=== PATIENT | female | born 1985 | race Caucasian/White ===

== ENCOUNTER 2018-11-29 16:00 | Emergency (ER) | payer OTHER, MEDICAID, SELFPAY ==
[2018-11-29 16:03] VITALS: BP 111/78; PULSE 79; RESP 15; TEMP 36.7; O2SAT 99; BMI 25.7
[2018-11-29] MEDS: ONDANSETRON 4 MG/2 ML INJ IV (16:19)
[2018-11-29] MEDS: SODIUM CHLORIDE 0.9% 1,000 ML 1000 ML IV (16:20)
[2018-11-29 16:29] LABS: Add Manual Diff / Slide Review NO; Basophils Absolute Auto 0 /uL (0-100); Basophils Percent Auto 0.5 % (0-2); Eosinophils Absolute Auto 100 /uL (0-450); Eosinophils Percent Auto 1.3 % (2-4); Hematocrit 39.4 % (36-46); Hemoglobin 13.6 g/dL (12.0-16.0); Lymphocytes Absolute Auto 1500 /uL (1100-4500); Lymphocytes Percent Auto 19.1 % (25-40); Mean Corpuscular HGB Conc 34.6 % (30-36); Mean Corpuscular Hemoglobin 31.6 PG (26-34); Mean Corpuscular Volume 91.4 fL (80-100); Monocytes Absolute Auto 500 /uL (0-900); Neutrophils Absolute Auto 5600 /uL (1500-7000); Neutrophils Percent Auto 72.1 % (50-75); Platelet Count 287 X10^3/uL (150-400); Red Cell Distribution Width 12.6 % (11.6-14.8); White Blood Cell Count 7.7 X10^3/uL (4.5-11.0)
[2018-11-29 16:30] LABS: RBC Urine None Seen (0-5/HPF)
[2018-11-29 16:37] LABS: Alanine Aminotransferase 32 IU/L (9-52); Albumin 4.4 g/dL (3.5-5.0); Albumin Globulin Ratio 1.3 (1.0-2.8); Alkaline Phosphatase 80 U/L (38-126); Aspartate Aminotransferase 17 IU/L (14-36); Bilirubin Total 0.7 mg/dL (0.2-1.3); Blood Urea Nitrogen 12 mg/dL (7-17); Calcium 9.7 mg/dL (8.4-10.2); Carbon Dioxide 21 mmol/L (22-32); Chloride 105 mmol/L (98-107); Estimated Glomerular Filt Rate > 60.0 mL/min (>60); Globulin 3.3 g/dL (1.7-4.1); Glucose 79 mg/dL (70-100); HEMOLYSIS < 15 (0-50); Potassium 3.7 mmol/L (3.4-5.1); Sodium 140 mmol/L (137-145); Total Protein 7.7 g/dL (6.3-8.2)
[2018-11-29 16:38] LABS: Bacteria Urine Moderate (10-30); Culture Indicated Urine Cult Not Indicated; Squamous Epithelial Cell Urine 5-10 /HPF (0-5/HPF); WBC Urine 5-10/HPF (0-5/HPF)
--- NOTE | 2018-11-29 21:23 | ED_ITS ---
HPI - Nausea/Vomiting/Diarrhea <SANCHO Bledsoe - Last Filed: 11/29/18 21:43> General Chief complaint: Nausea/Vomiting/Diarrhea Stated complaint: SENT BY DR GIMENEZ Time Seen by Provider: 11/29/18 17:03 Source: patient Mode of arrival: ambulatory Limitations: no limitations History of Present Illness HPI Narrative: This is a 33 year old female, formal smoker, who presents to ED with nausea and vomiting. She is 7 week EGA with with AB1. Patient reports she had hyper emesis gravidarum with all her . She was referred here to ED by Dr. Gimenez. Patient reports has no vaginal bleeding, abdominal cramping, urinary frequency, fever. Patient was evaluated by Dr. Gimenez with pelvic ultrasound prior coming into ED, however, she had not had formal ultrasound test yet. She also states has been having constipation. Related Data Home Medications Medication Instructions Recorded Confirmed MULTIVITAMIN 1 tab PO QDAY #0 07/13/16 11/29/18 Previous Rx's Medication Instructions Recorded ondansetron 4 mg disintegrating 4 mg PO Q6H #30 tab 11/29/18 tablet Allergies Allergy/AdvReac Type Severity Reaction Status Date / Time No Known Drug Allergies Allergy Unknown Verified 11/29/18 16:03 [NO KNOWN DRUG ALLERGIES] EGGPLANT Allergy Mild HIVES, Uncoded 07/12/17 12:37 EGGPLANT Review of Systems <SANCHO Bledsoe - Last Filed: 11/29/18 21:43> Review of Systems ROS Unobtainable: All systems reviewed & are unremarkable except as noted in HPI and below PFSH <SANCHO Bledsoe - Last Filed: 11/29/18 21:43> Medical History Hyperemesis gravidarum (Acute) Social History Smoking Status: Former smoker Social History Smoking Status: Former smoker Exam <SANCHO Bledsoe - Last Filed: 11/29/18 21:43> Narrative Exam Narrative: General appearance: well developed, well nourished, in no acute distress. Head: normocephalic, atraumatic, no scalp lesions, non-tender. Eye: pupil equal, round. EOMI. Nose: nares patent. Oral: mucosa moist. Neck/Thyroid: neck supple, full range of motion, no visible masses. Skin: no suspicious rashes, lesions over visible areas. Warm and dry. Heart: no clubbing, no cyanosis, no edema. Lungs: Breathing even and unlabored. No stridor. No accessory muscles used. Chest: normal shape and expansion. Abdomen: non-obese, non-distended. Neurologic: alert and oriented. Cognitive exam, [place] TURNER and PNS grossly intact on informal exam. Psych: good eye contact, normal affect. Initial Vital Signs Initial Vital Signs: Vital Signs Temperature 98.0 F 11/29/18 16:03 Pulse Rate 79 11/29/18 16:03 Respiratory Rate 15 11/29/18 16:03 Blood Pressure 111/78 11/29/18 16:03 Pulse Oximetry 99 11/29/18 16:03 <Charisma Sanabria DO - Last Filed: 11/30/18 00:47> Initial Vital Signs Initial Vital Signs: Vital Signs Temperature 98.0 F 11/29/18 16:03 Pulse Rate 79 11/29/18 16:03 Respiratory Rate 15 11/29/18 16:03 Blood Pressure 111/78 11/29/18 16:03 Pulse Oximetry 99 11/29/18 16:03 Course <SANCHO Bledsoe - Last Filed: 11/29/18 21:43> Orders Ordered: ED Orders 11/29/18 16:15 Complete Blood Count AUTO DIFF Stat Comprehensive Metabolic Panel Stat Urine Microscopic Stat Discontinued Medications Sodium Chloride (Normal Saline 0.9%) 1,000 mls @ 1,000 mls/hr IV BOLUS ONE Stop: 11/29/18 17:11 Last Infusion: 11/29/18 17:13 Dose: 0 mls/hr Documented by: Admin: 11/29/18 16:20 Dose: 1,000 mls/hr Documented by: MAGDIEL Ondansetron HCl (Zofran) 4 mg IV NOW ONE Stop: 11/29/18 16:13 Last Admin: 11/29/18 16:19 Dose: 4 mg Documented by: MAGDIEL Vital Signs Vital signs: Vital Signs - 8 hr 11/29/18 16:03 Temperature 98.0 F Pulse Rate 79 Respiratory Rate 15 Blood Pressure 111/78 Pulse Oximetry 99 <Charisma Sanabria DO - Last Filed: 11/30/18 00:47> Orders Ordered: ED Orders 11/29/18 16:15 Complete Blood Count AUTO DIFF Stat Comprehensive Metabolic Panel Stat Urine Microscopic Stat Discontinued Medications Sodium Chloride (Normal Saline 0.9%) 1,000 mls @ 1,000 mls/hr IV BOLUS ONE Stop: 11/29/18 17:11 Last Infusion: 11/29/18 17:13 Dose: 0 mls/hr Documented by: Admin: 11/29/18 16:20 Dose: 1,000 mls/hr Documented by: MAGDIEL Ondansetron HCl (Zofran) 4 mg IV NOW ONE Stop: 11/29/18 16:13 Last Admin: 11/29/18 16:19 Dose: 4 mg Documented by: MAGDIEL Vital Signs Vital signs: Vital Signs - 8 hr 11/29/18 16:03 Temperature 98.0 F Pulse Rate 79 Respiratory Rate 15 Blood Pressure 111/78 Pulse Oximetry 99 MDM - Nausea/Vomiting/Diarrhea <SANCHO Bledsoe - Last Filed: 11/29/18 21:43> Differential Diagnosis Differential diagnosis: Likely gastroenteritis, dehydration and other (Hyperemesis gravidarum) Medical Records Attestation: I reviewed the patient's medical records. Lab Data Attestation: I reviewed the patient's lab results. Result diagrams: 11/29/18 16:15 11/29/18 16:15 Labs: Lab Results 11/29/18 11/29/18 11/29/18 Range/Units 16:15 16:15 16:15 WBC 7.7 (4.5-11.0) X10^3/uL RBC 4.30 (4.0-5.2) X10^6/uL Hgb 13.6 (12.0-16.0) g/dL Hct 39.4 (36-46) % MCV 91.4 (80-100) fL MCH 31.6 (26-34) PG MCHC 34.6 (30-36) % RDW 12.6 (11.6-14.8) % Plt Count 287 (150-400) X10^3/uL Neut % (Auto) 72.1 (50-75) % Lymph % (Auto) 19.1 L (25-40) % [place] % (Auto) 7.0 (3-14) % Eos % (Auto) 1.3 L (2-4) % Baso % (Auto) 0.5 (0-2) % Neut # (Auto) 5600 (8216-1056) /uL Lymph # (Auto) 1500 (9944-9087) /uL [place] # (Auto) 500 (0-900) /uL Eos # (Auto) 100 (0-450) /uL Baso # (Auto) 0 (0-100) /uL Sodium 140 (137-145) mmol/L Potassium 3.7 (3.4-5.1) mmol/L Chloride 105 (98-107) mmol/L Carbon Dioxide 21 L (22-32) mmol/L BUN 12 (7-17) mg/dL Creatinine 0.50 L (0.52-1.04) mg/dL Estimated GFR > 60.0 (>60) mL/min BUN/Creatinine Ratio 24.0 H (6-22) Glucose 79 (70-100) mg/dL Calcium 9.7 (8.4-10.2) mg/dL Total Bilirubin 0.7 (0.2-1.3) mg/dL AST 17 (14-36) IU/L ALT 32 (9-52) IU/L Alkaline Phosphatase 80 (38-126) U/L Total Protein 7.7 (6.3-8.2) g/dL Albumin 4.4 (3.5-5.0) g/dL Globulin 3.3 (1.7-4.1) g/dL Albumin/Globulin Ratio 1.3 (1.0-2.8) Urine RBC None seen (0-5/HPF) Urine WBC 5-10/hpf H (0-5/HPF) Ur Squamous Epith Cells 5-10 /hpf H (0-5/HPF) Urine Bacteria Moderate (10-30) H (None) Ur Culture Indicated? Cult not indicated Urine Dip Bedside Urine Glucose Negative Bedside Urine Bilirubin + 1 Bedside Urine Ketone +++ 80 Urine Specific Roca 1.025 Bedside Urine Occult Blood - Negative Bedside Urine pH 6.0 Bedside Urine Protein +/- 15 Bedside Urine Urobilinogen 1+ 2mg Bedside Urine Nitrite - Negative Bedside Urine Leukocytes ++ 125 Esterase MDM Narrative Medical decision making narrative: This is a 33-year-old female with with 1AB and currently 7 wk EGA and a patient of Dr. Gimenez. She was referred to ED for nausea and vomiting. Patient has a long history of hyper emesis is with H . She denies any vaginal bleeding, abdominal pain at this time. Once patient arrived to ED, patient was treated with IV fluid, Zofran before my evaluation. By then, patient are to felt better and her nausea was controlled. She states felt hungry and is ready to eat now. She was able to tolerate ice chips before discharge to home. The blood tests were unremarkable. Moderate bacteria with squamous epithelia cells due to possible contaminated sample. However, lab was contacted to request culture her urine and is pending at this time. Patient reports she has Zofran prescribed by Dr. Gimenez for home use. Return precautions were discussed with patient and patient advised to follow with Dr. Gimenez as scheduled. Patient agrees with the treatment plan and no further questions were expressed at this time. <Charisma Sanabria, DO - Last Filed: 11/30/18 00:47> Lab Data Labs: Lab Results 11/29/18 11/29/18 11/29/18 Range/Units 16:15 16:15 16:15 WBC 7.7 (4.5-11.0) X10^3/uL RBC 4.30 (4.0-5.2) X10^6/uL Hgb 13.6 (12.0-16.0) g/dL Hct 39.4 (36-46) % MCV 91.4 (80-100) fL MCH 31.6 (26-34) PG MCHC 34.6 (30-36) % RDW 12.6 (11.6-14.8) % Plt Count 287 (150-400) X10^3/uL Neut % (Auto) 72.1 (50-75) % Lymph % (Auto) 19.1 L (25-40) % [place] % (Auto) 7.0 (3-14) % Eos % (Auto) 1.3 L (2-4) % Baso % (Auto) 0.5 (0-2) % Neut # (Auto) 5600 (3165-3877) /uL Lymph # (Auto) 1500 (1259-7018) /uL [place] # (Auto) 500 (0-900) /uL Eos # (Auto) 100 (0-450) /uL Baso # (Auto) 0 (0-100) /uL Sodium 140 (137-145) mmol/L Potassium 3.7 (3.4-5.1) mmol/L Chloride 105 (98-107) mmol/L Carbon Dioxide 21 L (22-32) mmol/L BUN 12 (7-17) mg/dL Creatinine 0.50 L (0.52-1.04) mg/dL Estimated GFR > 60.0 (>60) mL/min BUN/Creatinine Ratio 24.0 H (6-22) Glucose 79 (70-100) mg/dL Calcium 9.7 (8.4-10.2) mg/dL Total Bilirubin 0.7 (0.2-1.3) mg/dL AST 17 (14-36) IU/L ALT 32 (9-52) IU/L Alkaline Phosphatase 80 (38-126) U/L Total Protein 7.7 (6.3-8.2) g/dL Albumin 4.4 (3.5-5.0) g/dL Globulin 3.3 (1.7-4.1) g/dL Albumin/Globulin Ratio 1.3 (1.0-2.8) Urine RBC None seen (0-5/HPF) Urine WBC 5-10/hpf H (0-5/HPF) Ur Squamous Epith Cells 5-10 /hpf H (0-5/HPF) Urine Bacteria Moderate (10-30) H (None) Ur Culture Indicated? Cult not indicated Urine Dip Bedside Urine Glucose Negative Bedside Urine Bilirubin + 1 Bedside Urine Ketone +++ 80 Urine Specific Roca 1.025 Bedside Urine Occult Blood - Negative Bedside Urine pH 6.0 Bedside Urine Protein +/- 15 Bedside Urine Urobilinogen 1+ 2mg Bedside Urine Nitrite - Negative Bedside Urine Leukocytes ++ 125 Esterase Discharge Plan Departure Patient Disposition: Home Clinical Impression: Hyperemesis gravidarum Discharge Date/Time: 11/29/18 19:23 Instructions: DI for Dehydration -- Adult, DI for Hyperemesis Gravidarum Activity Restrictions/Additional Instructions: You have been diagnosed with [hyper emesis gravidarum]. What to do: *Take your medications as directed. Take Zofran under the tongue as needed for nausea or vomiting. Please hydrate yourself adequately with small sips of liquids frequently afterwards. Then, advance the diet as bland as you can tolerate. You're urine sample is being cultured and you will get a phone call if you need antibiotic medication treatment. *Follow up with your primary care provider/OB doctor in 2-3 days, call for an appointment. Let them know you were seen in the ED and that we asked you to be seen in follow up. *Return to ED if you have any new, worsening, or concerning symptoms, such as [abdominal pain, heavy vaginal bleeding, fever, unable to tolerate liquids after the Zofran, chest pain, breathing trouble, any acute concerns]. Prescriptions: No Action MULTIVITAMIN 1 tab PO QDAY Qty: 0 RF: 0 ondansetron 4 mg tablet,disintegrating 4 mg PO Q6H Qty: 30 RF: 6 Referrals: Dolly Gimenez MD [Family Provider] - Wilfredo Ramirez MD [Primary Care Provider] -
== END 2018-11-29 19:23 | disposition home or self-care (01) ==
PROVIDERS: Emergency Medicine; Internal Medicine; Emergency Provider Nurse Practitioner Family; Family Provider Specialist; PCP Family Medicine
DX: O21.0 Mild hyperemesis gravidarum (principal); Z3A.01 Less than 8 weeks gestation of pregnancy
CPT/HCPCS: 36591; 80053; 81003; 81015; 85025; 96361; 96374; 99283; 99284; J2405

== ENCOUNTER 2018-12-09 15:01 | Emergency (ER) | payer OTHER, MEDICAID, SELFPAY ==
[2018-12-09 15:36] VITALS: BP 104/73; PULSE 67; RESP 16; TEMP 36.2; O2SAT 98; BMI 25.7
--- NOTE | 2018-12-09 16:58 | ED_ITS ---
HPI - Abdominal Pain <SANCHO Woody - Last Filed: 12/09/18 21:32> General Chief Complaint: Abdominal Pain Stated Complaint: 9wks , states blood in stool, but not sure Time Seen by Provider: 12/09/18 16:31 Source: patient Mode of arrival: ambulatory Limitations: no limitations History of Present Illness HPI narrative: 33- year old female , who is 9 weeks , presents emergency department complaining of constipation for the last week. She states that she has hyperemesis but was given ondansetron to take about a week ago. She feels that this medication has helped greatly but that it has made her constipated. She reports her last big bowel movement was 1 week ago, but today she had a very small bowel movement. She also states that she had a very small amount of bright red blood on the toilet paper today. She feels that it may be caused by hemorrhoid as she now has pain around her anus. She states she feels very constipated. Denies nausea, abdominal pain, vaginal bleeding, vaginal cramping, vomiting, fevers, chills, headaches, shortness of breath, confusion, or lower leg swelling. Related Data Home Medications Medication Instructions Recorded Confirmed MULTIVITAMIN 1 tab PO QDAY #0 07/13/16 11/29/18 Previous Rx's Medication Instructions Recorded ondansetron 4 mg disintegrating 4 mg PO Q6H #30 tab 11/29/18 tablet Allergies Allergy/AdvReac Type Severity Reaction Status Date / Time No Known Drug Allergies Allergy Unknown Verified 11/29/18 16:03 [NO KNOWN DRUG ALLERGIES] EGGPLANT Allergy Mild HIVES, Uncoded 07/12/17 12:37 EGGPLANT Review of Systems <SANCHO Woody - Last Filed: 12/09/18 21:32> Review of Systems Narrative: REVIEW OF SYSTEMS: GENERAL: Denies fever, chills, malaise, or wt. loss. HENT: No head trauma, sore throat, or dysphagia. EYES: No loss of vision, double vision, eye pain, or irritation. CARDIOVASCULAR: No chest pain, palpitations, or orthopnea. RESPIRATORY: No shortness of breath or cough. GASTROINTESTINAL: Complains of constipation and hemorrhoids, see HPI GENITOURINARY: No flank pain, urinary incontinence, hesitancy, frequency, or dysuria. No vaginal discharge, vaginal bleeding, or abdominal cramping. MUSCULOSKELETAL: No pain, weakness, or trauma. INTEGUMENTARY: No rash, lesions, or pruritus. NEURO: No numbness, tingling, memory loss, confusion, or headaches. PSYCH: No behavior or mood changes. PFSH <SANCHO Woody - Last Filed: 12/09/18 21:32> Medical History Hyperemesis gravidarum (Acute) Social History Smoking Status: Former smoker Social History Smoking Status: Former smoker Exam <SANCHO Woody - Last Filed: 12/09/18 21:32> Initial Vital Signs Initial Vital Signs: Vital Signs Temperature 97.2 F L 12/09/18 15:36 Pulse Rate 67 12/09/18 15:36 Respiratory Rate 16 12/09/18 15:36 Blood Pressure 104/73 12/09/18 15:36 Pulse Oximetry 98 12/09/18 15:36 PHYSICAL EXAMINATION: GENERAL: Well groomed, alert, and cooperative. Answers questions promptly and appropriately. Vital signs noted. HENT: Normocephalic, atraumatic. Hearing intact. Oral mucosa is pink and moist. EYES: Conjunctiva pink, sclera white, no periorbital swelling. CARDIOVASCULAR: S1 and S2 sounds normal. Regular rate and rhythm, no murmurs, clicks, or bruits. No pedal edema. RESPIRATORY: Normal respiratory rate, trachea midline, airway patent. No stridor, nasal flaring or accessory muscle use. Lungs are clear in all evans without wheeze, rhonchi, or crackles. GASTROINTESTINAL: Bowel sounds normoactive. Abdomen is soft, slightly distended, and non-tender. No organomegaly, no palpable masses. RECTAL: External non-thrombosed hemorrhoid noted on exam, no blood present on examination, small amount of hard stool palpated. GENITALURINARY: No flank tenderness. MUSCULOSKELETAL: Normal gait and coordination. Equal tone and mass bilaterally. EXTREMITIES: CMS intact, no pedal edema. SKIN: Warm, dry, soft, appropriate color for ethnicity. No lesions, rashes, or wounds. NEURO: Alert and Oriented X 3. Good coordination. No ataxia, or sensory deficits, or cognitive issues. PSYCH: Appropriate affect and mood. <Charisma Sanabria DO - Last Filed: 12/10/18 07:54> Initial Vital Signs Initial Vital Signs: Vital Signs Temperature 97.2 F L 12/09/18 15:36 Pulse Rate 67 12/09/18 15:36 Respiratory Rate 16 12/09/18 15:36 Blood Pressure 104/73 12/09/18 15:36 Pulse Oximetry 98 12/09/18 15:36 Course <SANCHO Woody - Last Filed: 12/09/18 21:32> Course Course Narrative: Patient was given a mineral oil enema without any relief of constipation. Patient stated she was nervous about having back to [place] after an enema. After much discussion, she was given a detail bowel regimen to try at home. Large amounts of water was encouraged. Patient states she has an appointment tomorrow with her OB, she was encouraged to keep that appointment for further evaluation. X-rays were not done as patient is currently . Consultations Consultation #1: Patient staffed with Dr. Sanabria. Vital Signs Vital signs: Vital Signs - 8 hr 12/09/18 15:36 12/09/18 18:59 Temperature 97.2 F L Pulse Rate 67 62 Respiratory Rate 16 15 Blood Pressure 104/73 Blood Pressure [Left Arm] 96/60 Pulse Oximetry 98 100 <Charisma Sanabria DO - Last Filed: 12/10/18 07:54> Vital Signs Vital signs: Vital Signs - 8 hr 12/09/18 15:36 12/09/18 18:59 Temperature 97.2 F L Pulse Rate 67 62 Respiratory Rate 16 15 Blood Pressure 104/73 Blood Pressure [Left Arm] 96/60 Pulse Oximetry 98 100 MDM - Abdominal Pain <SANCHO Woody - Last Filed: 12/09/18 21:32> Medical Records Attestation: I reviewed the patient's medical records. Lab Data Attestation: I reviewed the patient's lab results. MDM Narrative Medical decision making narrative: I suspect patient's symptoms are most likely caused by constipation as this is a side effect of Zofran, she reports only a small bowel movement today, she reports bloating and fullness without cramping, and she is currently . I also believed a small amount of blood on the toilet paper to be from her hemorrhoid that was visualized on exam. Only 1 enema was administered in the emergency department today as patient had a long drive home, both stool softeners and laxative that was approved for or recommended to the patient as well as hemorrhoid cream. I do not suspect an GI bleed in this patient as she only saw small amount of blood on the toilet paper today, she is hemodynamically stable, she denies any belly pain or vomitus. There is no reason to believe any complication with the is the time she denies any other symptoms including vaginal discharge, vaginal bleeding, abdominal cramping, headaches, or chest pain. Strict return precautions given and follow-up instructions discussed. Discharge Plan Departure Patient Disposition: Home Clinical Impression: Acute hemorrhoid Constipation Qualifiers: Constipation type: other constipation type Qualified Code(s): K59.09 - Other constipation Discharge Date/Time: 12/09/18 19:10 Instructions: DI for Constipation Activity Restrictions/Additional Instructions: Thank you for entrusting me with your care today. As discussed, the enema we gave you today should help relieve some of your constipation. Please take OTC senna 8.6mg/docusate sodium 100mg 1-2 times a day for the next week. These medications will help with constipation as well. You can use [id number] preparation H cream on his as needed for hemorrhoid pain. Please follow up with your provider as scheduled for tomorrow. Please remember to drink a lot of water. Return to the emergency department if you develop high fevers, chest pain, shortness of breath, dizziness, large amounts of blood in your stool. Prescriptions: No Action MULTIVITAMIN 1 tab PO QDAY Qty: 0 RF: 0 ondansetron 4 mg tablet,disintegrating 4 mg PO Q6H Qty: 30 RF: 6 Referrals: Dolly Gimenez MD [Primary Care Provider] -
[2018-12-09 18:59] VITALS: BP 96/60; PULSE 62; RESP 15; O2SAT 100
== END 2018-12-09 19:10 | disposition home or self-care (01) ==
PROVIDERS: Emergency Provider Nurse Practitioner; Family Provider Specialist; PCP Specialist
DX: O26.891 Other specified pregnancy related conditions, first trimester (principal); K64.9 Unspecified hemorrhoids; K59.09 Other constipation; Z3A.09 9 weeks gestation of pregnancy
CPT/HCPCS: 99282

== ENCOUNTER 2019-02-25 23:35 | Emergency (ER) | payer OTHER, MEDICAID, SELFPAY ==
[2019-02-25 23:35] VITALS: BP 107/75; PULSE 81; RESP 18; TEMP 36.5; O2SAT 100; BMI 26.1
[2019-02-26] MEDS: SODIUM CHLORIDE 0.9% 1,000 ML 1000 ML IV ×2 (00:09→01:22)
[2019-02-26] MEDS: ONDANSETRON 4 MG/2 ML INJ IV ×2 (00:09→02:12)
--- NOTE | 2019-02-26 00:09 | ED.NAVMDI ---
HPI - Nausea/Vomiting/Diarrhea General Chief complaint: Nausea/Vomiting/Diarrhea Stated complaint: fever last night vomiting all day 20 weeks preg Time Seen by Provider: 02/26/19 00:08 Source: patient Mode of arrival: Ambulatory Limitations: no limitations History of Present Illness HPI Narrative: 33-year-old female comes emergency department with complaint of fever yesterday, vomiting for the last several days. Patient states she has had vomiting at about 11 times. She has not been able to keep any fluids down. She states she has not had diarrhea. She has had normal bowel movements. She states she occasionally has a little cramping in her belly but relates that to vomiting. She is 20 weeks . Denies any headache that is new she has had migraines intermittently through her . She denies any chest pain or shortness of breath. No nasal congestion. No sore throat. She denies any dysuria but states her urine smells bad. She denies any new vaginal discharge or vaginal bleeding. She is 20 weeks today 02/26/2019, Dr. Gimenez is her OBGYN. She is G6,P4, A1. Patient had hyperemesis gravidarum with prior pregnancies but not with this one. She states her 2 children at home have been sick the last several days, one was vomiting the other nauseated. Related Data Home Medications Medication Instructions Recorded Confirmed MULTIVITAMIN 1 tab PO QDAY #0 07/13/16 11/29/18 Previous Rx's Medication Instructions Recorded ondansetron 4 mg disintegrating 4 mg PO Q6H #30 tab 11/29/18 tablet [id number]-kybcdvriwqagq-ucnqdxpd 1 cap PO Q4-6H PRN #20 cap 02/07/19 50 mg-325 mg-40 mg capsule hydrocodone 5 mg-acetaminophen 325 2 tab PO Q4-6H PRN #20 tab 02/15/19 mg tablet cephalexin [Keflex] 500 mg PO BID #14 cap 02/26/19 ondansetron HCl [Zofran] 4 mg PO Q6H PRN #10 tab 02/26/19 Allergies Allergy/AdvReac Type Severity Reaction Status Date / Time No Known Drug Allergies Allergy Unknown Verified 11/29/18 16:03 [NO KNOWN DRUG ALLERGIES] EGGPLANT Allergy Mild HIVES, Uncoded 07/12/17 12:37 EGGPLANT Review of Systems Review of Systems ROS Unobtainable: All systems reviewed & are unremarkable except as noted in HPI and below Patient History Medical History Hyperemesis gravidarum (Acute) Social History Smoking Status: Former smoker alcohol intake frequency: holidays/special occasions only Substance Use Type: does not use Exam Narrative Exam Narrative: GENERAL: Alert and oriented x three, well-nourished female in mild distress. Patient does appear pale and does appear that she does not feel well HEENT: Head normocephalic, atraumatic, EOMI, pupils reactive, face symmetric, moist mucous membranes NECK: Supple, full range of motion CARDIOVASCULAR: Regular rate and rhythm without murmurs, rubs or gallops. RESPIRATORY: Breath sounds equal bilaterally, no wheezes rales or rhonchi. ABDOMEN: Soft, nontender palpation. Gravid. Normoactive bowel sounds all 4 quadrants. No guarding or rebound, rigidity, no mass : No CVA tenderness EXTREMITIES: Normal range of motion, no clubbing or edema. Neurovascularly intact NEUROLOGICAL: Cranial nerves II through XII grossly intact. Moving all extremities SKIN: Warm, dry, no petechiae, no rashes or lesions. Initial Vital Signs Initial Vital Signs: Vital Signs Temperature 97.7 F 02/25/19 23:35 Pulse Rate 81 02/25/19 23:35 Respiratory Rate 18 02/25/19 23:35 Blood Pressure 107/75 02/25/19 23:35 Pulse Oximetry 100 02/25/19 23:35 Course Orders Ordered: ED Orders 02/25/19 23:58 Complete Blood Count AUTO DIFF Stat Comprehensive Metabolic Panel Stat Lipase Stat 02/26/19 00:12 Influenza A and B by PCR Rapid Stat 02/26/19 01:20 Urinalysis and Microscopic Stat Urine Culture Stat Discontinued Medications Cephalexin HCl (Keflex) 500 mg PO NOW ONE Stop: 02/26/19 01:58 Last Admin: 02/26/19 02:12 Dose: 500 mg Documented by: SOHEILA Sodium Chloride (Normal Saline 0.9%) 1,000 mls @ 1,000 mls/hr IV BOLUS ONE Stop: 02/26/19 00:57 Last Infusion: 02/26/19 01:11 Dose: 0 mls/hr Documented by: Admin: 02/26/19 00:09 Dose: 1,000 mls/hr Documented by: SOHEILA Sodium Chloride (Normal Saline 0.9%) 1,000 mls @ 1,000 mls/hr IV BOLUS ONE Stop: 02/26/19 02:12 Last Infusion: 02/26/19 02:28 Dose: 0 mls/hr Documented by: Admin: 02/26/19 01:22 Dose: 1,000 mls/hr Documented by: SOHEILA Ondansetron HCl (Zofran) 4 mg IV NOW ONE Stop: 02/25/19 23:58 Last Admin: 02/26/19 00:09 Dose: 4 mg Documented by: SOHEILA Ondansetron HCl (Zofran) 4 mg IV NOW ONE Stop: 02/26/19 02:08 Last Admin: 02/26/19 02:12 Dose: 4 mg Documented by: SOHEILA Vital Signs Vital signs: Vital Signs - 8 hr 02/25/19 23:35 02/26/19 01:30 02/26/19 02:56 Temperature 97.7 F 97.9 F Pulse Rate 81 84 80 Respiratory Rate 18 17 18 Blood Pressure 107/75 99/66 Blood Pressure [Left Arm] 92/46 L Pulse Oximetry 100 98 98 MDM - Nausea/Vomiting/Diarrhea Lab Data Attestation: I reviewed the patient's lab results. Result diagrams: 02/26/19 00:12 02/26/19 00:12 Labs: Lab Results 02/26/19 02/26/19 02/26/19 Range/Units 00:12 00:12 00:12 WBC 10.8 (4.5-11.0) X10^3/uL RBC 4.39 (4.0-5.2) X10^6/uL Hgb 13.8 (12.0-16.0) g/dL Hct 39.3 (36-46) % MCV 89.3 (80-100) fL MCH 31.5 (26-34) PG MCHC 35.2 (30-36) % RDW 12.6 (11.6-14.8) % Plt Count 325 (150-400) X10^3/uL Neut % (Auto) 88.0 H (50-75) % Lymph % (Auto) 8.4 L (25-40) % [place] % (Auto) 3.1 (3-14) % Eos % (Auto) 0.2 L (2-4) % Baso % (Auto) 0.3 (0-2) % Neut # (Auto) 9500 H (4112-7752) /uL Lymph # (Auto) 900 L (8850-0355) /uL Bollinger # (Auto) 300 (0-900) /uL Eos # (Auto) 0 (0-450) /uL Baso # (Auto) 0 (0-100) /uL Sodium 136 L (137-145) mmol/L Potassium 3.8 (3.4-5.1) mmol/L Chloride 105 (98-107) mmol/L Carbon Dioxide 21 L (22-32) mmol/L BUN 10 (7-17) mg/dL Creatinine 0.50 L (0.52-1.04) mg/dL Estimated GFR > 60.0 (>60) mL/min BUN/Creatinine Ratio 20.0 (6-22) Glucose 96 (70-100) mg/dL Calcium 9.7 (8.4-10.2) mg/dL Total Bilirubin 0.8 (0.2-1.3) mg/dL AST 17 (14-36) IU/L ALT 14 (<35) IU/L Alkaline Phosphatase 101 (38-126) U/L Total Protein 7.7 (6.3-8.2) g/dL Albumin 4.3 (3.5-5.0) g/dL Globulin 3.4 (1.7-4.1) g/dL Albumin/Globulin Ratio 1.3 (1.0-2.8) Lipase 54 (23-300) U/L Urine Color Urine Appearance Urine pH (4.5-8.0) Ur Specific [place] (1.000-1.035) Urine Protein (Negative) Urine Glucose (UA) (Negative) g/dL Urine Ketones (NEGATIVE) Urine Occult Blood (Negative) Urine Nitrate (Negative) Urine Bilirubin (NEGATIVE) Urine Urobilinogen (0.2) E.U./dL Ur Leukocyte Esterase (NEGATIVE) Urine RBC (0-5/HPF) Urine WBC (0-5/HPF) Ur Squamous Epith Cells (0-5/HPF) Urine Bacteria (None) Ur Culture Indicated? Influenza A & B (PCR) Negative (Negative) 02/26/19 Range/Units 01:20 WBC (4.5-11.0) X10^3/uL RBC (4.0-5.2) X10^6/uL Hgb (12.0-16.0) g/dL Hct (36-46) % MCV (80-100) fL MCH (26-34) PG MCHC (30-36) % RDW (11.6-14.8) % Plt Count (150-400) X10^3/uL Neut % (Auto) (50-75) % Lymph % (Auto) (25-40) % Bollinger % (Auto) (3-14) % Eos % (Auto) (2-4) % Baso % (Auto) (0-2) % Neut # (Auto) (3632-6611) /uL Lymph # (Auto) (0636-9658) /uL Bollinger # (Auto) (0-900) /uL Eos # (Auto) (0-450) /uL Baso # (Auto) (0-100) /uL Sodium (137-145) mmol/L Potassium (3.4-5.1) mmol/L Chloride (98-107) mmol/L Carbon Dioxide (22-32) mmol/L BUN (7-17) mg/dL Creatinine (0.52-1.04) mg/dL Estimated GFR (>60) mL/min BUN/Creatinine Ratio (6-22) Glucose (70-100) mg/dL Calcium (8.4-10.2) mg/dL Total Bilirubin (0.2-1.3) mg/dL AST (14-36) IU/L ALT (<35) IU/L Alkaline Phosphatase (38-126) U/L Total Protein (6.3-8.2) g/dL Albumin (3.5-5.0) g/dL Globulin (1.7-4.1) g/dL Albumin/Globulin Ratio (1.0-2.8) Lipase (23-300) U/L Urine Color Yellow Urine Appearance Slightly cloudy Urine pH 6.5 (4.5-8.0) Ur Specific [place] 1.015 (1.000-1.035) Urine Protein 1+ H (Negative) Urine Glucose (UA) Negative (Negative) g/dL Urine Ketones 3+ H (NEGATIVE) Urine Occult Blood Negative (Negative) Urine Nitrate Positive (Negative) Urine Bilirubin Negative (NEGATIVE) Urine Urobilinogen 0.2 (0.2) E.U./dL Ur Leukocyte Esterase Negative (NEGATIVE) Urine RBC None seen (0-5/HPF) Urine WBC 1-5/hpf (0-5/HPF) Ur Squamous Epith Cells 0-1 /hpf (0-5/HPF) Urine Bacteria Many (>30) H (None) Ur Culture Indicated? Specimen cultured Influenza A & B (PCR) (Negative) MDM Narrative Medical decision making narrative: Patient comes in with about 12 in 24 hours of vomiting. Urine does show ketones. She does have leukocyte esterase in with 20 weeks she also has nitrates was started on oral antibiotics. She have an elevated white count, she is not anemic, neutrophils are 88%. Electrolytes show sodium 136 with a CO2 of 21, potassium chloride and BUN are normal range with a normal creatinine. LFTs and lipase are normal as well. Influenza swab was negative. heart tones are in the 150s. Patient is feeling much better after 2 L of fluids, she did not urinate until the 2nd L it did have ketones. She has not had any more emesis but was given 1 additional dose of Zofran as she was still slightly nauseated. She has a couple tablets of Zofran at home from her prior pregnancies when she had hyperemesis but was given a prescription for several more. Plan to have her follow up with Dr. Gimenez in the short term and urine was sent for culture. Patient states that she did have MRSA in the past in her urine although I do not have any prior cultures for comparison so will wait for urine culture before changing antibiotics. Patient able to tolerate orals with no issue in the department. Discharge Plan Departure Patient Disposition: Home Clinical Impression: Vomiting, , Bacteriuria during Discharge Date/Time: 02/26/19 02:56 Instructions: Support (Alternative Therapy) Activity Restrictions/Additional Instructions: Follow up with Dr. Gimenez for recheck. Your urine was sent for culture this takes 48-72 hours to return. Take antibiotics until gone. Your prescription was sent to [facility] in [place]. Take zofran 4mg every 6 hours as needed for nausea. Return to the emergency department for fevers greater than 100.4 F, persistent vomiting, signs of dehydration, new abdominal pain, pelvic pain or flank pain black or bloody stools, vaginal bleeding, persistent contractions or other new or concerning symptoms Prescriptions: New cephalexin [Keflex] 500 mg capsule 500 mg PO BID Qty: 14 RF: 0 ondansetron HCl [Zofran] 4 mg tablet 4 mg PO Q6H PRN (Reason: nausea and vomiting) Qty: 10 RF: 0 No Action MULTIVITAMIN 1 tab PO QDAY Qty: 0 RF: 0 hydrocodone-acetaminophen 5-325 mg tablet 2 tab PO Q4-6H PRN (Reason: pain) Qty: 20 RF: 0 ondansetron 4 mg tablet,disintegrating 4 mg PO Q6H Qty: 30 RF: 6 lurzsehebs-ttsszsbpkgehp-opmm 50-325-40 mg capsule 1 cap PO Q4-6H PRN (Reason: headache) Qty: 20 RF: 0 Referrals: Dolly Gimenez MD [Primary Care Provider] - Stand Alone Forms: Work Release Note
[2019-02-26 00:25] LABS: Add Manual Diff / Slide Review NO; Basophils Absolute Auto 0 /uL (0-100); Basophils Percent Auto 0.3 % (0-2); Eosinophils Absolute Auto 0 /uL (0-450); Eosinophils Percent Auto 0.2 % (2-4); Hematocrit 39.3 % (36-46); Hemoglobin 13.8 g/dL (12.0-16.0); Lymphocytes Absolute Auto 900 /uL (1100-4500); Lymphocytes Percent Auto 8.4 % (25-40); Mean Corpuscular HGB Conc 35.2 % (30-36); Mean Corpuscular Hemoglobin 31.5 PG (26-34); Mean Corpuscular Volume 89.3 fL (80-100); Monocytes Absolute Auto 300 /uL (0-900); Monocytes Percent Auto 3.1 % (3-14); Neutrophils Absolute Auto 9500 /uL (1500-7000); Platelet Count 325 X10^3/uL (150-400); Red Blood Cell Count 4.39 X10^6/uL (4.0-5.2); Red Cell Distribution Width 12.6 % (11.6-14.8); White Blood Cell Count 10.8 X10^3/uL (4.5-11.0)
[2019-02-26 00:31] LABS: Alanine Aminotransferase 14 IU/L (<35); Albumin 4.3 g/dL (3.5-5.0); Albumin Globulin Ratio 1.3 (1.0-2.8); Alkaline Phosphatase 101 U/L (38-126); Aspartate Aminotransferase 17 IU/L (14-36); Bilirubin Total 0.8 mg/dL (0.2-1.3); Blood Urea Nitrogen 10 mg/dL (7-17); Calcium 9.7 mg/dL (8.4-10.2); Carbon Dioxide 21 mmol/L (22-32); Chloride 105 mmol/L (98-107); Estimated Glomerular Filt Rate > 60.0 mL/min (>60); Globulin 3.4 g/dL (1.7-4.1); Glucose 96 mg/dL (70-100); HEMOLYSIS < 15 (0-50); Lipase 54 U/L (23-300); Potassium 3.8 mmol/L (3.4-5.1); Sodium 136 mmol/L (137-145); Total Protein 7.7 g/dL (6.3-8.2)
[2019-02-26 00:36] LABS: Influenza A and B by PCR Rapid Negative (Negative)
[2019-02-26 01:30] VITALS: BP 92/46; PULSE 84; RESP 17; O2SAT 98
[2019-02-26 01:33] LABS: RBC Urine None Seen (0-5/HPF)
[2019-02-26 01:37] LABS: Bilirubin Urine UA NEGATIVE (NEGATIVE); Color Urine UA YELLOW; Glucose Urine UA NEGATIVE (Negative); Ketones Urine UA 3+ (NEGATIVE); Leukocyte Esterase Urine UA NEGATIVE (NEGATIVE); Nitrite Urine UA POSITIVE (Negative); Occult Blood Urine UA NEGATIVE (Negative); Protein Urine UA 1+ (Negative); Specific Gravity Urine UA 1.015 (1.000-1.035); Urobilinogen Urine UA 0.2 E.U./dL (0.2)
[2019-02-26 01:40] LABS: Appearance Urine UA Slightly Cloudy; pH Urine UA 6.5 (4.5-8.0)
[2019-02-26 01:53] LABS: Bacteria Urine Many (>30); Culture Indicated Urine Specimen Cultured; Squamous Epithelial Cell Urine 0-1 /HPF (0-5/HPF); WBC Urine 1-5/HPF (0-5/HPF)
[2019-02-26] MEDS: cephALEXin 250 MG CAPSULE 500 MG PO (02:12)
[2019-02-26 02:56] VITALS: BP 99/66; PULSE 80; RESP 18; TEMP 36.6; O2SAT 98
== END 2019-02-26 02:56 | disposition home or self-care (01) ==
PROVIDERS: Emergency Provider Emergency Medicine; Family Provider Specialist; PCP Specialist
DX: O26.892 Other specified pregnancy related conditions, second trimester (principal); O28.8 Other abnormal findings on antenatal screening of mother; Z3A.20 20 weeks gestation of pregnancy; R11.10 Vomiting, unspecified
CPT/HCPCS: 36415; 80053; 81001; 83690; 85025; 87077; 87086; 87186; 87502; 96361; 96374; 96376; 99283; 99284; J2405

== ENCOUNTER → 2019-03-07 15:35 | Outpatient (CLI) | payer OTHER, MEDICAID, SELFPAY ==
--- NOTE | 2019-03-07 15:42 | DI.US.S_ITS ---
PROCEDURE: US OB >= 14 WEEKS FETUS INDICATIONS: ANATOMY OUTSIDE/PRIOR DATING DATA: Last menstrual period (LMP): 10/09/2018. LMP-based estimated date of delivery (ZAHIDA): 07/16/2019. First dating scan (date and location): 11/29/2018. Estimated date of delivery (ZAHIDA) from first dating scan: 07/16/2019. TECHNIQUE: Real-time scanning was performed of the fetus, with image documentation and biometric measurements. COMPARISON: [facility], , OB >= 14 WEEKS FETUS, 02/07/2019, 11:22. FINDINGS: General: A single living intrauterine gestation is present. Presentation: Breech. Placenta: Placental position is anterior, without previa. Amniotic fluid index: 13.7 cm, normal range is 5-24 cm. heart rate: 144 beats per minute. Maternal cervical canal: 3.5 cm long. Normal lower limit is 2.5 cm. biometrics: Biparietal diameter: 4.8 cm. 20 weeks 3 days. Head circumference: 18.5 cm. 20 weeks 6 days. Abdominal circumference: 15.8 cm. 20 weeks 6 days. Femur length: 3.5 cm. 21 weeks 0 days. Estimated gestational age from initial scan: 21 weeks 2 days. Composite gestational age from present scan: 20 weeks 6 days. Estimated weight and percentile: 385 g. 25th percentile. Measurement variability for biometric dating: +/- 7 days from 14 weeks to 15 weeks 6 days gestation, +/- 10 days from 16 weeks to 21 weeks 6 days gestation, +/- 2 weeks from 22 weeks to 27 weeks 6 days gestation, +/- 3 weeks for 28 weeks gestation or later. weight reference: 4500 g or EFW >90/95% is considered macrosomia or large for gestational age. EFW <10% is small for gestational age. EFW 5% or less is considered intra-uterine growth restriction. Anatomic survey: Neuro: Ventricles are non-dilated at less than 10 mm. Cisterna magna is normal at 3-11 mm. Cerebellum is normal in size and morphology. Nuchal skin fold: Normal at less than 6 mm between 14-21 weeks gestational age. Face: Nose and lips, facial profile are normal. Spine: No evidence for spina bifida. Heart: 4-chambered heart is present, with normal ventricular outflow tracts. Diaphragm: Diaphragm is intact. Stomach: Left-sided stomach is present. Kidneys: No hydronephrosis. Normal is less than 5 mm in 2nd trimester, less than 7 mm in 3rd trimester. Cord: 3-vessel cord has orthotopic insertion. Bladder: Normal in size. Extremities: All 4 extremities identified. Other: Maternal ovaries are unremarkable. No maternal hydronephrosis. IMPRESSION: 1. [place] living intrauterine at 20 weeks 6/7 days based on today's ultrasound. This is concordant with the external assessment. 2. Normal placenta and amniotic fluid. 3. spine is not well seen secondary to lie. Otherwise normal anatomic survey. Followup ultrasound is recommended. Dictated by: Sandip Berman M.D. on 03/07/2019 at 17:41 Approved by: Sandip Berman M.D. on 03/07/2019 at 17:47
== END ==
PROVIDERS: Family Provider Specialist; PCP Specialist; Visit Provider Specialist
DX: Z36.89 Encounter for other specified antenatal screening (principal); Z3A.20 20 weeks gestation of pregnancy
CPT/HCPCS: 76811

== ENCOUNTER → 2019-04-11 13:46 | Outpatient (CLI) | payer OTHER, MEDICAID, SELFPAY ==
[2019-04-11 16:07] LABS: Hematocrit 36.5 % (36-46); Hemoglobin 12.8 g/dL (12.0-16.0)
[2019-04-11 16:42] LABS: GTT (PREG) 1 Hour PP 50gm Dose 122 mg/dL (76-139)
== END ==
PROVIDERS: Family Provider Specialist; PCP Specialist; Visit Provider Specialist
DX: Z34.82 Encounter for supervision of other normal pregnancy, second trimester (principal)
CPT/HCPCS: 36415; 82950; 85014; 85018; 86850

== ENCOUNTER → 2019-06-26 12:20 | Outpatient (CLI) | payer OTHER, MEDICAID, SELFPAY ==
[2019-06-27 13:33] LABS: Strep Grp B PCR NEG for Grp B Strep
== END ==
PROVIDERS: Family Provider Specialist; PCP Specialist; Visit Provider Specialist
DX: Z34.83 Encounter for supervision of other normal pregnancy, third trimester (principal); Z3A.36 36 weeks gestation of pregnancy
CPT/HCPCS: 87653

== ENCOUNTER 2019-07-10 22:21 | Inpatient (IN) | payer OTHER, MEDICAID, SELFPAY ==
--- NOTE | 2019-07-10 22:56 | PM.OBHP.1 ---
OB HPI Date/Time Date of admission: 07/10/19 Date Patient Seen: 07/10/19 Time Patient Seen: 22:56 History of Present Condition Chief complaint: observation of labor : 6 Para: 4 Estimated Date of Delivery: 07/17/19 Estimated Gestational Age (weeks): 39 Narrative: Alicia Tobin is a 33 year old female admitted with spontaneous vaginal delivery shortly after admission History of Present care: good care, initiated at week # (8), number of visits (13) and pounds weight gain (10) Dating criteria: LMP confirmed by 1st trimester US Ultrasounds: normal mid trimester US Obstetrical complications: none Medical complications: none Preadmission Labs Blood type: O (+) positive -: Antibody screen: negative, GBS status: negative, HBsAG: negative, HIV: negative and RPR/VDLR: negative -: Chlamydia screen: not detected and Gonorrhea screen: not detected -: Rubella: not immune and Varicella: immune HCAB: negative PAP: Normal 1 hr GTT: 122 Prior (ies) History: See ACOG form four vaginal deliveries Evaluation Evaluation Baseline heart rate: 120 (Less than 5 minutes of monitoring with deceleration) Uterine Contraction Intensity: Strong/Firm Cervical dilation (cm): 7 Cervical effacement (%): 100 station: -1 [facility] Social History Smoking Status: Former smoker Meds Home Medications and Allergies Home Medications Medication Instructions Recorded Confirmed Type omeprazole 40 mg capsule,delayed 40 mg PO DAILY #30 cap 06/12/19 06/12/19 Rx release ondansetron 4 mg disintegrating See Rx Instructions .ROUTE 06/24/19 Rx tablet .COMPLEX #20 each Double Electric breast Pump and #1 each 06/27/19 Rx Supplies Allergies Allergy/AdvReac Type Severity Reaction Status Date / Time acetaminophen [From Vicodin] AdvReac Unknown Hives Verified 06/12/19 14:31 hydrocodone [From Vicodin] AdvReac Unknown Hives Verified 06/12/19 14:31 EGGPLANT Allergy Mild HIVES, Uncoded 06/12/19 14:31 EGGPLANT Review of Systems Review of Systems Narrative: Patient denies leakage of fluid onset of contractions this evening ROS: Yes All systems reviewed with the patient and are negative except as otherwise documented Exam Narrative Exam Narrative: Patient did not have vital signs taken prior to delivery, blood pressure post delivery 119/81, pulse of 88 HEENT exam within normal limits. Lungs are clear to auscultation percussion. Heart is regular rate and rhythm no S3-S4 or murmurs. Abdomen is soft, nontender. Extremities without edema And nontender Assessment and Plan Assessment and Plan Assessment and Plan narrative: Ghulam multip 39 week gestation arrived and had precipitous delivery in the bed by the nurse.
--- NOTE | 2019-07-10 23:06 | P.PCNOB_ITS ---
Labor & Delivery Delivery date: 07/10/19 Intrapartal events: Precipitous Labor < 3 hours Delivery monitor: external FHT and external uterine Route of delivery: L&D Laceration Description: None Estimated blood loss (mL): 100 Anesthesia type: None Narrative: Patient arrived on Labor and delivery and had a precipitous delivery in the bed by the nurse. There was less than 5 minutes of monitoring of the heart rate. Per the nurse the head delivered and then the bag of water ruptured with meconium-stained fluid. Nuchal cord and body cord. Infant placed on maternal abdomen and cord clamped. The physician then arrived and cord bloods were obtained. The placenta delivered spontaneously, intact, with 3 vessels. There were no cervical, vaginal, or perineal tears. Baby 1: Presentation: vertex Placenta delivery description: Spontaneous cord vessel description: 3 Vessels score (1 min): 8 score (5 min): 9 Plan for aftercare: Routine care. Patient had requested tubal ligation but due to restrictions on elective procedures with the coronavirus we will have to postpone the procedure.
[2019-07-10 23:41] VITALS: BP 118/78
[2019-07-10] MEDS: IBUPROFEN 600 MG TABLET PO (23:41)
[2019-07-10] MEDS: DERMOPLAST SPRAY 20% 60 ML 1 SPRAY TOP (23:42)
[2019-07-11] MEDS: IBUPROFEN 600 MG TABLET PO (05:26)
[2019-07-11 06:53] LABS: Hematocrit 35.7 % (36-46); Hemoglobin 12.3 g/dL (12.0-16.0)
--- NOTE | 2019-07-11 11:24 | PM.OBPN.1 ---
Subjective - OB Subjective Patient comments: no complaints Kingsley baby status: doing well feeding status: exclusively breast feeding Date Patient Seen: 07/11/19 Time Patient Seen: 11:25 Interval history: Patient is doing well post vaginal delivery. She has a mild headache likely due to her lack of sleep. Minimal bleeding. She is urinating and ambulating well. Exam Vital Signs (past 8 hours): Blood pressure 120/78, pulse 78, temperature 98.8? Narrative Exam Narrative: Abdomen is soft, nontender. Uterus is firm, at U -2, nontender. Mild lochia. Extremities without edema and nontender. Objective Labs Result Diagrams: 07/11/19 06:16 Labs: Laboratory Results - last 24 hr 07/11/19 06:16 Hgb 12.3 Hct 35.7 L Assessment & Plan Assessment and Plan (1) Vaginal delivery: Status: Acute Current Visit: Yes Plan day: 1 plan OB: routine care Time Spent With Patient Time: Total time spent is greater than 50% in coordination of care (as documented) at patient's floor/unit and/or counseling patient: Time with patient: less than 15 minutes
--- NOTE | 2019-07-12 09:32 | P.DS_ITS ---
Discharge Providers Provider Date of admission: 07/10/19 22:21 Discharge Date: 07/12/19 Primary care physician: Dolly Gimenez MD Consults: 07/11/19 22:51 Consult to Electrical And [employer]ic Routine Comment: Discharge provider: Dolly Gimenez MD Summary Hospital Course Date Patient Seen: 07/12/19 Time Patient Seen: 09:33 Procedures: Spontaneous vaginal delivery Hospital Course: Patient arrived on Labor and delivery and had a precipitous delivery in bed by the nurse. Both she and the baby are doing well although the baby is SGA. She denies any headaches, scotomata, epigastric pain. She is urinating and ambulating well. She is breast-feeding without difficulty. Peripartum Data Infant Delivery Method: Natural Vaginal Laceration description: None Procedures: Spontaneous vaginal delivery complications: none 1: Gender: Male Disposition of : home Discharge Diagnosis (1) Vaginal delivery: Status: Acute Status at Discharge Cognitive/behavioral status at discharge: oriented Functional status at discharge: independent ambulation Overall status at discharge: patient is progressing back to baseline Time Spent with Patient Time attestation: Total time spent providing and/or coordinating discharge services: Time spent: Less than 30 minutes Objective Labs Result Diagrams: 07/11/19 06:16 Exam Vital Signs (past 8 hours): Blood pressure 105/72, pulse 61, temperature 98.0? Narrative Exam Narrative: Abdomen is soft, nontender. Uterus is firm, U -2, nontender. Extremities without edema and nontender. Patient's blood type is O-positive. She is rubella nonimmune so will receive the rubella vaccine prior to discharge. Patient declined the Tdap Discharge Plan Discharge Plan Patient Disposition: Home Discharge orders & Medications Prescriptions: New ibuprofen 600 mg Tablet 600 mg PO Q6HR PRN (Reason: Pain, Mild (1-3)) Qty: 20 RF: 0 Continued ondansetron 4 mg tablet,disintegrating See Rx Instructions .ROUTE .COMPLEX Qty: 20 RF: 0 No Action (DME) Double Electric breast Pump and Supplies See Rx Instructions .ROUTE .MEDSUPPLY Qty: 1 RF: 0 Follow up/Referrals: Dolly Gimenez MD [Primary Care Provider] - 6 Weeks Diet/Activity/Treatments Diet: Regular Activity: Nothing in vagina for 6 weeks Skin/Wound/Dressing Care Report to your healthcare provider any signs of infection, such as:: chills, fever Discharge Data Primary Care Provider: Dolly Gimenez
[2019-07-12 10:01] VITALS: BP 105/72; PULSE 61; RESP 17; TEMP 36.6
[2019-07-12] MEDS: MEASLES,MUMPS,RUBELLA VACC/PF 0.5 ML VIAL SUBCUT (11:59)
== END 2019-07-12 13:05 | disposition home or self-care (01) | DRG 560 ==
PROVIDERS: Admitting Provider Specialist; Family Provider Specialist; PCP Specialist; Referring Provider Specialist; Visit Provider Specialist
DX: O62.3 Precipitate labor (principal); Z3A.39 39 weeks gestation of pregnancy; Z37.0 Single live birth; O77.0 Labor and delivery complicated by meconium in amniotic fluid; O69.81X0 Labor and delivery complicated by cord around neck, without compression, not applicable or unspecified
CPT/HCPCS: 36415; 59409; 85014; 85018; G0379

== ENCOUNTER 2020-01-05 13:06 | Inpatient (IN) | payer OTHER, MEDICAID, SELFPAY ==
[2020-01-05] VITALS (21 sets, daily range): BP systolic 94–120; BP diastolic 57–85; PULSE 101–127; RESP 16–24; TEMP 37.4–38.8; O2SAT 95–100; BMI 29.2
--- NOTE | 2020-01-05 13:12 | DI.CT.S_ITS ---
PROCEDURE: CT ABDOMEN PELVIS W CON INDICATIONS: right sided pain TECHNIQUE: After the administration of intravenous contrast, 5 mm thick sections acquired from the diaphragm to the symphysis. 5 mm coronal and sagittal reformats were acquired. For radiation dose reduction, the following was used: automated exposure control, adjustment of mA and/or kV according to patient size. COMPARISON: None. FINDINGS: Image quality: Excellent. ABDOMEN: Lung bases: Lung bases are clear. Heart size is normal. Solid organs: Liver is normal in size and enhancement. Gallbladder unremarkable. Biliary system is non dilated. Pancreas enhances normally. Spleen is normal in size and enhancement. No adrenal nodules. Kidneys demonstrate normal size and enhancement, without hydronephrosis. Peritoneum and bowel: Bowel loops demonstrate normal wall thickness and caliber. Normal appendix. No free fluid or air. Nodes and vessels: No retroperitoneal or mesenteric adenopathy by size criteria. Aorta and inferior vena cava are normal in size. Miscellaneous: No ventral hernias. PELVIS: Genitourinary: Bladder wall thickness is normal. Anteverted uterus. Corpus luteum follicle of the left ovary. Miscellaneous: No inguinal hernias or adenopathy. Bones: No suspicious bony lesions. No vertebral body compression fractures. IMPRESSION: No acute intra-abdominal abnormality. Dictated by: Vidal Mccall M.D. on 01/05/2020 at 13:25 Approved by: Vidal Mccall M.D. on 01/05/2020 at 13:30
--- NOTE | 2020-01-05 13:17 | ED.FEVER ---
HPI - Fever General Chief Complaint: Fever Stated Complaint: Flank pain/ fever Time Seen by Provider: 01/05/20 13:12 Source: patient and EMS Mode of arrival: EMS Limitations: no limitations History of Present Illness HPI Narrative: Patient is a 34-year-old with history of UTI, who presents with right-sided flank pain abdominal pain groin pain and fever of 100.4. She says it started last evening she actually is having left-sided flank pain as well. She was driving here P[place] when the pain got to be so intense that they had to meat puller and call EMS. sHe is also complaining of a headache which started today as well she states that she has had some low back pain ongoing for the last 2 days. She has a history of pyelonephritis. MD complaint: fever Related Data Home Medications Medication Instructions Recorded Confirmed Adult Probiotic PO DAILY 01/05/20 Previous Rx's Medication Instructions Recorded Double Electric breast Pump and #1 each 06/27/19 Supplies Allergies Allergy/AdvReac Type Severity Reaction Status Date / Time tetanus and diphtheria Allergy Intermediate Difficulty Verified 07/11/19 00:30 toxoids Breathing hydrocodone [From Vicodin] AdvReac Unknown Hives Verified 06/12/19 14:31 EGGPLANT Allergy Mild HIVES, Uncoded 06/12/19 14:31 EGGPLANT Review of Systems Review of Systems ROS Unobtainable: All systems reviewed & are unremarkable except as noted in HPI and below Constitutional Constitutional: Reports body ache(s), Denies chills, Reports fever(s), Reports headache(s) and Reports weakness ENT Ears, Nose, Mouth, and Throat: Reports headache(s) Cardiovascular Cardiovascular: Denies chest pain, Denies irregular heart rhythm, Denies lightheadedness, Denies palpitations, Denies dyspnea, Denies dyspnea on exertion and Denies orthopnea Respiratory Respiratory: Denies cough, Denies dyspnea, Denies dyspnea on exertion and Denies wheezing Genitourinary Genitourinary: Reports as per HPI Genitourinary: Reports as per HPI Musculoskeletal Musculoskeletal: Denies back pain and Denies myalgias Integumentary/Breasts Skin/Breast: Denies pruritus, Denies erythema, Denies rash and Denies wounds Neurologic Neurologic: Reports headache(s) and Reports weakness Endocrine Endocrine: Denies palpitations Allergic/Immunologic Allergic/Immunologic: Denies wheezing Patient History Medical History Hyperemesis gravidarum (Acute) Vaginal delivery (Acute) Social History household members: significant other and children Smoking Status: Never smoker Smoking Status: Never smoker alcohol intake frequency: holidays/special occasions only Substance Use Type: does not use Exam Initial Vital Signs Initial Vital Signs: Vital Signs Temperature 100.4 F H 01/05/20 13:14 Pulse Rate 110 H 01/05/20 13:14 Respiratory Rate 16 01/05/20 13:14 Blood Pressure 120/80 01/05/20 13:14 Pulse Oximetry 100 01/05/20 13:14 GENERAL: Young female appears to not feel well HEENT: Head atraumatic,EOMI, pupils reactive, face symmetric, moist mucous membranes CARDIOVASCULAR: Regular rate and rhythm without murmurs, rubs or gallops. RESPIRATORY: Breath sounds equal bilaterally, no wheezes rales or rhonchi. ABDOMEN: Soft, nontender. Normoactive bowel sounds all 4 quadrants. No guarding or rebound. : Bilateral CVA tenderness more on right than left EXTREMITIES: Normal range of motion, no clubbing or edema. Neurovascularly intact NEUROLOGICAL: Alert and oriented x4.Normal gait and speech. SKIN: Warm, dry, no laceration, no petechiae, no rashes or lesions. Course Orders Ordered: Acetaminophen (Tylenol) 650 mg PO Q6HR PRN PRN Reason: Fever/Mild Pain (1-3) Enoxaparin Sodium (Lovenox) 40 mg SUBCUT DAILY MACHO Sodium Chloride (Normal Saline 0.9%) 1,000 mls @ 175 mls/hr IV CONT MACHO Last Infusion: 01/06/20 05:25 Dose: 0 mls/hr Documented by: Admin: 01/06/20 05:25 Dose: 175 mls/hr Documented by: Infusion: 01/06/20 05:25 Dose: 175 mls/hr Documented by: Admin: 01/05/20 23:43 Dose: 175 mls/hr Documented by: ABHISHEK Ceftriaxone Sodium/Dextrose (Rocephin) 1 gm in 50 mls @ 100 mls/hr IV Q24H MACHO Ibuprofen (Advil) 600 mg PO Q6HR PRN PRN Reason: Fever/Mild Pain (1-3) Ketorolac Tromethamine (Toradol) 15 mg IV Q6H PRN PRN Reason: Pain, Moderate (4-6) Stop: 01/11/20 03:37 Last Admin: 01/06/20 03:49 Dose: 15 mg Documented by: ABHISHEK Metoclopramide HCl (Reglan) 10 mg IV Q6HR PRN PRN Reason: Nausea And Vomiting Morphine Sulfate (Morphine) 2 mg IV Q4HR PRN PRN Reason: Pain, Moderate (4-6) Last Admin: 01/06/20 07:25 Dose: 2 mg Documented by: RENEE Naloxone HCl (Narcan) 0.2 mg IV Q2MIN PRN PRN Reason: Opiate Reversal Ondansetron HCl (Zofran) 4 mg IV Q6H PRN PRN Reason: Nausea And Vomiting Discontinued Medications Acetaminophen (Tylenol) 975 mg PO NOW ONE Stop: 01/05/20 15:33 Last Admin: 01/05/20 15:37 Dose: 975 mg Documented by: SHERYL Acetaminophen (Tylenol) 650 mg OH NOW ONE Stop: 01/05/20 22:38 Last Admin: 01/05/20 22:46 Dose: 650 mg Documented by: LISA Hydromorphone HCl (Dilaudid) 0.5 mg IV NOW ONE Stop: 01/05/20 17:14 Last Admin: 01/05/20 17:17 Dose: 0.5 mg Documented by: YANELYIN Hydromorphone HCl (Dilaudid) 0.5 mg IV NOW ONE Stop: 01/05/20 18:26 Last Admin: 01/05/20 18:36 Dose: 0.5 mg Documented by: ALFREDA Sodium Chloride (Normal Saline 0.9%) 1,000 mls @ 1,000 mls/hr IV BOLUS ONE Stop: 01/05/20 14:36 Last Infusion: 01/05/20 15:17 Dose: 0 mls/hr Documented by: Admin: 01/05/20 13:42 Dose: 1,000 mls/hr Documented by: SHERYL Ceftriaxone Sodium/Dextrose (Rocephin) 1 gm in 50 mls @ 100 mls/hr IV NOW ONE Stop: 01/05/20 15:57 Last Infusion: 01/05/20 16:15 Dose: 0 mls/hr Documented by: Admin: 01/05/20 15:37 Dose: 100 mls/hr Documented by: RMARTIN Sodium Chloride (Normal Saline 0.9%) 1,000 mls @ 1,000 mls/hr IV BOLUS ONE Stop: 01/05/20 16:49 Last Infusion: 01/05/20 17:06 Dose: 0 mls/hr Documented by: Admin: 01/05/20 15:52 Dose: 1,000 mls/hr Documented by: RMARTIN Sodium Chloride (Normal Saline 0.9%) 1,000 mls @ 1,000 mls/hr IV BOLUS ONE Stop: 01/05/20 18:14 Last Infusion: 01/05/20 18:57 Dose: 0 mls/hr Documented by: Admin: 01/05/20 17:17 Dose: 1,000 mls/hr Documented by: SHERYL Ketorolac Tromethamine (Toradol) 30 mg IV NOW ONE Stop: 01/05/20 13:13 Last Admin: 01/05/20 13:20 Dose: 30 mg Documented by: CARRILLO Morphine Sulfate (Morphine) 2 mg IV NOW ONE Stop: 01/05/20 15:29 Last Admin: 01/05/20 15:50 Dose: Not Given Documented by: SHERYL Ondansetron HCl (Zofran) 4 mg IV NOW ONE Stop: 01/05/20 21:50 Last Admin: 01/05/20 21:54 Dose: 4 mg Documented by: LISA Ondansetron HCl (Zofran) 4 mg IV NOW ONE Stop: 01/05/20 22:57 Last Admin: 01/05/20 23:07 Dose: Not Given Documented by: LISA Vital Signs Vital signs: Vital Signs - 8 hr 01/05/20 13:14 01/05/20 13:15 01/05/20 13:18 Temperature 100.4 F H Pulse Rate 110 H 110 H 103 H Respiratory Rate 16 17 16 Blood Pressure 120/80 120/80 Pulse Oximetry 100 100 100 01/05/20 13:30 01/05/20 13:48 01/05/20 14:16 Temperature Pulse Rate 106 H 101 H 101 H Respiratory Rate 18 19 19 Blood Pressure 112/74 112/74 116/72 Pulse Oximetry 98 95 98 01/05/20 14:30 01/05/20 15:00 01/05/20 15:30 Temperature Pulse Rate 103 H 114 H 125 H Respiratory Rate 22 24 24 Blood Pressure 111/73 109/74 105/63 Pulse Oximetry 96 100 99 01/05/20 16:00 01/05/20 16:30 01/05/20 17:00 Temperature Pulse Rate 107 H 109 H 111 H Respiratory Rate 16 19 21 Blood Pressure 110/74 102/69 107/73 Pulse Oximetry 100 100 01/05/20 17:20 01/05/20 17:35 01/05/20 17:45 Temperature 99.3 F Pulse Rate 127 H 117 H Respiratory Rate 16 Blood Pressure 112/75 Pulse Oximetry 97 98 01/05/20 18:00 01/05/20 18:30 Temperature Pulse Rate 114 H 117 H Respiratory Rate 20 23 Blood Pressure 115/73 114/72 Pulse Oximetry 97 97 MDM - Fever Lab Data Attestation: I reviewed the patient's lab results. Result diagrams: 01/06/20 04:57 01/06/20 04:57 Labs: Lab Results 01/05/20 01/05/20 01/05/20 Range/Units 13:11 13:11 13:11 WBC 11.3 H (4.5-11.0) X10^3/uL RBC 4.21 (4.0-5.2) X10^6/uL Hgb 13.3 (12.0-16.0) g/dL Hct 39.1 (36-46) % MCV 92.9 (80-100) fL MCH 31.7 (26-34) PG MCHC 34.2 (30-36) % RDW 13.3 (11.6-14.8) % Plt Count 239 (150-400) X10^3/uL Neut % (Auto) 84.5 H (50-75) % Lymph % (Auto) 7.0 L (25-40) % [place] % (Auto) 8.2 (3-14) % Eos % (Auto) 0.1 L (2-4) % Baso % (Auto) 0.2 (0-2) % Neut # (Auto) 9600 H (1144-1458) /uL Lymph # (Auto) 800 L (3940-8525) /uL [place] # (Auto) 900 (0-900) /uL Eos # (Auto) 0 (0-450) /uL Baso # (Auto) 0 (0-100) /uL D-Dimer (<230) ng/mL Sodium 137 (137-145) mmol/L Potassium 3.5 (3.4-5.1) mmol/L Chloride 106 (98-107) mmol/L Carbon Dioxide 22 (22-32) mmol/L BUN 13 (7-17) mg/dL Creatinine 0.69 (0.52-1.04) mg/dL Estimated GFR > 60.0 (>60) mL/min BUN/Creatinine Ratio 18.8 (6-22) Glucose 108 H (70-100) mg/dL Lactate (0.7-2.1) mmol/L Calcium 9.1 (8.4-10.2) mg/dL Total Bilirubin 1.1 (0.2-1.3) mg/dL AST 47 H (14-36) IU/L ALT 68 H (<35) IU/L Alkaline Phosphatase 119 (38-126) U/L Total Creatine Kinase (30-135) U/L CK-MB (CK-2) CK-MB (CK-2) Rel Index Troponin I (0.01-0.034) ng/mL Total Protein 7.7 (6.3-8.2) g/dL Albumin 4.4 (3.5-5.0) g/dL Globulin 3.3 (1.7-4.1) g/dL Albumin/Globulin Ratio 1.3 (1.0-2.8) Procalcitonin 0.11 (<0.5) ng/mL Urine RBC (0-5/HPF) Urine WBC (0-5/HPF) Ur Squamous Epith Cells (0-5/HPF) Urine Bacteria (None) Ur Culture Indicated? U Opiates 300ng/mL cut (Negative) Ur Oxycodone Screen (Negative) Urine Methadone Screen (Negative) Ur Barbiturates Screen (Negative) U Tricyclic Antidepress (Negative) Ur Phencyclidine Scrn (Negative) Ur Amphetamines Screen (Negative) U Methamphetamines Scrn (Negative) Ur MDMA Scrn (Ecstasy) (Negative) U Benzodiazepines Scrn (Negative) Urine Cocaine Screen (Negative) U Marijuana (THC) Screen (Negative) COVID-19 PCR (Negative) 01/05/20 01/05/20 01/05/20 Range/Units 13:11 13:11 13:11 WBC (4.5-11.0) X10^3/uL RBC (4.0-5.2) X10^6/uL Hgb (12.0-16.0) g/dL Hct (36-46) % MCV (80-100) fL MCH (26-34) PG MCHC (30-36) % RDW (11.6-14.8) % Plt Count (150-400) X10^3/uL Neut % (Auto) (50-75) % Lymph % (Auto) (25-40) % [place] % (Auto) (3-14) % Eos % (Auto) (2-4) % Baso % (Auto) (0-2) % Neut # (Auto) (3359-5231) /uL Lymph # (Auto) (7035-2675) /uL [place] # (Auto) (0-900) /uL Eos # (Auto) (0-450) /uL Baso # (Auto) (0-100) /uL D-Dimer 352 H (<230) ng/mL Sodium (137-145) mmol/L Potassium (3.4-5.1) mmol/L Chloride (98-107) mmol/L Carbon Dioxide (22-32) mmol/L BUN (7-17) mg/dL Creatinine (0.52-1.04) mg/dL Estimated GFR (>60) mL/min BUN/Creatinine Ratio (6-22) Glucose (70-100) mg/dL Lactate 1.4 (0.7-2.1) mmol/L Calcium (8.4-10.2) mg/dL Total Bilirubin (0.2-1.3) mg/dL AST (14-36) IU/L ALT (<35) IU/L Alkaline Phosphatase (38-126) U/L Total Creatine Kinase 49 (30-135) U/L CK-MB (CK-2) TNP CK-MB (CK-2) Rel Index TNP Troponin I < 0.012 (0.01-0.034) ng/mL Total Protein (6.3-8.2) g/dL Albumin (3.5-5.0) g/dL Globulin (1.7-4.1) g/dL Albumin/Globulin Ratio (1.0-2.8) Procalcitonin (<0.5) ng/mL Urine RBC (0-5/HPF) Urine WBC (0-5/HPF) Ur Squamous Epith Cells (0-5/HPF) Urine Bacteria (None) Ur Culture Indicated? U Opiates 300ng/mL cut (Negative) Ur Oxycodone Screen (Negative) Urine Methadone Screen (Negative) Ur Barbiturates Screen (Negative) U Tricyclic Antidepress (Negative) Ur Phencyclidine Scrn (Negative) Ur Amphetamines Screen (Negative) U Methamphetamines Scrn (Negative) Ur MDMA Scrn (Ecstasy) (Negative) U Benzodiazepines Scrn (Negative) Urine Cocaine Screen (Negative) U Marijuana (THC) Screen (Negative) COVID-19 PCR (Negative) 01/05/20 01/05/20 01/05/20 Range/Units 13:31 13:38 13:38 WBC (4.5-11.0) X10^3/uL RBC (4.0-5.2) X10^6/uL Hgb (12.0-16.0) g/dL Hct (36-46) % MCV (80-100) fL MCH (26-34) PG MCHC (30-36) % RDW (11.6-14.8) % Plt Count (150-400) X10^3/uL Neut % (Auto) (50-75) % Lymph % (Auto) (25-40) % [place] % (Auto) (3-14) % Eos % (Auto) (2-4) % Baso % (Auto) (0-2) % Neut # (Auto) (5567-3517) /uL Lymph # (Auto) (6272-4643) /uL [place] # (Auto) (0-900) /uL Eos # (Auto) (0-450) /uL Baso # (Auto) (0-100) /uL D-Dimer (<230) ng/mL Sodium (137-145) mmol/L Potassium (3.4-5.1) mmol/L Chloride (98-107) mmol/L Carbon Dioxide (22-32) mmol/L BUN (7-17) mg/dL Creatinine (0.52-1.04) mg/dL Estimated GFR (>60) mL/min BUN/Creatinine Ratio (6-22) Glucose (70-100) mg/dL Lactate 1.7 (0.7-2.1) mmol/L Calcium (8.4-10.2) mg/dL Total Bilirubin (0.2-1.3) mg/dL AST (14-36) IU/L ALT (<35) IU/L Alkaline Phosphatase (38-126) U/L Total Creatine Kinase (30-135) U/L CK-MB (CK-2) CK-MB (CK-2) Rel Index Troponin I (0.01-0.034) ng/mL Total Protein (6.3-8.2) g/dL Albumin (3.5-5.0) g/dL Globulin (1.7-4.1) g/dL Albumin/Globulin Ratio (1.0-2.8) Procalcitonin (<0.5) ng/mL Urine RBC 0-1/hpf (0-5/HPF) Urine WBC 10-30/hpf H (0-5/HPF) Ur Squamous Epith Cells 0-1 /hpf (0-5/HPF) Urine Bacteria Few (2-10) H (None) Ur Culture Indicated? Specimen cultured U Opiates 300ng/mL cut Negative (Negative) Ur Oxycodone Screen Negative (Negative) Urine Methadone Screen Negative (Negative) Ur Barbiturates Screen Negative (Negative) U Tricyclic Antidepress Negative (Negative) Ur Phencyclidine Scrn Negative (Negative) Ur Amphetamines Screen Negative (Negative) U Methamphetamines Scrn Negative (Negative) Ur MDMA Scrn (Ecstasy) Negative (Negative) U Benzodiazepines Scrn Negative (Negative) Urine Cocaine Screen Negative (Negative) U Marijuana (THC) Screen Negative (Negative) COVID-19 PCR (Negative) 01/05/20 Range/Units 18:53 WBC (4.5-11.0) X10^3/uL RBC (4.0-5.2) X10^6/uL Hgb (12.0-16.0) g/dL Hct (36-46) % MCV (80-100) fL MCH (26-34) PG MCHC (30-36) % RDW (11.6-14.8) % Plt Count (150-400) X10^3/uL Neut % (Auto) (50-75) % Lymph % (Auto) (25-40) % [place] % (Auto) (3-14) % Eos % (Auto) (2-4) % Baso % (Auto) (0-2) % Neut # (Auto) (9200-2202) /uL Lymph # (Auto) (1780-9366) /uL [place] # (Auto) (0-900) /uL Eos # (Auto) (0-450) /uL Baso # (Auto) (0-100) /uL D-Dimer (<230) ng/mL Sodium (137-145) mmol/L Potassium (3.4-5.1) mmol/L Chloride (98-107) mmol/L Carbon Dioxide (22-32) mmol/L BUN (7-17) mg/dL Creatinine (0.52-1.04) mg/dL Estimated GFR (>60) mL/min BUN/Creatinine Ratio (6-22) Glucose (70-100) mg/dL Lactate (0.7-2.1) mmol/L Calcium (8.4-10.2) mg/dL Total Bilirubin (0.2-1.3) mg/dL AST (14-36) IU/L ALT (<35) IU/L Alkaline Phosphatase (38-126) U/L Total Creatine Kinase (30-135) U/L CK-MB (CK-2) CK-MB (CK-2) Rel Index Troponin I (0.01-0.034) ng/mL Total Protein (6.3-8.2) g/dL Albumin (3.5-5.0) g/dL Globulin (1.7-4.1) g/dL Albumin/Globulin Ratio (1.0-2.8) Procalcitonin (<0.5) ng/mL Urine RBC (0-5/HPF) Urine WBC (0-5/HPF) Ur Squamous Epith Cells (0-5/HPF) Urine Bacteria (None) Ur Culture Indicated? U Opiates 300ng/mL cut (Negative) Ur Oxycodone Screen (Negative) Urine Methadone Screen (Negative) Ur Barbiturates Screen (Negative) U Tricyclic Antidepress (Negative) Ur Phencyclidine Scrn (Negative) Ur Amphetamines Screen (Negative) U Methamphetamines Scrn (Negative) Ur MDMA Scrn (Ecstasy) (Negative) U Benzodiazepines Scrn (Negative) Urine Cocaine Screen (Negative) U Marijuana (THC) Screen (Negative) COVID-19 PCR Negative (Negative) Point of Care Testing Test Results Negative Urine Dip Bedside Urine Glucose Negative Bedside Urine Bilirubin - Negative Urine Specific [place] 1.015 Bedside Urine Occult Blood - Negative Bedside Urine pH 8.5 Bedside Urine Protein - Negative Bedside Urine Urobilinogen - Negative Bedside Urine Nitrite - Negative Bedside Urine Leukocytes + [address] scan - abdomen/pelvis: Radiologist's Impression: PROCEDURE: CT ABDOMEN PELVIS W CON INDICATIONS: right sided pain TECHNIQUE: After the administration of intravenous contrast, 5 mm thick sections acquired from the diaphragm to the symphysis. 5 mm coronal and sagittal reformats were acquired. For radiation dose reduction, the following was used: automated exposure control, adjustment of mA and/or kV according to patient size. COMPARISON: None. FINDINGS: Image quality: Excellent. ABDOMEN: Lung bases: Lung bases are clear. Heart size is normal. Solid organs: Liver is normal in size and enhancement. Gallbladder unremarkable. Biliary system is non dilated. Pancreas enhances normally. Spleen is normal in size and enhancement. No adrenal nodules. Kidneys demonstrate normal size and enhancement, without hydronephrosis. Peritoneum and bowel: Bowel loops demonstrate normal wall thickness and caliber. Normal appendix. No free fluid or air. Nodes and vessels: No retroperitoneal or mesenteric adenopathy by size criteria. Aorta and inferior vena cava are normal in size. Miscellaneous: No ventral hernias. PELVIS: Genitourinary: Bladder wall thickness is normal. Anteverted uterus. Corpus luteum follicle of the left ovary. Miscellaneous: No inguinal hernias or adenopathy. Bones: No suspicious bony lesions. No vertebral body compression fractures. IMPRESSION: No acute intra-abdominal abnormality. Dictated by: Vidal Mccall M.D. on 01/05/2020 at 13:25 CT scan - head: Radiologist's Impression: PROCEDURE: CT HEAD/BRAIN WO CON INDICATIONS: worsening headache TECHNIQUE: Noncontrast 4.5 mm thick angled axial sections acquired from the foramen magnum to the vertex, with coronal and sagittal reformats. For radiation dose reduction, the following was used: automated exposure control, adjustment of mA and/or kV according to patient size. COMPARISON: None. FINDINGS: Image quality: Excellent. CSF spaces: Basal cisterns are patent. No extra-axial fluid collections. Ventricles are normal in size and shape. Brain: No midline shift. No intracranial masses or hemorrhage. Rosario-white matter interface is normal. Skull and face: Calvarium and visualized facial bones are intact, without suspicious lesions. Sinuses: Visualized sinuses and mastoids are clear. IMPRESSION: No acute intracranial abnormality. Dictated by: Vidal Mccall M.D. on 01/05/2020 at 16:59 ECG Data Attestation: I personally reviewed and interpreted this ECG as follows: Prior ECG tracings: available for review Interpretation: Sinus tachycardia rate 125 p.r. interval 140 QRS [address] changes MDM Narrative Medical decision making narrative: Patient is having worsening headache despite Toradol and Tylenol. She has no meningeal signs able to curl up in a ball without any difficulty. She has some reaction to hydrocodone but is willing to try Dilaudid. Will scan her head no focal deficits. She has had 2 L of IV fluid she remains tachycardic. The blood pressure remains stable. Urine drug screen is negative, repeat lactate remains relatively unchanged. However patient is continuously tachycardic without a cause. Presumed to be sepsis. Recommend observation until blood cultures return she has mildly elevated procalcitonin. History of pyelonephritis she does have bacteriuria in her urine I suspect this same now. Andrew KINGSLEY accepts Discharge Plan Departure Patient Disposition: Admitted as Observation Clinical Impression: UTI (urinary tract infection) Qualifiers: Urinary tract infection type: acute pyelonephritis Qualified Code(s): N10 - Acute pyelonephritis Sepsis Qualifiers: Sepsis type: sepsis due to unspecified organism Sepsis acute organ dysfunction status: with acute organ dysfunction Severe sepsis shock status: without septic shock Discharge Date/Time: 01/05/20 20:08 Admit Date/Time: 01/05/20 20:03 Admit Provider: Alyce Morales
[2020-01-05] MEDS: KETOROLAC 60 MG/2 ML VIAL 30 MG IV (13:20)
[2020-01-05 13:32] LABS: Add Manual Diff / Slide Review NO; Basophils Absolute Auto 0 /uL (0-100); Basophils Percent Auto 0.2 % (0-2); Eosinophils Absolute Auto 0 /uL (0-450); Eosinophils Percent Auto 0.1 % (2-4); Hematocrit 39.1 % (36-46); Hemoglobin 13.3 g/dL (12.0-16.0); Lymphocytes Absolute Auto 800 /uL (1100-4500); Mean Corpuscular HGB Conc 34.2 % (30-36); Mean Corpuscular Hemoglobin 31.7 PG (26-34); Mean Corpuscular Volume 92.9 fL (80-100); Monocytes Absolute Auto 900 /uL (0-900); Monocytes Percent Auto 8.2 % (3-14); Neutrophils Absolute Auto 9600 /uL (1500-7000); Neutrophils Percent Auto 84.5 % (50-75); Platelet Count 239 X10^3/uL (150-400); Red Blood Cell Count 4.21 X10^6/uL (4.0-5.2); Red Cell Distribution Width 13.3 % (11.6-14.8); White Blood Cell Count 11.3 X10^3/uL (4.5-11.0)
[2020-01-05 13:37] LABS: Alanine Aminotransferase 68 IU/L (<35); Albumin 4.4 g/dL (3.5-5.0); Albumin Globulin Ratio 1.3 (1.0-2.8); Alkaline Phosphatase 119 U/L (38-126); Aspartate Aminotransferase 47 IU/L (14-36); BUN Creatinine Ratio 18.8 (6-22); Bilirubin Total 1.1 mg/dL (0.2-1.3); Blood Urea Nitrogen 13 mg/dL (7-17); Calcium 9.1 mg/dL (8.4-10.2); Carbon Dioxide 22 mmol/L (22-32); Chloride 106 mmol/L (98-107); Estimated Glomerular Filt Rate > 60.0 mL/min (>60); Globulin 3.3 g/dL (1.7-4.1); Glucose 108 mg/dL (70-100); HEMOLYSIS 16 (0-50); Lactate (Lactic Acid) 1.4 mmol/L (0.7-2.1); Potassium 3.5 mmol/L (3.4-5.1); Sodium 137 mmol/L (137-145); Total Protein 7.7 g/dL (6.3-8.2)
[2020-01-05] MEDS: SODIUM CHLORIDE 0.9% 1,000 ML 1000 ML IV ×3 (13:42→17:17)
[2020-01-05 13:54] LABS: Procalcitonin 0.11 ng/mL (<0.5)
[2020-01-05 14:07] LABS: Bacteria Urine Few (2-10); Culture Indicated Urine Specimen Cultured; RBC Urine 0-1/HPF (0-5/HPF); Squamous Epithelial Cell Urine 0-1 /HPF (0-5/HPF); WBC Urine 10-30/HPF (0-5/HPF)
[2020-01-05] MEDS: ACETAMINOPHEN 325 MG TABLET 975 MG PO (15:37)
[2020-01-05] MEDS: CEFTRIAXONE 1 GM/50 ML FROZ.PIGGY IV (15:37)
--- NOTE | 2020-01-05 17:13 | DI.CT.S_ITS ---
PROCEDURE: CT HEAD/BRAIN WO CON INDICATIONS: worsening headache TECHNIQUE: Noncontrast 4.5 mm thick angled axial sections acquired from the foramen magnum to the vertex, with coronal and sagittal reformats. For radiation dose reduction, the following was used: automated exposure control, adjustment of mA and/or kV according to patient size. COMPARISON: None. FINDINGS: Image quality: Excellent. CSF spaces: Basal cisterns are patent. No extra-axial fluid collections. Ventricles are normal in size and shape. Brain: No midline shift. No intracranial masses or hemorrhage. [place]-white matter interface is normal. Skull and face: Calvarium and visualized facial bones are intact, without suspicious lesions. Sinuses: Visualized sinuses and mastoids are clear. IMPRESSION: No acute intracranial abnormality. Dictated by: Vidal Mccall M.D. on 01/05/2020 at 16:59 Approved by: Vidal Mccall M.D. on 01/05/2020 at 17:01
[2020-01-05] MEDS: HYDROMORPHONE 0.5 MG INJ IV ×2 (17:17→18:36)
[2020-01-05 18:12] LABS: UR Morphine/Opiate cutoff 300 Negative (Negative); Ur Creatinine Normal (Normal); Ur Specific Gravity Normal (Normal); Urine Amphetamines Negative (Negative); Urine Barbiturates Negative (Negative); Urine Benzodiazepines Negative (Negative); Urine Cocaine Negative (Negative); Urine MDMA Negative (Negative); Urine Methadone Negative (Negative); Urine Methamphetamines Negative (Negative); Urine Oxycodone Negative (Negative); Urine Phencyclidine Negative (Negative); Urine Tetrahydrocannabinol Negative (Negative); Urine Tricyclic Antidepressant Negative (Negative); Urine pH Normal (Normal)
[2020-01-05 18:45] LABS: Creatine Kinase 49 U/L (30-135); D Dimer 352 ng/mL (<230)
[2020-01-05 18:58] LABS: Troponin I < 0.012 ng/mL (0.01-0.034)
[2020-01-05 19:11] LABS: Lactate (Lactic Acid) 1.7 mmol/L (0.7-2.1)
[2020-01-05 19:16] LABS: COVID19 -Nasal RAPID Negative (Negative)
[2020-01-05] MEDS: ONDANSETRON 4 MG/2 ML INJ IV (21:54)
--- NOTE | 2020-01-05 22:20 | PC.NURSE ---
Addendum entered by Diamond Dias R.N. 01/05/20 22:55: Alyce Morales by to see patient [id number]. Addendum entered by Diamond Dias R.N. 01/05/20 22:39: Alyce Morales notified of temperature. Order received for 1x dose of 650 mg Tylenol [place]. Addendum entered by Diamond Dias R.N. 01/05/20 22:35: Patient remains with rigors. Oral temp currently 101.8 Original Note: Admission note: Patient arrived to unit at 2006 from ED. Patient AOx3. Patient hypotensive on admission with BP 94/57, heart rate 118 bpm - sinus tachycardia. Temp 99.4. Patient with rigors associated with temperature. Patient on RA. Lungs clear. Patient nauseous and weak, but able to transfer over to bed with SBA only. Patient states she is . This RN [facility] to patient not bringing her supplies with her. Patient states she is too weak to pump at this time. Informed patient that we were waiting on CREDIT ADMINISTRATION SPECIALISTJami Morales to see patient for admission orders and plan of care. 2134 Patient dry heaving/vomiting. Patient with bout of stress incontinence. Alyce KINGSLEY notified of patient's vomiting and no orders for patient. Zofran 4mg IV x1 ordered for patient. 2149 Patient no longer vomiting but states that the medication did not take her nausea away. 2224 Awaiting attending to see patient. Cold rag and dim lights implemented to help patient rest.
[2020-01-05] MEDS: ACETAMINOPHEN 650 MG SUPP PR (22:46)
--- NOTE | 2020-01-05 23:00 | DI.US.S_ITS ---
PROCEDURE: US RENAL COMPLETE INDICATIONS: PYELONEPHRITIS, FEVER, HISTORY OF CALCULI TECHNIQUE: Real-time scanning was performed of the kidneys and bladder, with image documentation. COMPARISON: [facility], CT, CT ABDOMEN PELVIS W CON, 01/05/2020, 13:54. FINDINGS: Kidneys: Kidneys are normal in size. Right kidney measures 11.4 cm long; left kidney measures 11.4 cm long. Right renal cortical thickness is 1.6 cm; left renal cortical thickness is 1.4 cm. Renal cortical echotexture is normal. No hydronephrosis or nephrolithiasis. No suspicious solid mass lesions. Bladder: Pre-void bladder volume is 247 mL. Post-void residual is 1 mL right ureteral jet is seen. Left ureteral jet is not seen. Miscellaneous: No free pelvic fluid. IMPRESSION: 1. Normal sonographic appearance of the kidneys. No hydronephrosis. 2. No postvoid residual. 3. No kidney stone seen. Dictated by: Sandip Berman M.D. on 01/06/2020 at 9:15 Approved by: Sandip Berman M.D. on 01/06/2020 at 9:18
[2020-01-05] MEDS: ONDANSETRON 4 MG/2 ML INJ (23:02)
[2020-01-05] MEDS: SODIUM CHLORIDE 0.9% 1,000 ML 175 ML IV (23:43)
[2020-01-06] VITALS (12 sets, daily range): BP systolic 93–137; BP diastolic 58–84; PULSE 68–109; RESP 12–21; TEMP 36.6–38.6; O2SAT 95–100
--- NOTE | 2020-01-06 01:55 | P.HP_ITS ---
History of Present Illness History of Present Illness Date Patient Seen: 01/05/20 Time Patient Seen: 23:00 Chief complaint: Flank pain/ fever Narrative: Alicia Tobin is a 34 y.o. TAB1 and post partem July of this year who developed nausea overnight and pain in her suprapubic area. She is very miserable and unable to provide a narrative history, only that she . She was requested for admission due to the inability to get her heart rate down. She arrived febrile at 101.8 and was extremely nauseous. CT of the abdomen pelvis did not indicate any of abnormalities of the kidneys or hydronephrosis. T-max was 101.8?, currently her temp is 99.9?, blood pressure 98/58, heart rate 109, respiratory rate 12, oxygen saturation 97% on room air, she weighs 75 kg with a BMI of 29.2. WBC is 11.3, RBC 4.21, hemoglobin 13.3, hematocrit 39.1, platelet count 239, sodium 137, potassium 3.5, chloride 106, bicarb 22, BUN 13, creatinine 0.69, GFR is greater than 60, glucose 108, lactate 1.7, calcium 9.1, total bili 1.1, AST 47, ALT 68, cardiac enzymes are within normal limits, procalcitonin is 0.11, UA is positive for bacteria and COVID-19 PCR is negative. Patient History Medical History Hyperemesis gravidarum (Acute) Vaginal delivery (Acute) Family & Social History Social History: household members significant other,children Prior Living Arrangements Mobile home Safety & Behavioral: Feels Safe in Current Yes Environment Been Physically Hurt or No Threatened By a Person Suicidal Ideation Description None Suicide Plan Description No Plan Tobacco & Substance use: Smoking Status Never smoker alcohol intake frequency holiday/special occasion Substance Use Type does not use Meds Home Medications and Allergies Home Medications Medication Instructions Recorded Confirmed Type Double Electric breast Pump and #1 each 06/27/19 01/05/20 Rx Supplies Adult Probiotic PO DAILY 01/05/20 History Allergies Allergy/AdvReac Type Severity Reaction Status Date / Time tetanus and diphtheria Allergy Intermediate Difficulty Verified 07/11/19 00:30 toxoids Breathing hydrocodone [From Vicodin] AdvReac Unknown Hives Verified 06/12/19 14:31 EGGPLANT Allergy Mild HIVES, Uncoded 06/12/19 14:31 EGGPLANT Review of Systems Review of Systems ROS: Yes unobtainable due to mental condition Exam Vital Signs (past 8 hours): - 01/05/20 18:00 01/05/20 18:30 01/05/20 20:05 Temperature 99.4 F Pulse Rate 114 H 117 H 118 H Respiratory Rate 20 23 16 Blood Pressure 115/73 114/72 94/57 L Pulse Oximetry 97 97 98 01/05/20 22:36 01/05/20 22:46 01/05/20 22:53 Temperature 101.8 F H 101.8 F H Pulse Rate 124 H Respiratory Rate 20 Blood Pressure 110/85 Pulse Oximetry 100 01/06/20 00:45 Temperature 99.9 F H Pulse Rate 109 H Respiratory Rate 12 Blood Pressure 95/58 L Pulse Oximetry 97 Oxygen Delivery Method Room Air Oxygen Flow Rate 0 Narrative Exam Narrative: Gen: Alert, oriented, well-developed 34 y.o. female, very tearful HEENT: normocephalic, atraumatic, conjunctiva clear, sclera non-icteric, oral mucosa pink and moist Neck: supple, full ROM, no JVD, trachea is midline Resp: Lungs CTA, non-labored breathing CV: RRR, no murmur or rubs Abd: soft, non-tender, normoactive BTs Skin: no lesions or rashes, dry and intact Neuro: Alert and oriented X 4 w/no focal deficits. Speech clear and coherent. Extremities: moves all 4 extremities, is ambulatory, negative Darren?s sign Psyche: anxious. Objective Labs Result Diagrams: 01/05/20 13:11 01/05/20 13:11 Labs: Laboratory Results - last 24 hr 01/05/20 01/05/20 01/05/20 13:11 13:11 13:11 WBC 11.3 H RBC 4.21 Hgb 13.3 Hct 39.1 MCV 92.9 MCH 31.7 MCHC 34.2 RDW 13.3 Plt Count 239 Neut % (Auto) 84.5 H Lymph % (Auto) 7.0 L [place] % (Auto) 8.2 Eos % (Auto) 0.1 L Baso % (Auto) 0.2 Neut # (Auto) 9600 H Lymph # (Auto) 800 L [place] # (Auto) 900 Eos # (Auto) 0 Baso # (Auto) 0 D-Dimer Sodium 137 Potassium 3.5 Chloride 106 Carbon Dioxide 22 BUN 13 Creatinine 0.69 Estimated GFR > 60.0 BUN/Creatinine Ratio 18.8 Glucose 108 H Lactate Calcium 9.1 Total Bilirubin 1.1 AST 47 H ALT 68 H Alkaline Phosphatase 119 Total Creatine Kinase CK-MB (CK-2) CK-MB (CK-2) Rel Index Troponin I Total Protein 7.7 Albumin 4.4 Globulin 3.3 Albumin/Globulin Ratio 1.3 Procalcitonin 0.11 Urine RBC Urine WBC Ur Squamous Epith Cells Urine Bacteria Ur Culture Indicated? U Opiates 300ng/mL cut Ur Oxycodone Screen Urine Methadone Screen Ur Barbiturates Screen U Tricyclic Antidepress Ur Phencyclidine Scrn Ur Amphetamines Screen U Methamphetamines Scrn Ur MDMA Scrn (Ecstasy) U Benzodiazepines Scrn Urine Cocaine Screen U Marijuana (THC) Screen COVID-19 PCR 01/05/20 01/05/20 01/05/20 13:11 13:11 13:11 WBC RBC Hgb Hct MCV MCH MCHC RDW Plt Count Neut % (Auto) Lymph % (Auto) [place] % (Auto) Eos % (Auto) Baso % (Auto) Neut # (Auto) Lymph # (Auto) [place] # (Auto) Eos # (Auto) Baso # (Auto) D-Dimer 352 H Sodium Potassium Chloride Carbon Dioxide BUN Creatinine Estimated GFR BUN/Creatinine Ratio Glucose Lactate 1.4 Calcium Total Bilirubin AST ALT Alkaline Phosphatase Total Creatine Kinase 49 CK-MB (CK-2) TNP CK-MB (CK-2) Rel Index TNP Troponin I < 0.012 Total Protein Albumin Globulin Albumin/Globulin Ratio Procalcitonin Urine RBC Urine WBC Ur Squamous Epith Cells Urine Bacteria Ur Culture Indicated? U Opiates 300ng/mL cut Ur Oxycodone Screen Urine Methadone Screen Ur Barbiturates Screen U Tricyclic Antidepress Ur Phencyclidine Scrn Ur Amphetamines Screen U Methamphetamines Scrn Ur MDMA Scrn (Ecstasy) U Benzodiazepines Scrn Urine Cocaine Screen U Marijuana (THC) Screen COVID-19 PCR 01/05/20 01/05/20 01/05/20 13:31 13:38 13:38 WBC RBC Hgb Hct MCV MCH MCHC RDW Plt Count Neut % (Auto) Lymph % (Auto) [place] % (Auto) Eos % (Auto) Baso % (Auto) Neut # (Auto) Lymph # (Auto) [place] # (Auto) Eos # (Auto) Baso # (Auto) D-Dimer Sodium Potassium Chloride Carbon Dioxide BUN Creatinine Estimated GFR BUN/Creatinine Ratio Glucose Lactate 1.7 Calcium Total Bilirubin AST ALT Alkaline Phosphatase Total Creatine Kinase CK-MB (CK-2) CK-MB (CK-2) Rel Index Troponin I Total Protein Albumin Globulin Albumin/Globulin Ratio Procalcitonin Urine RBC 0-1/hpf Urine WBC 10-30/hpf H Ur Squamous Epith Cells 0-1 /hpf Urine Bacteria Few (2-10) H Ur Culture Indicated? Specimen cultured U Opiates 300ng/mL cut Negative Ur Oxycodone Screen Negative Urine Methadone Screen Negative Ur Barbiturates Screen Negative U Tricyclic Antidepress Negative Ur Phencyclidine Scrn Negative Ur Amphetamines Screen Negative U Methamphetamines Scrn Negative Ur MDMA Scrn (Ecstasy) Negative U Benzodiazepines Scrn Negative Urine Cocaine Screen Negative U Marijuana (THC) Screen Negative COVID-19 PCR 01/05/20 18:53 WBC RBC Hgb Hct MCV MCH MCHC RDW Plt Count Neut % (Auto) Lymph % (Auto) [place] % (Auto) Eos % (Auto) Baso % (Auto) Neut # (Auto) Lymph # (Auto) [place] # (Auto) Eos # (Auto) Baso # (Auto) D-Dimer Sodium Potassium Chloride Carbon Dioxide BUN Creatinine Estimated GFR BUN/Creatinine Ratio Glucose Lactate Calcium Total Bilirubin AST ALT Alkaline Phosphatase Total Creatine Kinase CK-MB (CK-2) CK-MB (CK-2) Rel Index Troponin I Total Protein Albumin Globulin Albumin/Globulin Ratio Procalcitonin Urine RBC Urine WBC Ur Squamous Epith Cells Urine Bacteria Ur Culture Indicated? U Opiates 300ng/mL cut Ur Oxycodone Screen Urine Methadone Screen Ur Barbiturates Screen U Tricyclic Antidepress Ur Phencyclidine Scrn Ur Amphetamines Screen U Methamphetamines Scrn Ur MDMA Scrn (Ecstasy) U Benzodiazepines Scrn Urine Cocaine Screen U Marijuana (THC) Screen COVID-19 PCR Negative Assessment & Plan Assessment & Plan narrative: Alicia Tobin will be admitted for further management and treatment of an acute cystitis. Acute cystitis, present on admission -She was initiated on IV Ceftriaxone 1 gram, this is compatible with a lactating female Nausea and vomiting -IV Zofran and Reglan q 6 hours each VTE prophylaxis: Wells risk score: 1.5 Enoxaparin 40 mg subQ daily Consults: none Patient is admitted under inpatient status with expected length of stay greater than 2 midnights due to severity of presenting symptoms, risk of adverse event, and complexity of treatment plan. FEN: IV NS at 175 ml/hour, clears advance to regular,BMP and magnesium in the am. Dispo: probable discharge to home Code Status: Full as discussed with patient COVID-19 COVID-19 status: Negative Result date/Date tested (Pos, Neg/Pending): 01/05/20 Scores Wells' Criteria for PE Clinical signs and symptoms of DVT: No PE is #1 Dx or equally likely: No Heart rate > 100: Yes Immobilization at least 3 days or surg in previous 4 weeks: No History of PE or DVT: No Hemoptysis: No Malignancy w/Treatment within 6 months or palliative: No Wells' PE Score total: 1.5 Quality VTE Deep Vein Thrombosis/Pulmonary Embolism Present on Admission: No
[2020-01-06] MEDS: KETOROLAC 30 MG/ML VIAL 15 MG IV (03:49)
--- NOTE | 2020-01-06 03:59 | PC.NURSE ---
C/O BARRY pain rated pain level 6/10. Declined Ibuprofen & Morphine, SANCHO Morales B/P 94/63, HR 102. Notified SANCHO. Andrew order received to medicate with 15 mg. of Toradol IVP & order implemented. Will cont. POC & monitor.
[2020-01-06 05:12] LABS: Add Manual Diff / Slide Review NO; Basophils Absolute Auto 0 /uL (0-100); Basophils Percent Auto 0.1 % (0-2); Eosinophils Absolute Auto 0 /uL (0-450); Hematocrit 31.9 % (36-46); Hemoglobin 10.8 g/dL (12.0-16.0); Lymphocytes Absolute Auto 1000 /uL (1100-4500); Lymphocytes Percent Auto 7.7 % (25-40); Mean Corpuscular HGB Conc 33.8 % (30-36); Mean Corpuscular Hemoglobin 31.5 PG (26-34); Mean Corpuscular Volume 92.9 fL (80-100); Monocytes Absolute Auto 1200 /uL (0-900); Monocytes Percent Auto 9.9 % (3-14); Neutrophils Absolute Auto 10300 /uL (1500-7000); Neutrophils Percent Auto 82.3 % (50-75); Platelet Count 153 X10^3/uL (150-400); Red Blood Cell Count 3.44 X10^6/uL (4.0-5.2); White Blood Cell Count 12.5 X10^3/uL (4.5-11.0)
[2020-01-06 05:17] LABS: BUN Creatinine Ratio 17.2 (6-22); Blood Urea Nitrogen 10 mg/dL (7-17); Carbon Dioxide 21 mmol/L (22-32); Chloride 112 mmol/L (98-107); Estimated Glomerular Filt Rate > 60.0 mL/min (>60); Glucose 119 mg/dL (70-100); HEMOLYSIS < 15 (0-50); Potassium 3.5 mmol/L (3.4-5.1); Sodium 137 mmol/L (137-145)
[2020-01-06] MEDS: SODIUM CHLORIDE 0.9% 1,000 ML 175 ML IV ×4 (05:25→17:27)
[2020-01-06 05:37] LABS: Calcium 7.2 mg/dL (8.4-10.2)
[2020-01-06] MEDS: MORPHINE 2 MG/ML INJ IV ×2 (07:25→09:33)
[2020-01-06] MEDS: ONDANSETRON 4 MG/2 ML INJ IV ×3 (08:35→21:14)
--- NOTE | 2020-01-06 08:41 | PC.NURSE ---
Addendum entered by Kylah Phelan R.N. 01/06/20 15:12: medicated again with iv dilaudid and zzofran for pain and nausea Addendum entered by Kylah Phelan R.N. 01/06/20 09:15: pt declined any po rx - does c/o head pain as well as flank pain- pt continues to cry in room- but declines help at this time- this rn offered support/assist all declined at this time Original Note: upon initial assessment pt was found to be tearful and rating pain 8/10 mostly to right flank- ivf continues at 175cc/h medicated right away with 2mg iv morphine which was effective for her pain and allowed her to rest- renal ultrasound at present
--- NOTE | 2020-01-06 08:43 | CM.DANOTE ---
DCP: Case received, EMR reviewed. Patient currently getting kidney ultrasound, and has been irritable due to pain. Was able to complete DCP assessment based on history/information in chart. Patient is a 34 year old female who admitted yesterday evening to the care of the hospitalist team. PCP:Unknown at this time. Payer: confirmed: [facility]. Patient came to the hospital via EMS. According to notes, she had attempted to drive herself here to the hospital, but had increased flank pain. She then pulled over and was brought over by ambulance. Patient having severe back pain, as well as fever. She has had history of Pylenophritis, and holds current diagnosis of acute cystitis. Patient resides in [place], and works for [employer]. She has noted some anxiety, and pain. Have not yet conversed with patient, but received some information from nurse, Kylah, and EMR. She is currently getting a kidney ultrasound. She has children at home, and resides with Kraig (friend/significant other). She is independent at baseline. P: DCP to continue to follow and be available for any resources needed. Will also discuss at team rounds. Lolis Pugh RN/Certified Nurses' Aide
[2020-01-06] MEDS: ENOXAPARIN 40 MG/0.4 ML SYRINGE SUBCUT (09:33)
[2020-01-06] MEDS: KETOROLAC 30 MG/ML VIAL IV ×2 (09:34→16:07)
[2020-01-06] MEDS: HYDROMORPHONE 1 MG INJ IV ×4 (09:52→21:14)
[2020-01-06 11:57] LABS: Acinetobacter baumannii Not Detected (Not Detect); Candida albicans Not Detected (Not Detect); Candida glabrata Not Detected (Not Detect); Candida krusei Not Detected (Not Detect); Candida parapsilosis Not Detected (Not Detect); Candida tropicalis Not Detected (Not Detect); E. coli Not Detected (Not Detect); Enterobacter cloacae complex Not Detected (Not Detect); Enterobacteriaceae species Not Detected (Not Detect); Enterococcus species Not Detected (Not Detect); Haemophilus influenzae Not Detected (Not Detect); Listeria monocytogenes Not Detected (Not Detect); Methicillin-resistant gene Not Detected (Not Detect); Neisseria meningitidis Not Detected (Not Detect); Proteus species Not Detected (Not Detect); Pseudomonas aeruginosa Not Detected (Not Detect); Serratia marcescens Not Detected (Not Detect); Staphylococcus species Detected (Not Detect); Streptococcus agalactiae (Gr B Not Detected (Not Detect); Streptococcus pneumonia Not Detected (Not Detect); Streptococcus pyogenes (Gr A) Not Detected (Not Detect); Streptococcus species Not Detected (Not Detect)
[2020-01-06] MEDS: CEFTRIAXONE 1 GM/50 ML FROZ.PIGGY IV (14:55)
--- NOTE | 2020-01-06 15:57 | P.PN_ITS ---
Subjective Subjective Date Patient Seen: 01/06/20 Time Patient Seen: 09:30 Interval history: Alicia Tobin is a 34 year old female admitted with high fevers, presumably secondary to pyelonephritis although imaging has been unremarkable up to this point. Her UA was positive and urine cultures are pending. Blood cultures with staph but only in 1 bottle, asked for further workup in micro today given presentation but is still likely contaminant as urine cultures have gram negative organisms. She has no further abdominal pain but does complain a of a mild frontal headache. Will check a CXR today and continue ceftriaxone. No vanco added given blood culture PCR without staph aureus. Exam Vital Signs (past 8 hours): - 01/06/20 08:00 01/06/20 12:00 01/06/20 13:20 Temperature 101.5 F H 98.3 F Pulse Rate 109 H 91 H Respiratory Rate 16 16 Blood Pressure 106/70 100/60 Pulse Oximetry 98 95 97 01/06/20 15:54 Temperature 101 F H Pulse Rate 96 H Respiratory Rate 21 Blood Pressure 137/84 Pulse Oximetry 100 Oxygen Delivery Method Room Air Oxygen Flow Rate 0 Narrative Exam Narrative: Gen: Alert, oriented, well-developed 34 y.o. female appears acutely ill and pale. Anxious appearing. HEENT: normocephalic, atraumatic, conjunctiva clear, sclera non-icteric, oral mucosa pink and moist Neck: supple, full ROM, no JVD, trachea is midline Resp: Lungs CTA, non-labored breathing CV: RRR, no murmur or rubs Abd: soft, non-tender, normoactive BTs Skin: no lesions or rashes, dry and intact Neuro: Alert and oriented X 4 w/no focal deficits. Speech clear and coherent. Extremities: moves all 4 extremities, is ambulatory, negative Darren?s sign Psyche: anxious. Objective Labs Result Diagrams: 01/06/20 04:57 01/06/20 04:57 Labs: Laboratory Results - last 24 hr 01/05/20 01/05/20 01/05/20 13:11 13:11 13:31 WBC RBC Hgb Hct MCV MCH MCHC RDW Plt Count Neut % (Auto) Lymph % (Auto) [place] % (Auto) Eos % (Auto) Baso % (Auto) Neut # (Auto) Lymph # (Auto) [place] # (Auto) Eos # (Auto) Baso # (Auto) D-Dimer 352 H Sodium Potassium Chloride Carbon Dioxide BUN Creatinine Estimated GFR BUN/Creatinine Ratio Glucose Lactate 1.7 Calcium Total Creatine Kinase 49 CK-MB (CK-2) TNP CK-MB (CK-2) Rel Index TNP Troponin I < 0.012 U Opiates 300ng/mL cut Ur Oxycodone Screen Urine Methadone Screen Ur Barbiturates Screen U Tricyclic Antidepress Ur Phencyclidine Scrn Ur Amphetamines Screen U Methamphetamines Scrn Ur MDMA Scrn (Ecstasy) U Benzodiazepines Scrn Urine Cocaine Screen U Marijuana (THC) Screen A. baumannii (PCR) Deb albicans (PCR) C. glabrata (PCR) C. krusei (PCR) C. parapsilosis (PCR) C. tropicalis (PCR) COVID-19 PCR Enterobacteriac sp PCR E. cloacae complex PCR Enterococcus sp PCR E. coli (PCR) H. influenzae (PCR) Klebsiella oxytoca PCR Klebsiella pneumoniae List. monocytogenes PCR N. meningitidis (PCR) Proteus species (PCR) Serratia marcescens PCR Staphylococcus sp PCR Staph aureus (PCR) mecA-Methicil Res Gene Streptococcus sp PCR Group A Strep (PCR) Strep agalactiae (PCR) Strep pneumoniae (PCR) P. aeruginosa (PCR) Nikki/B-Vanco Res Genes KPC-Carbap Res Gene PCR 01/05/20 01/05/20 01/06/20 13:38 18:53 04:57 WBC 12.5 H RBC 3.44 L Hgb 10.8 L Hct 31.9 L MCV 92.9 MCH 31.5 MCHC 33.8 RDW 13.0 Plt Count 153 Neut % (Auto) 82.3 H Lymph % (Auto) 7.7 L [place] % (Auto) 9.9 Eos % (Auto) 0.0 L Baso % (Auto) 0.1 Neut # (Auto) 90647 H Lymph # (Auto) 1000 L [place] # (Auto) 1200 H Eos # (Auto) 0 Baso # (Auto) 0 D-Dimer Sodium Potassium Chloride Carbon Dioxide BUN Creatinine Estimated GFR BUN/Creatinine Ratio Glucose Lactate Calcium Total Creatine Kinase CK-MB (CK-2) CK-MB (CK-2) Rel Index Troponin I U Opiates 300ng/mL cut Negative Ur Oxycodone Screen Negative Urine Methadone Screen Negative Ur Barbiturates Screen Negative U Tricyclic Antidepress Negative Ur Phencyclidine Scrn Negative Ur Amphetamines Screen Negative U Methamphetamines Scrn Negative Ur MDMA Scrn (Ecstasy) Negative U Benzodiazepines Scrn Negative Urine Cocaine Screen Negative U Marijuana (THC) Screen Negative A. baumannii (PCR) Deb albicans (PCR) C. glabrata (PCR) C. krusei (PCR) C. parapsilosis (PCR) C. tropicalis (PCR) COVID-19 PCR Negative Enterobacteriac sp PCR E. cloacae complex PCR Enterococcus sp PCR E. coli (PCR) H. influenzae (PCR) Klebsiella oxytoca PCR Klebsiella pneumoniae List. monocytogenes PCR N. meningitidis (PCR) Proteus species (PCR) Serratia marcescens PCR Staphylococcus sp PCR Staph aureus (PCR) mecA-Methicil Res Gene Streptococcus sp PCR Group A Strep (PCR) Strep agalactiae (PCR) Strep pneumoniae (PCR) P. aeruginosa (PCR) Nikki/B-Vanco Res Genes KPC-Carbap Res Gene PCR 01/06/20 01/06/20 04:57 13:11 WBC RBC Hgb Hct MCV MCH MCHC RDW Plt Count Neut % (Auto) Lymph % (Auto) [place] % (Auto) Eos % (Auto) Baso % (Auto) Neut # (Auto) Lymph # (Auto) [place] # (Auto) Eos # (Auto) Baso # (Auto) D-Dimer Sodium 137 Potassium 3.5 Chloride 112 H Carbon Dioxide 21 L BUN 10 Creatinine 0.58 Estimated GFR > 60.0 BUN/Creatinine Ratio 17.2 Glucose 119 H Lactate Calcium 7.2 L Total Creatine Kinase CK-MB (CK-2) CK-MB (CK-2) Rel Index Troponin I U Opiates 300ng/mL cut Ur Oxycodone Screen Urine Methadone Screen Ur Barbiturates Screen U Tricyclic Antidepress Ur Phencyclidine Scrn Ur Amphetamines Screen U Methamphetamines Scrn Ur MDMA Scrn (Ecstasy) U Benzodiazepines Scrn Urine Cocaine Screen U Marijuana (THC) Screen A. baumannii (PCR) Not detected Deb albicans (PCR) Not detected C. glabrata (PCR) Not detected C. krusei (PCR) Not detected C. parapsilosis (PCR) Not detected C. tropicalis (PCR) Not detected COVID-19 PCR Enterobacteriac sp PCR Not detected E. cloacae complex PCR Not detected Enterococcus sp PCR Not detected E. coli (PCR) Not detected H. influenzae (PCR) Not detected Klebsiella oxytoca PCR Not detected Klebsiella pneumoniae Not detected List. monocytogenes PCR Not detected N. meningitidis (PCR) Not detected Proteus species (PCR) Not detected Serratia marcescens PCR Not detected Staphylococcus sp PCR Detected H Staph aureus (PCR) Not detected mecA-Methicil Res Gene Not detected Streptococcus sp PCR Not detected Group A Strep (PCR) Not detected Strep agalactiae (PCR) Not detected Strep pneumoniae (PCR) Not detected P. aeruginosa (PCR) Not detected Nikki/B-Vanco Res Genes Not Reportable KPC-Carbap Res Gene PCR Not Reportable Assessment & Plan Assessment & Plan narrative: Alicia Tobin Is a 34-year-old female who was admitted with high fevers, nausea, and vomiting presume secondary to pyelonephritis. 1. Pyelonephritis, acute, present on admission - patient complained initially of right flank pain radiating into the groin as well as dysuria which started yesterday evening. - Renal ultrasound and abdominal CT did not show evidence of pyelonephritis, however this may have resolved prior to imaging being taken given her presentation is consistent with pyelonephritis. - Will continue ceftriaxone IV. - follow up urine and blood cultures. Urine with GNR pending further workup and blood cultures discussed below. 2. Possible staph bacteremia - patient with 1 of 4 bottles now growing staph Bacteria. This is not a staph aureus infection. Will continue ceftriaxone. Have asked for further workup given her presentation although the most likely etiology is of contamination at this time. VTE prophylaxis: Wells risk score: 1.5 Enoxaparin 40 mg subQ daily Consults: none Patient is admitted under inpatient status with expected length of stay greater than 2 midnights due to severity of presenting symptoms, risk of adverse event, and complexity of treatment plan. Dispo: discharge to home once medically stable, possibly in 1-2 days once afebrile for at least 24 hours. Code Status: Full as discussed with patient COVID-19 COVID-19 status: Negative Quality VTE Deep Vein Thrombosis/Pulmonary Embolism Present on Admission: No
--- NOTE | 2020-01-06 16:02 | DI.RAD.S_ITS ---
PROCEDURE: XR CHEST 1V INDICATIONS: fever TECHNIQUE: One view of the chest was acquired. COMPARISON: [facility], , CHEST 1 VIEW, 12/16/2016, 18:21. FINDINGS: Surgical changes and devices: None. Lungs and pleura: Lungs are clear. No pleural effusions or pneumothorax. Mediastinum: Mediastinal contours appear normal. Heart size is normal. Bones and chest wall: No suspicious bony lesions. Overlying soft tissues appear unremarkable. IMPRESSION: No acute cardiopulmonary pathology. Dictated by: Rickey Villavicencio M.D. on 01/06/2020 at 16:26 Approved by: Rickey Villavicencio M.D. on 01/06/2020 at 16:26
[2020-01-06] MEDS: METOCLOPRAMIDE 10 MG/2 ML INJ IV (16:07)
--- NOTE | 2020-01-06 19:16 | PC.NURSE ---
Evening note: Alicia resting on her right side, sleeping now after medicated with Dilaudid for severe headache pain 8 out of 10. Denies abdomen pain, does report some low back pain. Has intermittent dry heaves and has thrown up 100 ml emesis after attempting to eat jello, also reports nausea/emesis occur after ambulating to BR and back to bed. She is not tolerating anything other than ice chips/water at this time. Medicated with Metoclopromide as was too early to give zofran. VS are stable. I encouraged her to pump breast milk, she declined saying I am just too worn out to do it. Ambulating to BR to void. Staff will give her rest period at this time. NS infusing at 175 ml/hour. Lungs are clear, encouraged deep breathing exercises. RA oxygen 96% other VS stable. Instructed to call staff for any needs/concerns, call button at her side.
--- NOTE | 2020-01-06 21:52 | PC.NURSE ---
Evening note: Alicia reporting increased headache pain and nausea, holding emesis bag with 50 ml clear phlegm/vomit, occasionally dry heaving. Sitting up at side of bed, rocking self back & forth. Earlier had temp of 101.0, now afebrile. Other VS stable. Dilaudid and Zofran given. Patient assisted up to BSC, having a few more dry heaves & another 50 ml clear phlegm. Voiding with no reported difficulty, small amt menstrual blood on linen & pad. Fresh pad given, linen changed. Swish/spit with mouthwash, washed face. Patient back to bed, no further dry heaving. Pt instructed to call for any needs/concerns.
[2020-01-07] VITALS (11 sets, daily range): BP systolic 97–133; BP diastolic 62–79; PULSE 53–88; RESP 14–22; TEMP 36.2–37.4; O2SAT 95–100
[2020-01-07] MEDS: HYDROMORPHONE 1 MG INJ IV ×2 (00:03→04:58)
[2020-01-07] MEDS: SODIUM CHLORIDE 0.9% 1,000 ML 175 ML IV ×4 (00:19→19:40)
[2020-01-07] MEDS: ONDANSETRON 4 MG/2 ML INJ IV ×2 (04:56→11:01)
[2020-01-07] MEDS: METOCLOPRAMIDE 10 MG/2 ML INJ IV ×3 (07:58→14:26)
[2020-01-07] MEDS: KETOROLAC 30 MG/ML VIAL IV ×3 (07:59→19:54)
--- NOTE | 2020-01-07 08:36 | PC.NURSE ---
Addendum entered by Nilay Bach R.N. 01/07/20 11:08: reports headache back but just faintly there. reports return of nausea. given iv zofran, ivf resumed. Addendum entered by Nilay Bach R.N. 01/07/20 10:30: Patient reports headache is 0/10, nausea resolved. Set up assist, taking shower. Addendum entered by Nilay Bach R.N. 01/07/20 09:56: Patient is sleeping at this time. Allowed to rest. Original Note: Patient reports feeling weak. 1p assist up to bsc. Increased nausea and worsened headache w/ activity. BARRY 5/10 at rest at base of skull, sometimes radiating to behind eyes. Increased to 8/10 w/ activity. Endorses photophobia. States flank pain improved to 2/10. Denies hx of migraine. Md notified of the above. He is encouraged by her improved fever trends. Would like to try Fiorocet. Okay for general diet. Patient prefers dry toast. Kitchen notified of same.
[2020-01-07] MEDS: BUTALB/APAP/CAFFEINE 50/325/40 TABLET 1 EACH PO (08:48)
[2020-01-07 09:09] LABS: Add Manual Diff / Slide Review NO; Basophils Absolute Auto 0 /uL (0-100); Basophils Percent Auto 0.2 % (0-2); Eosinophils Absolute Auto 0 /uL (0-450); Eosinophils Percent Auto 0.3 % (2-4); Hematocrit 31.7 % (36-46); Hemoglobin 10.7 g/dL (12.0-16.0); Lymphocytes Absolute Auto 1200 /uL (1100-4500); Lymphocytes Percent Auto 11.3 % (25-40); Mean Corpuscular HGB Conc 33.8 % (30-36); Mean Corpuscular Hemoglobin 31.9 PG (26-34); Mean Corpuscular Volume 94.6 fL (80-100); Monocytes Absolute Auto 1200 /uL (0-900); Monocytes Percent Auto 10.8 % (3-14); Neutrophils Absolute Auto 8300 /uL (1500-7000); Neutrophils Percent Auto 77.4 % (50-75); Platelet Count 165 X10^3/uL (150-400); Red Blood Cell Count 3.36 X10^6/uL (4.0-5.2); Red Cell Distribution Width 12.9 % (11.6-14.8); White Blood Cell Count 10.7 X10^3/uL (4.5-11.0)
[2020-01-07 09:24] LABS: Alanine Aminotransferase 38 IU/L (<35); Albumin 2.9 g/dL (3.5-5.0); Albumin Globulin Ratio 1.1 (1.0-2.8); Alkaline Phosphatase 86 U/L (38-126); Aspartate Aminotransferase 22 IU/L (14-36); Bilirubin Total 0.7 mg/dL (0.2-1.3); Bilirubin Unconjugated 0.4 mg/dL (0.0-1.1); Blood Urea Nitrogen 13 mg/dL (7-17); Calcium 7.6 mg/dL (8.4-10.2); Carbon Dioxide 19 mmol/L (22-32); Chloride 113 mmol/L (98-107); Estimated Glomerular Filt Rate > 60.0 mL/min (>60); Globulin 2.6 g/dL (1.7-4.1); Glucose 96 mg/dL (70-100); HEMOLYSIS < 15 (0-50); Magnesium 1.9 mg/dL (1.6-2.3); Potassium 3.7 mmol/L (3.4-5.1); Sodium 139 mmol/L (137-145); Total Protein 5.5 g/dL (6.3-8.2)
--- NOTE | 2020-01-07 10:15 | CM.DPC ---
DCP Cont: Discussed patient at team rounds. She is currently sleeping, was up during the night, having some nausea and back discomfort. She is 6 months post . Patient will be staying another day or two secondary to pyelonephritis, and continuing on IV antibiotics. P: DCP to continue to follow and will be available for any resources needed at discharge. Lolis Pugh RN/Marketing Admin
[2020-01-07] MEDS: ENOXAPARIN 40 MG/0.4 ML SYRINGE SUBCUT (11:01)
[2020-01-07] MEDS: CEFTRIAXONE 1 GM/50 ML FROZ.PIGGY IV (14:28)
--- NOTE | 2020-01-07 15:16 | P.PN_ITS ---
Subjective Subjective Date Patient Seen: 01/07/20 Time Patient Seen: 15:16 Interval history: Alicia Tobin is a 34 year old female admitted with high fevers, presumably secondary to pyelonephritis although imaging has been unremarkable. Her UA was positive and urine cultures are growing Sensitive E. coli. She continues to have nausea and has not tolerated much PO intake yet. She remains on IVF. Her WBC improved today and her abdominal pain has improved. She complained of headache which was relieved with fiorocet today and some rest. Exam Vital Signs (past 8 hours): - 01/07/20 08:00 01/07/20 12:00 01/07/20 13:00 Temperature 98.5 F 97.5 F L Pulse Rate 73 53 L Respiratory Rate 14 14 Blood Pressure 97/62 111/67 Pulse Oximetry 95 99 99 Oxygen Delivery Method Room Air Oxygen Flow Rate 0 Narrative Exam Narrative: Gen: Alert, oriented, well-developed 34 y.o. female appears acutely ill and pale. Anxious appearing. HEENT: normocephalic, atraumatic, conjunctiva clear, sclera non-icteric, oral mucosa pink and moist Neck: supple, full ROM, no JVD, trachea is midline Resp: Lungs CTA, non-labored breathing CV: RRR, no murmur or rubs Abd: soft, non-tender, normoactive BTs Skin: no lesions or rashes, dry and intact Neuro: Alert and oriented X 4 w/no focal deficits. Speech clear and coherent. Extremities: moves all 4 extremities, is ambulatory, negative Darren?s sign Psyche: anxious. Objective Labs Result Diagrams: 01/07/20 08:36 01/07/20 08:36 Labs: Laboratory Results - last 24 hr 01/05/20 01/07/20 01/07/20 13:11 08:36 08:36 WBC 10.7 RBC 3.36 L Hgb 10.7 L Hct 31.7 L MCV 94.6 MCH 31.9 MCHC 33.8 RDW 12.9 Plt Count 165 Neut % (Auto) 77.4 H Lymph % (Auto) 11.3 L [place] % (Auto) 10.8 Eos % (Auto) 0.3 L Baso % (Auto) 0.2 Neut # (Auto) 8300 H Lymph # (Auto) 1200 [place] # (Auto) 1200 H Eos # (Auto) 0 Baso # (Auto) 0 Sodium 139 Potassium 3.7 Chloride 113 H Carbon Dioxide 19 L BUN 13 Creatinine 0.59 Estimated GFR > 60.0 BUN/Creatinine Ratio 22.0 Glucose 96 Lactate 1.4 Calcium 7.6 L Magnesium 1.9 Total Bilirubin 0.7 Conjugated Bilirubin 0.0 Unconjugated Bilirubin 0.4 AST 22 ALT 38 H Alkaline Phosphatase 86 Total Protein 5.5 L Albumin 2.9 L Globulin 2.6 Albumin/Globulin Ratio 1.1 Assessment & Plan Assessment & Plan narrative: Alicia Tobin Is a 34-year-old female who was a dmitted with high fevers, nausea, and vomiting presume secondary to pyelonephritis. 1. Pyelonephritis, acute, present on admission - patient complained initially of right flank pain radiating into the groin as well as dysuria which started day prior to admission. Slowly improving on IV antibiotics but still not tolerating adequate PO intake. - Renal ultrasound and abdominal CT did not show evidence of pyelonephritis, however this may have resolved prior to imaging being taken given her presen tation is consistent with pyelonephritis. - Will continue ceftriaxone IV. - Urine with sensitive E. coli and blood cultures discussed below. 2. Possible staph bacteremia - patient with 1 of 4 bottles now growing staph Bacteria. This is not a staph aureus infection. Will continue ceftriaxone. Have asked for further workup given her presentation although the most likely etiology is of cont amination at this time. Pending speciation currently. VTE prophylaxis: Wells risk score: 1.5 Enoxaparin 40 mg subQ daily Consults: none Patient is admitted under inpatient status with expected length of stay greater than 2 midnights due to severity of presenting symptoms, risk of adverse event, and complexity of treatment plan. Dispo: discharge to home once medically stable, possibly in 1-2 days once tolerating adequate PO intake. Code Status: Full as discussed with patient Quality VTE Deep Vein Thrombosis/Pulmonary Embolism Present on Admission: No
--- NOTE | 2020-01-07 21:13 | PC.NURSE ---
Evening note: Alicia had a much better night, reports little to no headache. Ox3 & situation. Low grade temp 99.4, other VS stable. Denies nausea, poor appetite, ate few bites of mashed potatoes and toast, refused remainder of meal. Snacks offered, tea given per her request. She denies any flank or back pain, reports most of her pain is in my chest at epigastric/rib cage area, reports feels really tight, reports pain relief after applying warm blankets to upper body & medicated with Toradol. Pumped her breasts with 60 ml output which was poured down drain. Denies needing help with ADL's, ambulating to BR with SBA, gait steady, pad with small amt of blood as patient is currently having menses. Fresh pads, mesh underwear & michael-wipes supplied. Denies other needs tonight, fall precautions in place & pt encouraged to call for any needs/concerns.
[2020-01-08] VITALS (21 sets, daily range): BP systolic 107–138; BP diastolic 64–86; PULSE 47–80; RESP 12–20; TEMP 36.3–37.6; O2SAT 91–100
--- NOTE | 2020-01-08 | PATH_ITS ---
[facility] Accession Number: [id number] . 01 Material submitted: . gallbladder - GALLBLADDER AND CONTENTS . 01 Clinical history: . FLANK PAIN/FEVER . 02 Diagnosis: Gallbladder and Contents, Cholecystectomy: Early active cholecystitis. Negative for dysplasia and malignancy. MRV 01/13/2020 1305 Local . 02 Electronically signed: . Promise Borrero MD, Pathologist NPI- [id number] . 01 Gross description: . Received in formalin, labeled gallbladder, and consists of a 10.0 x 3.0 x 3.0 cm intact gallbladder with a 0.2 cm in diameter cystic duct. The serosa is montoya-green and smooth. Opening reveals green viscous bile with no choleliths identified. The mucosa is green and velvety, and the wall thickness measures 0.1 cm. [employer] sections are submitted, to include the en face cystic duct margin (blue), body and fundus in cassette A1. ([id number]) /MRV 01/10/2020 1256 Local . 02 Microscopic: . [employer] sections of gallbladder mucosa show normal gallbladder architecture with submucosal vessels containing numerous neutrophils with margination and emigration into the submucosa. These findings are consistent with early acute inflammation. . 02 Pathologist provided ICD-10: K81.0 . 02 CPT . 357678 Performed at: 01 [facility] [address] [facility], [place], [place] [id number] MD Jayro Naranjo MD Phone: [phone] Performed at: 02 [facility] [address] [place], [place] [id number] MD Promise Borrero MD Phone: [phone]
[2020-01-08] MEDS: ACETAMINOPHEN 325 MG TABLET 650 MG PO (00:44)
[2020-01-08] MEDS: ONDANSETRON 4 MG/2 ML INJ IV ×4 (00:51→19:35)
[2020-01-08] MEDS: SODIUM CHLORIDE 0.9% 1,000 ML 175 ML IV (01:03)
[2020-01-08 01:41] LABS: D Dimer 1735 ng/mL (<230)
--- NOTE | 2020-01-08 01:46 | DI.CT.S_ITS ---
PROCEDURE: CT ANGIO CHEST PE PROTOCOL INDICATIONS: right sided chest pain radiating to back, elevation in D-dimer TECHNIQUE: After the administration of intravenous contrast, 2 mm thick sections acquired from the pulmonary apices to the posterior costophrenic angles. 3-dimensional maximum intensity projection (MIP) coronal and sagittal reformats were then acquired through the thorax. For radiation dose reduction, the following was used: automated exposure control, adjustment of mA and/or kV according to patient size. COMPARISON: None. FINDINGS: Image quality: Excellent. Pulmonary arteries: Pulmonary arteries are normal in size, and demonstrate no intraluminal filling defects to suggest central pulmonary embolism. Lungs and pleura: Moderate-sized right and small left pleural effusions. Patchy consolidation of the lung bases bilaterally which could represent atelectasis, aspiration or pneumonia. No pneumothorax. Central and peripheral airways are patent. Mediastinum: Heart size is normal, without pericardial effusion. No mediastinal or hilar adenopathy. Thoracic aorta is normal in caliber and enhancement. Esophagus is normal in caliber, without hiatal hernia. Bones and chest wall: No suspicious bony lesions. Ribs and thoracic spine appear intact throughout. Thyroid gland is within normal limits. No axillary or supraclavicular adenopathy. Abdomen: Visualized upper abdominal solid organs appear normal in the early arterial phase of enhancement. IMPRESSION: 1. No pulmonary embolus. 2. Bilateral pleural effusions. 3. Bibasilar consolidation which could represent atelectasis, aspiration or pneumonia. Dictated by: Kathy Estevez MD, PhD on 01/08/2020 at 7:05 Approved by: Kathy Estevez MD, PhD on 01/08/2020 at 7:08
--- NOTE | 2020-01-08 01:47 | PM.EVENT ---
Event Note Date Patient Seen: 01/08/20 Time Patient Seen: 01:00 Event Note: Patient reported crushing like chest pain on the right side, radiating to her back. She also states she feels like her belly is numb except where she receives the lovenox injections. She appears and is more conversant than when I admitted her 2 days ago. D-dimer on admission was 352 and tonight it is 1735. Will order CT angio of the chest. She has been receiving enoxaparin and getting out of bed to use the bathroom. CTA was negative for a PE, but indicated moderate right pleural effusion and a small to moderate left plural effusion with bilateral opacities concerning for atelectasis or pneumonia. Currently is receiving ceftriaxone, so will likely need to be discharge on a remaining course of oral antibiotics. I have cut her fluids back to 125 ml/hour to flush out her kidneys after receiving contrast for the CTA.
[2020-01-08] MEDS: KETOROLAC 30 MG/ML VIAL IV ×2 (01:48→13:13)
--- NOTE | 2020-01-08 02:29 | PC.NURSE ---
Addendum entered by Yamilet Toledo R.N. 01/08/20 06:07: States pain is still 6/10 and feels like pressure in chest radiating around to mid spine. Discussed pain medication with Andrew KINGSLEY, since too early to repeat Toradol and Tylenol is not working. Order received for Oxycodone and patient medicated Original Note: Patient seen at 0058. Complaining of crushing pressure like chest pain radiating to left scapula and states she feels a little SOB. RA sat 100% and breath sounds CTA. Also complains of abdominal numbness. Notified Andrew KINGSLEY, who ordered a stat d-dimer which was elevated. Patient down for urgent CT to r/o PE and just now returned to room. Is alert and oriented. HRR. Did complain of feeling a little nauseated and was medicated with Zofran. Was medicated first with Tylenol for pain as was too early to give Toradol and then Toradol give shortly before going for CT. Patient states pain has not improved but feels best when sitting upright. BT present and abdomen is soft; reports passing flatus but has not had a BM recorded since 01/03. Is voiding without dysuria, frequency or urgency. Does have menses. Is able to move self in bed. Up to bathroom with SBA. Noted to have puffy hands/feet. Fall risk score is moderate; patient calling appropriately when needing to get up.
[2020-01-08 05:57] LABS: Add Manual Diff / Slide Review NO; Basophils Absolute Auto 0 /uL (0-100); Basophils Percent Auto 0.2 % (0-2); Eosinophils Absolute Auto 100 /uL (0-450); Eosinophils Percent Auto 0.8 % (2-4); Hematocrit 29.8 % (36-46); Hemoglobin 10.1 g/dL (12.0-16.0); Lymphocytes Absolute Auto 1500 /uL (1100-4500); Lymphocytes Percent Auto 19.3 % (25-40); Mean Corpuscular Hemoglobin 31.8 PG (26-34); Mean Corpuscular Volume 93.4 fL (80-100); Monocytes Absolute Auto 800 /uL (0-900); Neutrophils Absolute Auto 5400 /uL (1500-7000); Neutrophils Percent Auto 69.7 % (50-75); Platelet Count 164 X10^3/uL (150-400); Red Blood Cell Count 3.19 X10^6/uL (4.0-5.2); Red Cell Distribution Width 13.1 % (11.6-14.8); White Blood Cell Count 7.7 X10^3/uL (4.5-11.0)
[2020-01-08] MEDS: OXYCODONE IR 5 MG TABLET PO (06:03)
[2020-01-08 06:09] LABS: Alanine Aminotransferase 122 IU/L (<35); Albumin 2.6 g/dL (3.5-5.0); Alkaline Phosphatase 107 U/L (38-126); Aspartate Aminotransferase 127 IU/L (14-36); BUN Creatinine Ratio 21.1 (6-22); Bilirubin Total 0.9 mg/dL (0.2-1.3); Bilirubin Unconjugated 0.6 mg/dL (0.0-1.1); Blood Urea Nitrogen 12 mg/dL (7-17); Calcium 7.4 mg/dL (8.4-10.2); Carbon Dioxide 20 mmol/L (22-32); Chloride 114 mmol/L (98-107); Estimated Glomerular Filt Rate > 60.0 mL/min (>60); Globulin 2.5 g/dL (1.7-4.1); Glucose 86 mg/dL (70-100); HEMOLYSIS < 15 (0-50); Potassium 3.3 mmol/L (3.4-5.1); Sodium 138 mmol/L (137-145); Total Protein 5.1 g/dL (6.3-8.2)
[2020-01-08 06:22] LABS: Procalcitonin 0.13 ng/mL (<0.5)
[2020-01-08 07:33] LABS: Lipase 20 U/L (23-300)
[2020-01-08 08:37] LABS: INR 1.2 (0.9-1.3); Prothrombin Time 14.2 SECONDS (10.1-12.7)
[2020-01-08 08:39] LABS: PTT Partial Thromboplastin Tim 28 SECONDS (26.4-36.2)
--- NOTE | 2020-01-08 08:46 | DI.US.S_ITS ---
PROCEDURE: US ABDOMEN LIMITED COMPARISON: None. INDICATIONS: RUQ PAIN FINDINGS: The liver measures 18 cm in length and has a normal echotexture. Note is made of minimal pleural effusions bilaterally during liver scanning. These would not be safe for ultrasound access for thoracentesis. At the gallbladder fossa the gallbladder appears markedly abnormal with 17.3 cm combined gallbladder wall thickening, no stones, elevated free fluid adjacent to the gallbladder mild in quantity, and tenderness during sonographic palpation. The common duct is normal in caliber at 4.2 mm and the pancreatic duct is normal also. IMPRESSION: By sonographic appearance the markedly abnormal gallbladder wall thickening with focal tenderness and immediate adjacent free fluid indicates likelihood of acute cholecystitis. A definite calculus is not seen but significant portions of the gallbladder fossa could not be accurately evaluated due to patient tenderness. Surgical consultation is recommended. Small bilateral pleural effusions incidentally noted during liver scanning, thoracentesis could not be safely performed given the small size. Dictated by: David Rossi M.D. on 01/08/2020 at 10:59 Approved by: David Rossi M.D. on 01/08/2020 at 11:02
[2020-01-08] MEDS: SODIUM CHLORIDE 0.9% 1,000 ML 125 ML IV (10:59)
[2020-01-08] MEDS: POTASSIUM CHLORIDE 40 MEQ in SODIUM CHLORIDE 0.9% 500 ML 130 ML IV (11:00)
--- NOTE | 2020-01-08 11:22 | CM.DPC ---
DCP Cont: Per MD, pt initially thought to have pyelonephritis at admission but pt now with ongoing pain management issues and imaging was negative for pyelonephritis. SW met bedside with pt and MD during MDR and MD updated pt that she now shows pleural effusion and to have an ultrasound today and possible thoracentesis. Pt confirms that she is still feeling quite ill and no appetite yet. Pt being changed to NPO and IV potassium as likely will have procedure today for thoracentesis pending ultrasound results. Pt hopeful to be feeling better soon and able to d/c home with sig other and children but does not feel stable for d/c yet. Plan: SW to follow closely after ultrasound and possible procedure towards determining any d/c needs. RG Garcia
--- NOTE | 2020-01-08 12:10 | P.CONS_ITS ---
History of Present Illness Consult details Date Patient Seen: 01/08/20 Time Patient Seen: 12:10 Chief complaint: Flank pain/ fever Reason for consult: RUQ pain, transaminitis, pericholecystic fluid Narrative: This is a 34-year-old woman who was admitted to the hospital 2 days ago for pyelonephritis. She has been having right-sided abdominal pain since Monday, which began with right flank pain radiating down to the groin. She has had fevers, nausea and vomiting. Denies any jaundice. She denies any postprandial pain. On her initial evaluation and admission she was not found to have any abnormalities in the biliary system on her imaging, and normal LFTs on her labs. Last night she developed crushing right chest pain, and was sent for a CTA to rule out PE. The CT was negative, but she was planned to have right pleural effusion. She has right upper quadrant pain this morning on doctor Juliocesar's exam, and right upper quadrant ultrasound was ordered. She has pericholecystic fluid on the right upper quadrant ultrasound, but no gallstones were seen. She sitting upright because it causes her significant pain to lay flat. She has been on ceftriaxone for the last 3 days and her white count has normalized. She denies any history of similar symptoms in the past prior to this hospital admission. She is 6 months , and is nursing. She says she has pain in the right upper quadrant right flank, and feels numb in the lower part of her abdomen. She has never had any abdominal surgery, but she had a colonoscopy due to constipation. She says nothing abnormal was found on the study. ROS: History of constipation. Suprapubic pain, dysuria, nausea, poor appetite, Thirteen system review is otherwise negative other than as mentioned below and in HPI. PE: GENERAL: Alert, mild distress. Appears stated age. Answers questions promptly and appropriately. Vital signs noted. HENT: Normocephalic, atraumatic. Hearing intact. EYES: Conjunctiva pink, sclera white, no periorbital swelling. CARDIOVASCULAR: Regular rate. No pedal edema. RESPIRATORY: Non-tachypneic, breathing comfortably on room air. GASTROINTESTINAL: Abdomen soft, mildly distended, focally tender in the right upper quadrant right flank GENITALURINARY: Suprapubic tenderness MUSCULOSKELETAL: Equal tone and mass bilaterally. SKIN: Warm, dry, soft, appropriate color for ethnicity. No other lesions, rashes, or wounds. NEURO: Alert and Oriented X 3. No gross sensory deficits, or cognitive issues. Speaks very slowly. PSYCH: Appropriate affect and mood. Meds Home Medications and Allergies Home Medications Medication Instructions Recorded Confirmed Type Double Electric breast Pump and #1 each 06/27/19 01/05/20 Rx Supplies Adult Probiotic 1 cap PO DAILY 01/05/20 01/08/20 History Allergies Allergy/AdvReac Type Severity Reaction Status Date / Time tetanus and diphtheria Allergy Intermediate Difficulty Verified 07/11/19 00:30 toxoids Breathing hydrocodone [From Vicodin] AdvReac Unknown Hives Verified 06/12/19 14:31 EGGPLANT Allergy Mild HIVES, Uncoded 06/12/19 14:31 EGGPLANT Exam Vital Signs (past 8 hours): - 01/08/20 05:15 01/08/20 07:45 01/08/20 08:40 Temperature 97.9 F 97.5 F L Pulse Rate 59 L 48 L Respiratory Rate 18 14 Blood Pressure 115/64 107/70 Pulse Oximetry 94 92 92 Oxygen Delivery Method Room Air Oxygen Flow Rate [address] scan - abdomen: Radiologist's impression: [place] [address] Ultrasound Report Signed Patient: Alicia Tobin FMR#: [id number] : 1985Acct:[id number] Age/Sex: 34 / FDate of Service: 01/08/20 Loc: XN520-8 Accession Number: [id number] Procedure: US abdomen limited Ordering Provider: Javon Gandara D.O. PROCEDURE: US ABDOMEN LIMITED COMPARISON: None. INDICATIONS: RUQ PAIN FINDINGS: The liver measures 18 cm in length and has a normal echotexture. Note is made of minimal pleural effusions bilaterally during liver scanning. These would not be safe for ultrasound access for thoracentesis. At the gallbladder fossa the gallbladder appears markedly abnormal with 17.3 cm combined gallbladder wall thickening, no stones, elevated free fluid adjacent to the gallbladder mild in quantity, and tenderness during sonographic palpation. The common duct is normal in caliber at 4.2 mm and the pancreatic duct is normal also. IMPRESSION: By sonographic appearance the markedly abnormal gallbladder wall thickening with focal tenderness and immediate adjacent free fluid indicates likelihood of acute cholecystitis. A definite calculus is not seen but significant portions of the gallbladder fossa could not be accurately evaluated due to patient tenderness. Surgical consultation is recommended. Small bilateral pleural effusions incidentally noted during liver scanning, thoracentesis could not be safely performed given the small size. Dictated by: David Rossi M.D. on 01/08/2020 at 10:59 Approved by: David Rossi M.D. on 01/08/2020 at 11:[address] [address] [address] Scan Report Signed Patient: Alicia Tobin FMR#: [id number] : 1985Acct:[id number] Age/Sex: 34 / FDate of Service: 01/05/20 Loc: ED Accession Number: [id number] Procedure: CT abdomen pelvis w con Ordering Provider: Charisma Sanabria D.O. PROCEDURE: CT ABDOMEN PELVIS W CON INDICATIONS: right sided pain TECHNIQUE: After the administration of intravenous contrast, 5 mm thick sections acquired from the diaphragm to the symphysis. 5 mm coronal and sagittal reformats were acquired. For radiation dose reduction, the following was used: automated exposure control, adjustment of mA and/or kV according to patient size. COMPARISON: None. FINDINGS: Image quality: Excellent. ABDOMEN: Lung bases: Lung bases are clear. Heart size is normal. Solid organs: Liver is normal in size and enhancement. Gallbladder unremarkable. Biliary system is non dilated. Pancreas enhances normally. Spleen is normal in size and enhancement. No adrenal nodules. Kidneys demonstrate normal size and enhancement, without hydronephrosis. Peritoneum and bowel: Bowel loops demonstrate normal wall thickness and caliber. Normal appendix. No free fluid or air. Nodes and vessels: No retroperitoneal or mesenteric adenopathy by size criteria . Aorta and inferior vena cava are normal in size. Miscellaneous: No ventral hernias. PELVIS: Genitourinary: Bladder wall thickness is normal. Anteverted uterus. Corpus luteum follicle of the left ovary. Miscellaneous: No inguinal hernias or adenopathy. Bones: No suspicious bony lesions. No vertebral body compression fractures. IMPRESSION: No acute intra-abdominal abnormality. Dictated by: Vidal Mccall M.D. on 01/05/2020 at 13:25 Approved by: Vidal Mccall M.D. on 01/05/2020 at 13:30 Labs Result Diagrams: 01/08/20 04:58 01/08/20 04:58 Labs: Laboratory Results - last 24 hr 01/08/20 01/08/20 01/08/20 01:09 04:58 04:58 WBC 7.7 RBC 3.19 L Hgb 10.1 L Hct 29.8 L MCV 93.4 MCH 31.8 MCHC 34.0 RDW 13.1 Plt Count 164 Neut % (Auto) 69.7 Lymph % (Auto) 19.3 L [place] % (Auto) 10.0 Eos % (Auto) 0.8 L Baso % (Auto) 0.2 Neut # (Auto) 5400 Lymph # (Auto) 1500 [place] # (Auto) 800 Eos # (Auto) 100 Baso # (Auto) 0 PT INR APTT D-Dimer 1735 H Sodium 138 Potassium 3.3 L Chloride 114 H Carbon Dioxide 20 L BUN 12 Creatinine 0.57 Estimated GFR > 60.0 BUN/Creatinine Ratio 21.1 Glucose 86 Calcium 7.4 L Magnesium 2.0 Total Bilirubin 0.9 Conjugated Bilirubin 0.0 Unconjugated Bilirubin 0.6 AST 127 H ALT 122 H Alkaline Phosphatase 107 Total Protein 5.1 L Albumin 2.6 L Globulin 2.5 Albumin/Globulin Ratio 1.0 Lipase Procalcitonin 01/08/20 01/08/20 01/08/20 04:58 04:58 08:11 WBC RBC Hgb Hct MCV MCH MCHC RDW Plt Count Neut % (Auto) Lymph % (Auto) [place] % (Auto) Eos % (Auto) Baso % (Auto) Neut # (Auto) Lymph # (Auto) [place] # (Auto) Eos # (Auto) Baso # (Auto) PT 14.2 H INR 1.2 APTT 28 D-Dimer Sodium Potassium Chloride Carbon Dioxide BUN Creatinine Estimated GFR BUN/Creatinine Ratio Glucose Calcium Magnesium Total Bilirubin Conjugated Bilirubin Unconjugated Bilirubin AST ALT Alkaline Phosphatase Total Protein Albumin Globulin Albumin/Globulin Ratio Lipase 20 L Procalcitonin 0.13 Assessment & Plan Assessment and plan (1) UTI (urinary tract infection): Qualifiers: Urinary tract infection type: acute pyelonephritis Qualified Code(s): N10 - Acute pyelonephritis Status: Acute (2) Sepsis: Qualifiers: Sepsis acute organ dysfunction status: with acute organ dysfunction Sepsis type: sepsis due to unspecified organism Severe sepsis shock status: without septic shock Status: Acute (3) Right flank pain: Status: Acute (4) Right upper quadrant pain: Status: Acute (5) Abnormal ultrasound of abdomen: Status: Acute (6) Transaminitis: Status: Acute Assessment & Plan narrative: This is a 34-year-old woman admitted for pyelonephritis, who had sudden onset of right upper quadrant and right chest pain yesterday. Labs and imaging point towards her gallbladder, but she has somewhat of an equivocal picture given her multiple symptoms correlating with UTI and constipation. Recommend that she get a HIDA scan this afternoon. Keep her NPO, hold Lovenox. Continue IV antibiotics. Continue pain control as n eeded. I will put her on the OR schedule for this afternoon, in case a HIDA scan is positive. Discussed with with the patient and with her mother. Risks and benefits of laparoscopic possible open cholecystectomy were discussed with the patient her mother including risk of bleeding, infection, damage to nearby structures, bile leak, bile duct injury, need for additional procedures, need for transfer to tertiary center, risk of anesthesia. The patient desires to proceed with surgery. Plan: HIDA scan Laparoscopic possible open cholecystectomy this afternoon pending HIDA scan results COVID-19 Result date/Date tested (Pos, Neg/Pending): 01/05/20 Time Spent With Patient Time with patient: 25 - 35 minutes
[2020-01-08] MEDS: diazePAM 10 MG/2 ML SYRINGE 5 MG IV ×2 (13:14→20:53)
[2020-01-08] MEDS: LACTATED RINGERS 1,000 ML 42 ML IV ×2 (15:39→18:47)
[2020-01-08] MEDS: CEFTRIAXONE 1 GM/50 ML FROZ.PIGGY IV (15:39)
[2020-01-08] MEDS: Non-Formulary Medication (Indocyanine Green 25 MG) 25 EACH IV (15:58)
[2020-01-08] MEDS: BUPIVACAINE 0.25% W/ EPI 30 ML VIAL INJ (17:00)
--- NOTE | 2020-01-08 17:24 | SUR.OPER ---
Supine on padded OR bed, head on pillow, arms secured on padded arm boards at <90 degrees abduction, legs uncrossed, safety belt at thigh, tape over blanket over lower legs.
[2020-01-08 18:08] LABS: Hematocrit 30.8 % (36-46); Hemoglobin 10.4 g/dL (12.0-16.0); Mean Corpuscular HGB Conc 33.7 % (30-36); Mean Corpuscular Hemoglobin 31.7 PG (26-34); Mean Corpuscular Volume 93.8 fL (80-100); Platelet Count 166 X10^3/uL (150-400); Red Blood Cell Count 3.29 X10^6/uL (4.0-5.2); Red Cell Distribution Width 12.9 % (11.6-14.8); White Blood Cell Count 7.3 X10^3/uL (4.5-11.0)
[2020-01-08 18:18] LABS: INR 1.3 (0.9-1.3); Prothrombin Time 14.5 SECONDS (10.1-12.7)
[2020-01-08 18:21] LABS: PTT Partial Thromboplastin Tim 25 SECONDS (26.4-36.2)
--- NOTE | 2020-01-08 19:18 | P.OP_ITS ---
Operative Date/Time/Diagnoses Date of procedure: 01/08/20 Time of procedure: 19:18 Pre-op diagnosis: acute acalculous cholecystitis Post-op diagnosis: other (acute acalculous cholecystitis with bile peritonitis) Procedure & Clinicians Procedure: laparoscopic cholecystectomy Same procedure as scheduled: Yes Indications: Abdominal pain, transaminitis, thickened gall bladder Surgeon: Marta Ortega Continuous Improvement Engineer: Dax Vu Anesthesia Type: General Operative Notes Findings: Thickened edematous gall bladder, 500mL of bile peritonitis, large superficial venous branch in the gall bladder fossa Specimen(s): other (gall bladder) Estimated Blood Loss (mL): 300 Blood products transfused: none Procedure in detail: The patient was brought into the operating room and placed supine on the OR table. Sequential compression devices were placed on both legs and turned on. Appropriate perioperative antibiotics were given prior to the start of surgery. General anesthesia was induced the patient was intubated. The abdomen was prepped and draped in sterile fashion. Surgical time-out was conducted. Local anesthetic was injected under the skin just superior to the umbilicus and a 5 mm vertical incision was made at this site. The umbilical stalk was grasped with a Kristian and elevated. A Veress needle was passed through the fascia into proper position. The position was tested with a saline drop test which was appropriate for intra-abdominal Veress needle placement. The abdomen was then insufflated in the usual fashion. Once insufflated to 15 mm Hg the Veress needle was removed and a 5 mm optical trocar was placed under direct vision using a 5 mm 30 degree scope. Once the camera was inside the abdomen I took a look around. There was no injury from port placement. There was a large pool of bile in the pelvis and right lower quadrant and in the left upper quadrant lateral to the liver. The gall bladder was green tense, and edematous with bilious edema in the surrounding omentum and mesenteric fat. Two additional ports were placed in a similar fashion in the right upper quadrant and a 10 mm port was placed in the epigastrium. The bile was suctioned out using a laparoscopic suction program medical director. I then grasped the gall bladder infundibulum and elevated the gall bladder cranially and laterally to the patient's right. A laparoscopic needle was brought into the field, and drainage of the gall bladder was attempted. After advancing the needle into the mid gall bladder and drawing back, no bile was extracted. The gall bladder hilum was very edematous and there were densely fibrous adhesions throughout. Careful dissection was undertaken, but clear i dentification of the structures was made difficulty by the dense scar tissue and edema. I used indocyanine cholangiography with no avail, as there was no filling of the cystic duct or the gall bladder itself, consistent with obstruction of the cystic duct, possibly due to the profound edema. I dissected along the peritoneum covering the gall bladder wall to attempt to free it from the liver for better retraction. The gall bladder wall was markedly edematous and hypervascular. We continually ran into significant bleeding from the gall bladder wall and liver. At this point, the decision was made to attempt dissection from the fundus down. I was able to begin dissection from the fundus down, with gentle retraction on the liver using a blunt forcep and raytec gauze to protect the liver. We were able to get into an avascular plane along the gall bladder fossa. After a few cm of dissection along the gall bladder fossa, a sudden gush of dark blood came from the liver. It was apparent that a large venous branch was running superficially along the gall bladder fossa and was entered during dissection. I was able to compress the area with the gall bladder to compress and prevent bleeding. After a few minutes of holding pressure I took a second look, and again saw significant dark blood pouring from a venous structure. Two 10mm clips were placed to bring together the surrounding edematous scar tissue to compress the bleeding vessel. Pressure was again held for 15 minutes while the OR staff were getting blood set up for possible transfusion, setting up for open surgery, and calling Dr. Vu for assistance. I continued to hold pressure during this time. After 15 minutes, I again examined the area of bleeding, and a large clot was seen in the previously open vessel, and no further bleeding was seen. Dr. Vu came in to assist, and we decided to continue laparoscopically. With Dr. Vu's assistance retracting the fundus and infundibulum, we again attempted dissection of the hilum rather than continuing dissection in the area of the bleed. We were able to free the cystic duct and artery from the dense and edematous scar tissue, and to achieve the critical view of safety. Once the cystic duct and artery were completely dissected out, I was able to see liver behind and between both structures without any other structures in the way, giving us the critical view. At this point I doubly clipped both structures on the patient's side and put a single clip on the gallbladder side of both the cystic duct and artery. Both structures were then divided with laparoscopic [place]. Following this the gallbladder was gradually dissected free from the liver. The gall bladder wall was remarkably thick and edematous with many large vessels throughout which had to be controlled with cautery. When we reached the area of prior bleed, we dissected carefully around it and we were able to free the gall bladder off of the liver surface. Once the gallbladder was entirely freed, it was placed inside an Endo-Catch bag and removed through the epigastric port site. I had to enlarge the epigastric site in order to get the gallbladder out. Once it was out and passed off to the back table I then took another look inside the abdomen. I suctioned clean any remaining blood or fluid on the lateral side of the liver and in the subhepatic space. A 19 round tee drain was introduced into the abdomen through the lateral port site. The drain was positioned beneath the liver edge along the gall bladder fossa and secured to the abdominal wall with nylon suture. There was no active bleeding or leaking of bile from the clotted vessel in the gallbladder fossa, or from the clipped stumps of the cystic duct and artery. At this point the epigastric port site was closed with 0 Vicryl suture in the fascia, 3 O Vicryl in the subcutaneous layers, and 4 Monocryl in the skin. The insufflation was removed from the abdomen. The remaining port sites were closed with 4 Monocryl in the skin. Each port site was sealed with Dermabond. Local anesthetic was given at each of the port sites and in the fascia. This concluded the procedure. At this point the needle sponge and instrument counts were correct. The gallbladder was passed off the table for pathology. Patient was awakened from anesthesia and extubated. She was transferred to the postanesthesia care unit in stable condition. Modifier 22 will be added to the coding for this case due to prolonged OR time over twice the normal time due to severe patient disease and vascular anomaly requiring a second surgeon to come in and assist, and requiring increased skill and level of risk and complexity to complete the operation safely. Complications: none Post-operative Condition: stable Disposition: PACU
[2020-01-08] MEDS: METOCLOPRAMIDE 10 MG/2 ML INJ IV (19:23)
--- NOTE | 2020-01-08 19:36 | SUR.PHASEI ---
pt cleaned for large incontinence of urine. medicating for c/o nausea, lab with pt drawing ordered labs
--- NOTE | 2020-01-08 19:39 | P.PN_ITS ---
Subjective Subjective Date Patient Seen: 01/08/20 Time Patient Seen: 19:39 Interval history: Alicia Tobin is a 34 year old female admitted with high fevers, presumably secondary to pyelonephritis although imaging has been unremarkable. Her UA was positive and urine cultures are growing Sensitive E. coli. She continued to slowly improve but never tolerated much PO intake. Overnight she complained of R pleuritic chest pain. CTA chest revealed bilateral pleural effusions which were not present on prior radiographs. Patient pain migrated somewhat and was now more RUQ. Patient had a positive tran sign on exam this AM. US chest did not show drainable fluid collection however RUQ ultrasound showed a severely inflamed gallbladder wall consistent with cholecyst itis. Patient underwent cholecystectomy today with Dr. Ortega. Exam Vital Signs (past 8 hours): - 01/08/20 12:36 01/08/20 15:10 01/08/20 15:36 Temperature 98.2 F 98.3 F 98.2 F Pulse Rate 51 L 49 L 54 L Respiratory Rate 15 16 17 Blood Pressure 126/80 119/78 122/77 Pulse Oximetry 95 98 01/08/20 19:03 01/08/20 19:08 01/08/20 19:13 Temperature 97.9 F Pulse Rate 80 59 L 57 L Respiratory Rate 20 19 14 Blood Pressure 120/77 129/80 132/83 Pulse Oximetry 92 95 95 01/08/20 19:18 01/08/20 19:27 Temperature Pulse Rate 56 L 69 Respiratory Rate 16 17 Blood Pressure 128/77 126/74 Pulse Oximetry 95 94 Oxygen Delivery Method Nasal Cannula Oxygen Flow Rate 4 Narrative Exam Narrative: Gen: Alert, oriented, well-developed 34 y.o. female appears acutely ill and pale. improved anxiety but more discomfort this AM. HEENT: normocephalic, atraumatic, conjunctiva clear, sclera non-icteric, oral mucosa pink and moist Neck: supple, full ROM, no JVD, trachea is midline Resp: Lungs with diminshed breath sounds in lung bases, inspiration limited by pain. non-labored breathing CV: RRR, no murmur or rubs Abd: mildly distended, severe RUQ tenderness,+tran sign. Skin: no lesions or rashes, dry and intact Neuro: Alert and oriented X 4 w/no focal deficits. Speech clear and coherent. Extremities: moves all 4 extremities, is ambulatory, negative Darren?s sign Objective Labs Result Diagrams: 01/08/20 17:55 01/08/20 17:55 Labs: Laboratory Results - last 24 hr 01/08/20 01/08/20 01/08/20 01:09 04:58 04:58 WBC 7.7 RBC 3.19 L Hgb 10.1 L Hct 29.8 L MCV 93.4 MCH 31.8 MCHC 34.0 RDW 13.1 Plt Count 164 Neut % (Auto) 69.7 Lymph % (Auto) 19.3 L Mccormick % (Auto) 10.0 Eos % (Auto) 0.8 L Baso % (Auto) 0.2 Neut # (Auto) 5400 Lymph # (Auto) 1500 Mccormick # (Auto) 800 Eos # (Auto) 100 Baso # (Auto) 0 PT INR APTT D-Dimer 1735 H Sodium 138 Potassium 3.3 L Chloride 114 H Carbon Dioxide 20 L BUN 12 Creatinine 0.57 Estimated GFR > 60.0 BUN/Creatinine Ratio 21.1 Glucose 86 Calcium 7.4 L Magnesium 2.0 Total Bilirubin 0.9 Conjugated Bilirubin 0.0 Unconjugated Bilirubin 0.6 AST 127 H ALT 122 H Alkaline Phosphatase 107 Total Protein 5.1 L Albumin 2.6 L Globulin 2.5 Albumin/Globulin Ratio 1.0 Lipase Procalcitonin 01/08/20 01/08/20 01/08/20 04:58 04:58 08:11 WBC RBC Hgb Hct MCV MCH MCHC RDW Plt Count Neut % (Auto) Lymph % (Auto) Mccormick % (Auto) Eos % (Auto) Baso % (Auto) Neut # (Auto) Lymph # (Auto) Mccormick # (Auto) Eos # (Auto) Baso # (Auto) PT 14.2 H INR 1.2 APTT 28 D-Dimer Sodium Potassium Chloride Carbon Dioxide BUN Creatinine Estimated GFR BUN/Creatinine Ratio Glucose Calcium Magnesium Total Bilirubin Conjugated Bilirubin Unconjugated Bilirubin AST ALT Alkaline Phosphatase Total Protein Albumin Globulin Albumin/Globulin Ratio Lipase 20 L Procalcitonin 0.13 01/08/20 01/08/20 17:55 17:55 WBC 7.3 RBC 3.29 L Hgb 10.4 L Hct 30.8 L MCV 93.8 MCH 31.7 MCHC 33.7 RDW 12.9 Plt Count 166 Neut % (Auto) Lymph % (Auto) Mccormick % (Auto) Eos % (Auto) Baso % (Auto) Neut # (Auto) Lymph # (Auto) Mccormick # (Auto) Eos # (Auto) Baso # (Auto) PT 14.5 H INR 1.3 APTT 25 L D D-Dimer Sodium Potassium Chloride Carbon Dioxide BUN Creatinine Estimated GFR BUN/Creatinine Ratio Glucose Calcium Magnesium Total Bilirubin Conjugated Bilirubin Unconjugated Bilirubin AST ALT Alkaline Phosphatase Total Protein Albumin Globulin Albumin/Globulin Ratio Lipase Procalcitonin Assessment & Plan Assessment & Plan narrative: Alicia Tobin Is a 34-year-old female who was admitted with high fevers, nausea, and vomiting presume secondary to pyel onephritis. Somewhat remarkably she developed acute cholecystitis over the prior two days and underwent acute cholecystectomy today with surgery. 1. Pyelonephritis, acute, present on admission - patient complained initially of right flank pain radiating into the groin as well as dysuria which started day prior to admission. Slowly improving on IV antibiotics but still not tolerating adequate PO intake. - Renal ultrasound and abdominal CT did not show evidence of pyelonephritis, however this may have resolved prior to imaging being taken given her presentation is consistent with pyelonephritis. It further did not show evidence of biliary pathologies. - Patient has been on ceftriaxone IV since admiission, will put a stop date at 7 days. - Urine with sensitive E. coli and blood cultures discussed below. 2. Ruled out staph bacteremia - patient with 1 of 4 bottles now growing staph hominis thought to be a contaminant. 3. acute cholecystitis. 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 US with severe wall thickening. Patient taken to OR today with surgery, Dr. Ortega. Patient had 500 cc of bile upon entering and also had a lot of bleeding. KATELYNN drain was placed. - avoid lovenox or toradol for the next fewdays. If drain fills with blood may have to return to the OR overnight. 4. Bilateral pleural effusions, acute, not present on admission - suspect secondary to inflammatory response from her cholecystitis. No drainable collection noted on ultrasound for thoracentesis. VTE prophylaxis: will hold per surgery recommendations. Consults: none Patient is admitted under inpatient status with expected length of stay greater than 2 midnights due to severity of presenting symptoms, risk of adverse event, and complexity of treatment plan. Dispo: discharge to home once medically stable Code Status: Full as discussed with patient Quality VTE Deep Vein Thrombosis/Pulmonary Embolism Present on Admission: No
[2020-01-08 19:50] LABS: BUN Creatinine Ratio 19.1 (6-22); Blood Urea Nitrogen 9 mg/dL (7-17); Calcium 7.7 mg/dL (8.4-10.2); Carbon Dioxide 22 mmol/L (22-32); Chloride 113 mmol/L (98-107); Estimated Glomerular Filt Rate > 60.0 mL/min (>60); Glucose 95 mg/dL (70-100); HEMOLYSIS 16 (0-50); Magnesium 1.8 mg/dL (1.6-2.3); Potassium 3.9 mmol/L (3.4-5.1); Sodium 139 mmol/L (137-145)
[2020-01-08] MEDS: SODIUM CHLORIDE 0.45% 1,000 ML 125 ML IV (20:34)
[2020-01-08] MEDS: HYDROMORPHONE 0.5 MG INJ IV (23:12)
[2020-01-09] VITALS (9 sets, daily range): BP systolic 112–124; BP diastolic 65–77; PULSE 45–74; RESP 16–22; TEMP 36.1–37.1; O2SAT 94–98
--- NOTE | 2020-01-09 02:07 | PC.NURSE ---
Addendum entered by Yamilet Toledo R.N. 01/09/20 05:38: 0430 Patient complaining of 7/10 incisional pain so was medicated with Oxycodone and states pain improving at 5/10 when checked on at 0516. At that time patient's dressing around Dong drain was noted to be saturated with serosanguinous drainage (mostly serous) so was reinforced with ABD pad. Still with minimal drainage in drain. Original Note: 0104 Patient is alert and oriented; soft spoken. Breath sounds CTA but taking shallow respirations. On oxygen at 2L/min per NC with sat of 96% so now tried on RA but when asleep drops down to 89% so placed back on oxygen at 1L/min. HRR but bradycardic with rate in 40's. BT present in RUQ and hypoactive in LUQ; states she has passed a small amount flatus since return from surgery. Abdomen is distended and tender. Bandaid dressing to left upper abdomen is CDI; lap sites dermabonded and without redness/drainage. Dong drain intact and compressed with no drainage noted in drain at this time; dressing surrounding drain is CDI. Is able to move self in bed but very slow. Assisted to bathroom with 1 assist; seems generally weak. Was able to urinate 900cc clear, fernanda urine; denied dysuria, frequency or urgency. Was in a great deal of pain at shift change and was crying and medicated with Dilaudid and now patient states pain is only 1/10. Fall risk score is moderate but patient is calling appropriately for assistance so alarm is not in use. Mom rooming in.
[2020-01-09] MEDS: OXYCODONE IR 5 MG TABLET PO ×6 (04:13→23:55)
[2020-01-09] MEDS: SODIUM CHLORIDE 0.9% 1,000 ML 125 ML IV (04:26)
[2020-01-09] MEDS: SODIUM CHLORIDE 0.45% 1,000 ML 125 ML IV (04:28)
[2020-01-09 06:21] LABS: Alanine Aminotransferase 132 IU/L (<35); Albumin 2.8 g/dL (3.5-5.0); Albumin Globulin Ratio 1.1 (1.0-2.8); Alkaline Phosphatase 119 U/L (38-126); Aspartate Aminotransferase 62 IU/L (14-36); BUN Creatinine Ratio 16.7 (6-22); Bilirubin Total 0.5 mg/dL (0.2-1.3); Bilirubin Unconjugated 0.4 mg/dL (0.0-1.1); Blood Urea Nitrogen 8 mg/dL (7-17); Calcium 7.6 mg/dL (8.4-10.2); Carbon Dioxide 17 mmol/L (22-32); Chloride 109 mmol/L (98-107); Estimated Glomerular Filt Rate > 60.0 mL/min (>60); Globulin 2.6 g/dL (1.7-4.1); Glucose 89 mg/dL (70-100); HEMOLYSIS < 15 (0-50); Magnesium 1.8 mg/dL (1.6-2.3); Sodium 136 mmol/L (137-145); Total Protein 5.4 g/dL (6.3-8.2)
[2020-01-09 06:35] LABS: Add Manual Diff / Slide Review NO; Basophils Absolute Auto 0 /uL (0-100); Basophils Percent Auto 0.1 % (0-2); Eosinophils Absolute Auto 0 /uL (0-450); Hematocrit 32.4 % (36-46); Lymphocytes Absolute Auto 700 /uL (1100-4500); Lymphocytes Percent Auto 8.8 % (25-40); Mean Corpuscular HGB Conc 33.9 % (30-36); Mean Corpuscular Hemoglobin 31.7 PG (26-34); Mean Corpuscular Volume 93.4 fL (80-100); Monocytes Absolute Auto 500 /uL (0-900); Neutrophils Absolute Auto 6700 /uL (1500-7000); Neutrophils Percent Auto 85.1 % (50-75); Platelet Count 194 X10^3/uL (150-400); Red Blood Cell Count 3.47 X10^6/uL (4.0-5.2); Red Cell Distribution Width 13.1 % (11.6-14.8); White Blood Cell Count 7.9 X10^3/uL (4.5-11.0)
[2020-01-09] MEDS: SODIUM CHLORIDE 0.9% 1,000 ML 100 ML IV (06:47)
--- NOTE | 2020-01-09 11:03 | PM.PN.1 ---
Subjective Subjective Date Patient Seen: 01/09/20 Time Patient Seen: 11:03 Interval history: Patient did well overnight after her cholecystectomy. No signs of ongoing bleeding, tolerating clear liquid diet, passing gas, patient says she feels much better. Exam Vital Signs (past 8 hours): - 01/09/20 04:08 01/09/20 06:08 01/09/20 07:30 Temperature 97.0 F L Pulse Rate 49 L Respiratory Rate 20 Blood Pressure 124/65 Pulse Oximetry 98 94 94 Oxygen Delivery Method Room Air Oxygen Flow Rate 0 Narrative Exam Narrative: GENERAL: Alert, oriented, appears comfortable. Nontoxic appearing. Much improved from yesterday. CARDIOVASCULAR: Regular rate. No pedal edema. RESPIRATORY: Non-tachypneic, breathing comfortably on room air. GASTROINTESTINAL: Abdomen soft and non-distended; dressings clean and intact, drain with scant serous output GENITALURINARY: No flank tenderness. MUSCULOSKELETAL: Equal tone and mass bilaterally. SKIN: Warm, dry, soft, appropriate color for ethnicity. No other lesions, rashes, or wounds. NEURO: Alert and Oriented X 3. No gross sensory deficits, or cognitive issues. PSYCH: Appropriate affect and mood. Objective Labs Result Diagrams: 01/09/20 05:12 01/09/20 05:12 Labs: Laboratory Results - last 24 hr 01/08/20 01/08/20 01/08/20 17:55 17:55 17:55 WBC 7.3 RBC 3.29 L Hgb 10.4 L Hct 30.8 L MCV 93.8 MCH 31.7 MCHC 33.7 RDW 12.9 Plt Count 166 Neut % (Auto) Lymph % (Auto) Williams % (Auto) Eos % (Auto) Baso % (Auto) Neut # (Auto) Lymph # (Auto) Williams # (Auto) Eos # (Auto) Baso # (Auto) PT 14.5 H INR 1.3 APTT 25 L D Sodium 139 Potassium 3.9 Chloride 113 H Carbon Dioxide 22 BUN 9 Creatinine 0.47 L Estimated GFR > 60.0 BUN/Creatinine Ratio 19.1 Glucose 95 Calcium 7.7 L Magnesium 1.8 Total Bilirubin Conjugated Bilirubin Unconjugated Bilirubin AST ALT Alkaline Phosphatase Total Protein Albumin Globulin Albumin/Globulin Ratio 01/09/20 01/09/20 05:12 05:12 WBC 7.9 RBC 3.47 L Hgb 11.0 L Hct 32.4 L MCV 93.4 MCH 31.7 MCHC 33.9 RDW 13.1 Plt Count 194 Neut % (Auto) 85.1 H Lymph % (Auto) 8.8 L Williams % (Auto) 6.0 Eos % (Auto) 0.0 L Baso % (Auto) 0.1 Neut # (Auto) 6700 Lymph # (Auto) 700 L Williams # (Auto) 500 Eos # (Auto) 0 Baso # (Auto) 0 PT INR APTT Sodium 136 L Potassium 4.0 Chloride 109 H Carbon Dioxide 17 L BUN 8 Creatinine 0.48 L Estimated GFR > 60.0 BUN/Creatinine Ratio 16.7 Glucose 89 Calcium 7.6 L Magnesium 1.8 Total Bilirubin 0.5 Conjugated Bilirubin 0.0 Unconjugated Bilirubin 0.4 AST 62 H ALT 132 H Alkaline Phosphatase 119 Total Protein 5.4 L Albumin 2.8 L Globulin 2.6 Albumin/Globulin Ratio 1.1 Assessment & Plan Assessment and plan (1) Acute cholecystitis without calculus: Status: Acute Assessment & Plan narrative: This is a 34-year-old woman who came in initially for pyelonephritis, and had sudden onset of severe right chest and right upper quadrant pain night before last. She was found to have a suddenly very thickened gallbladder with free fluid in the abdomen, and a transaminitis. Yesterday she was taken emergently to the operating room for diagnostic laparoscopy and cholecystectomy. Her operation was very difficult, with significant bleeding from the liver, which was controlled in the operating room. A drain was left to ensure no recurrent bleeding. There has been no blood in the drain since last night. Her hemoglobin has actually increased on today's labs. Overall she looks much better. Her LFTs are improving. Her bilirubin has not gone up, and has remained normal. She feels much better today. I discussed with the patient, her mother, and the hospitalist that she has not fit a normal picture from the beginning of her admission, and given the difficulty and complexity of her operation yesterday am a little concerned to just let her go home today. I would like her to ambulate, and to see if any further drainage or blood comes out of the drain when she does that. I would like to advance her diet and see if anything further comes out of the drain upon doing that. If all else looks well, we may remove the drain and let her go home tomorrow. Plan: Hold Lovenox and Toradol, and any other blood thinners Have patient ambulate 20 minutes 3 times a day Closely follow drain output Advanced diet as tolerated Continue antibiotics until left shift resolves Repeat labs tomorrow Page MD urgently if the drain fills with blood Quality VTE Deep Vein Thrombosis/Pulmonary Embolism Present on Admission: No
--- NOTE | 2020-01-09 11:55 | CM.DPC ---
DCP: continued: case received, EMR reviewed. Discussed in Team Rounds with Dr. Gandara. Pt was taken emergently 01/[address] Ortega for diagnostic laparoscopy and cholecystectomy. Complication: severe bleeding from liver. Dr. Ortega has outlined POC for today: pt will ambulate frequently, diet will be advanced. IV antibiotics will continue. Drain will be watched closely for any signs of blood. If all progresses as expected pt will d/c home tomorrow with family care.
--- NOTE | 2020-01-09 12:11 | PC.NURSE ---
Pt up and walked in the benitez with sba. Pt states her pain is 7/10 with walking and would like a pain med when she returns to her room (given). Pt's gown is saturated with serous fluid and therefore dressing was removed and new dsg and gown placed. 25ml of serous fluid removed from drain bulb. Pt is now back to bed and eating her lunch.
[2020-01-09] MEDS: CEFTRIAXONE 1 GM/50 ML FROZ.PIGGY IV (14:39)
--- NOTE | 2020-01-09 15:41 | PM.PN.1 ---
Subjective Subjective Date Patient Seen: 01/09/20 Time Patient Seen: 09:00 Interval history: Alicia Tobin is a 34 year old female admitted with high fevers, presumably secondary to pyelonephritis although imaging has been unremarkable. Her UA was positive and urine cultures are growing Sensitive E. coli. She continued to slowly improve but never tolerated much PO intake. Overnight she complained of R pleuritic chest pain. CTA chest revealed bilateral pleural effusions which were not present on prior radiographs. Patient pain migrated somewhat and was now more RUQ. Patient had a positive tran sign on exam this AM. US chest did not show drainable fluid collection however RUQ ultrasound showed a severely inflamed gallbladder wall consistent with cholecystitis. Patient underwent cholecystectomy today with Dr. Ortega. Exam Vital Signs (past 8 hours): - 01/09/20 11:00 01/09/20 12:15 Temperature 98.8 F 98.5 F Pulse Rate 50 L 45 L Respiratory Rate 16 22 Blood Pressure 119/68 112/77 Pulse Oximetry 98 98 Oxygen Delivery Method Room Air Oxygen Flow Rate 0 Narrative Exam Narrative: Gen: Alert, oriented, well-developed 34 y.o. female appears ill but much improved. Improved pallor. HEENT: normocephalic, atraumatic, conjunctiva clear, sclera non-icteric, oral mucosa pink and moist Neck: supple, full ROM, no JVD, trachea is midline Resp: Lungs with diminshed breath sounds in lung bases, otherwise CTA b/l. CV: RRR, no murmur or rubs Abd: mildly distended, KATELYNN drain and surgical dressing in place RUQ, appropriately tender. KATELYNN with minimal serous drainage. Skin: no lesions or rashes, dry and intact Neuro: Alert and oriented X 4 w/no focal deficits. Speech clear and coherent. Extremities: moves all 4 extremities, is ambulatory with assistance. Objective Labs Result Diagrams: 01/09/20 05:12 01/09/20 05:12 Labs: Laboratory Results - last 24 hr 01/08/20 01/08/20 01/08/20 17:55 17:55 17:55 WBC 7.3 RBC 3.29 L Hgb 10.4 L Hct 30.8 L MCV 93.8 MCH 31.7 MCHC 33.7 RDW 12.9 Plt Count 166 Neut % (Auto) Lymph % (Auto) [place] % (Auto) Eos % (Auto) Baso % (Auto) Neut # (Auto) Lymph # (Auto) [place] # (Auto) Eos # (Auto) Baso # (Auto) PT 14.5 H INR 1.3 APTT 25 L D Sodium 139 Potassium 3.9 Chloride 113 H Carbon Dioxide 22 BUN 9 Creatinine 0.47 L Estimated GFR > 60.0 BUN/Creatinine Ratio 19.1 Glucose 95 Calcium 7.7 L Magnesium 1.8 Total Bilirubin Conjugated Bilirubin Unconjugated Bilirubin AST ALT Alkaline Phosphatase Total Protein Albumin Globulin Albumin/Globulin Ratio 01/09/20 01/09/20 05:12 05:12 WBC 7.9 RBC 3.47 L Hgb 11.0 L Hct 32.4 L MCV 93.4 MCH 31.7 MCHC 33.9 RDW 13.1 Plt Count 194 Neut % (Auto) 85.1 H Lymph % (Auto) 8.8 L [place] % (Auto) 6.0 Eos % (Auto) 0.0 L Baso % (Auto) 0.1 Neut # (Auto) 6700 Lymph # (Auto) 700 L [place] # (Auto) 500 Eos # (Auto) 0 Baso # (Auto) 0 PT INR APTT Sodium 136 L Potassium 4.0 Chloride 109 H Carbon Dioxide 17 L BUN 8 Creatinine 0.48 L Estimated GFR > 60.0 BUN/Creatinine Ratio 16.7 Glucose 89 Calcium 7.6 L Magnesium 1.8 Total Bilirubin 0.5 Conjugated Bilirubin 0.0 Unconjugated Bilirubin 0.4 AST 62 H ALT 132 H Alkaline Phosphatase 119 Total Protein 5.4 L Albumin 2.8 L Globulin 2.6 Albumin/Globulin Ratio 1.1 Assessment & Plan Assessment & Plan narrative: Alicia Tobin Is a 34-year-old female who was admitted with high fevers, nausea, and vomiting presume secondary to pyelonephritis. Somewhat remarkably she developed acute cholecystitis over the prior two days and underwent acute cholecystectomy today with surgery. 1. Pyelonephritis, acute, present on admission - patient complained initially of right flank pain radiating into the groin as well as dysuria which started day prior to admission. Slowly improving on IV antibiotics but still not tolerating adequate PO intake. - Renal ultrasound and abdominal CT did not show evidence of pyelonephritis, however this may have resolved prior to imaging being taken given her presentation is consistent with pyelonephritis. It further did not show evidence of biliary pathologies. - Patient has been on ceftriaxone IV since admission, will put a stop date at 7 days. Once ready for discharge from cholecystitis will switch to oral cephalosporin. - Urine with sensitive E. coli and blood cultures discussed below. 2. Ruled out staph bacteremia - patient with 1 of 4 bottles now growing staph hominis thought to be a contaminant. 3. acute cholecystitis, not seemingly present on admission but clinically unable to be determined. -patient developed severe R pleuritic chest pain and RUQ abdominal pain on rn rehabilitation of 01/07. US with severe wall thickening, although initial CT imaging on admission was negative for biliary pathology. Patient taken to OR that day with surgery, Dr. Ortega. Patient had 500 cc of bile upon entering and also had a lot of bleeding. KATELYNN drain was placed. But now appears to be improving. - avoid lovenox or toradol for the next fewdays. If drain fills with blood may have to return to the OR. Patient with increased serous drainage after ambulating today. 4. Bilateral pleural effusions, acute, not present on admission - suspect secondary to inflammatory response from her cholecystitis. No drainable collection noted on ultrasound for thoracentesis. VTE prophylaxis: will hold per surgery recommendations. Consults: none Patient is admitted under inpatient status with expected length of stay greater than 2 midnights due to severity of presenting symptoms, risk of adverse event, and complexity of treatment plan. Dispo: discharge to home once medically stable, possibly as soon as tomorrow. Code Status: Full as discussed with patient COVID-19 COVID-19 status: Negative Quality VTE Deep Vein Thrombosis/Pulmonary Embolism Present on Admission: No
[2020-01-09] MEDS: ACETAMINOPHEN 325 MG TABLET 650 MG PO ×2 (16:21→22:29)
[2020-01-09] MEDS: SODIUM CHLORIDE 0.9% FLUSH 10 ML IV (19:37)
[2020-01-10] VITALS (8 sets, daily range): BP systolic 103–131; BP diastolic 62–96; PULSE 57–75; RESP 16–19; TEMP 36.2–36.8; O2SAT 93–99
[2020-01-10] MEDS: ONDANSETRON 4 MG/2 ML INJ IV (00:37)
[2020-01-10] MEDS: SODIUM CHLORIDE 0.9% FLUSH 10 ML IV ×3 (00:37→20:43)
--- NOTE | 2020-01-10 02:11 | PC.NURSE ---
Addendum entered by Yamilet Toledo R.N. 01/10/20 04:50: States pain is 6/10 with coughing/movement; medicated with Oxycodone. Dressing around drain site is CDI Original Note: 0040 Patient is alert and oriented. Breath sounds CTA with RA sat of 93%. HRR. Initially denied nausea but after getting up to bathroom stated she felt nauseated and requested/medicated with Zofran. BT hypoactive and denies flatus at this time. Has been voiding without dysuria, frequency or urgency. Abdomen is soft but tender and mildly distended. Skin around umbilical lap site is pink. Dressing around Dong drain saturated with serous drainage so changed. Drain is compressed without drainage noted in bulb. Is able to turn herself in bed and gets up to bathroom with SBA. Did complain of 7/10 pain with movement so was medicated with Oxycodone and is currently asleep. Fall risk score is moderate but patient is steady on feet and calls appropriately for assistance.
[2020-01-10] MEDS: OXYCODONE IR 5 MG TABLET PO ×4 (04:45→20:52)
[2020-01-10 04:58] LABS: Add Manual Diff / Slide Review NO; Basophils Absolute Auto 0 /uL (0-100); Basophils Percent Auto 0.3 % (0-2); Eosinophils Absolute Auto 100 /uL (0-450); Hematocrit 35.3 % (36-46); Hemoglobin 11.6 g/dL (12.0-16.0); Lymphocytes Absolute Auto 2200 /uL (1100-4500); Lymphocytes Percent Auto 30.5 % (25-40); Mean Corpuscular Hemoglobin 30.7 PG (26-34); Mean Corpuscular Volume 93.1 fL (80-100); Monocytes Absolute Auto 700 /uL (0-900); Monocytes Percent Auto 9.6 % (3-14); Neutrophils Absolute Auto 4200 /uL (1500-7000); Neutrophils Percent Auto 58.6 % (50-75); Platelet Count 302 X10^3/uL (150-400); Red Blood Cell Count 3.79 X10^6/uL (4.0-5.2); Red Cell Distribution Width 12.9 % (11.6-14.8); White Blood Cell Count 7.2 X10^3/uL (4.5-11.0)
[2020-01-10 05:04] LABS: Alanine Aminotransferase 87 IU/L (<35); Albumin 2.5 g/dL (3.5-5.0); Alkaline Phosphatase 98 U/L (38-126); Aspartate Aminotransferase 29 IU/L (14-36); BUN Creatinine Ratio 24.1 (6-22); Bilirubin Total 0.3 mg/dL (0.2-1.3); Bilirubin Unconjugated 0.2 mg/dL (0.0-1.1); Blood Urea Nitrogen 14 mg/dL (7-17); Calcium 7.5 mg/dL (8.4-10.2); Carbon Dioxide 22 mmol/L (22-32); Chloride 109 mmol/L (98-107); Estimated Glomerular Filt Rate > 60.0 mL/min (>60); Globulin 2.5 g/dL (1.7-4.1); Glucose 94 mg/dL (70-100); HEMOLYSIS < 15 (0-50); Magnesium 1.8 mg/dL (1.6-2.3); Potassium 3.6 mmol/L (3.4-5.1); Sodium 137 mmol/L (137-145)
[2020-01-10] MEDS: polyethylene glycoL 3350 17 GM POWD.PACK PO ×2 (08:50→20:43)
[2020-01-10] MEDS: DOCUSATE 100 MG CAPSULE PO ×2 (08:52→20:43)
[2020-01-10] MEDS: guaiFENesin ER 600 MG TAB PO ×2 (08:53→20:43)
[2020-01-10] MEDS: PANTOPRAZOLE 20 MG TABLET PO (08:53)
--- NOTE | 2020-01-10 13:41 | P.PN_ITS ---
Subjective Subjective Date Patient Seen: 01/10/20 Time Patient Seen: 13:41 Interval history: No acute events overnight. The patient's drain site continue to leak, and so the drain was removed by the nurse this morning. She is tolerating some p.o., ambulating, and passing gas but no stool. Exam Vital Signs (past 8 hours): - 01/10/20 08:21 01/10/20 09:38 Temperature 97.2 F L Pulse Rate 69 Respiratory Rate 16 Blood Pressure 129/96 H Pulse Oximetry 99 94 Oxygen Delivery Method Room Air Oxygen Flow Rate 0 Narrative Exam Narrative: GENERAL: Alert, oriented, appears comfortable. Nontoxic appearing. Much improved from yesterday. CARDIOVASCULAR: Regular rate. No pedal edema. RESPIRATORY: Non-tachypneic, breathing comfortably on room air. GASTROINTESTINAL: Abdomen soft and non-distended; dressings clean and intact; drain site open; steri strips applied GENITALURINARY: No flank tenderness. MUSCULOSKELETAL: Equal tone and mass bilaterally. SKIN: Warm, dry, soft, appropriate color for ethnicity. No other lesions, rashes, or wounds. NEURO: Alert and Oriented X 3. No gross sensory deficits, or cognitive issues. PSYCH: Appropriate affect and mood. Objective Labs Result Diagrams: 01/10/20 04:35 01/10/20 04:35 Labs: Laboratory Results - last 24 hr 01/10/20 01/10/20 04:35 04:35 WBC 7.2 RBC 3.79 L Hgb 11.6 L Hct 35.3 L MCV 93.1 MCH 30.7 MCHC 33.0 RDW 12.9 Plt Count 302 Neut % (Auto) 58.6 D Lymph % (Auto) 30.5 D [place] % (Auto) 9.6 Eos % (Auto) 1.0 L Baso % (Auto) 0.3 Neut # (Auto) 4200 Lymph # (Auto) 2200 [place] # (Auto) 700 Eos # (Auto) 100 Baso # (Auto) 0 Sodium 137 Potassium 3.6 Chloride 109 H Carbon Dioxide 22 BUN 14 Creatinine 0.58 Estimated GFR > 60.0 BUN/Creatinine Ratio 24.1 H Glucose 94 Calcium 7.5 L Magnesium 1.8 Total Bilirubin 0.3 Conjugated Bilirubin 0.0 Unconjugated Bilirubin 0.2 AST 29 ALT 87 H Alkaline Phosphatase 98 Total Protein 5.0 L Albumin 2.5 L Globulin 2.5 Albumin/Globulin Ratio 1.0 Assessment & Plan Assessment and plan (1) Acute cholecystitis without calculus: Status: Acute Assessment & Plan narrative: Postop day 2 status post emergent cholecystectomy for severe acalculous cholecystitis with bile peritonitis and significant hemorrhage in the operating room. She is doing much better now, and lab abnormalities have almost completely resolved, and drain was removed today. She has not passed any stool, and is tolerating minimal p.o.. I would like her to ambulate frequently, and take a bowel regimen to help move her bowels. Plan: Added bowel regimen, as patient has not passed stool since admission Okay to restart chemical DVT prophylaxis, and to give NSAIDs Have patient ambulate 20 minutes 3 times a day PO diet as tolerated DC antibiotics Repeat labs tomorrow Dispo planning, likely home tomorrow COVID-19 COVID-19 status: Negative Quality VTE Deep Vein Thrombosis/Pulmonary Embolism Present on Admission: No
[2020-01-10] MEDS: CEFTRIAXONE 1 GM/50 ML FROZ.PIGGY IV (14:58)
--- NOTE | 2020-01-10 14:59 | PM.PN.1 ---
Subjective Subjective Date Patient Seen: 01/10/20 Time Patient Seen: 15:01 Interval history: Alicia Tobin is a 34 year old female admitted with high fevers, presumably secondary to pyelonephritis although imaging has been unremarkable. Her UA was positive and urine cultures are growing Sensitive E. coli. She continued to slowly improve but never tolerated much PO intake. Overnight on 01/06 she complained of R pleuritic chest pain. CTA chest revealed bilateral pleural effusions which were not present on prior radiographs. US chest did not show drainable fluid collection however RUQ ultrasound showed a severely inflamed gallbladder wall consistent with cholecystitis. Patient underwent cholecystectomy 01/[address] Ortega that had 500 cc of bile drained upon entering the abdomen with bleeding during the case as well. Patient had a KATELYNN drain which continued to drain serous fluid and was pulled today. She is slowly recovering. She has appropriate abdominal tenderness today after surgery. She complains of an inability to feel the need to urinate but is not leaking and is able to void. Patient is ambulatory around the hospital with some assistance. No bowel movements since surgery. Okay to resume DVT ppx and NSAIDs per surgery today. Surgery states she may be able to discharge tomorrow. Exam Vital Signs (past 8 hours): - 01/10/20 08:21 01/10/20 09:38 01/10/20 13:00 Temperature 97.2 F L Pulse Rate 69 Respiratory Rate 16 Blood Pressure 129/96 H Pulse Oximetry 99 94 95 Oxygen Delivery Method Room Air Oxygen Flow Rate 0 Narrative Exam Narrative: Gen: Alert, oriented, well-developed 34 y.o. female appears ill but much improved. Improved pallor. HEENT: normocephalic, atraumatic, conjunctiva clear, sclera non-icteric, oral mucosa pink and moist Neck: supple, full ROM, no JVD, trachea is midline Resp: Lungs with diminshed breath sounds in lung bases, otherwise CTA b/l. CV: RRR, no murmur or rubs Abd: mildly distended, KATELYNN drain and surgical dressing in place RUQ this AM (removed early afternoon) with lots of serous fluid soaking pad, appropriately tender. KATELYNN was with minimal serous drainage. Skin: no lesions or rashes, no erythema. Neuro: Alert and oriented X 4 w/no focal deficits. Speech clear and coherent. Extremities: moves all 4 extremities, is ambulatory with assistance. Objective Labs Result Diagrams: 01/10/20 04:35 01/10/20 04:35 Labs: Laboratory Results - last 24 hr 01/10/20 01/10/20 04:35 04:35 WBC 7.2 RBC 3.79 L Hgb 11.6 L Hct 35.3 L MCV 93.1 MCH 30.7 MCHC 33.0 RDW 12.9 Plt Count 302 Neut % (Auto) 58.6 D Lymph % (Auto) 30.[address] % (Auto) 9.6 Eos % (Auto) 1.0 L Baso % (Auto) 0.3 Neut # (Auto) 4200 Lymph # (Auto) 2200 Lane # (Auto) 700 Eos # (Auto) 100 Baso # (Auto) 0 Sodium 137 Potassium 3.6 Chloride 109 H Carbon Dioxide 22 BUN 14 Creatinine 0.58 Estimated GFR > 60.0 BUN/Creatinine Ratio 24.1 H Glucose 94 Calcium 7.5 L Magnesium 1.8 Total Bilirubin 0.3 Conjugated Bilirubin 0.0 Unconjugated Bilirubin 0.2 AST 29 ALT 87 H Alkaline Phosphatase 98 Total Protein 5.0 L Albumin 2.5 L Globulin 2.5 Albumin/Globulin Ratio 1.0 Assessment & Plan Assessment & Plan narrative: Alicia Tobin Is a 34-year-old female who was admitted with high fevers, nausea, and vomiting presume secondary to pyelonephritis. Somewhat remarkably she developed acute cholecystitis between admission and HD#2 and underwent acute cholecystectomy with surgery. 1. Pyelonephritis, acute, present on admission - patient complained initially of right flank pain radiating into the groin as well as dysuria which started day prior to admission. Slowly improving on IV antibiotics but was not tolerating adequate PO intake. - Renal ultrasound and abdominal CT did not show evidence of pyelonephritis, however this may have resolved prior to imaging being taken given her presentation is consistent with pyelonephritis. It further did not show evidence of biliary pathologies. - Patient has been on ceftriaxone IV since admission, will put a stop date at 7 days. Once ready for discharge from cholecystitis will switch to oral cephalosporin. - Urine with sensitive E. coli and blood cultures discussed below. 2. Ruled out staph bacteremia - patient with 1 of 4 bottles now growing staph hominis thought to be a contaminant. 3. acute cholecystitis, not seemingly present on admission but clinically unable to be determined. -patient developed severe R pleuritic chest pain and RUQ abdominal pain on dietary service aide of 01/07. US with severe wall thickening, although initial CT imaging on admission was negative for biliary pathology. Patient taken to OR that day with surgery, Dr. Ortega. Patient had 500 cc of bile upon entering and also had a lot of bleeding. KATLEYNN drain was placed and removed on 01/09. Now appears to be improving. - avoid lovenox or toradol for the next fewdays. If drain fills with blood may have to return to the OR. Patient with increased serous drainage after ambulating today. 4. Bilateral pleural effusions, acute, not present on admission - suspect secondary to inflammatory response from her cholecystitis. No drainable collection noted on ultrasound for thoracentesis. VTE prophylaxis: will resume Lovenox daily. Consults: Dr. Ortega, surgery. Patient was admitted under inpatient status with expected length of stay greater than 2 midnights due to severity of presenting symptoms, risk of adverse event, and complexity of treatment plan. Dispo: discharge to home once medically stable, possibly as soon as tomorrow. Code Status: Full as discussed with patient COVID-19 COVID-19 status: Negative Quality VTE Deep Vein Thrombosis/Pulmonary Embolism Present on Admission: No
[2020-01-10 17:41] LABS: Bacteria Urine None Seen; WBC Urine None Seen (0-5/HPF)
[2020-01-10 17:44] LABS: Appearance Urine UA CLEAR; Bilirubin Urine UA NEGATIVE (NEGATIVE); Color Urine UA YELLOW; Glucose Urine UA NEGATIVE (Negative); Ketones Urine UA NEGATIVE (NEGATIVE); Leukocyte Esterase Urine UA NEGATIVE (NEGATIVE); Nitrite Urine UA NEGATIVE (Negative); Occult Blood Urine UA 3+ (Negative); Protein Urine UA NEGATIVE (Negative); Specific Gravity Urine UA 1.015 (1.000-1.035); Urobilinogen Urine UA 0.2 E.U./dL (0.2)
[2020-01-10 17:52] LABS: Culture Indicated Urine Cult Not Indicated; RBC Urine 1-5/HPF (0-5/HPF); Squamous Epithelial Cell Urine 1-5 /HPF (0-5/HPF)
[2020-01-10] MEDS: ACETAMINOPHEN 325 MG TABLET 650 MG PO (20:54)
[2020-01-11 00:35] LABS: Adenovirus Not Detected (Not Detect); Bordetella pertussis Not Detected (Not Detect); Chlamydophila pneumoniae Not Detected (Not Detect); Coronavirus 229E Not Detected (Not Detect); Coronavirus HKU1 Not Detected (Not Detect); Coronavirus NL 63 Not Detected (Not Detect); Coronavirus OC43 Not Detected (Not Detect); Human Metapneumovirus Not Detected (Not Detect); Human Rhinovirus/Enterovirus Not Detected (Not Detect); Influenza A Not Detected (Not Detect); Influenza B Not Detected (Not Detect); Mycoplasma pneumoniae Not Detected (Not Detect); Parainfluenza Virus 1 Not Detected (Not Detect); Parainfluenza Virus 2 Not Detected (Not Detect); Parainfluenza Virus 3 Not Detected (Not Detect); Parainfluenza Virus 4 Not Detected (Not Detect); Respiratory Syncytial Virus Not Detected (Not Detect)
[2020-01-11] MEDS: HYDROMORPHONE 0.5 MG INJ IV (00:47)
[2020-01-11 00:56] VITALS: BP 107/65; PULSE 83; RESP 16; TEMP 36.1; O2SAT 92
[2020-01-11 01:00] VITALS: O2SAT 92
[2020-01-11 05:00] VITALS: O2SAT 92
[2020-01-11] MEDS: OXYCODONE IR 5 MG TABLET PO ×2 (05:19→09:15)
[2020-01-11 05:25] VITALS: BP 110/70; PULSE 74; RESP 16; TEMP 36.2; O2SAT 92
[2020-01-11] MEDS: PANTOPRAZOLE 20 MG TABLET PO (05:59)
--- NOTE | 2020-01-11 06:07 | PC.NURSE ---
night shift note: Patient slept well throughout the night. Patient up to the restroom x2 throughout the night, SBA only. Patient requiring pain medication throughout the night, pain rating 6-8/10. VSS, on RA. Abdominal incision remains clean/intact. Small amount of serous drainage on ABD pad where tee drain was previously located. Patient anticipating discharge home today.
--- NOTE | 2020-01-11 07:04 | P.PN_ITS ---
Subjective Subjective Date Patient Seen: 01/11/20 Time Patient Seen: 07:04 Interval history: No acute events overnight. Patient continues to improve. Tolerating p.o.. Pain is controlled with p.o. pain meds. Exam Vital Signs (past 8 hours): - 01/11/20 00:56 01/11/20 01:00 01/11/20 05:00 Temperature 96.9 F L Pulse Rate 83 Respiratory Rate 16 Blood Pressure 107/65 Pulse Oximetry 92 92 92 01/11/20 05:25 Temperature 97.1 F L Pulse Rate 74 Respiratory Rate 16 Blood Pressure 110/70 Pulse Oximetry 92 Oxygen Delivery Method Room Air Oxygen Flow Rate 0 Narrative Exam Narrative: GENERAL: Alert, oriented, appears comfortable. Nontoxic asif earing. CARDIOVASCULAR: Regular rate. No pedal edema. RESPIRATORY: Non-tachypneic, breathing comfortably on room air. GASTROINTESTINAL: Abdomen soft and non-distended; dressings clean and intact NEURO: Alert and Oriented X 3. No gross sensory deficits, or cognitive issues. PSYCH: Appropriate affect and mood. Objective Labs Result Diagrams: 01/10/20 04:35 01/10/20 04:35 Labs: Laboratory Results - last 24 hr 01/10/20 01/10/20 17:15 21:20 Urine Color Yellow Urine Appearance Clear Urine pH 7.0 Ur Specific [place] 1.015 Urine Protein Negative Urine Glucose (UA) Negative Urine Ketones Negative Urine Occult Blood 3+ H Urine Nitrate Negative Urine Bilirubin Negative Urine Urobilinogen 0.2 Ur Leukocyte Esterase Negative Urine RBC 1-5/hpf Urine WBC None seen Ur Squamous Epith Cells 1-5 /hpf Urine Bacteria None seen Ur Culture Indicated? Cult not indicated Chlamy pneumoniae PCR Not detected Adenovirus (PCR) Not detected B.parapertussis DNA PCR Not detected Coronavirus OC43 (PCR) Not detected Coronavirus HKU1 (PCR) Not detected Coronavirus 229E (PCR) Not detected Coronavirus NL63 (PCR) Not detected Human Metapneumovir PCR Not detected Influenza Type A (PCR) Not detected Influenza Type B (PCR) Not detected M. pneumoniae (PCR) Not detected Parainfluenza 1 (PCR) Not detected Parainfluenza 2 (PCR) Not detected Parainfluenza 3 (PCR) Not detected Parainfluenza 4 (PCR) Not detected RSV (PCR) Not detected Entero/Rhino (PCR) Not detected Assessment & Plan Assessment and plan (1) Acute cholecystitis without calculus: Status: Acute Assessment & Plan narrative: 34-year-old woman who was admitted for pyelonephritis, and developed acalculous cholecystitis during her admission. She is now 3 days out from laparoscopic cholecystectomy. She is doing well. She is constipated at baseline, and has not had a bowel movement but is passing gas. She has been getting docusate and MiraLax. She should continue this at home. As long as she is acceptable from a hospitalist standpoint for discharge, I think it is reasonable to let her go home today. She needs to see me back in the next 1-2 weeks. She needs to continue a good bowel regimen for home. She will need some narcotic pain medication at home, but should be weaning off over the next few days. In a case like this usually about 20 tabs of 5 mg oxycodone is appropriate for discharge. I have put my discharge comments in her discharge plan in [facility]. Time Spent With Patient Time with patient: 15-24 minutes Quality VTE Deep Vein Thrombosis/Pulmonary Embolism Present on Admission: No
--- NOTE | 2020-01-11 08:47 | DI.US.S_ITS ---
PROCEDURE: US PERIPH VENOUS LOW EXTREM BI INDICATIONS: POST-OP; SOB TECHNIQUE: Real-time imaging, as well as color and pulse Doppler interrogation, were performed of the deep veins of both legs from the inguinal ligament to the popliteal fossa. COMPARISON: None. FINDINGS: Right: The common femoral, femoral and popliteal veins are normally compressible, and free of intraluminal thrombus. Color and pulse Doppler demonstrate normal phasic intravascular flow. There is normal augmentation response to distal compression maneuver. Left: The common femoral, femoral and popliteal veins are normally compressible, and free of intraluminal thrombus. Color and pulse Doppler demonstrate normal phasic intravascular flow. There is normal augmentation response to distal compression maneuver. IMPRESSION: 1. No evidence of deep venous thrombosis in the right or left lower extremity. Dictated by: Jayro Powell M.D. on 01/11/2020 at 12:33 Approved by: Jayro Powell M.D. on 01/11/2020 at 12:34
[2020-01-11 08:53] VITALS: BP 125/73; PULSE 68; RESP 15; TEMP 36.2; O2SAT 96
[2020-01-11] MEDS: ENOXAPARIN 40 MG/0.4 ML SYRINGE SUBCUT (09:15)
[2020-01-11] MEDS: guaiFENesin ER 600 MG TAB PO (09:15)
[2020-01-11] MEDS: DOCUSATE 100 MG CAPSULE PO (09:15)
[2020-01-11] MEDS: SODIUM CHLORIDE 0.9% FLUSH 10 ML IV (09:16)
[2020-01-11] MEDS: polyethylene glycoL 3350 17 GM POWD.PACK PO (09:16)
[2020-01-11] MEDS: ONDANSETRON 4 MG/2 ML INJ IV (09:19)
[2020-01-11 10:00] VITALS: O2SAT 96
--- NOTE | 2020-01-11 11:49 | CM.DPC ---
DCP Cont: Met with patient in her room during team rounds. Mother was at bedside. Patient pleasant and conversive, she was sitting up in her chair. She has been ambulatory. Discussed discharging patient home today. She will be having doppler today to rule out any clots. P: Patient should be going home today after test results are in. Lolis Pugh RN/[employer] [employer] Charge Hand
--- NOTE | 2020-01-11 15:00 | PC.NURSE ---
pt discharged to home following clearance per us that she has no evidence of dvts- oxycodone given prior to dc - instructed both her and her mother re: wound care/bowel care and post op plan- answered all questions to their satisfaction dc to home at this time
--- NOTE | 2020-01-12 16:25 | P.DS_ITS ---
History of Present Illness History of Present Illness Date Patient Seen: 01/11/20 Chief complaint: Flank pain/ fever Narrative: anne Tobin is a 34 y.o. TAB1 and post partem July of this year who developed nausea overnight and pain in her suprapubic area. She is very miserable and unable to provide a narrative history, only that she . She was requested for admission due to the inability to get her heart rate down. She arrived febrile at 101.8 and was extremely nauseous. CT of the abdomen pelvis did not indicate any of abnormalities of the kidneys or hydronephrosis. T-max was 101.8?, currently her temp is 99.9?, blood pressure 98/58, heart rate 109, respiratory rate 12, oxygen saturation 97% on room air, she weighs 75 kg with a BMI of 29.2. WBC is 11.3, RBC 4.21, hemoglobin 13.3, hematocrit 39.1, platelet count 239, sodium 137, potassium 3.5, chloride 106, bicarb 22, BUN 13, creatinine 0.69, GFR is greater than 60, glucose 108, lactate 1.7, calcium 9.1, total bili 1.1, AST 47, ALT 68, cardiac enzymes are within normal limits, procalcitonin is 0.11, UA is positive for bacteria and COVID-19 PCR is negative. Discharge Providers Provider Date of admission: 01/05/20 20:03 Discharge Date: 01/11/20 Discharge provider: Ana Corrales MD Summary Hospital Course Discharge Diagnosis: 1. Acute cholecystitis status post cholecystectomy 2. Urinary tract infection 3. Constipation Hospital Course: Patient was admitted to the hospital for evaluation of fever and suprapubic pain. Initially there was concern that the patient had pyelonephritis per CT the abdomen and pelvis was negative for pyelonephritis. Patient underwent further workup and was discovered to have acute cholecystitis. She was seen and evaluated by General surgery, Dr. Chairez and taken to the operating room for cholecystectomy. Patient was found to have a large edematous gallbladder, 500 cc of bile was removed, the patient tolerated procedure without difficulty. She was slow to advance her diet. She did develop some constipation. After several days of antibiotics, fluid her diet was able to be advanced. Her pain was well controlled. She was deemed appropriate for discharge and arrangements were made for her to discharge home. Status at Discharge Cognitive/behavioral status at discharge: oriented Functional status at discharge: independent ambulation Overall status at discharge: patient is not back to baseline Time Spent with Patient Time spent: Less than 30 minutes Exam Vital Signs (past 8 hours): Oxygen Delivery Method Room Air Oxygen Flow Rate 0 Narrative Exam Narrative: Pleasant female in no acute distress Lungs: Clear to auscultation Cardiac exam: Regular rate and rhythm normal S1-S2 Abdomen: Soft, mildly tender over the right upper quadrant dressing in Extremities: 1+ pitting edema bilaterally Objective Labs Result Diagrams: 01/10/20 04:35 01/10/20 04:35 Discharge Assessment & Plan Assessment and Plan Assessment: 1. Acute cholecystitis, status post laparoscopic cholecystectomy 2. Urinary tract infection Discharge Plan Discharge Plan Patient Disposition: Home Discharge comment: Post cholecystectomy instructions: You will be prescribed a narcotic pain medication. You may also use ibuprofen or Aleve as well as Tylenol/ Acetaminophen for pain after surgery. Make sure you do not take more than 3000 mg of Acetaminophen per day for many source. There may be Acetaminophen in cold medications or headache remedies. Using an NSAID such as ibuprofen or Aleve will help with inflammation. Do not take more than recommended. You may take it along with or instead of your prescribed pain medication. Make sure to take stool softeners such as Docusate 100mg twice daily, to prevent constipation from the narcotic pain medication. If you are not able have a bowel for 24 hours, or you feel constipated please take an additional laxative such as MiraLax or Senna. Avoid any straining on the toilet. Avoid heavy lifting, pulling, or pushing more than 10 lbs or doing other activities that strain the abdomen or increase the abdominal pressure such as sit-ups, core work outs, and attempt to prevent frequent coughing. If you have fevers, jaundice, intractable nausea/vomiting, or intractable pain please call the doctor's office or if symptoms are severe come into the ER. If you call after hours please choose the option to contact the surgeon staff combat information center officer rather than leaving a message. Discharge orders & Medications Prescriptions: New polyethylene glycol 3350 17 gram Powder In Packet 17 gm PO BID 7 Days RF: 0 docusate sodium [DOK] 100 mg Capsule 100 mg PO BID Qty: 10 RF: 0 oxycodone 5 mg Tablet 5 mg PO Q4HR PRN (Reason: Pain, Moderate (4-6)) Qty: 20 RF: 0 Continued Adult Probiotic tablet 1 cap PO DAILY RF: 0 No Action (DME) Double Electric breast Pump and Supplies See Rx Instructions .ROUTE .MEDSUPPLY Qty: 1 RF: 0 ondansetron 4 mg tablet,disintegrating 4 mg PO Q8H PRN (Reason: nausea and vomiting) Qty: 20 RF: 0 Follow up/Referrals: Marta Ortega MD [Physician] - (Please call [facility] office on Monday to schedule a follow up to be seen in our office by Dr. Ortega in 1-2 weeks from the date of surgery.) Diet/Activity/Treatments Diet: Diet as Tolerated Skin/Wound/Dressing Care Report to your healthcare provider any signs of infection, such as:: chills, fever, night sweats, increased pain, unusual drainage and unusual redness Visit Report/Discharge Packet Instructions: DI for Laparoscopic Cholecystectomy, [facility]: Wound Care Stand Alone Forms: Surgery Discharge Visit Report Forms: Patient Portal/API, Stroke Signs & Symptoms Discharges patient from system. Discharge Date/Time: 01/11/20 14:45 Quality VTE Deep Vein Thrombosis/Pulmonary Embolism Present on Admission: No
== END 2020-01-11 14:45 | disposition home or self-care (01) | DRG 951 ==
LOC: ED 19:18 → AC 01-06 07:55
PROVIDERS: Anesthesiology; Internal Medicine; Nurse Practitioner Adult Health; Surgery; Admitting Provider Nurse Practitioner Family; Emergency Provider Emergency Medicine; Family Provider Specialist; Referring Provider Emergency Medicine; Visit Provider Nurse Practitioner Family
PROC: 0FT44ZZ Resection of Gallbladder, Percutaneous Endoscopic Approach (ICD-10-PCS; CPT 47562; principal; 2020-01-08 16:45)
DX: N10 Acute pyelonephritis (principal); K81.0 Acute cholecystitis; K65.3 Choleperitonitis; J90 Pleural effusion, not elsewhere classified; K82.A2 Perforation of gallbladder in cholecystitis; K59.00 Constipation, unspecified; B96.20 Unspecified Escherichia coli [E. coli] as the cause of diseases classified elsewhere; Z11.59 Encounter for screening for other viral diseases
CPT/HCPCS: 36415; 36592; 70450; 71045; 71275; 74177; 76705; 76770; 80048; 80053; 80076; 80305; 81001; 81003; 81015; 81025; 82550; 83605; 83690; 83735; 84145; 84484; 85025; 85027; 85379; 85610; 85730; 87040; 87077; 87086; 87150; 87186; 87205; 87633; 87635; 93005; 93970; 96361; 96365; 96375; 96376; 99285; J0330; J1100; J1170; J1650; J1885; J2250; J2270; J2405; J2704; J2765; J3010; J3360; J3480; J7050; Q9967

== ENCOUNTER 2020-04-15 18:18 | Emergency (ER) | payer OTHER, MEDICAID, SELFPAY ==
[2020-01-05 20:36] VITALS: BMI 29.2
[2020-04-15 18:34] VITALS: BP 129/92; PULSE 94; RESP 16; TEMP 37; O2SAT 100; BMI 27.4
--- NOTE | 2020-04-15 18:35 | DI.US.S_ITS ---
PROCEDURE: US PELVIC COMPLETE INDICATIONS: POSITIVE HOME ; BLEEDING TECHNIQUE: Real-time scanning was performed of the pelvic organs, with image documentation. Additional endovaginal scanning was necessary due to incomplete visualization of the adnexal and endometrial structures by transabdominal scanning. COMPARISON: [facility], US, PELVIC COMPLETE, 07/13/2016, 20:37. FINDINGS: Transabdominal scanning: Limited scanning through the kidneys shows no hydronephrosis. No pathologic free abdominal or pelvic fluid. Endovaginal scanning: Uterus: The anteverted uterus measures 10.3 x 5.7 x 7.8 cm in size. The thickened endometrium measures 3.2 cm in combined thickness. There is no focal endometrial mass or hypervascularity. No intrauterine gestation identified. Ovaries: Right ovary measures 2.3 x 2.9 x 1.7 cm. Left ovary measures 2.4 x 2.3 x 1.3 cm. Within the right ovary, there is a 1.5 x 1.8 x 1.6 cm heterogeneous isoechoic/hypoechoic lesion with peripheral vascularity. IMPRESSION: 1. Thickened endometrium without visualization of an intrauterine gestation. This may represent decidual reaction associated with early normal in the setting of a positive test. 2. There is a 1.8 cm heterogeneous fully isoechoic/hypoechoic lesion with peripheral vascularity in the right ovary which may represent a corpus luteal cyst associated with in early . However, in the presence of a positive test, an ectopic cannot be completely excluded. No pelvic free fluid identified at this time. Recommend continued close clinical surveillance and serial quantitative HCG measurements. Short interval follow-up imaging as needed. Dictated by: Shawn Moss M.D. on 04/15/2020 at 19:04 Approved by: Shawn Moss M.D. on 04/15/2020 at 19:11
--- NOTE | 2020-04-15 18:37 | PC.NURSE ---
Dr Neff did not want urine sent for micro
[2020-04-15 20:17] LABS: Add Manual Diff / Slide Review NO; Basophils Absolute Auto 0 /uL (0-100); Basophils Percent Auto 0.4 % (0-2); Eosinophils Absolute Auto 100 /uL (0-450); Eosinophils Percent Auto 1.4 % (2-4); Hematocrit 39.7 % (36-46); Hemoglobin 13.2 g/dL (12.0-16.0); Lymphocytes Absolute Auto 1600 /uL (1100-4500); Lymphocytes Percent Auto 16.2 % (25-40); Mean Corpuscular HGB Conc 33.2 % (30-36); Mean Corpuscular Hemoglobin 31.1 PG (26-34); Mean Corpuscular Volume 93.6 fL (80-100); Monocytes Absolute Auto 700 /uL (0-900); Monocytes Percent Auto 6.8 % (3-14); Neutrophils Absolute Auto 7300 /uL (1500-7000); Neutrophils Percent Auto 75.2 % (50-75); Platelet Count 263 X10^3/uL (150-400); Red Blood Cell Count 4.24 X10^6/uL (4.0-5.2); Red Cell Distribution Width 13.3 % (11.6-14.8); White Blood Cell Count 9.7 X10^3/uL (4.5-11.0)
[2020-04-15 20:24] LABS: Blood Urea Nitrogen 12 mg/dL (7-17); Calcium 8.9 mg/dL (8.4-10.2); Carbon Dioxide 27 mmol/L (22-32); Chloride 105 mmol/L (98-107); Estimated Glomerular Filt Rate > 60.0 mL/min (>60); Glucose 96 mg/dL (70-100); HEMOLYSIS < 15 (0-50); Potassium 3.6 mmol/L (3.4-5.1); Sodium 135 mmol/L (137-145)
[2020-04-15 20:43] LABS: HCG Quantitative /Beta subunit 8859 mIU/mL
--- NOTE | 2020-04-15 21:14 | ED_ITS ---
HPI - General Adult General Chief complaint: Vaginal Bleeding Stated complaint: 11 wks , thinks having miscarriage Time Seen by Provider: 04/15/20 18:34 Source: patient Mode of arrival: Ambulatory Limitations: no limitations History of Present Illness HPI narrative: 34-year-old female. who I just a few days ago had a positive home test. She states that her last menstrual cycle was approximately eleven weeks ago. Here for evaluation of vaginal bleeding. She states that she thinks she is having a miscarriage. Has not seen flower picker up to this point in her . Patient is Rh positive. Related Data Home Medications Medication Instructions Recorded Confirmed Adult Probiotic 1 cap PO DAILY 01/05/20 01/23/20 Previous Rx's Medication Instructions Recorded Double Electric breast Pump and #1 each 06/27/19 Supplies docusate sodium [DOK] 100 mg PO BID #10 cap 01/11/20 oxycodone 5 mg PO Q4HR PRN #20 tab 01/11/20 ondansetron 4 mg disintegrating 4 mg PO Q8H PRN #20 tab 01/12/20 tablet Allergies Allergy/AdvReac Type Severity Reaction Status Date / Time tetanus and diphtheria Allergy Intermediate Difficulty Verified 04/15/20 18:34 toxoids Breathing hydrocodone [From Vicodin] AdvReac Unknown Hives Verified 04/15/20 18:34 EGGPLANT Allergy Mild HIVES, Uncoded 01/23/20 15:25 EGGPLANT Review of Systems Constitutional Constitutional: Denies fever(s) Cardiovascular Cardiovascular: Denies chest pain and Denies dyspnea Respiratory Respiratory: Denies dyspnea Gastrointestinal Gastrointestinal: Reports abdominal pain, Denies nausea and Denies vomiting Genitourinary Genitourinary: Denies dysuria Genitourinary: Denies dysuria and Reports vaginal discharge Musculoskeletal Musculoskeletal: Denies myalgias Integumentary/Breasts Skin/Breast: Denies rash Neurologic Neurologic: Denies behavioral changes Psychiatric Psychiatric: Denies behavioral changes Hematologic/Lymphatic On Anticoagulants: No Allergic/Immunologic Allergic/Immunologic: Denies urticaria Patient History Medical History Acute cholecystitis without calculus Hyperemesis gravidarum Vaginal delivery Social History household members: significant other and children Smoking Status: Never smoker Smoking Status: Never smoker alcohol intake frequency: holidays/special occasions only Substance Use Type: does not use Exam Initial Vital Signs Initial Vital Signs: Vital Signs Temperature 98.6 F 04/15/20 18:34 Pulse Rate 94 H 04/15/20 18:34 Respiratory Rate 16 04/15/20 18:34 Blood Pressure 129/92 H 04/15/20 18:34 Pulse Oximetry 100 04/15/20 18:34 Const General: cooperative and comfortable Limitations: mental status not altered [facility] Head: normal to inspection and normocephalic Resp Effort & Inspection: normal respiratory effort Cardio Rate: regular rate GI Inspection: non-distended Skin Lesions: no lesions Rashes: no rashes Neuro General: patient alert, patient awake and patient oriented x3 Extrem General: capillary refill normal Psych Appearance: grossly normal and well kempt Course Orders Ordered: ED Orders 04/15/20 18:35 US pelvic complete Stat 04/15/20 19:53 ABO RH Type Stat Basic Metabolic Panel Stat Complete Blood Count AUTO DIFF Stat HCG Quantitative /Beta subunit Stat 04/15/20 21:14 Consult to Obstetrics Stat 04/15/20 21:45 COVID19 Stat Vital Signs Vital signs: Vital Signs - 8 hr 04/15/20 18:34 04/15/20 21:56 Temperature 98.6 F Pulse Rate 94 H 88 Respiratory Rate 16 22 Blood Pressure 129/92 H 136/85 Pulse Oximetry 100 100 Medical Decision Making Lab Data Lab results reviewed: Yes I reviewed the patient's lab results. Result diagrams: 04/15/20 19:53 04/15/20 19:53 Labs: Lab Results 04/15/20 04/15/20 04/15/20 Range/Units 19:53 19:53 19:53 WBC 9.7 (4.5-11.0) X10^3/uL RBC 4.24 (4.0-5.2) X10^6/uL Hgb 13.2 (12.0-16.0) g/dL Hct 39.7 (36-46) % MCV 93.6 (80-100) fL MCH 31.1 (26-34) PG MCHC 33.2 (30-36) % RDW 13.3 (11.6-14.8) % Plt Count 263 (150-400) X10^3/uL Neut % (Auto) 75.2 H (50-75) % Lymph % (Auto) 16.2 L (25-40) % [place] % (Auto) 6.8 (3-14) % Eos % (Auto) 1.4 L (2-4) % Baso % (Auto) 0.4 (0-2) % Neut # (Auto) 7300 H (3506-6809) /uL Lymph # (Auto) 1600 (4903-8760) /uL [place] # (Auto) 700 (0-900) /uL Eos # (Auto) 100 (0-450) /uL Baso # (Auto) 0 (0-100) /uL Sodium 135 L (137-145) mmol/L Potassium 3.6 (3.4-5.1) mmol/L Chloride 105 (98-107) mmol/L Carbon Dioxide 27 (22-32) mmol/L BUN 12 (7-17) mg/dL Creatinine 0.60 (0.52-1.04) mg/dL Estimated GFR > 60.0 (>60) mL/min BUN/Creatinine Ratio 20.0 (6-22) Glucose 96 (70-100) mg/dL Calcium 8.9 (8.4-10.2) mg/dL HCG, Quant 8859 mIU/mL SARS-CoV-2 (PCR) (Negative) Blood Type 04/15/20 04/15/20 Range/Units 19:53 21:45 WBC (4.5-11.0) X10^3/uL RBC (4.0-5.2) X10^6/uL Hgb (12.0-16.0) g/dL Hct (36-46) % MCV (80-100) fL MCH (26-34) PG MCHC (30-36) % RDW (11.6-14.8) % Plt Count (150-400) X10^3/uL Neut % (Auto) (50-75) % Lymph % (Auto) (25-40) % [place] % (Auto) (3-14) % Eos % (Auto) (2-4) % Baso % (Auto) (0-2) % Neut # (Auto) (0100-4487) /uL Lymph # (Auto) (7414-2801) /uL [place] # (Auto) (0-900) /uL Eos # (Auto) (0-450) /uL Baso # (Auto) (0-100) /uL Sodium (137-145) mmol/L Potassium (3.4-5.1) mmol/L Chloride (98-107) mmol/L Carbon Dioxide (22-32) mmol/L BUN (7-17) mg/dL Creatinine (0.52-1.04) mg/dL Estimated GFR (>60) mL/min BUN/Creatinine Ratio (6-22) Glucose (70-100) mg/dL Calcium (8.4-10.2) mg/dL HCG, Quant mIU/mL SARS-CoV-2 (PCR) Negative (Negative) Blood Type O Positive Point of Care Testing Test Results Positive Urine Dip Bedside Urine Glucose Negative Bedside Urine Bilirubin - Negative Bedside Urine Ketone - Negative Urine Specific [place] 1.010 Bedside Urine Occult Blood +++ Bedside Urine pH 7.0 Bedside Urine Protein - Negative Bedside Urine Urobilinogen - Negative Bedside Urine Nitrite - Negative Bedside Urine Leukocytes - Negative Esterase Point of care testing: Point of Care Testing Test Results Positive Urine Dip Bedside Urine Glucose Negative Bedside Urine Bilirubin - Negative Bedside Urine Ketone - Negative Urine Specific [place] 1.010 Bedside Urine Occult Blood +++ Bedside Urine pH 7.0 Bedside Urine Protein - Negative Bedside Urine Urobilinogen - Negative Bedside Urine Nitrite - Negative Bedside Urine Leukocytes - Negative Esterase Imaging Data US - OB: Radiologist's Impression: [address] [id number] ReportSigned Patient: Alicia Tobin FMR#: [id number]: [id number]:[id number]/Sex: 34 / FDate of Service: 04/15/20Loc: EDAccession Number: [id number] Procedure: US pelvic complete Ordering Provider: Froilan Neff D.O. PROCEDURE: US PELVIC COMPLETE INDICATIONS: POSITIVE HOME ; BLEEDING TECHNIQUE: Real-time scanning was performed of the pelvic organs, with image documentation. Additional endovaginal scanning was necessary due to incomplete visualization of the adnexal and endometrial structures by transabdominal scanning. COMPARISON: [facility], , PELVIC COMPLETE, 07/13/2016, 20:37. FINDINGS: Transabdominal scanning: Limited scanning through the kidneys shows no hydronephrosis. No pathologic free abdominal or pelvic fluid. Endovaginal scanning: Uterus: The anteverted uterus measures 10.3 x 5.7 x 7.8 cm in size. The thickened endometrium measures 3.2 cm in combined thickness. There is no focal endometrial mass or hypervascularity. No intrauterine gestation identified. Ovaries: Right ovary measures 2.3 x 2.9 x 1.7 cm. Left ovary measures 2.4 x 2.3 x 1.3 cm. Within the right ovary, there is a 1.5 x 1.8 x 1.6 cm heterogeneous isoechoic/hypoechoic lesion with peripheral vascularity. IMPRESSION: 1. Thickened endometrium without visualization of an intrauterine gestation. This may represent decidual reaction associated with early normal in the setting of a positive test. 2. There is a 1.8 cm heterogeneous fully isoechoic/hypoechoic lesion with peripheral vascularity in the right ovary which may represent a corpus luteal cyst associated with in early . However, in the presence of a positive test, an ectopic cannot be completely excluded. No pelvic free fluid identified at this time. Recommend continued close clinical surveillance and serial quantitative HCG measurements. Short interval follow-up imaging as needed. Dictated by: Shawn Moss M.D. on 04/15/2020 at 19:04 Approved by: Shawn Moss M.D. on 04/15/2020 at 19:11 [facility] Narrative Medical decision making narrative: Rh positive, stable appearing. Ultrasound concerning for ectopic given the findings and also her quantitative hCG level. Discussed the case with Dr. Gimenez our on-call for Ob who came to evaluate the patient here in the emergency department. Given the fact that she is stable patient and after the discussion between patient and Dr. Gimenez patient will be discharged home and scheduled for surgery tomorrow morning. COVID ordered per request of Dr. Gimenez in preparation for this. She was given strict return precautions and follow-up instructions. She expressed understanding and agreement. Discharge Plan Departure Patient Disposition: Home Clinical Impression: Ectopic Instructions: DI for Ectopic Activity Restrictions/Additional Instructions: Per your discussion with Dr. Gimenez you are to report to central admitting at 0845 tomorrow morning with the anticipation surgical intervention of your ectopic . Nothing to eat or drink after midnight this evening. If prior to that your symptoms worsen or you develop fevers please return to the emergency department immediately for further evaluation. Prescriptions: No Action (DME) Double Electric breast Pump and Supplies See Rx Instructions .ROUTE .MEDSUPPLY Qty: 1 RF: 0 ondansetron 4 mg tablet,disintegrating 4 mg PO Q8H PRN (Reason: nausea and vomiting) Qty: 20 RF: 0 Adult Probiotic tablet 1 cap PO DAILY RF: 0 docusate sodium [DOK] 100 mg Capsule 100 mg PO BID Qty: 10 RF: 0 oxycodone 5 mg Tablet 5 mg PO Q4HR PRN (Reason: Pain, Moderate (4-6)) Qty: 20 RF: 0
--- NOTE | 2020-04-15 21:49 | P.HPOB_ITS ---
History of Present Illness History of Present Illness Reason for admission: vaginal bleeding and ectopic Narrative: Alicia Tobin is a 34 year old 7 para 5 female who last menstrual period was approximately 11 weeks ago who began having back pain with cramping and vaginal bleeding. She presented to the emergency room for evaluation. [facility] Medical History (Updated 04/15/20 @ 21:53 by Dolly Gimenez MD) Acute cholecystitis without calculus Hyperemesis gravidarum Vaginal delivery Social History household members: significant other and children Smoking Status: Never smoker Meds Home Medications and Allergies Home Medications Medication Instructions Recorded Confirmed Type Double Electric breast Pump and #1 each 06/27/19 01/23/20 Rx Supplies Adult Probiotic 1 cap PO DAILY 01/05/20 01/23/20 History docusate sodium [DOK] 100 mg PO BID #10 cap 01/11/20 01/23/20 Rx oxycodone 5 mg PO Q4HR PRN #20 tab 01/11/20 01/23/20 Rx ondansetron 4 mg disintegrating 4 mg PO Q8H PRN #20 tab 01/12/20 01/23/20 Rx tablet Allergies Allergy/AdvReac Type Severity Reaction Status Date / Time tetanus and diphtheria Allergy Intermediate Difficulty Verified 04/15/20 18:34 toxoids Breathing hydrocodone [From Vicodin] AdvReac Unknown Hives Verified 04/15/20 18:34 EGGPLANT Allergy Mild HIVES, Uncoded 01/23/20 15:25 EGGPLANT Review of Systems Review of Systems Narrative: Patient denies any headaches, chest pains or shortness of breath. She has some mild abdominal tenderness. She has low back pain and cramping. She has moderate vaginal bleeding. ROS: Yes All systems reviewed with the patient and are negative except as otherwise documented Exam Vital Signs (past 8 hours): - 04/15/20 18:34 Temperature 98.6 F Pulse Rate 94 H Respiratory Rate 16 Blood Pressure 129/92 H Pulse Oximetry 100 Oxygen Delivery Method Room Air Narrative Exam Narrative: HEENT exam within normal limits. Lungs are clear to auscultation percussion. Heart is regular rate and rhythm. Abdomen is soft with mild lower abdominal tenderness but no rebound. Pelvic exam was not performed. Extremities without edema and nontender. Objective Imaging US - abdomen: Radiologist's impression: Mildly thickened endometrium without intrauterine gestation, 1 cm ovarian mass likely corpus luteum cyst but cannot rule out ectopic . No free fluid in the abdomen. Labs Result Diagrams: 04/15/20 19:53 04/15/20 19:53 Labs: Laboratory Results - last 24 hr 04/15/20 04/15/20 04/15/20 19:53 19:53 19:53 WBC 9.7 RBC 4.24 Hgb 13.2 Hct 39.7 MCV 93.6 MCH 31.1 MCHC 33.2 RDW 13.3 Plt Count 263 Neut % (Auto) 75.2 H Lymph % (Auto) 16.2 L [place] % (Auto) 6.8 Eos % (Auto) 1.4 L Baso % (Auto) 0.4 Neut # (Auto) 7300 H Lymph # (Auto) 1600 [place] # (Auto) 700 Eos # (Auto) 100 Baso # (Auto) 0 Sodium 135 L Potassium 3.6 Chloride 105 Carbon Dioxide 27 BUN 12 Creatinine 0.60 Estimated GFR > 60.0 BUN/Creatinine Ratio 20.0 Glucose 96 Calcium 8.9 HCG, Quant 8859 Blood Type 04/15/20 19:53 WBC RBC Hgb Hct MCV MCH MCHC RDW Plt Count Neut % (Auto) Lymph % (Auto) [place] % (Auto) Eos % (Auto) Baso % (Auto) Neut # (Auto) Lymph # (Auto) [place] # (Auto) Eos # (Auto) Baso # (Auto) Sodium Potassium Chloride Carbon Dioxide BUN Creatinine Estimated GFR BUN/Creatinine Ratio Glucose Calcium HCG, Quant Blood Type O Positive Assessment & Plan Assessment and plan (1) Ectopic : Status: Acute Assessment & Plan narrative: Patient with vaginal bleeding and no intrauterine gestation on ultrasound but quantitative HCG of 8800 suggestive of ectopic pre gnancy. Patient is stable at this point. Since she had a meal less than 5 hours ago and has the family's only car she will be discharged home and will be added to the surgery schedule in a.m.. Patient is to remain NPO after midnight. She is to return approximately 845 tomorrow morning unless she has increasing pain, lightheaded then she should present earlier. Consent form for laparoscopic removal of probable ectopic a was reviewed with the patient. Risk of damage to internal structures such as bowel, bladder, ureters that could require opening the abdomen to repair or additional surgery. Low risk of infection. Low risk of bleeding enough to require blood transfusion but she is agreeable to blood transfusion if necessary to save her life. Reaction to anesthesia medication that could lead to or permanent or partial disability. Patient was planning to be sterilized so she is not concerned about removal of her tube or ovary if necessary. Patient is aware that she might need additional medications or additional surgery if the entire is not removed. Consent form was signed and questions answered. COVID-19 COVID-19 status: Result pending Time Spent With Patient Time with patient: less than 15 minutes
[2020-04-15 21:56] VITALS: BP 136/85; PULSE 88; RESP 22; O2SAT 100
[2020-04-15 22:15] LABS: COVID19 -Nasal RAPID Negative (Negative)
== END 2020-04-15 20:04 | disposition home or self-care (01) ==
PROVIDERS: Emergency Provider Emergency Medicine; Family Provider Specialist
DX: O00.90 Unspecified ectopic pregnancy without intrauterine pregnancy (principal); Z20.822 Contact with and (suspected) exposure to COVID-19
CPT/HCPCS: 36415; 76830; 76856; 80048; 81003; 81025; 84702; 85025; 86900; 86901; 87635; 99283; 99284; C9803

== ENCOUNTER 2020-04-16 10:17 | Day surgery (SDC) | payer OTHER, MEDICAID, SELFPAY ==
[2020-01-05 20:36] VITALS: BMI 29.2
[2020-04-16] VITALS (9 sets, daily range): BP systolic 107–123; BP diastolic 68–81; PULSE 68–124; RESP 12–21; TEMP 36.1–36.8; O2SAT 98–100; BMI 27.4
--- NOTE | 2020-04-16 | PATH_ITS ---
[facility] Accession Number: [id number] . 01 Material submitted: . uterus - UTERINE CURETTINGS . 01 Clinical history: . LAP SALPINGECTOMY . 02 Diagnosis: Uterine Curettings: Products of conception identified. [facility] 04/20/2020 1222 Local . 02 Electronically signed: . Tana Kunz MD, Pathologist NPI- [id number] . 01 Gross description: . The specimen is received in formalin, labeled uterine curettings, and consists of multiple montoya-pink fragments of soft tissue and clotted blood measuring 7.0 x 6.0 x 4.0 cm in aggregate. The specimen is entirely submitted in cassettes A1-A14. ([id number]) /[facility] 04/18/2020 1517 Local . 02 Pathologist provided ICD-10: O00.90 . 02 CPT . 562743 Performed at: 01 [facility] [address] [id number] MD Jayro Naranjo MD Phone: [phone] Performed at: 02 [facility] [address] [place], [place] [id number] MD Promise Borrero MD Phone: [phone]
--- NOTE | 2020-04-16 11:43 | PM.PREOP ---
Pre-operative Note COVID-19 COVID-19 status: Negative Result date/Date tested (Pos, Neg/Pending): 04/15/20 Interval Note History & Physical reviewed/Exam performed by Physician: Yes Changes to H&P: No
--- NOTE | 2020-04-16 12:31 | SUR.OPER ---
Lithotomy on padded OR bed, head on pillow, arms secured on padded arm boards at <90 degrees abduction. Legs secured in padded yellow fins stirrups.
--- NOTE | 2020-04-16 12:37 | P.OP_ITS ---
Operative Date/Time/Diagnoses Date of procedure: 04/16/20 Time of procedure: 12:37 Pre-op diagnosis: Ectopic Post-op diagnosis: other ( incomplete miscarriage) Procedure & Clinicians Procedure: D&C Same procedure as scheduled: No ( obvious incomplete AB at start of procedure so laparoscopy not performed) Indications: 11 week gestation by dates with bleeding, ultrasound with right ovarian hyperechoic mass and thickened endometrium with no gestation and HCG level of 8800. the possibility of ectopic suggested. Surgeon: Dolly Gimenez Click Yes if Unassisted: Yes Anesthesia Type: General Operative Notes Findings: Enlarged uterus with significant obvious retained products of conception on D&C so decision was made not to proceed with laparoscopy Closure Type: not applicable Specimen(s): other ( uterine contents) Estimated Blood Loss (mL): 25 Blood products transfused: none Procedure in detail: Patient was brought to the operating room where she underwent general anesthesia. She was placed in low Yellofin stirrups and p repped and draped in the usual sterile fashion. A check system was reviewed with the staff in the room prior to beginning the case. No antibiotics were indicated. Pulsatile stockings were in place and functional. Warming was with blankets. A speculum was placed in the vagina and a single-tooth tenaculum was placed on the anterior lip of the cervix. The cervix was found to be already dilated to at least and # 10 Hegar dilator. A uterine curettage was performed. At that point it was obvious that this was a incomplete miscarriage rather than an ectopic . The tissue was sent to pathology. Counts of instruments and sponges were correct. Patient went to recovery room in stable condition. Complications: none Post-operative Condition: stable Disposition: same day surgery Plan for aftercare: home when awake and stable with follow-up HCG levels
[2020-04-16] MEDS: BENZOCAINE/MENTHOL 1 LOZ PKT 1 EACH PO (13:09)
== END 2020-04-16 14:35 | disposition home or self-care (01) ==
PROVIDERS: Family Provider Specialist; Referring Provider Specialist; Visit Provider Specialist
PROC: (CPT 58120; principal; 2020-04-16 11:45)
DX: O02.1 Missed abortion (principal); Z3A.11 11 weeks gestation of pregnancy
CPT/HCPCS: 59820; J0330; J1100; J1885; J2405; J2704; J3010

== ENCOUNTER → 2020-07-09 16:41 | Outpatient (CLI) | payer OTHER, MEDICAID, SELFPAY ==
[2020-01-05 20:36] VITALS: BMI 29.2
[2020-07-09 17:20] LABS: Appearance Urine UA CLEAR; Bilirubin Urine UA NEGATIVE (NEGATIVE); Color Urine UA YELLOW; Glucose Urine UA NEGATIVE (Negative); Ketones Urine UA NEGATIVE (NEGATIVE); Leukocyte Esterase Urine UA 1+ (NEGATIVE); Nitrite Urine UA NEGATIVE (Negative); Occult Blood Urine UA 1+ (Negative); Protein Urine UA NEGATIVE (Negative); Urobilinogen Urine UA 0.2 E.U./dL (0.2)
[2020-07-09 17:31] LABS: pH Urine UA 6.5 (4.5-8.0)
[2020-07-09 18:03] LABS: Bacteria Urine Few (2-10); Culture Indicated Urine Specimen Cultured; RBC Urine 0-1/HPF (0-5/HPF); Squamous Epithelial Cell Urine 1-5 /HPF (0-5/HPF); Transitional Epi Cells Urine 5-10/HPF (0-5/HPF); WBC Urine 10-30/HPF (0-5/HPF)
== END ==
PROVIDERS: Family Provider Specialist; PCP Specialist; Referring Provider Specialist; Visit Provider Specialist
DX: R39.9 Unspecified symptoms and signs involving the genitourinary system (principal)
CPT/HCPCS: 81001; 87077; 87086

== ENCOUNTER 2020-12-10 14:47 | Emergency (ER) | payer OTHER, MEDICAID, SELFPAY ==
[2020-01-05 20:36] VITALS: BMI 29.2
[2020-12-10 14:50] VITALS: BP 143/91; PULSE 87; RESP 16; TEMP 37.1; O2SAT 100; BMI 28.3
[2020-12-10] MEDS: FLUORESCEIN 1 MG STRIP EYE-LEFT (18:39)
[2020-12-10] MEDS: PROPARACAINE 0.5% OPHTH SOL 1 DROPS EYE-LEFT (18:40)
--- NOTE | 2020-12-10 18:45 | ED.EYEPROB ---
HPI - Eye Problem General Chief complaint: Eye Problems Stated complaint: Burning/pain in left eye. Blurry vision Time Seen by Provider: 12/10/20 18:04 Source: patient Mode of arrival: Ambulatory History of Present Illness HPI Narrative: Patient had sudden onset left lateral eye discomfort at 1:00 p.m. today. She works on the farm. Uncertain if something got into her eye. It itched and burned and had some lateral conjunctival swelling. She did provide a picture on her smart phone. It has significantly improved. No loss of vision. Just blurry vision. Does not wear contact lenses. Does not wear corrective lenses. Left eye on exam is 2024. Both eyes are 2019. Patient found out she was yesterday. Related Data Previous Rx's Medication Instructions Recorded Double Electric breast Pump and #1 each 06/27/19 Supplies norethindrone 1.5 mg-ethinyl 1 tab PO DAILY #84 tab 04/28/20 estradiol 30 mcg(21)/iron 75 mg(7) tablet nitrofurantoin 100 mg PO BID #10 cap 07/10/20 monohydrate/macrocrystals 100 mg capsule fluconazole 150 mg tablet 150 mg PO ONCE #1 tab 07/13/20 erythromycin 5 mg/gram (0.5 %) eye 0.5 inch EYE-LEFT Q6H 5 Days #3.5 g 12/10/20 ointment Allergies Allergy/AdvReac Type Severity Reaction Status Date / Time tetanus and diphtheria Allergy Intermediate Difficulty Verified 12/10/20 14:54 toxoids Breathing hydrocodone [From Vicodin] AdvReac Unknown Hives Verified 12/10/20 14:54 EGGPLANT Allergy Mild HIVES, Uncoded 12/10/20 14:54 EGGPLANT Review of Systems Review of Systems Narrative: GENERAL: Denies chills, fatigue, malaise, fever, sweats. HEENT: Denies sinus pain, ear pain, sore throat, complains of left eye redness and pain SKIN: Denies rash, skin lesions NEUROLOGIC: Denies weakness, numbness ROS Unobtainable: All systems reviewed & are unremarkable except as noted in HPI and below Patient History Medical History Acute cholecystitis without calculus Hyperemesis gravidarum Vaginal delivery Social History household members: significant other and children Smoking Status: Never smoker Smoking Status: Never smoker alcohol intake frequency: holidays/special occasions only Substance Use Type: does not use Exam Narrative Exam Narrative: GENERAL: in no distress, not toxic not dyspneic HEAD: Normocephalic. EYES: PERRLA, there is mild erythema and edema of the lateral conjunctival, just lateral to the cornea of the left eye. It has significant improved compared to photo provided by patient. Eyelids everted. No foreign body. No Sammy sign. No ice rink sign. Provided swan lamp as well as slit-lamp exam. No fluorescein uptake. No foreign body. No corneal abrasion. No dendritic lesions. NEURO: AOx4. SKIN: Warm and dry PSYCH: Not anxious, is cooperative Initial Vital Signs Initial Vital Signs: Vital Signs Temperature 98.8 F 12/10/20 14:50 Pulse Rate 87 12/10/20 14:50 Respiratory Rate 16 12/10/20 14:50 Blood Pressure 143/91 H 12/10/20 14:50 Pulse Oximetry 100 12/10/20 14:50 Course Course Course Narrative: No new issues during course of stay Orders Ordered: Discontinued Medications Erythromycin (Erythromycin Ophth 1 Gm Oint) 1 applic EYE-LEFT NOW ONE Stop: 12/10/20 18:49 Last Admin: 12/10/20 18:52 Dose: 1 applic Documented by: Fluorescein Sodium (Fluorescein 1 Mg Strip) 1 mg EYE-LEFT NOW ONE Stop: 12/10/20 18:33 Last Admin: 12/10/20 18:39 Dose: 1 mg Documented by: KIRSTEN Proparacaine HCl (Proparacaine 0.5% Ophth Ana) 1 drops EYE-LEFT PRN PRN PRN Reason: eye pain Stop: 12/11/20 00:00 Last Admin: 12/10/20 18:40 Dose: 1 drop Documented by: KIRSTEN Reevaluation(s) Reevaluation #1: Reviewed patient likely something irritated her eye but not infectious. No foreign body seen. Provide ophthalmology follow-up. Time: 18:53 Vital Signs Vital signs: Vital Signs - 8 hr 12/10/20 14:50 Temperature 98.8 F Pulse Rate 87 Respiratory Rate 16 Blood Pressure 143/91 H Pulse Oximetry 100 MDM - Eye Problem Differential Diagnosis Differential diagnosis: Likely corneal abrasion, conjunctivitis and other (Foreign body/pterygium/pinguecula/non infectious conjunctivitis) MDM Narrative Medical decision making narrative: Appropriate for discharge home. Likely irritation of the eye from something floating to her eye. Not insect bite. She does work on a farm. There is a lot of debris in the air. Return precautions reviewed with her. Exam otherwise reassuring. Patient states she will call her new medical insurance to be connected to a OBGYN provider Discharge Plan Departure Patient Disposition: Home Clinical Impression: Conjunctivitis Qualifiers: Conjunctivitis type: acute Acute conjunctivitis type: unspecified Laterality: left Qualified Code(s): H10.32 - Unspecified acute conjunctivitis, left eye Instructions: DI for Conjunctivitis Activity Restrictions/Additional Instructions: Apply half-inch layer of erythromycin ointment given to you every 6 hours while awake for the next 3 days. Call provided ophthalmology office in the morning for office recheck next week. Return if worsening questions or concerns. May use cool packs to the eye for relief as well. Use cool pack 20 minutes at a time. Be sure to call your insurance company to be connected to OBGYN provider. Be sure to start [id number] vitamins. Prescriptions: New erythromycin 5 mg/gram (0.5 %) ointment 0.5 inch EYE-LEFT Q6H 5 Days Qty: 3.5 RF: 0 No Action (DME) Double Electric breast Pump and Supplies See Rx Instructions .ROUTE .MEDSUPPLY Qty: 1 RF: 0 nitrofurantoin monohyd/m-cryst 100 mg capsule 100 mg PO BID Qty: 10 RF: 0 fluconazole 150 mg tablet 150 mg PO ONCE Qty: 1 RF: 0 norethindrone-e.estradiol-iron 1.5 mg-30 mcg (21)/75 mg (7) tablet 1 tab PO DAILY Qty: 84 RF: 3 Referrals: Celi Klein MD [Physician] -
[2020-12-10] MEDS: ERYTHROMYCIN OPHTH 1 GM OINT 1 APPLIC EYE-LEFT (18:52)
== END 2020-12-10 19:04 | disposition home or self-care (01) ==
PROVIDERS: Emergency Provider Emergency Medicine; Family Provider Specialist
DX: H10.32 Unspecified acute conjunctivitis, left eye (principal)
CPT/HCPCS: 99282

== ENCOUNTER → 2021-01-08 11:09 | Outpatient (CLI) | payer OTHER, MEDICAID, SELFPAY ==
[2021-01-07 17:16] VITALS: BMI 29.2
--- NOTE | 2021-01-08 11:11 | DI.US.S_ITS ---
PROCEDURE: US OB <= 14 WEEKS FETUS INDICATIONS: INITIAL VIABILITY DATING OUTSIDE/PRIOR DATING DATA: Last menstrual period (LMP): Unknown. LMP-based estimated date of delivery (ZAHIDA): Unknown. First dating scan (date and location): 01/08/2021, [facility]. Estimated date of delivery (ZAHIDA) from first dating scan: 08/20/2021. TECHNIQUE: Real-time scanning was performed of the fetus and maternal pelvic organs, with image documentation. Endovaginal scanning was also performed to better visualize the fetus and maternal ovaries. COMPARISON: [facility], , US OB <= 14 WEEKS FETUS, 12/10/2018, 14:16. FINDINGS: Embryo: 1.6 cm, 8 weeks 0 days Heart rate: 157 beats per minute Measurement variability in dating: +/- 4 weeks by LMP, +/- 7 days by mean sac diameter (use before 6 weeks gestation if crown-rump length not able to be measured), +/- 5 days by crown-rump length (up to 8 weeks 6 days gestation), +/- 7 days by crown-rump length (up to 13 weeks 6 days gestation). Maternal organs: Probable left corpus luteal cyst. IMPRESSION: Living early 1st trimester intrauterine with crown-rump length and heartbeat measuring 8 weeks 0 days. Dictated by: Tyrone Verduzco M.D. on 01/08/2021 at 12:51 Approved by: Tyrone Verduzco M.D. on 01/08/2021 at 12:52
[2021-01-08 15:13] LABS: Appearance Urine UA CLEAR; Bilirubin Urine UA NEGATIVE (NEGATIVE); Color Urine UA YELLOW; Glucose Urine UA NEGATIVE (Negative); Ketones Urine UA NEGATIVE (NEGATIVE); Leukocyte Esterase Urine UA 1+ (NEGATIVE); Nitrite Urine UA NEGATIVE (Negative); Occult Blood Urine UA NEGATIVE (Negative); Protein Urine UA NEGATIVE (Negative); Urobilinogen Urine UA 0.2 E.U./dL (0.2)
[2021-01-08 15:15] LABS: pH Urine UA 6.5 (4.5-8.0)
[2021-01-08 15:20] LABS: Amorphous Sediment Urine 1+; Bacteria Urine Moderate (10-30); RBC Urine None Seen (0-5/HPF); Squamous Epithelial Cell Urine 10-30 /HPF (0-5/HPF); WBC Urine 1-5/HPF (0-5/HPF)
[2021-01-08 15:20] LABS: Add Manual Diff / Slide Review NO; Basophils Absolute Auto 0 /uL (0-100); Basophils Percent Auto 0.6 % (0-2); Eosinophils Absolute Auto 200 /uL (0-450); Eosinophils Percent Auto 2.4 % (2-4); Hematocrit 37.5 % (36-46); Hemoglobin 12.7 g/dL (12.0-16.0); Lymphocytes Absolute Auto 1200 /uL (1100-4500); Lymphocytes Percent Auto 16.7 % (25-40); Mean Corpuscular HGB Conc 33.9 % (30-36); Mean Corpuscular Hemoglobin 32.3 PG (26-34); Mean Corpuscular Volume 95.5 fL (80-100); Monocytes Absolute Auto 500 /uL (0-900); Monocytes Percent Auto 6.7 % (3-14); Neutrophils Absolute Auto 5300 /uL (1500-7000); Neutrophils Percent Auto 73.6 % (50-75); Platelet Count 280 X10^3/uL (150-400); Red Blood Cell Count 3.92 X10^6/uL (4.0-5.2); White Blood Cell Count 7.1 X10^3/uL (4.5-11.0)
[2021-01-09 09:49] LABS: RPR Screen Non Reactive (Non Reactive)
[2021-01-09 12:36] LABS: Varicella IgG Antibody 321 index (Immune >165)
[2021-01-09 14:56] LABS: Hepatitis B Surface Antigen NEGATIVE s/c (NEGATIVE); Rubella Antibody IgG 7.8 IU/mL (>15)
[2021-01-09 15:10] LABS: HIV 1 & 2 Ab/Ag 4th Gen Combo NEGATIVE (NEGATIVE); Hep C Virus Ab w/Reflex Quant NEGATIVE s/c (NEGATIVE)
== END ==
PROVIDERS: Family Provider Specialist; Referring Provider Obstetrics & Gynecology; Visit Provider Obstetrics & Gynecology
DX: Z34.81 Encounter for supervision of other normal pregnancy, first trimester (principal); Z3A.08 8 weeks gestation of pregnancy
CPT/HCPCS: 36415; 76801; 76817; 80055; 81003; 81015; 86787; 86803; 86850; 86900; 86901; 87086; 87389

== ENCOUNTER 2021-01-17 14:32 | Emergency (ER) | payer OTHER, MEDICAID, SELFPAY ==
[2021-01-07 17:16] VITALS: BMI 29.2
[2021-01-17] VITALS (11 sets, daily range): BP systolic 104–139; BP diastolic 57–79; PULSE 70–89; RESP 16–18; TEMP 37.2; O2SAT 95–100; BMI 27.6
[2021-01-17] MEDS: SODIUM CHLORIDE 0.9% 1,000 ML 1000 ML IV (15:03)
[2021-01-17 15:10] LABS: Add Manual Diff / Slide Review NO; Basophils Absolute Auto 0 /uL (0-100); Basophils Percent Auto 0.3 % (0-2); Eosinophils Absolute Auto 100 /uL (0-450); Eosinophils Percent Auto 1.2 % (2-4); Hematocrit 40.6 % (36-46); Hemoglobin 13.8 g/dL (12.0-16.0); Lymphocytes Absolute Auto 1100 /uL (1100-4500); Lymphocytes Percent Auto 14.7 % (25-40); Mean Corpuscular HGB Conc 33.9 % (30-36); Mean Corpuscular Volume 94.4 fL (80-100); Monocytes Absolute Auto 500 /uL (0-900); Monocytes Percent Auto 6.4 % (3-14); Neutrophils Absolute Auto 6000 /uL (1500-7000); Neutrophils Percent Auto 77.4 % (50-75); Platelet Count 323 X10^3/uL (150-400); White Blood Cell Count 7.7 X10^3/uL (4.5-11.0)
[2021-01-17 15:13] LABS: Alanine Aminotransferase 40 IU/L (<35); Albumin 4.6 g/dL (3.5-5.0); Albumin Globulin Ratio 1.5 (1.0-2.8); Alkaline Phosphatase 103 U/L (38-126); Aspartate Aminotransferase 31 IU/L (14-36); Bilirubin Total 0.4 mg/dL (0.2-1.3); Blood Urea Nitrogen 8 mg/dL (7-17); Calcium 9.8 mg/dL (8.4-10.2); Carbon Dioxide 19 mmol/L (22-32); Chloride 104 mmol/L (98-107); Estimated Glomerular Filt Rate > 60.0 mL/min (>60); Globulin 3.1 g/dL (1.7-4.1); Glucose 85 mg/dL (70-100); HEMOLYSIS < 15 (0-50); Potassium 3.7 mmol/L (3.4-5.1); Sodium 135 mmol/L (137-145); Total Protein 7.7 g/dL (6.3-8.2)
--- NOTE | 2021-01-17 15:48 | PC.NURSE ---
Patient c/o hyper-emesis associated with . Patient states she is 9+ wks experiencing nausea, vomiting, dizziness, weakness and lack of appetite. States she is working with her OB to improve hyper-emesis symptoms. Patient c/o constipation x 10 days, bright red blood on toilet tissue when wiping her bottom and feeling like stool is stuck near the anus. .
--- NOTE | 2021-01-17 16:56 | DI.US.S_ITS ---
PROCEDURE: US OB <= 14 WEEKS FETUS INDICATIONS: pain OUTSIDE/PRIOR DATING DATA: Last menstrual period (LMP): Unknown LMP-based estimated date of delivery (ZAHIDA): Unknown First dating scan (date and location): 01/08/2021, [facility] Estimated date of delivery (ZAHIDA) from first dating scan: 08/20/2021 TECHNIQUE: Real-time scanning was performed of the fetus and maternal pelvic organs, with image documentation. Endovaginal scanning was also performed to better visualize the fetus and maternal ovaries. COMPARISON: [facility], , OB <= 14 WEEKS FETUS, 01/08/2021, 11:37. FINDINGS: Embryo: Single living intrauterine with pole and yolk sac. [place]-rump length measures 2.4 centimeters corresponding to 9 weeks 2 days. There is a small amount of echogenic fluid noted adjacent to the gestational sac along the left side measuring 2.9 x 0.8 by 1.5 centimeters likely representing a small perigestational hemorrhage encompassing less than 25 percent of the gestational sac. Heart rate: 157 Measurement variability in dating: +/- 4 weeks by LMP, +/- 7 days by mean sac diameter (use before 6 weeks gestation if crown-rump length not able to be measured), +/- 5 days by crown-rump length (up to 8 weeks 6 days gestation), +/- 7 days by crown-rump length (up to 13 weeks 6 days gestation). Maternal organs: Stable appearance of the likely corpus luteal cyst within the left ovary. Unchanged appearance of the anechoic cystic lesion along the left ovary which may represent an exophytic cyst versus paraovarian cyst. IMPRESSION: Intrauterine corresponding to 9 weeks 2 days by crown-rump length with heart rate of 163 beats per minute. Small perigestational hemorrhage encompassing less than 25 percent of the gestational sac a common finding in the 1st trimester. Unchanged appearance of left ovary with corpus luteal cyst and likely exophytic simple cyst versus paraovarian cyst. Dictated by: Thom Spencer D.O. on 01/17/2021 at 16:54 Approved by: Thom Spencer D.O. on 01/17/2021 at 17:00
--- NOTE | 2021-01-17 17:02 | ED.ABDPAIN ---
HPI - Abdominal Pain General Chief Complaint: Dizziness Stated Complaint: bleeding and dehydrated/cold sweats weak Time Seen by Provider: 01/17/21 15:54 Source: patient Mode of arrival: Ambulatory Limitations: no limitations History of Present Illness HPI narrative: Patient is a 35-year-old female currently about 9 weeks presenting today with abdominal pain constipation and rectal bleeding. She says she has not had a bowel movement in the last week at half. She is constantly nauseous but that remains unchanged. She has been trying to stay hydrated but unable to do so. She has not had any fever or chills. She was feeling some abdominal cramping yesterday but not today. She tried to have a bowel movement today and found blood on the toilet paper. She is actually quite painful as well. No fever or chills. She has been seen by Ob Dr. Valderrama for this . Related Data Home Medications Medication Instructions Recorded Confirmed prenat.vits,yesy,msp-eedy-oyvdz 1 tab PO DAILY 01/08/21 01/08/21 Previous Rx's Medication Instructions Recorded ondansetron 4 mg disintegrating 4 mg PO Q6-8H PRN #20 tab 01/07/21 tablet Allergies Allergy/AdvReac Type Severity Reaction Status Date / Time eggplant Allergy Severe THROAT Verified 01/17/21 15:08 SWELLING, HIVES hydrocodone [From Vicodin] Allergy Intermediate Hives Verified 01/17/21 15:08 tetanus and diphtheria Allergy Intermediate Difficulty Verified 12/10/20 14:54 toxoids Breathing Review of Systems Review of Systems Narrative: GENERAL: Denies chills, fatigue, malaise, fever, sweats, travel HEENT: Denies sinus pain, ear pain, sore throat, difficulty swallowing, neck pain RESPIRATORY: Denies dyspnea, cough, wheezing, hemoptysis, sputum. CARDIOVASCULAR: Denies chest pain, palpitations, orthopnea, edema GASTROINTESTINAL: See HPI : Denies dysuria, frequency, incontinence, hematuria, urinary retention, flank pain. MUSCULOSKELETAL: Denies weakness, joint pain, or bony pain SKIN: No rash, no erythema, no pruritus NEUROLOGIC: Denies weakness, dizziness, headache, numbness, change in speech, confusion PSYCHIATRIC: No concerning psychosocial issues. 12 point review of systems is negative except for those stated above and HPI Patient History Medical History (Updated 01/17/21 @ 18:47 by Charisma Sanabria DO) Abnormal ultrasound of abdomen (~01/2020) Acute cholecystitis without calculus (~01/2020) Ectopic (~04/15/20) History of UTI (~2014) Hyperemesis gravidarum (~05/2010) Low back pain (~06/2019) depression associated with second Recurrent urinary tract infection (10/19/15) Rib pain on left side (~06/2019) Right flank pain (~2014) Sepsis (~01/2020) Spasm of left piriformis muscle (~06/2019) Vaginal delivery Vaginal yeast infection (~2010) Surgical History (Updated 01/08/21 @ 13:25 by Kerry Nunez RN) H/O colonoscopy (~2008) History of esophagogastroduodenoscopy (EGD) (~2008) Status post laparoscopic cholecystectomy (~01/09/20) Family History (Updated 01/08/21 @ 14:03 by Kerry Nunez RN) Mother Brain tumor (benign) Father Depression Grandmother Lung cancer metastatic to brain Myocardial infarction Hypothyroid H/O thyroidectomy Hypertension Diabetes mellitus Grandfather Alzheimer disease COPD (chronic obstructive pulmonary disease) H/O bilateral hip replacements Grandmother Diverticulitis Grandfather Myocardial infarction Smoker Social History marital status: unmarried,living together number of children: 6 household members: significant other and children (part custody of partner's daughter from previous relationship) lives independently: Yes caregiver/support person: No housing: other (Double-wide trailer.) pets and animals: Yes (1 cat, dog, bird, rabbit, snake: aware of cat precautions. 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 ) current occupational exposures/hazards: Yes (Home septic leak into well water; was given boil notice/now chlorine.) heather/pentecostalism: Non-mormonism special heather needs: No seatbelt use: always do you feel safe at home: Yes Smoking Status: Never smoker second hand exposure: No alcohol intake: former (Pre-: occasional rare beer/wine) substance use type: does not use during the past year weight has: remained stable well-balanced diet: rarely or never (Hyperemesis, also diet restrictions due to gallbladder removal. Would like referral to nutionist.) daily servings fruits/ve-1 caffeine: No Type(s) of exercise: walking and normal ROM and activity (7-26812 steps/day normally.) frequency: does not exercise (x2 weeks, on the couch, feeling poorly. ) Smoking Status: Never smoker alcohol intake frequency: holidays/special occasions only Substance Use Type: does not use Exam Initial Vital Signs Initial Vital Signs: Vital Signs Temperature 98.9 F 01/17/21 14:35 Pulse Rate 83 01/17/21 14:35 Respiratory Rate 16 01/17/21 14:35 Blood Pressure 139/79 01/17/21 14:35 Pulse Oximetry 99 01/17/21 14:35 GENERAL: Well-appearing, well-nourished and in no acute distress. HEENT: Head atraumatic,EOMI, pupils reactive, face symmetric, moist mucous membranes CARDIOVASCULAR: Regular rate and rhythm without murmurs, rubs or gallops. RESPIRATORY: Breath sounds equal bilaterally, no wheezes rales or rhonchi. ABDOMEN: Soft, nontender. Normoactive bowel sounds all 4 quadrants. No guarding or rebound. RECTAL: + hemorrhoid no stool slightly pink tinged : No CVA tenderness EXTREMITIES: Normal range of motion, no clubbing or edema. Neurovascularly intact NEUROLOGICAL: Alert and oriented x4.Normal gait and speech. Cranial nerves II through XII grossly intact. SKIN: Warm, dry, no laceration, no petechiae, no rashes or lesions. Course Orders Ordered: ED Orders 01/17/21 14:45 Complete Blood Count AUTO DIFF Stat Comprehensive Metabolic Panel Stat 01/17/21 16:56 US OB <= 14 weeks fetus Stat Discontinued Medications Sodium Chloride (Normal Saline 0.9%) 1,000 mls @ 1,000 mls/hr IV BOLUS ONE Stop: 01/17/21 15:54 Last Infusion: 01/17/21 18:09 Dose: 0 mls/hr Documented by: Admin: 01/17/21 15:03 Dose: 1,000 mls/hr Documented by: KARYN Mineral Oil (Mineral Oil 1 Each Enema) 1 each HI NOW ONE Stop: 01/17/21 16:57 Last Admin: 01/17/21 17:50 Dose: 1 each Documented by: ZEENAT Vital Signs Vital signs: Vital Signs - 8 hr 01/17/21 14:35 01/17/21 14:37 01/17/21 14:38 Temperature 98.9 F Pulse Rate 83 86 Respiratory Rate 16 Blood Pressure 139/79 139/79 Pulse Oximetry 99 98 99 01/17/21 15:00 01/17/21 15:30 01/17/21 16:00 Temperature Pulse Rate 75 89 81 Respiratory Rate Blood Pressure 107/57 L Pulse Oximetry 100 100 100 01/17/21 16:30 01/17/21 17:00 01/17/21 17:30 Temperature Pulse Rate 70 70 75 Respiratory Rate 16 18 Blood Pressure 104/58 L 104/63 111/67 Pulse Oximetry 100 95 100 01/17/21 18:39 01/17/21 18:40 Temperature Pulse Rate 80 75 Respiratory Rate Blood Pressure 125/75 Pulse Oximetry 100 100 MDM - Abdominal Pain Lab Data Result diagrams: 01/17/21 14:45 01/17/21 14:45 Labs: Lab Results 01/17/21 01/17/21 Range/Units 14:45 14:45 WBC 7.7 (4.5-11.0) X10^3/uL RBC 4.30 (4.0-5.2) X10^6/uL Hgb 13.8 (12.0-16.0) g/dL Hct 40.6 (36-46) % MCV 94.4 (80-100) fL MCH 32.0 (26-34) PG MCHC 33.9 (30-36) % RDW 12.0 (11.6-14.8) % Plt Count 323 (150-400) X10^3/uL Neut % (Auto) 77.4 H (50-75) % Lymph % (Auto) 14.7 L (25-40) % [place] % (Auto) 6.4 (3-14) % Eos % (Auto) 1.2 L (2-4) % Baso % (Auto) 0.3 (0-2) % Neut # (Auto) 6000 (8420-8884) /uL Lymph # (Auto) 1100 (9465-8396) /uL [place] # (Auto) 500 (0-900) /uL Eos # (Auto) 100 (0-450) /uL Baso # (Auto) 0 (0-100) /uL Sodium 135 L (137-145) mmol/L Potassium 3.7 (3.4-5.1) mmol/L Chloride 104 (98-107) mmol/L Carbon Dioxide 19 L (22-32) mmol/L BUN 8 (7-17) mg/dL Creatinine 0.50 L (0.52-1.04) mg/dL Estimated GFR > 60.0 (>60) mL/min BUN/Creatinine Ratio 16.0 (6-22) Glucose 85 (70-100) mg/dL Calcium 9.8 (8.4-10.2) mg/dL Total Bilirubin 0.4 (0.2-1.3) mg/dL AST 31 (14-36) IU/L ALT 40 H (<35) IU/L Alkaline Phosphatase 103 (38-126) U/L Total Protein 7.7 (6.3-8.2) g/dL Albumin 4.6 (3.5-5.0) g/dL Globulin 3.1 (1.7-4.1) g/dL Albumin/Globulin Ratio 1.5 (1.0-2.8) Point of care testing: Urine Dip Bedside Urine Glucose Negative Bedside Urine Bilirubin - Negative Bedside Urine Ketone - Negative Urine Specific [place] 1.015 Bedside Urine Occult Blood - Negative Bedside Urine pH 6.0 Bedside Urine Protein - Negative Bedside Urine Urobilinogen - Negative Bedside Urine Nitrite - Negative Bedside Urine Leukocytes - Negative Esterase Imaging Data US - MANAGER TRANSMISSION: Radiologist's Impression: PROCEDURE:? US OB <= 14 WEEKS FETUS ? INDICATIONS:? pain ? OUTSIDE/PRIOR DATING DATA:? Last menstrual period (LMP):? Unknown LMP-based estimated date of delivery (ZAHIDA):? Unknown First dating scan (date and location):? 01/08/2021, [facility] Estimated date of delivery (ZAHIDA) from first dating scan:? 08/20/2021 ? TECHNIQUE:? Real-time scanning was performed of the fetus and maternal pelvic organs, with image documentation.? Endovaginal scanning was also performed to better visualize the fetus and maternal ovaries.? ? COMPARISON:? [facility], , OB <= 14 WEEKS FETUS, 01/08/2021, 11:37. ? FINDINGS:? ? Embryo:? Single living intrauterine with pole and yolk sac.? [place]-rump length measures 2.4 centimeters corresponding to 9 weeks 2 days.? There is a small amount of echogenic fluid noted adjacent to the gestational sac along the left side measuring 2.9 x 0.8 by 1.5 centimeters likely representing a small perigestational hemorrhage encompassing less than 25 percent of the gestational sac. Heart rate:? 157 ? Measurement variability in dating:? +/- 4 weeks by LMP, +/- 7 days by mean sac diameter (use before 6 weeks gestation if crown-rump length not able to be measured), +/- 5 days by crown-rump length (up to 8 weeks 6 days gestation), +/- 7 days by crown-rump length (up to 13 weeks 6 days gestation).? ? Maternal organs:? Stable appearance of the likely corpus luteal cyst within the left ovary.? Unchanged appearance of the anechoic cystic lesion along the left ovary which may represent an exophytic cyst versus paraovarian cyst. ? ? IMPRESSION:? ? Intrauterine corresponding to 9 weeks 2 days by crown-rump length with heart rate of 163 beats per minute. ? Small perigestational hemorrhage encompassing less than 25 percent of the gestational sac a common finding in the 1st trimester. ? Unchanged appearance of left ovary with corpus luteal cyst and likely exophytic simple cyst versus paraovarian cyst. ? ? ? Dictated by: Thom Spencer D.O. on 01/17/2021 at 16:54 ? ? MDM Narrative Medical decision making narrative: Patient is complaining mostly of constipation and rectal bleeding. She is found have a hemorrhoid on exam she has a scant amount of bleeding on exam rectal exam was also quite tender. No stool. His constipation is likely secondary to along with Zofran. She was unsuccessful with enema. At this time I recommend oral medications and increase fluid intake. Patient's ultrasound does show very small perigestational bleed. I have explained this to the patient and recommend that she follow up outpatient. She currently is not having any vaginal bleeding and fetus overall looks healthy. Discharge Plan Departure Patient Disposition: Home Clinical Impression: Constipation Qualifiers: Constipation type: other constipation type Qualified Code(s): K59.09 - Other constipation Hemorrhoid Qualifiers: Hemorrhoid type: unspecified Qualified Code(s): K64.9 - Unspecified hemorrhoids Instructions: DI for Hemorrhoids, DI for Constipation Activity Restrictions/Additional Instructions: *You have been diagnosed with constipation and hemorrhoids *What to do: At this time I recommend eating high-fiber diet, increasing fluid intake. You may also try having prune juice, apple juice milk of magnesia and Colace to help with bowel movements. Recommend Sitz baths for hemorrhoid *Continue to take medications as directed Avoid taking Zofran and can cause increased constipation Colace 100 mg twice a day if needed for constipation Milk of magnesia take as directed for constipation *Follow up with your primary care provider in 2-3 days *Return to ER if you should have increasing pain, bleeding or any new, worsening or concerning symptoms Prescriptions: No Action ondansetron 4 mg tablet,disintegrating 4 mg PO Q6-8H PRN (Reason: nausea and vomiting) Qty: 20 RF: 1 prenat.vits,yesy,vvp-[id number] Tablet 1 tab PO DAILY RF: 0 Referrals: Miscellaneous,Doctor, MD [Primary Care Provider] -
[2021-01-17] MEDS: MINERAL OIL 1 EACH ENEMA PR (17:50)
== END 2021-01-17 18:59 | disposition home or self-care (01) ==
PROVIDERS: Emergency Provider Emergency Medicine; Family Provider Specialist
DX: O22.41 Hemorrhoids in pregnancy, first trimester (principal); O26.891 Other specified pregnancy related conditions, first trimester; K59.00 Constipation, unspecified; Z3A.09 9 weeks gestation of pregnancy
CPT/HCPCS: 36415; 76801; 76817; 80053; 81003; 85025; 96360; 96361; 99284

== ENCOUNTER → 2021-03-10 15:50 | Outpatient (CLI) | payer OTHER, MEDICAID, SELFPAY ==
[2021-01-07 17:16] VITALS: BMI 29.2
[2021-03-13 00:04] LABS: AFP, Serum 25.8 ng/mL (.); Calc Gestational Age Ultrasound (.); Estriol, Free 0.94 ng/mL (.); Inhibin A, Dimeric 231.66 pg/mL (.); Inhibin A, MoM See interpretation. (.); Maternal Ethnicity Caucasian (.); Maternal Weight 158 lbs (.); Number of Fetuses No (.); OSBR Risk 1 IN 10000 (.); Results Report (.); Test Results See interpretation. (.); hCG, MoM See interpretation. (.); hCG, Serum 39530 mIU/mL (.)
== END ==
PROVIDERS: Family Provider Specialist; Referring Provider Obstetrics & Gynecology; Visit Provider Obstetrics & Gynecology
DX: Z34.82 Encounter for supervision of other normal pregnancy, second trimester (principal); Z3A.16 16 weeks gestation of pregnancy
CPT/HCPCS: 36415; 82105; 82677; 84702; 86336

== ENCOUNTER → 2021-04-07 15:03 | Outpatient (CLI) | payer OTHER, MEDICAID, SELFPAY ==
[2021-01-07 17:16] VITALS: BMI 29.2
[2021-04-07 15:24] LABS: Miscellaneous to LabCorp SEND OUT
[2021-04-07 17:05] LABS: COVID19 -Nasal RAPID Negative (Negative)
== END ==
PROVIDERS: Family Provider Specialist; Referring Provider Obstetrics & Gynecology; Visit Provider Obstetrics & Gynecology
DX: Z01.812 Encounter for preprocedural laboratory examination; O28.5 Abnormal chromosomal and genetic finding on antenatal screening of mother; O35.1XX0 Maternal care for (suspected) chromosomal abnormality in fetus, not applicable or unspecified; Z20.822 Contact with and (suspected) exposure to COVID-19; Z3A.20 20 weeks gestation of pregnancy
CPT/HCPCS: 87086; 87635

== ENCOUNTER → 2021-05-19 11:52 | Outpatient (CLI) | payer OTHER, MEDICAID, SELFPAY ==
[2021-01-07 17:16] VITALS: BMI 29.2
--- NOTE | 2021-05-19 11:53 | DI.US.S_ITS ---
PROCEDURE: US OB >= 14 WEEKS FETUS INDICATIONS: 20 WEEK ANATOMY SCAN OUTSIDE/PRIOR DATING DATA: Last menstrual period (LMP): Unknown LMP-based estimated date of delivery (ZAHIDA): Unknown First dating scan (date and location): 01/08/2021 Estimated date of delivery (ZAHIDA) from first dating scan: 08/20/2021 The calculations are made using the study generated ZAHIDA of 08/20/2021 TECHNIQUE: Real-time scanning was performed of the fetus, with image documentation and biometric measurements. Endovaginal scannin COMPARISON: , , US OB <= 14 WEEKS FETUS, 01/17/2021, 17:08. [facility], , US OB >= 14 WEEKS FETUS, 06/26/2019, 11:28. FINDINGS: General: A single living intrauterine gestation is present. Presentation: Breech Placenta: Placental position is posterior, without previa. Amniotic fluid index: 12.8 cm, normal range is 5-24 cm. Single deepest vertical pocket is 4.0 cm. heart rate: 122 beats per minute. Maternal cervical canal: 3.5 cm long. Normal lower limit is 2.5 cm. 2.2 x 2.3 x 2.1 cm complex hypoechoic structure is noted within placenta and show no internal vascularity. biometrics: Biparietal diameter: 6.3 cm, 25 weeks, 3 days Head circumference: 23.3 cm, 25 weeks, 2 days Abdominal circumference: 20.8 cm, 25 weeks, 3 days Femur length: 4.7 cm, 25 weeks, 4 days Clinically estimated gestational age: 26 weeks, 5 days Composite gestational age from present scan: 25 weeks, 3 days Estimated weight and percentile: 811 g, 6%. Anatomic survey: Neuro: Not well seen due to position. Nuchal skin fold: Normal at less than 6 mm between 14-21 weeks gestational age. Face: Nose and lips, facial profile are normal. Spine: Not well seen. Heart: 4-chambered heart is present, with normal ventricular outflow tracts. Diaphragm: Diaphragm is intact. Stomach: Left-sided stomach is present. Kidneys: No hydronephrosis. Normal is less than 5 mm in 2nd trimester, less than 7 mm in 3rd trimester. Cord: 3-vessel cord has orthotopic insertion. Bladder: Normal in size. Extremities: All 4 extremities identified. IMPRESSION: 1. Single live intrauterine gestation with fetus in breech presentation. heart rate is 122 beats per minute. Normal amount of amniotic fluid. Estimated weight is at 6% . 2. brain structures and spine are not well visualized due to position. Rest of the anatomic survey is normal. 3. 2.2 x 2.3 x 2.1 cm complex hypoechoic structure within placenta and show no definite internal vascularity. This is of indeterminate significance, suggest sonographic follow-up. We strive to produce accurate, complete, and clear reports of imaging services. To assist us in improving patient care, this report was composed using standard report templates and voice recognition software. Therefore, it may contain abnormal punctuation, insertions and/or omissions. Occasional wrong-word or sound-alike substitutions may occur. Though we review the report and make efforts to correct it, we do recommend that the report be read carefully in proper context to recognize any text inaccuracies. Dictated by: Rickey Villavicencio M.D. on 05/19/2021 at 14:13 Approved by: Rickey Villavicencio M.D. on 05/19/2021 at 14:21
[2021-05-19 15:44] LABS: Hematocrit 34.6 % (36-46); Hemoglobin 12.1 g/dL (12.0-16.0)
[2021-05-19 16:14] LABS: GTT (PREG) 1 Hour PP 50gm Dose 134 mg/dL (76-139)
== END ==
PROVIDERS: Family Provider Specialist; Referring Provider Obstetrics & Gynecology; Visit Provider Obstetrics & Gynecology
DX: Z34.82 Encounter for supervision of other normal pregnancy, second trimester; Z3A.25 25 weeks gestation of pregnancy
CPT/HCPCS: 76811; 82950; 85014; 85018

== ENCOUNTER 2021-06-08 18:17 | Outpatient (CLI) | payer OTHER, MEDICAID, SELFPAY ==
[2021-01-07 17:16] VITALS: BMI 29.2
--- NOTE | 2021-06-08 19:03 | P.TNLD_ITS ---
Visit Information Visit Information Date of evaluation: 06/08/21 Primary OB Provider: Dax Valderrama On-call OB Provider: Dax Valderrama Reason for Evaluation: Yes non-stress test Comments/Additional reasons for admission: Patient presents with 3-4 day history of watery vaginal discharge and feeling that her baby may have dropped. [facility] Medical History (Updated 06/08/21 @ 19:07 by Dax Valderrama MD) Abnormal ultrasound of abdomen (~01/2020) Acne (~1996) Acute cholecystitis without calculus (~01/2020) Depression (~2010) Ectopic (~04/15/20) Hearing loss (~2017) Hemorrhoid (~2014) History of UTI (~2014) Hyperemesis gravidarum (~05/2010) Low back pain (~06/2019) Migraines (~2014) MRSA (methicillin resistant Staphylococcus aureus) (~2014) Painful menstrual periods depression associated with second Recurrent urinary tract infection (10/19/15) Rib pain on left side (~06/2019) Right flank pain (~2014) Sepsis (~01/2020) Spasm of left piriformis muscle (~06/2019) Vaginal delivery Vaginal yeast infection (~2010) Surgical History (Updated 02/04/21 @ 21:23 by Alyce Paulson) Anesthesia H/O colonoscopy (~2008) History of esophagogastroduodenoscopy (EGD) (~2008) Status post laparoscopic cholecystectomy (~01/09/20) Family History (Updated 02/04/21 @ 21:31 by Alyce Paulson) Mother Brain tumor (benign) Father Depression Grandmother Lung cancer metastatic to brain Myocardial infarction Hypothyroid H/O thyroidectomy Hypertension Diabetes mellitus Cancer History of heart disease Mental health problem Grandfather Alzheimer disease COPD (chronic obstructive pulmonary disease) H/O bilateral hip replacements Mental health problem Stroke Grandmother Diverticulitis Grandfather Myocardial infarction Smoker History of heart disease Social History marital status: unmarried,living together number of children: 6 household members: significant other and children (part custody of partner's daughter from previous relationship) lives independently: Yes caregiver/support person: No housing: other (Double-wide trailer.) pets and animals: Yes (1 cat, dog, bird, rabbit, snake: aware of cat precautions. 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 ) current occupational exposures/hazards: Yes (Home septic leak into well water; was given boil notice/now chlorine.) heather/temple: Non-hoahaoism special heather needs: No seatbelt use: always do you feel safe at home: Yes Smoking Status: Never smoker second hand exposure: No alcohol intake: former (Pre-: occasional rare beer/wine) substance use type: does not use during the past year weight has: remained stable well-balanced diet: rarely or never (Hyperemesis, also diet restrictions due to gallbladder removal. Would like referral to nutionist.) daily servings fruits/ve-1 caffeine: No Type(s) of exercise: walking and normal ROM and activity (7-81213 steps/day normally.) frequency: does not exercise (x2 weeks, on the couch, feeling poorly. ) Exam Const General: cooperative, comfortable and well developed HENRI Head: normal to inspection Face and sinus: face symmetric Eyes General: appearance normal, both eyes and all related structures Resp Effort & Inspection: normal respiratory effort and able to speak in complete sentences GI Inspection: normal to inspection Uterus Location (Fundal Height): 29 Presentation: vertex Estimated Weight (lbs): 4 Other: Uterus is nontender, is vertex with the fundus deviated to the left. The vertex is floating. Evaluation Evaluation Baseline heart rate: 140 Variability: Average (6-10) monitor accelerations: Present Monitor Decelerations: Absent Non-invasive Membranes Rupture Test: negative Comments: No contractions noted, AmniSure negative Diagnosis, Plan/Disposition Final Diagnosis (1) Vaginal discharge during in third trimester: Status: Acute Problem details: AmniSure negative and no evidence of contractions, premature descent of the presenting part, or PPROM. Plan/Disposition Plan: She will move forward with the MFM referral to you do the [facility] for evaluation of the SGA infant and the placental cyst. Follow-up with us will be in 3 weeks or as needed and follow-up with MFM will be in 2 weeks. OB Disposition: home
== END 2021-06-08 18:55 | disposition home or self-care (01) ==
LOC: OB 06-09 16:39
PROVIDERS: Family Provider Specialist; PCP Obstetrics & Gynecology; Referring Provider Obstetrics & Gynecology; Visit Provider Obstetrics & Gynecology
DX: Z03.71 Encounter for suspected problem with amniotic cavity and membrane ruled out (principal); O26.893 Other specified pregnancy related conditions, third trimester; N89.8 Other specified noninflammatory disorders of vagina; Z3A.29 29 weeks gestation of pregnancy
CPT/HCPCS: 59025; 84112; G0378; G0379

== ENCOUNTER → 2021-07-02 13:54 | Outpatient (CLI) | payer OTHER, MEDICAID, SELFPAY ==
[2021-01-07 17:16] VITALS: BMI 29.2
[2021-07-02 15:27] LABS: Add Manual Diff / Slide Review NO; Basophils Absolute Auto 0 /uL (0-100); Basophils Percent Auto 0.2 % (0-2); Eosinophils Absolute Auto 0 /uL (0-450); Eosinophils Percent Auto 0.5 % (2-4); Hematocrit 37.5 % (36-46); Hemoglobin 13.1 g/dL (12.0-16.0); Lymphocytes Absolute Auto 1300 /uL (1100-4500); Lymphocytes Percent Auto 17.1 % (25-40); Mean Corpuscular HGB Conc 34.9 % (30-36); Mean Corpuscular Hemoglobin 32.3 PG (26-34); Mean Corpuscular Volume 92.7 fL (80-100); Monocytes Absolute Auto 400 /uL (0-900); Monocytes Percent Auto 5.5 % (3-14); Neutrophils Absolute Auto 6000 /uL (1500-7000); Neutrophils Percent Auto 76.7 % (50-75); Platelet Count 213 X10^3/uL (150-400); Red Blood Cell Count 4.05 X10^6/uL (4.0-5.2); Red Cell Distribution Width 13.6 % (11.6-14.8); White Blood Cell Count 7.8 X10^3/uL (4.5-11.0)
[2021-07-02 16:00] LABS: Alanine Aminotransferase 15 IU/L (<35); Albumin 3.6 g/dL (3.5-5.0); Albumin Globulin Ratio 1.2 (1.0-2.8); Alkaline Phosphatase 152 U/L (38-126); Aspartate Aminotransferase 18 IU/L (14-36); BUN Creatinine Ratio 15.5 (6-22); Bilirubin Total 0.4 mg/dL (0.2-1.3); Blood Urea Nitrogen 9 mg/dL (7-17); Calcium 8.3 mg/dL (8.4-10.2); Carbon Dioxide 19 mmol/L (22-32); Chloride 110 mmol/L (98-107); Estimated Glomerular Filt Rate > 60.0 mL/min (>60); Globulin 3.1 g/dL (1.7-4.1); Glucose 70 mg/dL (70-100); HEMOLYSIS < 15 (0-50); Potassium 3.8 mmol/L (3.4-5.1); Sodium 137 mmol/L (137-145); Total Protein 6.7 g/dL (6.3-8.2); Uric Acid 4.7 mg/dL (2.5-6.2)
== END ==
PROVIDERS: Family Provider Specialist; Referring Provider Obstetrics & Gynecology; Visit Provider Obstetrics & Gynecology
DX: R03.0 Elevated blood-pressure reading, without diagnosis of hypertension (principal); Z34.90 Encounter for supervision of normal pregnancy, unspecified, unspecified trimester
CPT/HCPCS: 36415; 80053; 84550; 85025

== ENCOUNTER 2021-07-04 12:53 | Observation (INO) | payer OTHER, MEDICAID, SELFPAY ==
[2021-01-07 17:16] VITALS: BMI 29.2
[2021-07-04 13:46] VITALS: BP 160/92
[2021-07-04 14:23] VITALS: BP 159/99; PULSE 62
[2021-07-04] MEDS: LABETALOL 20 MG/4 ML SYRINGE IV (14:23)
[2021-07-04 14:41] LABS: Add Manual Diff / Slide Review NO; Basophils Absolute Auto 0 /uL (0-100); Basophils Percent Auto 0.2 % (0-2); Eosinophils Absolute Auto 0 /uL (0-450); Eosinophils Percent Auto 0.4 % (2-4); Hematocrit 38.5 % (36-46); Lymphocytes Absolute Auto 1300 /uL (1100-4500); Lymphocytes Percent Auto 17.5 % (25-40); Mean Corpuscular HGB Conc 33.8 % (30-36); Mean Corpuscular Hemoglobin 31.7 PG (26-34); Mean Corpuscular Volume 93.6 fL (80-100); Monocytes Absolute Auto 500 /uL (0-900); Monocytes Percent Auto 6.1 % (3-14); Neutrophils Absolute Auto 5700 /uL (1500-7000); Neutrophils Percent Auto 75.8 % (50-75); Platelet Count 191 X10^3/uL (150-400); Red Blood Cell Count 4.11 X10^6/uL (4.0-5.2); Red Cell Distribution Width 13.2 % (11.6-14.8); White Blood Cell Count 7.6 X10^3/uL (4.5-11.0)
--- NOTE | 2021-07-04 14:42 | P.HPOB_ITS ---
OB HPI Date/Time Date of admission: 07/04/21 Date Patient Seen: 07/04/21 Time Patient Seen: 14:23 History of Present Condition Chief complaint: NST : 8 Para: 5 Estimated Date of Delivery: 08/20/21 Estimated Gestational Age (weeks): 33+2 Narrative: Alicia Tobin is a 35 year old A2 ZAHIDA 08/20/2021 admitted with severe range BP elevations now at 33+2 weeks EGA. Patient has no prior history of blood pressure elevation prior to the or with her previous 5 pregnancies which resulted in uneventful spontaneous vaginal deliveries at term. Patient was noted to have blood pressure elevation on her routine OB visit 07/02/2021 and PIH labs were obtained which aside from an elevated uric acid are normal. Protein:Creatinine not performed at that time as ordered but all PIH labs have been reordered now upon her presentation to the [facility]. Or following her visit on 07/02/2021, the patient was instructed to closely monitor her blood pressures at home and observe carefully for signs/symptoms of possible severe hypertension/pec. Today the patient has noted her blood pressures are substantially elevated and upon presentation to the Center today, her blood pressures were found to be in the severe range. Patient states that she has had a dull headache today at the base of her neck but denies visual changes, scotomata, blurred vision, or right upper quadrant pain. Her baby remains active and she denies any contractions, bleeding, leakage of fluid per vagina, or change in vaginal discharge. Patient also states that she has noted the development of mild edema. GBS status is unknown at the time of admission but she has been negative with previous pregnancies. course thus far has been generally unremarkable but 20 week anatomy scan performed on 05/19/2021 showed the infant to be at the 6th percentile for estimated weight and a small cyst was noted within the placenta. [facility] consultation with [facility] obtained and there ultrasound evaluation found normal anatomy with an EFW at the 16th percentile and a small, inconsequential placental cyst according to the patient but will results of the consultation are not currently on the patient's chart here. History of Present care: good care Dating criteria: LMP confirmed by 1st trimester US Ultrasounds: normal 1st trimester US and normal mid trimester US Obstetrical complications: gestational hypertension Medical complications: none Preadmission Labs Blood type: O (+) positive -: Antibody screen: negative, GBS status: unknown, HBsAG: negative, HIV: negative and RPR/VDLR: negative -: Chlamydia screen: not detected and Gonorrhea screen: not detected -: Rubella: not immune and Varicella: immune HCT: 38.5 HCAB: negative PAP: Normal Quad screen: Normal 1 hr GTT: 134 Prior (ies) History: x 5 at term Evaluation Evaluation Baseline heart rate: 130 Variability: Average (6-10) monitor accelerations: Present Monitor Decelerations: Absent Category of Tracing: Reactive Status: Category l [facility] Medical History (Updated 07/04/21 @ 18:14 by Dax Valderrama MD) Abnormal ultrasound of abdomen (~01/2020) Acne (~1996) Acute cholecystitis without calculus (~01/2020) Depression (~2010) Ectopic (~04/15/20) Hearing loss (~2017) Hemorrhoid (~2014) History of UTI (~2014) Hyperemesis gravidarum (~05/2010) Low back pain (~06/2019) Migraines (~2014) MRSA (methicillin resistant Staphylococcus aureus) (~2014) Painful menstrual periods depression associated with second Recurrent urinary tract infection (10/19/15) Rib pain on left side (~06/2019) Right flank pain (~2014) Sepsis (~01/2020) Spasm of left piriformis muscle (~06/2019) Vaginal delivery Vaginal yeast infection (~2010) Surgical History (Updated 02/04/21 @ 21:23 by Alyce Paulson) Anesthesia H/O colonoscopy (~2008) History of esophagogastroduodenoscopy (EGD) (~2008) Status post laparoscopic cholecystectomy (~01/09/20) Family History (Updated 02/04/21 @ 21:31 by Alyce Paulson) Mother Brain tumor (benign) Father Depression Grandmother Lung cancer metastatic to brain Myocardial infarction Hypothyroid H/O thyroidectomy Hypertension Diabetes mellitus Cancer History of heart disease Mental health problem Grandfather Alzheimer disease COPD (chronic obstructive pulmonary disease) H/O bilateral hip replacements Mental health problem Stroke Grandmother Diverticulitis Grandfather Myocardial infarction Smoker History of heart disease Social History marital status: unmarried,living together number of children: 6 household members: significant other and children (part custody of partner's daughter from previous relationship) lives independently: Yes caregiver/support person: No housing: other (Double-wide trailer.) pets and animals: Yes (1 cat, dog, bird, rabbit, snake: aware of cat precautions. 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 ) current occupational exposures/hazards: Yes (Home septic leak into well water; was given boil notice/now chlorine.) heather/tenriism: Non-congregational special heather needs: No seatbelt use: always do you feel safe at home: Yes Smoking Status: Never smoker second hand exposure: No alcohol intake: former (Pre-: occasional rare beer/wine) substance use type: does not use during the past year weight has: remained stable well-balanced diet: rarely or never (Hyperemesis, also diet restrictions due to gallbladder removal. Would like referral to nutionist.) daily servings fruits/ve-1 caffeine: No Type(s) of exercise: walking and normal ROM and activity ([phone] steps/day normally.) frequency: does not exercise (x2 weeks, on the couch, feeling poorly. ) Meds Home Medications and Allergies Home Medications Medication Instructions Recorded Confirmed Type prenat.vits,yesy,vdc-ekjh-jbjqt 1 tab PO DAILY 01/08/21 01/08/21 History hydrocortisone 2.5 % topical cream 1 applic MI QD-BID PRN #30 g 01/20/21 Rx with perineal applicator (Anusol-HC) [id number]-hawnazgu 2 cap PO Q4-6H PRN #60 cap 02/05/21 02/05/21 Rx 50 mg-300 mg-40 mg capsule (Fioricet) butalbital 50 mg-acetaminophen 325 1 cap PO Q4H PRN #30 cap 03/06/21 07/04/21 Rx mg-caffeine 40 mg-codeine 30 mg cap ondansetron 4 mg disintegrating See Rx Instructions .ROUTE 07/01/21 07/04/21 Rx tablet .COMPLEX #20 tab metoclopramide HCl 10 mg tablet 10 mg PO Q6H PRN #30 tab 07/02/21 07/02/21 Rx (Reglan) Allergies Allergy/AdvReac Type Severity Reaction Status Date / Time eggplant Allergy Severe THROAT Verified 01/17/21 15:08 SWELLING, HIVES hydrocodone [From Vicodin] Allergy Intermediate Hives Verified 01/17/21 15:08 tetanus and diphtheria Allergy Intermediate Difficulty Verified 12/10/20 14:54 toxoids Breathing Review of Systems Review of Systems Narrative: Problem-specific ROS positives included in HPI OB Exam HENMT Head: normal to inspection, normocephalic and atraumatic Mouth: oral mucosae normal Eyes General: appearance normal, both eyes and all related structures Resp Effort & Inspection: normal respiratory effort and able to speak in complete sentences Auscultation: clear to auscultation bilaterally Cardio Rate: regular rate Rhythm: regular rhythm Heart Sounds: S1 normal, S2 normal and no murmurs Extremities Lower extremity: Yes normal to inspection and edema (Trace) Laterality: bilateral DTR's: Rt Patellar: 2+ and Lt Patellar: 2+ External Female Exam: Yes normal external appearance Uterus Location (Fundal Height): 32 Presentation: vertex Objective Labs Result Diagrams: 07/05/21 06:30 07/05/21 06:30 Labs: Laboratory Results - last 24 hr 07/04/21 14:07 WBC 7.6 RBC 4.11 Hgb 13.0 Hct 38.5 MCV 93.6 MCH 31.7 MCHC 33.8 RDW 13.2 Plt Count 191 Neut % (Auto) 75.8 H Lymph % (Auto) 17.5 L Humphreys % (Auto) 6.1 Eos % (Auto) 0.4 L Baso % (Auto) 0.2 Neut # (Auto) 5700 Lymph # (Auto) 1300 Humphreys # (Auto) 500 Eos # (Auto) 0 Baso # (Auto) 0 Assessment and Plan Assessment and Plan Assessment and Plan narrative: ASSESSMENT 1. Intrauterine gestation, [place], 33+2 weeks EGA 2. Gestational hypertension with severe features, rule out preeclampsia 3. Placental cyst PLAN 1. Admit; see orders 2. IV Labetalol 20 mg and 200 mg PO BID 3. Case reviewed with Dr. Jessica Young [facility] MFMwho recommends IM Betamethasone and MgSO4 until BP is stabilized and PEC excluded 4. Await PEC and admission labs to exclude PEC; consider transfer to [facility] if PEC diagnosed.
[2021-07-04] MEDS: MAGNESIUM SULFATE 4 GM/100 ML PIGGYBACK IV (14:45)
[2021-07-04] MEDS: BETAMETHASONE 30 MG/5 ML MDV 12 MG IM (14:50)
[2021-07-04 14:51] LABS: INR 0.9 (0.9-1.3); Prothrombin Time 10.5 SECONDS (10.1-12.7)
[2021-07-04 14:54] LABS: PTT Partial Thromboplastin Tim 29 SECONDS (26.4-36.2)
[2021-07-04 14:56] LABS: Alanine Aminotransferase 16 IU/L (<35); Albumin 3.3 g/dL (3.5-5.0); Albumin Globulin Ratio 1.1 (1.0-2.8); Alkaline Phosphatase 149 U/L (38-126); Aspartate Aminotransferase 21 IU/L (14-36); BUN Creatinine Ratio 14.8 (6-22); Bilirubin Total 0.4 mg/dL (0.2-1.3); Bilirubin Unconjugated 0.4 mg/dL (0.0-1.1); Blood Urea Nitrogen 8 mg/dL (7-17); Carbon Dioxide 19 mmol/L (22-32); Chloride 111 mmol/L (98-107); Estimated Glomerular Filt Rate > 60.0 mL/min (>60); Globulin 2.9 g/dL (1.7-4.1); Glucose 70 mg/dL (70-100); HEMOLYSIS < 15 (0-50); Potassium 3.8 mmol/L (3.4-5.1); Sodium 136 mmol/L (137-145); Total Protein 6.2 g/dL (6.3-8.2); Uric Acid 4.8 mg/dL (2.5-6.2)
[2021-07-04 14:57] LABS: Creatinine Urine Random 83.4 mg/dL; Protein (Total) Urine Random 7 mg/dL (0-12); Protein Creatinine Ratio Urine 0.08 GRAM/24H
[2021-07-04] MEDS: MAGNESIUM SULFATE 20 GM/500 ML IV.SOLN IV (15:14)
[2021-07-04 15:20] LABS: Appearance Urine UA CLEAR; Bilirubin Urine UA NEGATIVE (NEGATIVE); Color Urine UA YELLOW; Glucose Urine UA NEGATIVE (Negative); Ketones Urine UA NEGATIVE (NEGATIVE); Leukocyte Esterase Urine UA NEGATIVE (NEGATIVE); Nitrite Urine UA NEGATIVE (Negative); Occult Blood Urine UA NEGATIVE (Negative); Protein Urine UA NEGATIVE (Negative); Urobilinogen Urine UA 0.2 E.U./dL (0.2)
[2021-07-04 16:02] LABS: Bacteria Urine Few (2-10); Culture Indicated Urine Cult Not Indicated; RBC Urine 0-1/HPF (0-5/HPF); Squamous Epithelial Cell Urine 5-10 /HPF (0-5/HPF); WBC Urine 0-1/HPF (0-5/HPF)
[2021-07-04 16:18] VITALS: BP 132/87; PULSE 67
[2021-07-04] MEDS: LABETALOL 100 MG TABLET 200 MG PO ×2 (16:18→21:04)
[2021-07-04 16:25] LABS: COVID19 -Nasal RAPID Negative (Negative)
--- NOTE | 2021-07-04 18:11 | PM.PN.1 ---
Subjective Subjective Date Patient Seen: 07/04/21 Time Patient Seen: 18:11 Interval history: Patient's gestational hypertension/pec labs have returned and are all normal. Blood pressure following a single dose of IV labetalol and initiation of 200 mg p.o. labetalol b.i.d. have returned blood pressures to normal. Patient denies headache, visual changes, or right upper quadrant pain. Exam Vital Signs (past 8 hours): - 07/04/21 14:23 07/04/21 16:18 Pulse Rate 62 67 Blood Pressure 159/99 H 132/87 Narrative Exam Narrative: Physical exam is unchanged. Objective Labs Result Diagrams: 07/05/21 06:30 07/05/21 06:30 Labs: Laboratory Results - last 24 hr 07/04/21 07/04/21 07/04/21 13:50 13:50 13:50 WBC RBC Hgb Hct MCV MCH MCHC RDW Plt Count Neut % (Auto) Lymph % (Auto) Hayes % (Auto) Eos % (Auto) Baso % (Auto) Neut # (Auto) Lymph # (Auto) Hayes # (Auto) Eos # (Auto) Baso # (Auto) PT INR APTT Sodium Potassium Chloride Carbon Dioxide BUN Creatinine Estimated GFR BUN/Creatinine Ratio Glucose Uric Acid Calcium Total Bilirubin Conjugated Bilirubin Unconjugated Bilirubin AST ALT Alkaline Phosphatase Total Protein Albumin Globulin Albumin/Globulin Ratio Urine Color Yellow Urine Appearance Clear Urine pH 7.0 Ur Specific [place] 1.010 Urine Protein Negative Urine Glucose (UA) Negative Urine Ketones Negative Urine Occult Blood Negative Urine Nitrate Negative Urine Bilirubin Negative Urine Urobilinogen 0.2 Ur Leukocyte Esterase Negative Urine RBC 0-1/hpf Urine WBC 0-1/hpf Ur Squamous Epith Cells 5-10 /hpf H Urine Bacteria Few (2-10) H Ur Culture Indicated? Cult not indicated U Random Total Protein 7 Urine Creatinine 83.4 Protein/Creatinin Ratio 0.08 SARS-CoV-2 (PCR) Negative 07/04/21 07/04/21 07/04/21 14:07 14:07 14:07 WBC 7.6 RBC 4.11 Hgb 13.0 Hct 38.5 MCV 93.6 MCH 31.7 MCHC 33.8 RDW 13.2 Plt Count 191 Neut % (Auto) 75.8 H Lymph % (Auto) 17.5 L Hayes % (Auto) 6.1 Eos % (Auto) 0.4 L Baso % (Auto) 0.2 Neut # (Auto) 5700 Lymph # (Auto) 1300 Hayes # (Auto) 500 Eos # (Auto) 0 Baso # (Auto) 0 PT 10.5 INR 0.9 APTT 29 D Sodium 136 L Potassium 3.8 Chloride 111 H Carbon Dioxide 19 L BUN 8 Creatinine 0.54 Estimated GFR > 60.0 BUN/Creatinine Ratio 14.8 Glucose 70 Uric Acid 4.8 Calcium 8.0 L Total Bilirubin 0.4 Conjugated Bilirubin 0.0 Unconjugated Bilirubin 0.4 AST 21 ALT 16 Alkaline Phosphatase 149 H Total Protein 6.2 L Albumin 3.3 L Globulin 2.9 Albumin/Globulin Ratio 1.1 Urine Color Urine Appearance Urine pH Ur Specific [place] Urine Protein Urine Glucose (UA) Urine Ketones Urine Occult Blood Urine Nitrate Urine Bilirubin Urine Urobilinogen Ur Leukocyte Esterase Urine RBC Urine WBC Ur Squamous Epith Cells Urine Bacteria Ur Culture Indicated? U Random Total Protein Urine Creatinine Protein/Creatinin Ratio SARS-CoV-2 (PCR) [facility] Medical History (Updated 07/04/21 @ 18:14 by Dax Valderrama MD) Abnormal ultrasound of abdomen (~01/2020) Acne (~1996) Acute cholecystitis without calculus (~01/2020) Depression (~2010) Ectopic (~04/15/20) Hearing loss (~2017) Hemorrhoid (~2014) History of UTI (~2014) Hyperemesis gravidarum (~05/2010) Low back pain (~06/2019) Migraines (~2014) MRSA (methicillin resistant Staphylococcus aureus) (~2014) Painful menstrual periods depression associated with second Recurrent urinary tract infection (10/19/15) Rib pain on left side (~06/2019) Right flank pain (~2014) Sepsis (~01/2020) Spasm of left piriformis muscle (~06/2019) Vaginal delivery Vaginal yeast infection (~2010) Surgical History (Updated 02/04/21 @ 21:23 by Alyce Paulson) Anesthesia H/O colonoscopy (~2008) History of esophagogastroduodenoscopy (EGD) (~2008) Status post laparoscopic cholecystectomy (~01/09/20) Family History (Updated 02/04/21 @ 21:31 by Alyce Paulson) Mother Brain tumor (benign) Father Depression Grandmother Lung cancer metastatic to brain Myocardial infarction Hypothyroid H/O thyroidectomy Hypertension Diabetes mellitus Cancer History of heart disease Mental health problem Grandfather Alzheimer disease COPD (chronic obstructive pulmonary disease) H/O bilateral hip replacements Mental health problem Stroke Grandmother Diverticulitis Grandfather Myocardial infarction Smoker History of heart disease Social History marital status: unmarried,living together number of children: 6 household members: significant other and children (part custody of partner's daughter from previous relationship) lives independently: Yes caregiver/support person: No housing: other ([employer]-wide trailer.) pets and animals: Yes (1 cat, dog, bird, rabbit, snake: aware of cat precautions. 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 ) current occupational exposures/hazards: Yes (Home septic leak into well water; was given boil notice/now chlorine.) heather/yazidism: Non-cheondoism special heather needs: No seatbelt use: always do you feel safe at home: Yes Smoking Status: Never smoker second hand exposure: No alcohol intake: former (Pre-: occasional rare beer/wine) substance use type: does not use during the past year weight has: remained stable well-balanced diet: rarely or never (Hyperemesis, also diet restrictions due to gallbladder removal. Would like referral to nutionist.) daily servings fruits/ve-1 caffeine: No Type(s) of exercise: walking and normal ROM and activity ([phone] steps/day normally.) frequency: does not exercise (x2 weeks, on the couch, feeling poorly. ) Assessment & Plan Assessment and plan (1) Gestational hypertension affecting eighth : Status: Acute (2) Placental cyst affecting in third trimester: Status: Acute (3) Size of fetus inconsistent with dates in third trimester: Status: Acute (4) History of precipitous labor and deliveries, antepartum: Status: Acute (5) Rubella non-immune status, antepartum: Status: Acute (6) : Qualifiers: Weeks of gestation: 33 weeks Qualified Code(s): Z3A.33 - 33 weeks gestation of Status: Acute Plan 1. Patient is now normotensive labs does not support diagnosis of preeclampsia therefore will discontinue use of IV magnesium sulfate. 2. Labetalol 200 mg p.o. b.i.d. 3. Discontinue continuous monitoring in favor of NSTs Q shift 3. Re-evaluate preeclampsia labs in a.m. 4. If BP's have stabilized tomorrow, consider discharge following 2nd dose of betamethasone and initiate twice weekly NSTs/BP monitoring w/ PIH/PECC labs Time Spent With Patient Critical Care time: I spent a total of [] minutes of critical care time on this patient's care today; this time is exclusive of procedural time.
[2021-07-04] MEDS: ZOLPIDEM 5 MG TABLET PO (21:28)
[2021-07-04] MEDS: ACETAMINOPHEN 325 MG TABLET 975 MG PO (22:44)
[2021-07-05 06:41] LABS: Add Manual Diff / Slide Review NO; Basophils Absolute Auto 0 /uL (0-100); Basophils Percent Auto 0.2 % (0-2); Eosinophils Absolute Auto 0 /uL (0-450); Eosinophils Percent Auto 0.1 % (2-4); Hematocrit 37.2 % (36-46); Hemoglobin 12.9 g/dL (12.0-16.0); Lymphocytes Absolute Auto 700 /uL (1100-4500); Lymphocytes Percent Auto 8.9 % (25-40); Mean Corpuscular HGB Conc 34.6 % (30-36); Mean Corpuscular Volume 92.4 fL (80-100); Monocytes Absolute Auto 200 /uL (0-900); Neutrophils Absolute Auto 6900 /uL (1500-7000); Neutrophils Percent Auto 88.8 % (50-75); Platelet Count 214 X10^3/uL (150-400); Red Blood Cell Count 4.03 X10^6/uL (4.0-5.2); Red Cell Distribution Width 13.3 % (11.6-14.8); White Blood Cell Count 7.8 X10^3/uL (4.5-11.0)
[2021-07-05 06:53] LABS: Alanine Aminotransferase 19 IU/L (<35); Albumin 3.4 g/dL (3.5-5.0); Albumin Globulin Ratio 1.1 (1.0-2.8); Alkaline Phosphatase 151 U/L (38-126); Aspartate Aminotransferase 21 IU/L (14-36); BUN Creatinine Ratio 23.7 (6-22); Bilirubin Total 0.3 mg/dL (0.2-1.3); Blood Urea Nitrogen 14 mg/dL (7-17); Calcium 8.7 mg/dL (8.4-10.2); Carbon Dioxide 18 mmol/L (22-32); Chloride 110 mmol/L (98-107); Estimated Glomerular Filt Rate > 60.0 mL/min (>60); Glucose 121 mg/dL (70-100); HEMOLYSIS < 15 (0-50); Potassium 4.3 mmol/L (3.4-5.1); Sodium 133 mmol/L (137-145); Total Protein 6.4 g/dL (6.3-8.2); Uric Acid 5.1 mg/dL (2.5-6.2)
[2021-07-05] MEDS: ACETAMINOPHEN 325 MG TABLET 975 MG PO (06:59)
[2021-07-05] MEDS: IBUPROFEN 600 MG TABLET PO (07:27)
[2021-07-05] MEDS: fentaNYL 100 MCG/2 ML INJ 50 MCG IV (07:28)
--- NOTE | 2021-07-05 07:31 | P.PN_ITS ---
Subjective Subjective Date Patient Seen: 07/05/21 Time Patient Seen: 07:31 Interval history: Patient has done well overnight from a BP perspective but is experiencing a severe bilateral retro-orbital BARRY typical for what she's been experiencing during the but more severe. Exam Const General: cooperative and in distress (Due to headache pain) Nutritional Appearance: average body habitus Orientation: alert, awake and oriented x3 HENMT Head: normal to inspection, normocephalic and atraumatic Ears: hearing grossly normal bilaterally Nose: external nose normal Face and sinus: face symmetric Eyes General: appearance normal, both eyes and all related structures Conjunctivae: conjunctivae normal Sclera: sclerae normal Pupils: PERRL EOM: EOM intact bilaterally Neck Neck: normal visual inspection Resp Effort & Inspection: normal respiratory effort and able to speak in complete sentences GI Inspection: normal to inspection Palpation: soft and no hepatosplenomegaly Uterus Location (Fundal Height): 32 Skin General: no rashes or lesions noted Neuro General: moves all extremities, no meningeal signs, no focal motor deficits, CN's II-XI intact bilaterally and deep tendon reflexes 2+ bilaterally Cognition: normal cognition Speech: speech normal Gait: other (Patient at bedrest; gait not assessed) Motor: muscle tone normal throughout Sensory Exam: no sensory deficits noted Extrem General: normal to inspection Psych Appearance: grossly normal Mental Status: mental status grossly normal Speech and Movement: speech and movement normal Mood: congruent mood Affect: normal affect Attitude: cooperative Thought Process: normal Thought Content: normal Judgment: judgment good Objective Labs Result Diagrams: 07/05/21 06:30 07/05/21 06:30 Labs: Laboratory Results - last 24 hr 07/04/21 07/04/21 07/04/21 13:50 13:50 13:50 WBC RBC Hgb Hct MCV MCH MCHC RDW Plt Count Neut % (Auto) Lymph % (Auto) [place] % (Auto) Eos % (Auto) Baso % (Auto) Neut # (Auto) Lymph # (Auto) [place] # (Auto) Eos # (Auto) Baso # (Auto) PT INR APTT Sodium Potassium Chloride Carbon Dioxide BUN Creatinine Estimated GFR BUN/Creatinine Ratio Glucose Uric Acid Calcium Total Bilirubin Conjugated Bilirubin Unconjugated Bilirubin AST ALT Alkaline Phosphatase Total Protein Albumin Globulin Albumin/Globulin Ratio Urine Color Yellow Urine Appearance Clear Urine pH 7.0 Ur Specific [place] 1.010 Urine Protein Negative Urine Glucose (UA) Negative Urine Ketones Negative Urine Occult Blood Negative Urine Nitrate Negative Urine Bilirubin Negative Urine Urobilinogen 0.2 Ur Leukocyte Esterase Negative Urine RBC 0-1/hpf Urine WBC 0-1/hpf Ur Squamous Epith Cells 5-10 /hpf H Urine Bacteria Few (2-10) H Ur Culture Indicated? Cult not indicated U Random Total Protein 7 Urine Creatinine 83.4 Protein/Creatinin Ratio 0.08 SARS-CoV-2 (PCR) Negative 07/04/21 07/04/21 07/04/21 14:07 14:07 14:07 WBC 7.6 RBC 4.11 Hgb 13.0 Hct 38.5 MCV 93.6 MCH 31.7 MCHC 33.8 RDW 13.2 Plt Count 191 Neut % (Auto) 75.8 H Lymph % (Auto) 17.5 L [place] % (Auto) 6.1 Eos % (Auto) 0.4 L Baso % (Auto) 0.2 Neut # (Auto) 5700 Lymph # (Auto) 1300 [place] # (Auto) 500 Eos # (Auto) 0 Baso # (Auto) 0 PT 10.5 INR 0.9 APTT 29 D Sodium 136 L Potassium 3.8 Chloride 111 H Carbon Dioxide 19 L BUN 8 Creatinine 0.54 Estimated GFR > 60.0 BUN/Creatinine Ratio 14.8 Glucose 70 Uric Acid 4.8 Calcium 8.0 L Total Bilirubin 0.4 Conjugated Bilirubin 0.0 Unconjugated Bilirubin 0.4 AST 21 ALT 16 Alkaline Phosphatase 149 H Total Protein 6.2 L Albumin 3.3 L Globulin 2.9 Albumin/Globulin Ratio 1.1 Urine Color Urine Appearance Urine pH Ur Specific [place] Urine Protein Urine Glucose (UA) Urine Ketones Urine Occult Blood Urine Nitrate Urine Bilirubin Urine Urobilinogen Ur Leukocyte Esterase Urine RBC Urine WBC Ur Squamous Epith Cells Urine Bacteria Ur Culture Indicated? U Random Total Protein Urine Creatinine Protein/Creatinin Ratio SARS-CoV-2 (PCR) 07/05/21 07/05/21 07/05/21 06:30 06:30 06:30 WBC 7.8 RBC 4.03 Hgb 12.9 Hct 37.2 MCV 92.4 MCH 32.0 MCHC 34.6 RDW 13.3 Plt Count 214 Neut % (Auto) 88.8 H Lymph % (Auto) 8.9 L [place] % (Auto) 2.0 L Eos % (Auto) 0.1 L Baso % (Auto) 0.2 Neut # (Auto) 6900 Lymph # (Auto) 700 L [place] # (Auto) 200 Eos # (Auto) 0 Baso # (Auto) 0 PT INR APTT Sodium 133 L Potassium 4.3 Chloride 110 H Carbon Dioxide 18 L BUN 14 Creatinine 0.59 Estimated GFR > 60.0 BUN/Creatinine Ratio 23.7 H Glucose 121 H Uric Acid 5.1 Calcium 8.7 Total Bilirubin 0.3 Conjugated Bilirubin Unconjugated Bilirubin AST 21 ALT 19 Alkaline Phosphatase 151 H Total Protein 6.4 Albumin 3.4 L Globulin 3.0 Albumin/Globulin Ratio 1.1 Urine Color Urine Appearance Urine pH Ur Specific [place] Urine Protein Urine Glucose (UA) Urine Ketones Urine Occult Blood Urine Nitrate Urine Bilirubin Urine Urobilinogen Ur Leukocyte Esterase Urine RBC Urine WBC Ur Squamous Epith Cells Urine Bacteria Ur Culture Indicated? U Random Total Protein Urine Creatinine Protein/Creatinin Ratio SARS-CoV-2 (PCR) [facility] Medical History (Updated 07/04/21 @ 18:14 by Dax Valderrama MD) Abnormal ultrasound of abdomen (~01/2020) Acne (~1996) Acute cholecystitis without calculus (~01/2020) Depression (~2010) Ectopic (~04/15/20) Hearing loss (~2017) Hemorrhoid (~2014) History of UTI (~2014) Hyperemesis gravidarum (~05/2010) Low back pain (~06/2019) Migraines (~2014) MRSA (methicillin resistant Staphylococcus aureus) (~2014) Painful menstrual periods depression associated with second Recurrent urinary tract infection (10/19/15) Rib pain on left side (~06/2019) Right flank pain (~2014) Sepsis (~01/2020) Spasm of left piriformis muscle (~06/2019) Vaginal delivery Vaginal yeast infection (~2010) Surgical History (Updated 02/04/21 @ 21:23 by Alyce Paulson) Anesthesia H/O colonoscopy (~2008) History of esophagogastroduodenoscopy (EGD) (~2008) Status post laparoscopic cholecystectomy (~01/09/20) Family History (Updated 02/04/21 @ 21:31 by Alyce Paulson) Mother Brain tumor (benign) Father Depression Grandmother Lung cancer metastatic to brain Myocardial infarction Hypothyroid H/O thyroidectomy Hypertension Diabetes mellitus Cancer History of heart disease Mental health problem Grandfather Alzheimer disease COPD (chronic obstructive pulmonary disease) H/O bilateral hip replacements Mental health problem Stroke Grandmother Diverticulitis Grandfather Myocardial infarction Smoker History of heart disease Social History marital status: unmarried,living together number of children: 6 household members: significant other and children (part custody of partner's daughter from previous relationship) lives independently: Yes caregiver/support person: No housing: other (Double-wide trailer.) pets and animals: Yes (1 cat, dog, bird, rabbit, snake: aware of cat precautions. 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 ) current occupational exposures/hazards: Yes (Home septic leak into well water; was given boil notice/now chlorine.) heather/oriental orthodox: Non-latter day special heather needs: No seatbelt use: always do you feel safe at home: Yes Smoking Status: Never smoker second hand exposure: No alcohol intake: former (Pre-: occasional rare beer/wine) substance use type: does not use during the past year weight has: remained stable well-balanced diet: rarely or never (Hyperemesis, also diet restrictions due to gallbladder removal. Would like referral to nutionist.) daily servings fruits/ve-1 caffeine: No Type(s) of exercise: walking and normal ROM and activity (7-82019 steps/day normally.) frequency: does not exercise (x2 weeks, on the couch, feeling poorly. ) Assessment & Plan Assessment & Plan narrative: ASSESSMENT 1. As before; BP stabilized in normal range with Labetalol 2. Headache; May be a side effect of Labetalol PLAN 1. IV Fentanyl 50 mcg 2. Ibuprofen 600 mg x 1 dose; vomited. Single dose of IV Toradol w/ BARRY only partially resolved with Fentanyl and no relief from Tylenol 3. Restart Fioricet 4. Hold labetalol and observe BP closely; consider switch to Amlodipine/Nifedipine or Hydralazine if BP increases although H/A is a potential side effect with Amlodipine/Nifedipine and Hydralazine as well 5. [employer] imaging via CT or MRI if BARRY persistent Time Spent With Patient Time with patient: 30 to 49 minutes with 50% spent counseling/coordinating care Critical Care time: I spent a total of 30 minutes of critical care time on this patient's care today; this time is exclusive of procedural time.
[2021-07-05] MEDS: FAMOTIDINE 20 MG/2 ML VIAL IV ×2 (08:49→22:53)
[2021-07-05] MEDS: CALCIUM CARBONATE 500 MG TAB 1000 MG PO (08:50)
[2021-07-05 09:14] VITALS: TEMP 36.6
[2021-07-05] MEDS: KETOROLAC 30 MG/ML VIAL IV (09:14)
[2021-07-05] MEDS: LACTATED RINGERS 1,000 ML 1000 ML IV (10:18)
--- NOTE | 2021-07-05 12:37 | DI.CT.S_ITS ---
PROCEDURE: CT HEAD/BRAIN WO CON INDICATIONS: Unrelenting headache, hypertension, 33 weeks TECHNIQUE: Noncontrast 4.5 mm thick angled axial sections acquired from the foramen magnum to the vertex, with coronal and sagittal reformats. For radiation dose reduction, the following was used: automated exposure control, adjustment of mA and/or kV according to patient size. COMPARISON: [facility], CT, CT HEAD/BRAIN WO CON, 01/05/2020, 17:18. FINDINGS: Image quality: Excellent. CSF spaces: Basal cisterns are patent. No extra-axial fluid collections. Ventricles are normal in size and shape. Brain: No midline shift. No intracranial masses or hemorrhage. Rosario-white matter interface is normal. Skull and face: Calvarium and visualized facial bones are intact, without suspicious lesions. Sinuses: Visualized sinuses and mastoids are clear. IMPRESSION: No acute intracranial disease process. No intracranial hemorrhage. No abnormal intracranial mass or mass effect. Dictated by: Kathy Estevez MD, PhD on 07/05/2021 at 12:57 Approved by: Kathy Estevez MD, PhD on 07/05/2021 at 13:00
[2021-07-05] MEDS: METOCLOPRAMIDE 10 MG/2 ML INJ IV (13:04)
[2021-07-05] MEDS: BETAMETHASONE 30 MG/5 ML MDV 12 MG IM (15:25)
[2021-07-05 16:36] LABS: Creatinine Urine Random 203.5 mg/dL
[2021-07-05 16:37] LABS: Protein (Total) Urine Random < 5 mg/dL (0-12); Protein Creatinine Ratio Urine 0.02 GRAM/24H
[2021-07-05] MEDS: AMLODIPINE 5 MG TABLET 2.5 MG PO ×2 (16:50→22:53)
--- NOTE | 2021-07-05 17:21 | PM.PN.1 ---
Subjective Subjective Date Patient Seen: 07/05/21 Time Patient Seen: 17:10 Interval history: Patient is throwing up continuously now (witnessed). She has no abdominal pain in the RUQ or epigastric area, no contractions. ROS + now for diarrhea which she has had episodically. Her headache is now 3-4/10. Patient received 2nd dose of betamethasone this afternoon and was well tolerated. Exam Const General: in distress Nutritional Appearance: average body habitus Orientation: alert and oriented x3 HENMT Head: normal to inspection Ears: hearing grossly normal bilaterally Eyes Conjunctivae: conjunctivae normal Sclera: sclerae normal EOM: EOM intact bilaterally Resp Effort & Inspection: normal respiratory effort and able to speak in complete sentences GI Inspection: normal to inspection Palpation: soft, no hepatosplenomegaly and No tender Uterus Location (Fundal Height): 33 Presentation: vertex Estimated Weight (lbs): 4 Extrem General: normal to inspection Objective Labs Result Diagrams: 07/05/21 06:30 07/05/21 06:30 Labs: Laboratory Results - last 24 hr 07/05/21 07/05/21 07/05/21 06:30 06:30 06:30 WBC 7.8 RBC 4.03 Hgb 12.9 Hct 37.2 MCV 92.4 MCH 32.0 MCHC 34.6 RDW 13.3 Plt Count 214 Neut % (Auto) 88.8 H Lymph % (Auto) 8.9 L [place] % (Auto) 2.0 L Eos % (Auto) 0.1 L Baso % (Auto) 0.2 Neut # (Auto) 6900 Lymph # (Auto) 700 L [place] # (Auto) 200 Eos # (Auto) 0 Baso # (Auto) 0 Sodium 133 L Potassium 4.3 Chloride 110 H Carbon Dioxide 18 L BUN 14 Creatinine 0.59 Estimated GFR > 60.0 BUN/Creatinine Ratio 23.7 H Glucose 121 H Uric Acid 5.1 Calcium 8.7 Total Bilirubin 0.3 AST 21 ALT 19 Alkaline Phosphatase 151 H Total Protein 6.4 Albumin 3.4 L Globulin 3.0 Albumin/Globulin Ratio 1.1 U Random Total Protein Urine Creatinine Protein/Creatinin Ratio 07/05/21 13:00 WBC RBC Hgb Hct MCV MCH MCHC RDW Plt Count Neut % (Auto) Lymph % (Auto) [place] % (Auto) Eos % (Auto) Baso % (Auto) Neut # (Auto) Lymph # (Auto) [place] # (Auto) Eos # (Auto) Baso # (Auto) Sodium Potassium Chloride Carbon Dioxide BUN Creatinine Estimated GFR BUN/Creatinine Ratio Glucose Uric Acid Calcium Total Bilirubin AST ALT Alkaline Phosphatase Total Protein Albumin Globulin Albumin/Globulin Ratio U Random Total Protein < 5 Urine Creatinine 203.5 Protein/Creatinin Ratio 0.02 [facility] Medical History (Updated 07/04/21 @ 18:14 by Dax Valderrama MD) Abnormal ultrasound of abdomen (~01/2020) Acne (~1996) Acute cholecystitis without calculus (~01/2020) Depression (~2010) Ectopic (~04/15/20) Hearing loss (~2017) Hemorrhoid (~2014) History of UTI (~2014) Hyperemesis gravidarum (~05/2010) Low back pain (~06/2019) Migraines (~2014) MRSA (methicillin resistant Staphylococcus aureus) (~2014) Painful menstrual periods depression associated with second Recurrent urinary tract infection (10/19/15) Rib pain on left side (~06/2019) Right flank pain (~2014) Sepsis (~01/2020) Spasm of left piriformis muscle (~06/2019) Vaginal delivery Vaginal yeast infection (~2010) Surgical History (Updated 02/04/21 @ 21:23 by Alyce Paulson) Anesthesia H/O colonoscopy (~2008) History of esophagogastroduodenoscopy (EGD) (~2008) Status post laparoscopic cholecystectomy (~01/09/20) Family History (Updated 02/04/21 @ 21:31 by Alyce Paulson) Mother Brain tumor (benign) Father Depression Grandmother Lung cancer metastatic to brain Myocardial infarction Hypothyroid H/O thyroidectomy Hypertension Diabetes mellitus Cancer History of heart disease Mental health problem Grandfather Alzheimer disease COPD (chronic obstructive pulmonary disease) H/O bilateral hip replacements Mental health problem Stroke Grandmother Diverticulitis Grandfather Myocardial infarction Smoker History of heart disease Social History marital status: unmarried,living together number of children: 6 household members: significant other and children (part custody of partner's daughter from previous relationship) lives independently: Yes caregiver/support person: No housing: other ([facility]-wide trailer.) pets and animals: Yes (1 cat, dog, bird, rabbit, snake: aware of cat precautions. 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 ) current occupational exposures/hazards: Yes (Home septic leak into well water; was given boil notice/now chlorine.) heather/buddhism: Non-christian special heather needs: No seatbelt use: always do you feel safe at home: Yes Smoking Status: Never smoker second hand exposure: No alcohol intake: former (Pre-: occasional rare beer/wine) substance use type: does not use during the past year weight has: remained stable well-balanced diet: rarely or never (Hyperemesis, also diet restrictions due to gallbladder removal. Would like referral to nutionist.) daily servings fruits/ve-1 caffeine: No Type(s) of exercise: walking and normal ROM and activity (7-46621 steps/day normally.) frequency: does not exercise (x2 weeks, on the couch, feeling poorly. ) Assessment & Plan Assessment & Plan narrative: ASSESSMENT 1. As before - IUP, 33+4 weeks EGA - Gestational hypertension w/ severe features, acute, resolved w/ labetalol but patient had severe BARRY w/ labetalol 2. Headache: Improved but persistent and Head CT is normal. 3. N&V associated with diarrhea/loose stools (patient states she had occasional loose stools since GB removed) 4. Dyspepsia PLAN 1. Gestational hypertension w/ severe features: - Amlodipine 2.5 mg PO BID if PO can be tolerated; - IV Hydralazine if BP reaches severe levels 2. Headache: - Tramadol 50-100 mg q 4-6 PRN for headache pain if PO can be tolerated - Consider IV Stadol or fentanyl if PO not tolerated 3. N&V associated with diarrhea/loose stools: - NPO; IVF's; check lytes in AM along with PEC labs - Zofran 8 mg now and q 6 hrs. until N&V controlled - Amylase/lipase, stool viral panel; Abdominal ultrasound to evaluate liver/GB duct/and pancreas (result pending; reportedly unremarkable per tech) - If PO intake cannot be achieved due to persistent nausea and vomiting, consider hyperalimentation/transfer to tertiary facility for evaluation/possible pre-term delivery 4. Dyspepsia: - Pepcid PO BID; IV if PO not tolerate 5. Reassess for possible D/C in the AM; she does not currently meet discharge criteria Time Spent With Patient Time with patient: 50 to 69 minutes with 50% spent counseling/coordinating care Critical Care time: I spent a total of 50 minutes of critical care time on this patient's care today; this time is exclusive of procedural time.
--- NOTE | 2021-07-05 17:39 | DI.US.S_ITS ---
PROCEDURE: US ABDOMEN LIMITED INDICATIONS: 33 WEEK EGA W/ INRACTIBLE N V; EVAULATE/GB/PANCREAS TECHNIQUE: Real-time focused scanning was performed of the abdomen, with image documentation. COMPARISON: [facility], , US ABDOMEN LIMITED, 01/08/2020, 10:10. FINDINGS: Visualized liver demonstrates normal echotexture. Gallbladder is not surgically absent. Common bile duct measures 3.8 mm. Visualized pancreas is normal. IMPRESSION: 1. Cholecystectomy. 2. Otherwise normal right upper quadrant ultrasound. Dictated by: Venita Montero M.D. on 07/05/2021 at 18:29 Approved by: Venita Montero M.D. on 07/05/2021 at 18:31
[2021-07-05 17:55] LABS: Amylase 74 U/L (30-110); Lipase 140 U/L (23-300)
[2021-07-05] MEDS: ONDANSETRON 8 MG in SODIUM CHLORIDE 0.9% 100 ML 416 ML IV (18:29)
[2021-07-05] MEDS: POTASSIUM CHLORIDE 20 MEQ in DEXTROSE 5%-0.9% NS 1,000 ML 150 MEQ IV (19:31)
[2021-07-05] MEDS: ACETAMINOPHEN IV 1,000 MG/100 ML VIAL 400 MG IV (22:53)
[2021-07-06] MEDS: ONDANSETRON 8 MG in SODIUM CHLORIDE 0.9% 100 ML 416 ML IV (02:24)
[2021-07-06] MEDS: POTASSIUM CHLORIDE 20 MEQ in DEXTROSE 5%-0.9% NS 1,000 ML 150 MEQ IV (02:28)
[2021-07-06 04:57] LABS: Hematocrit 34.6 % (36-46); Mean Corpuscular HGB Conc 34.8 % (30-36); Mean Corpuscular Hemoglobin 32.3 PG (26-34); Mean Corpuscular Volume 92.9 fL (80-100); Platelet Count 200 X10^3/uL (150-400); Red Blood Cell Count 3.72 X10^6/uL (4.0-5.2); Red Cell Distribution Width 13.4 % (11.6-14.8); White Blood Cell Count 9.3 X10^3/uL (4.5-11.0)
[2021-07-06 05:23] LABS: Alanine Aminotransferase 14 IU/L (<35); Albumin 2.9 g/dL (3.5-5.0); Albumin Globulin Ratio 1.1 (1.0-2.8); Alkaline Phosphatase 137 U/L (38-126); Aspartate Aminotransferase 16 IU/L (14-36); BUN Creatinine Ratio 23.6 (6-22); Bilirubin Total 0.3 mg/dL (0.2-1.3); Blood Urea Nitrogen 13 mg/dL (7-17); Calcium 8.3 mg/dL (8.4-10.2); Carbon Dioxide 17 mmol/L (22-32); Chloride 114 mmol/L (98-107); Estimated Glomerular Filt Rate > 60.0 mL/min (>60); Globulin 2.6 g/dL (1.7-4.1); Glucose 131 mg/dL (70-100); HEMOLYSIS < 15 (0-50); Potassium 4.8 mmol/L (3.4-5.1); Sodium 136 mmol/L (137-145); Total Protein 5.5 g/dL (6.3-8.2); Uric Acid 4.9 mg/dL (2.5-6.2)
--- NOTE | 2021-07-06 07:43 | PM.PN.1 ---
Subjective Subjective Date Patient Seen: 07/06/21 Time Patient Seen: 07:20 Interval history: Patient has done well overnight with her headache currently a 1/10 and her nausea at 4/10. She has had no further episodes of vomiting or diarrhea overnight. She does state however that her nausea is aggravated by ambulation and that is keeping her in bed. Her baby remains active and q shift NSTs are reactive. Exam Const General: cooperative, comfortable and lethargic Nutritional Appearance: average body habitus Orientation: awake and oriented x3 HENMT Head: normal to inspection, normocephalic and atraumatic Face and sinus: face symmetric Resp Effort & Inspection: normal respiratory effort and able to speak in complete sentences Auscultation: clear to auscultation bilaterally Cardio Rate: regular rate Rhythm: regular rhythm Heart Sounds: S1 normal, S2 normal and no murmurs GI Inspection: normal to inspection Palpation: soft, no hepatosplenomegaly and No tender Uterus Location (Fundal Height): 33 Estimated Weight (lbs): 4 Skin General: no rashes or lesions noted Extrem General: no calf tenderness Psych Appearance: grossly normal Mental Status: mental status grossly normal Speech and Movement: speech and movement normal Mood: congruent mood Attitude: cooperative Objective Labs Result Diagrams: 07/06/21 04:45 07/06/21 04:45 Labs: Laboratory Results - last 24 hr 07/05/21 07/05/21 07/06/21 06:30 13:00 04:45 WBC 9.3 RBC 3.72 L Hgb 12.0 Hct 34.6 L MCV 92.9 MCH 32.3 MCHC 34.8 RDW 13.4 Plt Count 200 Sodium Potassium Chloride Carbon Dioxide BUN Creatinine Estimated GFR BUN/Creatinine Ratio Glucose Uric Acid Calcium Total Bilirubin AST ALT Alkaline Phosphatase Total Protein Albumin Globulin Albumin/Globulin Ratio Amylase 74 Lipase 140 U Random Total Protein < 5 Urine Creatinine 203.5 Protein/Creatinin Ratio 0.02 07/06/21 04:45 WBC RBC Hgb Hct MCV MCH MCHC RDW Plt Count Sodium 136 L Potassium 4.8 Chloride 114 H Carbon Dioxide 17 L BUN 13 Creatinine 0.55 Estimated GFR > 60.0 BUN/Creatinine Ratio 23.6 H Glucose 131 H Uric Acid 4.9 Calcium 8.3 L Total Bilirubin 0.3 AST 16 ALT 14 Alkaline Phosphatase 137 H Total Protein 5.5 L Albumin 2.9 L Globulin 2.6 Albumin/Globulin Ratio 1.1 Amylase Lipase U Random Total Protein Urine Creatinine Protein/Creatinin Ratio [facility] Medical History Abnormal ultrasound of abdomen (~01/2020) Acne (~1996) Acute cholecystitis without calculus (~01/2020) Depression (~2010) Ectopic (~04/15/20) Hearing loss (~2017) Hemorrhoid (~2014) History of UTI (~2014) Hyperemesis gravidarum (~05/2010) Low back pain (~06/2019) Migraines (~2014) MRSA (methicillin resistant Staphylococcus aureus) (~2014) Painful menstrual periods depression associated with second Recurrent urinary tract infection (10/19/15) Rib pain on left side (~06/2019) Right flank pain (~2014) Sepsis (~01/2020) Spasm of left piriformis muscle (~06/2019) Vaginal delivery Vaginal yeast infection (~2010) Surgical History Anesthesia H/O colonoscopy (~2008) History of esophagogastroduodenoscopy (EGD) (~2008) Status post laparoscopic cholecystectomy (~01/09/20) Family History Mother Brain tumor (benign) Father Depression Grandmother Lung cancer metastatic to brain Myocardial infarction Hypothyroid H/O thyroidectomy Hypertension Diabetes mellitus Cancer History of heart disease Mental health problem Grandfather Alzheimer disease COPD (chronic obstructive pulmonary disease) H/O bilateral hip replacements Mental health problem Stroke Grandmother Diverticulitis Grandfather Myocardial infarction Smoker History of heart disease Social History marital status: unmarried,living together number of children: 6 household members: significant other and children (part custody of partner's daughter from previous relationship) lives independently: Yes caregiver/support person: No housing: other (Double-wide trailer.) pets and animals: Yes (1 cat, dog, bird, rabbit, snake: aware of cat precautions. ) education level: master's degree (in Psychology.) occupational status: unemployed (Just laid off from farm, hoping to SAHM. ) current occupational exposures/hazards: Yes (Home septic leak into well water; was given boil notice/now chlorine.) heather/restoration: Non-anglican special heather needs: No seatbelt use: always do you feel safe at home: Yes Smoking Status: Never smoker second hand exposure: No alcohol intake: former (Pre-: occasional rare beer/wine) substance use type: does not use during the past year weight has: remained stable well-balanced diet: rarely or never (Hyperemesis, also diet restrictions due to gallbladder removal. Would like referral to nutionist.) daily servings fruits/ve-1 caffeine: No Type(s) of exercise: walking and normal ROM and activity (7-22076 steps/day normally.) frequency: does not exercise (x2 weeks, on the couch, feeling poorly. ) Assessment & Plan Assessment and plan (1) Gestational hypertension affecting eighth : Status: Acute (2) Size of fetus inconsistent with dates in third trimester: Status: Acute (3) Placental cyst affecting in third trimester: Status: Acute (4) : Qualifiers: Weeks of gestation: 33 weeks Qualified Code(s): Z3A.33 - 33 weeks gestation of Status: Acute (5) Headache in : Qualifiers: Trimester: unspecified trimester Qualified Code(s): O26.899 - Other specified related conditions, unspecified trimester; R51.9 - Headache, unspecified Status: Acute Plan ASSESSMENT 1. As before - IUP, 33+5 weeks EGA - Gestational hypertension w/ severe features, acute, resolved w/ labetalol but patient had severe BARRY w/ labetalol 2. Headache: Improved 3. N&V associated with diarrhea/loose stools; loose stools have resolved, nausea currently minimal NPO - Patient states her N&V aggravated by movement 4. Dyspepsia PLAN 1. Gestational hypertension w/ severe features: - Amlodipine 2.5 mg PO BID - IV Hydralazine if BP reaches severe levels 2. Headache: - PO Tylenol; IV Tylenol PRN - Tramadol 50-100 mg q 4-6 PRN for headache pain if PO can be tolerated - Consider IV Stadol or fentanyl if PO not tolerated 3. N&V: -Start clear liquids this AM and advance to solids later this AM - Stop Zofran 8 mg IV q 6 hrs. and start PO 8 mg q 6 hrs. - Amylase/lipase, stool viral panel; Abdominal ultrasound to evaluate liver/GB duct/and pancreas (result pending; reportedly unremarkable per tech) - If PO intake cannot be achieved due to persistent nausea and vomiting, consider hyperalimentation/transfer to tertiary facility for evaluation/possible pre-term delivery 4. Dyspepsia: - Pepcid PO BID; IV if PO not tolerate 5. Reassess for possible D/C in the AM; she does not currently meet discharge criteria Time Spent With Patient Time with patient: less than 30 minutes
[2021-07-06] MEDS: ONDANSETRON 4 MG ODT 8 MG PO (09:05)
[2021-07-06] MEDS: FAMOTIDINE 20 MG TABLET PO (09:06)
[2021-07-06] MEDS: AMLODIPINE 5 MG TABLET 2.5 MG PO (09:07)
[2021-07-06] MEDS: SCOPOLAMINE 1 PATCH TOP (09:07)
[2021-07-06 12:10] LABS: Strep Grp B PCR NEG for Grp B Strep
[2021-07-06 12:13] LABS: Adenovirus F 40/41 Not Detected (Not Detect); Astrovirus Not Detected (Not Detect); Campylobacter Not Detected (Not Detect); Clostridium difficile toxin AB Not Detected (Not Detect); Cryptosporidium Not Detected (Not Detect); Cyclospora cayetanensis Not Detected (Not Detect); Entamoeba histolytica Not Detected (Not Detect); Enteroaggregative E.coli Not Detected (Not Detect); Enteropathogenic E.coli Not Detected (Not Detect); Enterotoxigenic E.coli It/st Not Detected (Not Detect); Giardia lamblia Not Detected (Not Detect); Norovirus GI/GII Not Detected (Not Detect); Plesiomonsa shigelloides Not Detected (Not Detect); Rotavirus A Not Detected (Not Detect); Salmonella Not Detected (Not Detect); Sapovirus Not Detected (Not Detect); Shiga-like toxin-prod E.coli Not Detected (Not Detect); Shigella/Enteroinvasive E.coli Not Detected (Not Detect); Vibrio Not Detected (Not Detect); Vibrio cholerae Not Detected (Not Detect); Yersinia enterocolitica Not Detected (Not Detect)
--- NOTE | 2021-07-06 12:58 | P.DS_ITS ---
History of Present Illness History of Present Illness Date Patient Seen: 07/06/21 Time Patient Seen: 12:58 Chief complaint: NST Narrative: Alicia Tobin is a 35 year old A2 ZAHIDA 08/20/2021 admitted with severe range BP elevations now at 33+2 weeks EGA.? Patient has no prior history of blood pressure elevation prior to the or with her previous 5 pre gnancies which resulted in uneventful spontaneous vaginal deliveries at term.? Patient was noted to have blood pressure elevation on her routine OB visit 07/02/2021 and PIH labs were obtained which aside from an elevated uric acid are normal.? Protein:Creatinine not performed at that time as ordered but all [facility] labs have been reordered now upon her presentation to the [facility].? Or following her visit on 07/02/2021, the patient was instructed to closely monitor her blood pressures at home and observe carefully for signs/symptoms of possible severe hypertension/pec.? Today the patient has noted her blood pressures are substantially elevated and upon presentation to the [facility] today, her blood pressures were found to be in the severe range.? Patient states that she has had a dull headache today at the base of her neck but denies visual changes, scotomata, blurred vision, or right upper quadrant pain.? Her baby remains active and she denies any contractions, bleeding, leakage of fluid per vagina, or change in vaginal discharge.? Patient also states that she has noted the development of mild edema.? GBS status is unknown at the time of admission but she has been negative with previous pregnancies.? course thus far has been generally unremarkable but 20 week anatomy scan performed on 05/19/2021 showed the to be at the 6th percentile for estimated weight and a small cyst was noted within the placenta.? [facility] consultation with [facility] obtained and there ultrasound evaluation found normal anatomy with an EFW at the 16th percentile and a small, inconsequential placental cyst according to the patient but will results of the consultation are not currently on the patient's chart here. Discharge Providers Provider Date of admission: 07/04/21 12:53 Discharge Date: 07/06/21 Primary care physician: Doctor Na MD Discharge provider: Dax Valderrama MD Summary Hospital Course Discharge Diagnosis: (1) Gestational hypertension affecting eighth : ?Status:?Acute (2) Size of fetus inconsistent with dates in third trimester: ?Status:?Acute (3) Placental cyst affecting in third trimester: ?Status:?Acute (4) : ?Qualifiers: ?Weeks of gestation:?33 weeks? Qualified Code(s):?Z3A.33 - 33 weeks gestation of ?Status:?Acute (5) Headache in : ?Qualifiers: ?Trimester:?unspecified trimester? Qualified Code(s):?O26.899 - Other specified related conditions, unspecified trimester; R51.9 - Headache, unspecified ?Status:?Acute Hospital Course: At the time of presentation the patient's blood pressure levels were in the severe range and she was initiated on intravenous labetalol. In addition until all laboratory values were available, patient was initiated on intravenous magnesium sulfate until preeclampsia could be excluded. All of her initial labs were essentially normal and there was no evidence of preeclampsia. The magnesium sulfate was then discontinued that the patient had significant headache from the labetalol and following 2 doses of oral labetalol, labetalol was discontinued in favor of amlodipine 2.5 mg p.o. b.i.d.. As result of the headache, nausea and vomiting associated with diarrhea, and dehydration therefrom, she required IV support an NPO status for 24 hours during which she did not receive antihypertensives. Her blood pressures remained in the borderline range and therefore amlodipine was initiated prior to her discharge. By the time of her discharge, she was feeling much better, her blood pressures were under good control, her headache had subsided, her nausea was resolved with continuous Zofran IV q.6 hours and she was able to be discharged on 07/06/2021. She will have close follow-up with NSTs and office visits twice weekly and has been counseled regarding precautionary symptoms, signs and symptoms of severe blood pressure elevation. Status at Discharge Cognitive/behavioral status at discharge: oriented Functional status at discharge: independent ambulation Overall status at discharge: patient is progressing back to baseline Exam Const General: cooperative and comfortable Nutritional Appearance: thin Orientation: alert and oriented x3 HENMT Head: normal to inspection Ears: hearing grossly normal bilaterally Face and sinus: face symmetric Eyes General: appearance normal, both eyes and all related structures Neck Neck: normal visual inspection Resp Effort & Inspection: normal respiratory effort and able to speak in complete sentences Auscultation: clear to auscultation bilaterally Cardio Rate: regular rate Rhythm: regular rhythm Heart Sounds: S1 normal, S2 normal and no murmurs GI Inspection: normal to inspection Palpation: soft, no hepatosplenomegaly and No tender Auscultation: normal bowel sounds Uterus Location (Fundal Height): 32 Presentation: vertex Estimated Weight (lbs): 4 Skin General: no rashes or lesions noted Extrem General: no calf tenderness Psych Appearance: grossly normal Mental Status: mental status grossly normal Speech and Movement: speech and movement normal Mood: congruent mood Affect: normal affect Attitude: cooperative Thought Process: normal Thought Content: normal Judgment: judgment good Objective Labs Result Diagrams: 07/06/21 04:45 07/06/21 04:45 Labs: Laboratory Results - last 24 hr 07/04/21 07/05/21 07/05/21 15:15 06:30 13:00 WBC RBC Hgb Hct MCV MCH MCHC RDW Plt Count Sodium Potassium Chloride Carbon Dioxide BUN Creatinine Estimated GFR BUN/Creatinine Ratio Glucose Uric Acid Calcium Total Bilirubin AST ALT Alkaline Phosphatase Total Protein Albumin Globulin Albumin/Globulin Ratio Amylase 74 Lipase 140 U Random Total Protein < 5 Urine Creatinine 203.5 Protein/Creatinin Ratio 0.02 Stl C. cayetanensis PCR Stool Rotavirus (PCR) Stool Adenovirus (PCR) Stool Astrovirus (PCR) Stool Cryptosporidium PCR Stl E.coli Shiga Tox PCR St Sh/Enteroin Ecoli PCR Stool E coli O157 PCR Stl Enterotoxigenic E PCR Stool EPEC (PCR) Stl E. histolytica PCR Stool Giardia Lamblia PCR Stool Sapovirus (PCR) Stl P. shigelloides PCR St Y.enterocolitica PCR Stool Vibrio (PCR) Stl Vibrio cholerae PCR Stl Enteroaggr Ecoli PCR Stl Norovirus GI/GII PCR Campylobacter (PCR) C. difficile Tox (PCR) Salmonella (PCR) Group B Strep (PCR) Neg for grp b strep 07/06/21 07/06/21 07/06/21 04:45 04:45 10:15 WBC 9.3 RBC 3.72 L Hgb 12.0 Hct 34.6 L MCV 92.9 MCH 32.3 MCHC 34.8 RDW 13.4 Plt Count 200 Sodium 136 L Potassium 4.8 Chloride 114 H Carbon Dioxide 17 L BUN 13 Creatinine 0.55 Estimated GFR > 60.0 BUN/Creatinine Ratio 23.6 H Glucose 131 H Uric Acid 4.9 Calcium 8.3 L Total Bilirubin 0.3 AST 16 ALT 14 Alkaline Phosphatase 137 H Total Protein 5.5 L Albumin 2.9 L Globulin 2.6 Albumin/Globulin Ratio 1.1 Amylase Lipase U Random Total Protein Urine Creatinine Protein/Creatinin Ratio Stl C. cayetanensis PCR Not detected Stool Rotavirus (PCR) Not detected Stool Adenovirus (PCR) Not detected Stool Astrovirus (PCR) Not detected Stool Cryptosporidium PCR Not detected Stl E.coli Shiga Tox PCR Not detected St Sh/Enteroin Ecoli PCR Not detected Stool E coli O157 PCR Not detected Stl Enterotoxigenic E PCR Not detected Stool EPEC (PCR) Not detected Stl E. histolytica PCR Not detected Stool Giardia Lamblia PCR Not detected Stool Sapovirus (PCR) Not detected Stl P. shigelloides PCR Not detected St Y.enterocolitica PCR Not detected Stool Vibrio (PCR) Not detected Stl Vibrio cholerae PCR Not detected Stl Enteroaggr Ecoli PCR Not detected Stl Norovirus GI/GII PCR Not detected Campylobacter (PCR) Not detected C. difficile Tox (PCR) Not detected Salmonella (PCR) Not detected Group B Strep (PCR) [facility] Medical History (Updated 07/09/21 @ 15:49 by Dax Valderrama MD) Abnormal ultrasound of abdomen (~01/2020) Acne (~1996) Acute cholecystitis without calculus (~01/2020) COVID-19 affecting , antepartum Depression (~2010) Ectopic (~04/15/20) Hearing loss (~2017) Hemorrhoid (~2014) History of UTI (~2014) Hyperemesis gravidarum (~05/2010) Low back pain (~06/2019) Migraines (~2014) MRSA (methicillin resistant Staphylococcus aureus) (~2014) Painful menstrual periods depression associated with second Recurrent urinary tract infection (10/19/15) Rib pain on left side (~06/2019) Right flank pain (~2014) Sepsis (~01/2020) Spasm of left piriformis muscle (~06/2019) Vaginal delivery Vaginal yeast infection (~2010) Surgical History Anesthesia H/O colonoscopy (~2008) History of esophagogastroduodenoscopy (EGD) (~2008) Status post laparoscopic cholecystectomy (~01/09/20) Family History Mother Brain tumor (benign) Father Depression Grandmother Lung cancer metastatic to brain Myocardial infarction Hypothyroid H/O thyroidectomy Hypertension Diabetes mellitus Cancer History of heart disease Mental health problem Grandfather Alzheimer disease COPD (chronic obstructive pulmonary disease) H/O bilateral hip replacements Mental health problem Stroke Grandmother Diverticulitis Grandfather Myocardial infarction Smoker History of heart disease Social History marital status: unmarried,living together number of children: 6 household members: significant other and children (part custody of partner's daughter from previous relationship) lives independently: Yes caregiver/support person: No housing: other (Double-wide trailer.) pets and animals: Yes (1 cat, dog, bird, rabbit, snake: aware of cat precautions. 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 ) current occupational exposures/hazards: Yes (Home septic leak into well water; was given boil notice/now chlorine.) heather/episcopal: Non-evangelical special heather needs: No seatbelt use: always do you feel safe at home: Yes Smoking Status: Never smoker second hand exposure: No alcohol intake: former (Pre-: occasional rare beer/wine) substance use type: does not use during the past year weight has: remained stable well-balanced diet: rarely or never (Hyperemesis, also diet restrictions due to gallbladder removal. Would like referral to nutionist.) daily servings fruits/ve-1 caffeine: No Type(s) of exercise: walking and normal ROM and activity ([phone] steps/day normally.) frequency: does not exercise (x2 weeks, on the couch, feeling poorly. ) Discharge Assessment & Plan Assessment and Plan Assessment: (1) Gestational hypertension affecting eighth : ?Status:?Acute (2) Size of fetus inconsistent with dates in third trimester: ?Status:?Acute (3) Placental cyst affecting in third trimester: ?Status:?Acute (4) : ?Qualifiers: ?Weeks of gestation:?33 weeks? Qualified Code(s):?Z3A.33 - 33 weeks gestation of ?Status:?Acute (5) Headache in : ?Qualifiers: ?Trimester:?unspecified trimester? Qualified Code(s):?O26.899 - Other specified related conditions, unspecified trimester; R51.9 - Headache, unspecified ?Status:?Acute Plan of Treatment: Will initiate twice weekly NSTs with labs to rule out development of preeclampsia. Growth ultrasound with Dopplers will be scheduled at the time of her next visit for her NST. She will continue movement counts and observe closely for any signs/symptoms of severe blood pressure elevations/preeclampsia. Discharge Plan Discharge Plan Patient Disposition: Home Provider Discharge Comment: Please review the written instructions provided when you were discharged from the hospital. You're scheduled for a follow-up nonstress test at the [facility] on 07/09/2021 or and those will continue twice weekly on Tuesdays and Fridays until you're delivered. I will be seeing you every week in the office on Fridays so we can keep a close watch on your blood pressure and make sure that you do not develop preeclampsia. Please check your blood pressure at home and let me know if you start having blood pressure is 140/90 or greater. If your blood pressure is 150/100 or greater, you should come to the center for evaluation immediately. Also notify me if you have any significant changes in your vision, headache that will go away, or significant right upper quadrant pain. Discharge orders & Medications Prescriptions: New amlodipine [Norvasc] 5 mg Tablet 2.5 mg PO BID Qty: 60 1RF tramadol 50 mg Tablet 100 mg PO Q6H PRN (Reason: Pain, Moderate (4-6)) Qty: 30 0RF famotidine [Pepcid AC] 20 mg Tablet 20 mg PO BID Qty: 60 1RF scopolamine base 1 mg over 3 days patch 3 day 1 patch transdermal Q72H Qty: 10 2RF ondansetron HCl 8 mg tablet 8 mg PO Q8H Qty: 90 1RF Continued hydrocortisone [Anusol-HC] 2.5 % cream with perineal applicator 1 applic MT QD-BID PRN (Reason: hemorrhoids) Qty: 30 1RF prenat.vits,yesy,[id number] Tablet 1 tab PO DAILY 0RF No Action [id number] 02-874-23-30 mg capsule 1 cap PO Q4H PRN (Reason: headache) Qty: 30 1RF ondansetron 4 mg tablet,disintegrating See Rx Instructions .ROUTE .COMPLEX Qty: 20 1RF Dose Instruction: DISSOLVE 1 TABLET IN MOUTH EVERY 6 TO 8 HOURS NEEDED FOR NAUSEA AND VOMITING Rx Instructions: DISSOLVE 1 TABLET IN MOUTH EVERY 6 TO 8 HOURS NEEDED FOR NAUSEA AND VOMITING [id number] [Fioricet] 50-300-40 mg capsule 2 cap PO Q4-6H PRN (Reason: pain) Qty: 60 0RF Rx Instructions: do not exceed 6 caps per day metoclopramide HCl [Reglan] 10 mg tablet 10 mg PO Q6H PRN (Reason: nausea and vomiting) Qty: 30 2RF Follow up/Referrals: Na,, MD [Primary Care Provider] - Discharge Health Status Multidrug resistant organism: No MDRO Diet/Activity/Treatments Diet: Diet as Tolerated Activity: As tolerated Visit Report/Discharge Packet Instructions: Pre-eclampsia and -induced Hypertension (Alternative Therapy), DI for Prescription Opioid Use Discharge Data Primary Care Provider: Doctor Na Attending Provider: Dax Valderrama
[2021-07-06 13:10] VITALS: BP 137/84; PULSE 70; RESP 16; TEMP 37.1
== END 2021-07-06 13:57 | disposition home or self-care (01) ==
PROVIDERS: Admitting Provider Obstetrics & Gynecology; Family Provider Specialist; Referring Provider Obstetrics & Gynecology; Visit Provider Obstetrics & Gynecology
DX: O13.3 Gestational [pregnancy-induced] hypertension without significant proteinuria, third trimester (principal); O99.891 Other specified diseases and conditions complicating pregnancy; R51.9 Headache, unspecified; R10.13 Epigastric pain; O21.0 Mild hyperemesis gravidarum; O43.193 Other malformation of placenta, third trimester; Z3A.33 33 weeks gestation of pregnancy; O09.213 Supervision of pregnancy with history of pre-term labor, third trimester; O09.43 Supervision of pregnancy with grand multiparity, third trimester; Z20.822 Contact with and (suspected) exposure to COVID-19
CPT/HCPCS: 36415; 59025; 59050; 70450; 76705; 80053; 80076; 81001; 82150; 82570; 83690; 84156; 84550; 85025; 85027; 85610; 85730; 87507; 87635; 87653; 99217; 99219; 99224; C9803; G0378; A9270; G0379; J0131; J0702; J1885; J2405; J2765; J3010; J3475; J3480

== ENCOUNTER 2021-07-07 18:16 | Emergency (ER) | payer OTHER, MEDICAID, SELFPAY ==
[2021-01-07 17:16] VITALS: BMI 29.2
[2021-07-07 18:33] VITALS: BP 142/80; PULSE 54; RESP 16; TEMP 36.7; O2SAT 98; BMI 29.3
--- NOTE | 2021-07-07 19:24 | ED.CHESTPAIN ---
HPI - Chest Pain General Chief Complaint: Chest Pain Stated Complaint: 34wks preg, chest pain, high BP, vomiting Time Seen by Provider: 07/07/21 19:20 History of Present Illness HPI narrative: 35-year-old female at 34 weeks presents with blood pressure 170 and chest pain. EDC 08/20/2021. She does not have a history of essential hypertension. She has no history of elevated blood pressure during her previous 5 successful pregnancies. She was recently hospitalist, [facility] with a diagnosis of PIH and preeclampsia. She received betamethasone while hospitalized. She has chest pain, her blood pressure at home was 170 systolic. She has no dyspnea, weakness or dizziness. She has no history of cardiac disease. She denies headache or visual changes. She has no abdominal pain, nausea vomiting. She is not experiencing contractions. She has no vaginal discharge or bleeding. She was discharged with Norvasc 2.5 mg daily for hypertension. She has no history of chronic headaches, she is experiencing regular headaches with this , now with a diagnosis of preeclampsia. She has not had her p.m. Norvasc dose yet. A nonstress test was performed here in the ER, the baby seems to be doing well. Related Data Home Medications Medication Instructions Recorded Confirmed prenat.vits,yesy,gzb-kryf-qnmya 1 tab PO DAILY 01/08/21 01/08/21 Previous Rx's Medication Instructions Recorded hydrocortisone 2.5 % topical cream 1 applic RI QD-BID PRN #30 g 01/20/21 with perineal applicator (Anusol-HC) iizjlhhjcz-gjhacdexgstgh-ospkerlk 2 cap PO Q4-6H PRN #60 cap 02/05/21 50 mg-300 mg-40 mg capsule (Fioricet) butalbital 50 mg-acetaminophen 325 1 cap PO Q4H PRN #30 cap 03/06/21 mg-caffeine 40 mg-codeine 30 mg cap ondansetron 4 mg disintegrating See Rx Instructions .ROUTE 07/01/21 tablet .COMPLEX #20 tab metoclopramide HCl 10 mg tablet 10 mg PO Q6H PRN #30 tab 07/02/21 (Reglan) amlodipine 5 mg tablet (Norvasc) 2.5 mg PO BID #60 tab 07/06/21 famotidine 20 mg tablet (Pepcid AC) 20 mg PO BID #60 tab 07/06/21 ondansetron HCl 8 mg tablet 8 mg PO Q8H #90 tab 07/06/21 scopolamine base 1 mg over 3 days 1 patch TRANSDERMAL Q72H #10 ea 07/06/21 transdermal patch tramadol 50 mg tablet 100 mg PO Q6H PRN #30 tab 07/06/21 Allergies Allergy/AdvReac Type Severity Reaction Status Date / Time eggplant Allergy Severe THROAT Verified 01/17/21 15:08 SWELLING, HIVES hydrocodone [From Vicodin] Allergy Intermediate Hives Verified 01/17/21 15:08 tetanus and diphtheria Allergy Intermediate Difficulty Verified 12/10/20 14:54 toxoids Breathing Review of Systems Constitutional Constitutional: Denies anorexia, Denies body ache(s), Denies chills, Denies fatigue, Denies fever(s) and Reports headache(s) Eyes Comments: Diplopia with left eye blurred vision. ENT Ears, Nose, Mouth, and Throat: Denies vertigo, Denies dizziness, Reports headache(s) and Denies neck pain Comments: Dental pain following recent dental extractions. Cardiovascular Cardiovascular: Denies chest pain, Denies rapid heart rate and Denies dyspnea Respiratory Respiratory: Denies chest congestion, Denies cough and Denies dyspnea Gastrointestinal Gastrointestinal: Denies abdominal pain and Denies nausea Genitourinary Genitourinary: Denies dysuria Musculoskeletal Musculoskeletal: Denies back pain, Denies arthralgias, Denies myalgias and Denies neck pain Integumentary/Breasts Skin/Breast: Denies rash Neurologic Neurologic: Denies confusion, Denies vertigo, Denies dizziness, Reports headache(s) and Denies memory loss Psychiatric Psychiatric: Denies confusion and Denies memory loss Endocrine Endocrine: Denies fatigue Hematologic/Lymphatic On Anticoagulants: No Patient History Medical History Abnormal ultrasound of abdomen (~01/2020) Acne (~1996) Acute cholecystitis without calculus (~01/2020) Depression (~2010) Ectopic (~04/15/20) Hearing loss (~2017) Hemorrhoid (~2014) History of UTI (~2014) Hyperemesis gravidarum (~05/2010) Low back pain (~06/2019) Migraines (~2014) MRSA (methicillin resistant Staphylococcus aureus) (~2014) Painful menstrual periods depression associated with second Recurrent urinary tract infection (10/19/15) Rib pain on left side (~06/2019) Right flank pain (~2014) Sepsis (~01/2020) Spasm of left piriformis muscle (~06/2019) Vaginal delivery Vaginal yeast infection (~2010) Surgical History Anesthesia H/O colonoscopy (~2008) History of esophagogastroduodenoscopy (EGD) (~2008) Status post laparoscopic cholecystectomy (~01/09/20) Family History Mother Brain tumor (benign) Father Depression Grandmother Lung cancer metastatic to brain Myocardial infarction Hypothyroid H/O thyroidectomy Hypertension Diabetes mellitus Cancer History of heart disease Mental health problem Grandfather Alzheimer disease COPD (chronic obstructive pulmonary disease) H/O bilateral hip replacements Mental health problem Stroke Grandmother Diverticulitis Grandfather Myocardial infarction Smoker History of heart disease Social History marital status: unmarried,living together number of children: 6 household members: significant other and children (part custody of partner's daughter from previous relationship) lives independently: Yes caregiver/support person: No housing: other ([facility]-wide trailer.) pets and animals: Yes (1 cat, dog, bird, rabbit, snake: aware of cat precautions. 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 ) current occupational exposures/hazards: Yes (Home septic leak into well water; was given boil notice/now chlorine.) heather/caodaism: Non-yazidi special heather needs: No seatbelt use: always do you feel safe at home: Yes Smoking Status: Never smoker second hand exposure: No alcohol intake: former (Pre-: occasional rare beer/wine) substance use type: does not use during the past year weight has: remained stable well-balanced diet: rarely or never (Hyperemesis, also diet restrictions due to gallbladder removal. Would like referral to nutionist.) daily servings fruits/ve-1 caffeine: No Type(s) of exercise: walking and normal ROM and activity (7-50107 steps/day normally.) frequency: does not exercise (x2 weeks, on the couch, feeling poorly. ) Smoking Status: Never smoker alcohol intake frequency: holidays/special occasions only Substance Use Type: does not use Exam Initial Vital Signs Initial Vital Signs: Vital Signs Temperature 98.1 F 07/07/21 18:33 Pulse Rate 54 L 07/07/21 18:33 Respiratory Rate 16 07/07/21 18:33 Blood Pressure 142/80 H 07/07/21 18:33 Pulse Oximetry 98 07/07/21 18:33 Const General: cooperative, healthy appearing, comfortable, well developed and well groomed [facility] Head: normal to inspection, normocephalic and atraumatic Face and sinus: sinuses nontender Mouth: oral mucosae normal Teeth and gingiva: other (Multiple recent dental extractions. No gum infection.) Throat: posterior oropharynx normal Eyes Pupils: PERRL EOM: EOM intact bilaterally Direct ophthalmoscopy: photophobia Other: Blurred vision in the left eye, particularly with lateral gaze. No nystagmus. No visual field cuts. Neck Neck: full ROM and No tender Resp Auscultation: clear to auscultation bilaterally Cardio Rate: regular rate Rhythm: regular rhythm Heart Sounds: S1 normal, S2 normal and no murmurs GI Palpation: soft and No tender Back/Spine/Pelvis Back: No back tenderness Skin General: no rashes or lesions noted Neuro General: patient alert, patient awake, no focal motor deficits and other Other: NIHSS is 0. Extrem General: normal to inspection and full ROM Course Course Course Narrative: She was given her Norvasc dose could early. Blood pressure improved to 135 systolic. Blood pressures been running 140s-150s. Cardiac evaluation is negative, no suggestion of ACS. LFTs are normal. She may have GERD. GI cocktail helped briefly with the chest discomfort. She is improved at time of discharge. The case was discussed the on-call crop setting out machine operator, Dr. Gimenez. It was decided to change all rest dose of 2.5 mg t.i.d. may be beneficial. She should cough follow-up with her OB provider. Orders Ordered: ED Orders 07/07/21 19:10 Complete Blood Count AUTO DIFF Stat Comprehensive Metabolic Panel Stat Lipase Stat Magnesium Stat Troponin & CK Cardiac Panel Stat Discontinued Medications Acetaminophen (Acetaminophen 325 Mg Tablet) 650 mg PO NOW ONE Stop: 07/07/21 20:18 Last Admin: 07/07/21 20:21 Dose: 650 mg Documented by: MAGDIEL Amlodipine Besylate (Amlodipine 5 Mg Tablet) 2.5 mg PO NOW ONE Stop: 07/07/21 19:35 Last Admin: 07/07/21 20:22 Dose: 2.5 mg Documented by: MAGDIEL Al Hydrox/Mg Hydrox/Simethicone 20 ml/ Lidocaine HCl 15 ml 0 ml PO NOW ONE Stop: 07/07/21 21:27 Last Admin: 07/07/21 21:59 Dose: 35 ml Documented by: LLUVIA Vital Signs Vital signs: Vital Signs - 8 hr 07/07/21 20:59 07/07/21 22:42 Pulse Rate 52 L 69 Respiratory Rate 18 20 Blood Pressure 138/76 138/88 Pulse Oximetry 98 100 MDM - Chest Pain Lab Data Result diagrams: 07/07/21 19:10 07/07/21 19:10 Labs: Lab Results 07/07/21 07/07/21 Range/Units 19:10 19:10 WBC 10.4 (4.5-11.0) X10^3/uL RBC 3.74 L (4.0-5.2) X10^6/uL Hgb 12.0 (12.0-16.0) g/dL Hct 35.1 L (36-46) % MCV 93.8 (80-100) fL MCH 32.1 (26-34) PG MCHC 34.3 (30-36) % RDW 13.4 (11.6-14.8) % Plt Count 209 (150-400) X10^3/uL Neut % (Auto) 73.5 (50-75) % Lymph % (Auto) 18.1 L (25-40) % [place] % (Auto) 8.2 (3-14) % Eos % (Auto) 0.1 L (2-4) % Baso % (Auto) 0.1 (0-2) % Neut # (Auto) 7700 H (0629-6524) /uL Lymph # (Auto) 1900 (9230-7756) /uL [place] # (Auto) 900 (0-900) /uL Eos # (Auto) 0 (0-450) /uL Baso # (Auto) 0 (0-100) /uL Sodium 138 (137-145) mmol/L Potassium 3.9 (3.4-5.1) mmol/L Chloride 111 H (98-107) mmol/L Carbon Dioxide 19 L (22-32) mmol/L BUN 16 (7-17) mg/dL Creatinine 0.57 (0.52-1.04) mg/dL Estimated GFR > 60.0 (>60) mL/min BUN/Creatinine Ratio 28.1 H (6-22) Glucose 92 (70-100) mg/dL Calcium 8.4 (8.4-10.2) mg/dL Magnesium 1.9 (1.6-2.3) mg/dL Total Bilirubin 0.4 (0.2-1.3) mg/dL AST 29 (14-36) IU/L ALT 23 (<35) IU/L Alkaline Phosphatase 113 (38-126) U/L Total Creatine Kinase 29 L (30-135) U/L CK-MB (CK-2) TNP CK-MB (CK-2) Rel Index TNP Troponin I < 0.012 (0.01-0.034) ng/mL Total Protein 6.2 L (6.3-8.2) g/dL Albumin 3.3 L (3.5-5.0) g/dL Globulin 2.9 (1.7-4.1) g/dL Albumin/Globulin Ratio 1.1 (1.0-2.8) Lipase 42 D (23-300) U/L Urine Dip Bedside Urine Glucose Negative Bedside Urine Bilirubin - Negative Bedside Urine Ketone - Negative Urine Specific [place] 1.020 Bedside Urine Occult Blood - Negative Bedside Urine pH 6.5 Bedside Urine Protein - Negative Bedside Urine Urobilinogen - Negative Bedside Urine Nitrite - Negative Bedside Urine Leukocytes - Negative Esterase Discharge Plan Departure Patient Disposition: Home Clinical Impression: PIH ( induced hypertension) Instructions: Pre-eclampsia Activity Restrictions/Additional Instructions: Your labs are reassuring. Blood pressure improved to 135 systolic prior to discharge. There is no suggestion of cardiac problems with your workup. I discussed her case with Dr. Lavelle Zelaya's partner. Is recommended do take the Norvasc 2.5 mg 3 times daily, approximately [address] Valderrama tomorrow for follow-up. Return here for severe headache, confusion, visual changes, or significant increasing chest discomfort. Prescriptions: No Action hydrocortisone [Anusol-HC] 2.5 % cream with perineal applicator 1 applic RI QD-BID PRN (Reason: hemorrhoids) Qty: 30 1RF rvnvxllijp-oswgoxgqom-zjs-cod [id number] mg capsule 1 cap PO Q4H PRN (Reason: headache) Qty: 30 1RF ondansetron 4 mg tablet,disintegrating See Rx Instructions .ROUTE .COMPLEX Qty: 20 1RF Dose Instruction: DISSOLVE 1 TABLET IN MOUTH EVERY 6 TO 8 HOURS NEEDED FOR NAUSEA AND VOMITING Rx Instructions: DISSOLVE 1 TABLET IN MOUTH EVERY 6 TO 8 HOURS NEEDED FOR NAUSEA AND VOMITING prenat.vits,yesy,okq-swlt-thkfr Tablet 1 tab PO DAILY 0RF xltqndjkmj-gzsaqyghkmgzo-xbcw [Fioricet] 50-300-40 mg capsule 2 cap PO Q4-6H PRN (Reason: pain) Qty: 60 0RF Rx Instructions: do not exceed 6 caps per day metoclopramide HCl [Reglan] 10 mg tablet 10 mg PO Q6H PRN (Reason: nausea and vomiting) Qty: 30 2RF amlodipine [Norvasc] 5 mg Tablet 2.5 mg PO BID Qty: 60 1RF tramadol 50 mg Tablet 100 mg PO Q6H PRN (Reason: Pain, Moderate (4-6)) Qty: 30 0RF famotidine [Pepcid AC] 20 mg Tablet 20 mg PO BID Qty: 60 1RF scopolamine base 1 mg over 3 days patch 3 day 1 patch transdermal Q72H Qty: 10 2RF ondansetron HCl 8 mg tablet 8 mg PO Q8H Qty: 90 1RF Referrals: Miscellaneous,Doctor, MD [Primary Care Provider] -
[2021-07-07 19:32] LABS: Add Manual Diff / Slide Review NO; Alanine Aminotransferase 23 IU/L (<35); Albumin 3.3 g/dL (3.5-5.0); Albumin Globulin Ratio 1.1 (1.0-2.8); Alkaline Phosphatase 113 U/L (38-126); Aspartate Aminotransferase 29 IU/L (14-36); BUN Creatinine Ratio 28.1 (6-22); Basophils Absolute Auto 0 /uL (0-100); Basophils Percent Auto 0.1 % (0-2); Bilirubin Total 0.4 mg/dL (0.2-1.3); Blood Urea Nitrogen 16 mg/dL (7-17); Calcium 8.4 mg/dL (8.4-10.2); Carbon Dioxide 19 mmol/L (22-32); Chloride 111 mmol/L (98-107); Creatine Kinase 29 U/L (30-135); Eosinophils Absolute Auto 0 /uL (0-450); Eosinophils Percent Auto 0.1 % (2-4); Estimated Glomerular Filt Rate > 60.0 mL/min (>60); Globulin 2.9 g/dL (1.7-4.1); Glucose 92 mg/dL (70-100); HEMOLYSIS 23 (0-50); Hematocrit 35.1 % (36-46); Lipase 42 U/L (23-300); Lymphocytes Absolute Auto 1900 /uL (1100-4500); Lymphocytes Percent Auto 18.1 % (25-40); Magnesium 1.9 mg/dL (1.6-2.3); Mean Corpuscular HGB Conc 34.3 % (30-36); Mean Corpuscular Hemoglobin 32.1 PG (26-34); Mean Corpuscular Volume 93.8 fL (80-100); Monocytes Absolute Auto 900 /uL (0-900); Monocytes Percent Auto 8.2 % (3-14); Neutrophils Absolute Auto 7700 /uL (1500-7000); Neutrophils Percent Auto 73.5 % (50-75); Platelet Count 209 X10^3/uL (150-400); Potassium 3.9 mmol/L (3.4-5.1); Red Blood Cell Count 3.74 X10^6/uL (4.0-5.2); Red Cell Distribution Width 13.4 % (11.6-14.8); Sodium 138 mmol/L (137-145); Total Protein 6.2 g/dL (6.3-8.2); White Blood Cell Count 10.4 X10^3/uL (4.5-11.0)
[2021-07-07 19:44] LABS: Troponin I < 0.012 ng/mL (0.01-0.034)
[2021-07-07] MEDS: ACETAMINOPHEN 325 MG TABLET 650 MG PO (20:21)
[2021-07-07] MEDS: AMLODIPINE 5 MG TABLET 2.5 MG PO (20:22)
[2021-07-07 20:59] VITALS: BP 138/76; PULSE 52; RESP 18; O2SAT 98
[2021-07-07] MEDS: MAG HYDROX/ALUMINUM/SIMETH SUS 20 ML, LIDOCAINE VISCOUS 2% 15 ML PO (21:59)
[2021-07-07 22:42] VITALS: BP 138/88; PULSE 69; RESP 20; O2SAT 100
== END 2021-07-07 22:43 | disposition home or self-care (01) ==
PROVIDERS: Emergency Provider Emergency Medicine; Family Provider Specialist
DX: O13.3 Gestational [pregnancy-induced] hypertension without significant proteinuria, third trimester (principal); Z3A.34 34 weeks gestation of pregnancy
CPT/HCPCS: 36415; 80053; 81003; 82550; 83690; 83735; 84484; 85025; 93005; 93010; 99284

== ENCOUNTER 2021-07-09 13:13 | Inpatient (IN) | payer OTHER, MEDICAID, SELFPAY ==
[2021-01-07 17:16] VITALS: BMI 29.2
--- NOTE | 2021-07-09 | DI.US.S_ITS ---
PROCEDURE: US OB >= 14 WEEKS FETUS INDICATIONS: Gestational hypertension, size less than dates OUTSIDE/PRIOR DATING DATA: Last menstrual period (LMP): Unknown. LMP-based estimated date of delivery (ZAHIDA): Unknown. First dating scan (date and location): 01/08/2021. Estimated date of delivery (ZAHIDA) from first dating scan: 08/20/2021. TECHNIQUE: Real-time scanning was performed of the fetus, with image documentation and biometric measurements. Endovaginal scanning: None COMPARISON: [facility], OB >= 14 WEEKS FETUS, 05/19/2021, 12:22. FINDINGS: General: A single living intrauterine gestation is present. Presentation: Vertex. Placenta: Placental position is fundal , without previa. Amniotic fluid index: 11.3 cm, normal range is 5-24 cm. heart rate: 124 beats per minute. Maternal cervical canal: Not well visualized biometrics: Biparietal diameter: 7.7 cm, 30 week 5 day Head circumference: 29.3 cm, 32 week 2 day Abdominal circumference: 26.4 cm, 30 week 4 day Femur length: 6.3 cm, 32 week 3 day Clinically estimated gestational age: 34 week 0 day Composite gestational age from present scan: 31 week 4 day Estimated weight and percentile: 1738 g, 2nd percentile From biophysical profile score for tone, movement, respiration and largest pocket is all 2/2 for a total score of 8 out of 8 Umbilical artery S/D ratio: 8.4, 6.4 Anatomic survey: Neuro: Ventricles are non-dilated at less than 10 mm. Cisterna magna is normal at 3-11 mm. Cerebellum is normal in size and morphology. Nuchal skin fold: Normal at less than 6 mm between 14-21 weeks gestational age. Face: Nose and lips, facial profile are normal. Spine: No evidence for spina bifida. Heart: 4-chambered heart is present, with normal ventricular outflow tracts. Diaphragm: Diaphragm is intact. Stomach: Left-sided stomach is present. Kidneys: No hydronephrosis. Normal is less than 5 mm in 2nd trimester, less than 7 mm in 3rd trimester. Cord: 3-vessel cord has orthotopic insertion. Bladder: Normal in size. Extremities: All 4 extremities identified. IMPRESSION: Para single live intrauterine Single live intrauterine corresponds with 31 week 4 day gestation by current ultrasound. Given current ultrasound dating, EFW is at the 2nd percentile Significantly elevated umbilical artery S/D ratio Approved by: Alcon Ruiz M.D. on 07/09/2021 at 14:36
--- NOTE | 2021-07-09 13:40 | P.TNLD_ITS ---
Visit Information Visit Information Date of evaluation: 07/09/21 Primary OB Provider: Dax Valderrama Reason for Evaluation: Yes non-stress test and Yes other Comments/Additional reasons for admission: Alicia is a 35 yo presents today for her NST and evaluation due to gestational hypertension now at 34+ 0 weeks gestational age. Patient was admitted last week with elevated blood pressures in the severe range and initiated originally on labetalol which resulted in a severe headache or and therefore the patient was switched over to amlodipine. The patient during her time on the center was originally initiated on MgS)$ until labs showed no PEC and her BP's had declined into the near normal range on PO labetalol. Nicho received two doses of betamethasone 12 mg on 07/04/2021 and 07/05/2021. Laboratory evaluation including CBC, CMP, uric acid, and protein to creatinine ratio were all normal. NSTs Q shift were reactive. Her blood pressures defervesced during her period of observation on the center and she was discharged on 07/06/2021 with her blood pressure or remaining elevated in the non severe range but stable with plans for blood pressure monitoring at home 3 times daily. Patient however had elevated blood pressures yesterday up into the 170 systolic range and was associated with chest pain for which she was seen in the emergency department. Her blood pressures there were in the non severe range and lab evaluation for preeclampsia was again negative. The patient returned today for her scheduled MATT visit and NST at which time she was found to have blood pressures in the high 140s over high 90s range. Evaluation on the center today shows pressures similar to those seen in the office and again her laboratory evaluation preeclampsia is negative. Her NST is reactive and biophysical profile is 8/8. biometry however shows composite EGA of 30 1+4 compared to her current estimated gestational age of 34+ 0 which places her at the 2nd percentile. REEMA is 11.3 but SD ratios are 8.4 and 6.4 in 2 different areas of the cord. Vital Signs Vital Signs: 142/102;145/91;/139/94;140/97;144/90;148/99 [facility] Medical History (Updated 07/09/21 @ 15:49 by Dax Valderrama MD) Abnormal ultrasound of abdomen (~01/2020) Acne (~1996) Acute cholecystitis without calculus (~01/2020) COVID-19 affecting , antepartum Depression (~2010) Ectopic (~04/15/20) Hearing loss (~2017) Hemorrhoid (~2014) History of UTI (~2014) Hyperemesis gravidarum (~05/2010) Low back pain (~06/2019) Migraines (~2014) MRSA (methicillin resistant Staphylococcus aureus) (~2014) Painful menstrual periods depression associated with second Recurrent urinary tract infection (10/19/15) Rib pain on left side (~06/2019) Right flank pain (~2014) Sepsis (~01/2020) Spasm of left piriformis muscle (~06/2019) Vaginal delivery Vaginal yeast infection (~2010) Surgical History Anesthesia H/O colonoscopy (~2008) History of esophagogastroduodenoscopy (EGD) (~2008) Status post laparoscopic cholecystectomy (~01/09/20) Family History Mother Brain tumor (benign) Father Depression Grandmother Lung cancer metastatic to brain Myocardial infarction Hypothyroid H/O thyroidectomy Hypertension Diabetes mellitus Cancer History of heart disease Mental health problem Grandfather Alzheimer disease COPD (chronic obstructive pulmonary disease) H/O bilateral hip replacements Mental health problem Stroke Grandmother Diverticulitis Grandfather Myocardial infarction Smoker History of heart disease Social History marital status: unmarried,living together number of children: 6 household members: significant other and children (part custody of partner's daughter from previous relationship) lives independently: Yes caregiver/support person: No housing: other (Double-wide trailer.) pets and animals: Yes (1 cat, dog, bird, rabbit, snake: aware of cat precautions. 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 ) current occupational exposures/hazards: Yes (Home septic leak into well water; was given boil notice/now chlorine.) heather/latter day: Non-mandaen special heather needs: No seatbelt use: always do you feel safe at home: Yes Smoking Status: Never smoker second hand exposure: No alcohol intake: former (Pre-: occasional rare beer/wine) substance use type: does not use during the past year weight has: remained stable well-balanced diet: rarely or never (Hyperemesis, also diet restrictions due to gallbladder removal. Would like referral to nutionist.) daily servings fruits/ve-1 caffeine: No Type(s) of exercise: walking and normal ROM and activity (7-18409 steps/day normally.) frequency: does not exercise (x2 weeks, on the couch, feeling poorly. ) Review of Systems Review of Systems Narrative: Problem-specific ROS positives included with the HPI Exam Const General: cooperative and anxious Nutritional Appearance: thin Orientation: alert and oriented x3 HENMT Head: normal to inspection, normocephalic and atraumatic Ears: hearing grossly normal bilaterally Face and sinus: face symmetric Eyes General: appearance normal, both eyes and all related structures Conjunctivae: conjunctivae normal Sclera: sclerae normal EOM: EOM intact bilaterally Neck Neck: normal visual inspection Resp Effort & Inspection: normal respiratory effort and able to speak in complete sentences GI Inspection: normal to inspection Palpation: soft, no hepatosplenomegaly and No tender General: other (Deferred) Uterus Location (Fundal Height): 33 Presentation: vertex Estimated Weight (lbs): 4 Neuro DTR's: Rt Patellar: 2+ and Lt Patellar: 2+ Extrem General: no calf tenderness, calf tenderness and No edema Psych Appearance: grossly normal Speech and Movement: speech and movement normal Objective Labs Result Diagrams: 07/09/21 13:47 07/09/21 13:47 Labs: LFT's NL, Uric Acid = 5.1, Protein:Creatinine = .15, COVID PCR Negative Evaluation Evaluation Baseline heart rate: 135 Variability: Average (6-10) monitor accelerations: Present Monitor Decelerations: Absent Status: Category l Comments: SVE not performed. Diagnosis, Plan/Disposition Final Diagnosis (1) Gestational hypertension affecting eighth : Status: Acute (2) Size of fetus inconsistent with dates in third trimester: Status: Acute (3) IUGR (intrauterine growth restriction) affecting care of mother: Status: Acute (4) COVID-19 affecting , antepartum: Status: Acute Problem details: + COVID 04/30/2021 [facility] (5) Rubella non-immune status, antepartum: Status: Acute Plan/Disposition Plan: Case reviewed with MFM workers compensation consultant [facility] (Dr. Eboni Cabral) who agrees to accept the patient in transfer for evaluation and probable pre-term delivery. Intravenous magnesium sulfate to be initiated prior to transport (4 g bolus, 2 g continuous infusion). Transfer via ambulance is not feasible as there is no availability of transporting ambulance for at least 2-1/2 hours from now therefore medical evacuation via helicopter requested. OB Disposition: tertiary care transfer
[2021-07-09] MEDS: AMLODIPINE 5 MG TABLET PO (13:48)
[2021-07-09 13:57] LABS: Add Manual Diff / Slide Review NO; Basophils Absolute Auto 0 /uL (0-100); Basophils Percent Auto 0.5 % (0-2); Eosinophils Absolute Auto 100 /uL (0-450); Eosinophils Percent Auto 0.7 % (2-4); Hematocrit 34.3 % (36-46); Hemoglobin 12.2 g/dL (12.0-16.0); Lymphocytes Absolute Auto 1900 /uL (1100-4500); Lymphocytes Percent Auto 19.9 % (25-40); Mean Corpuscular HGB Conc 35.7 % (30-36); Mean Corpuscular Hemoglobin 32.6 PG (26-34); Mean Corpuscular Volume 91.3 fL (80-100); Monocytes Absolute Auto 700 /uL (0-900); Monocytes Percent Auto 7.6 % (3-14); Neutrophils Absolute Auto 6700 /uL (1500-7000); Neutrophils Percent Auto 71.3 % (50-75); Platelet Count 204 X10^3/uL (150-400); Red Blood Cell Count 3.76 X10^6/uL (4.0-5.2); White Blood Cell Count 9.4 X10^3/uL (4.5-11.0)
[2021-07-09 14:16] LABS: Alanine Aminotransferase 24 IU/L (<35); Albumin 3.1 g/dL (3.5-5.0); Albumin Globulin Ratio 1.1 (1.0-2.8); Alkaline Phosphatase 130 U/L (38-126); Aspartate Aminotransferase 24 IU/L (14-36); BUN Creatinine Ratio 21.3 (6-22); Bilirubin Total 0.3 mg/dL (0.2-1.3); Blood Urea Nitrogen 13 mg/dL (7-17); Calcium 8.2 mg/dL (8.4-10.2); Carbon Dioxide 19 mmol/L (22-32); Chloride 108 mmol/L (98-107); Estimated Glomerular Filt Rate > 60.0 mL/min (>60); Globulin 2.9 g/dL (1.7-4.1); Glucose 76 mg/dL (70-100); HEMOLYSIS < 15 (0-50); Potassium 3.9 mmol/L (3.4-5.1); Sodium 135 mmol/L (137-145); Uric Acid 5.1 mg/dL (2.5-6.2)
[2021-07-09 14:30] VITALS: BP 130/89; BP 138/70; PULSE 88; RESP 20; TEMP 36.5
[2021-07-09 14:33] LABS: Creatinine Urine Random 88.6 mg/dL; Protein (Total) Urine Random 14 mg/dL (0-12); Protein Creatinine Ratio Urine 0.15 GRAM/24H
[2021-07-09] MEDS: LACTATED RINGERS 1,000 ML 75 ML IV (15:35)
[2021-07-09] MEDS: MAGNESIUM SULFATE 4 GM/100 ML PIGGYBACK IV ×2 (15:41→17:29)
[2021-07-09 15:42] LABS: COVID19 -Nasal RAPID Negative (Negative)
[2021-07-09] MEDS: MAGNESIUM SULFATE 20 GM/500 ML IV.SOLN IV (16:16)
== END 2021-07-09 16:55 | disposition short-term general hospital (02) | DRG 566 ==
PROVIDERS: Admitting Provider Obstetrics & Gynecology; Family Provider Specialist; Referring Provider Obstetrics & Gynecology; Visit Provider Obstetrics & Gynecology
DX: O13.3 Gestational [pregnancy-induced] hypertension without significant proteinuria, third trimester; Z3A.34 34 weeks gestation of pregnancy; O36.5930 Maternal care for other known or suspected poor fetal growth, third trimester, not applicable or unspecified; Z20.822 Contact with and (suspected) exposure to COVID-19
CPT/HCPCS: 36415; 59025; 59050; 76811; 76819; 80053; 82570; 84156; 84550; 85025; 87635; 96360; 96361; C9803; G0378; G0379; J3475

== ENCOUNTER → 2021-09-09 16:18 | Outpatient (CLI) | payer OTHER, MEDICAID, SELFPAY ==
[2021-01-07 17:16] VITALS: BMI 29.2
[2021-09-09 16:47] LABS: COVID19 -Nasal RAPID Negative (Negative)
== END ==
PROVIDERS: Family Provider Specialist; Visit Provider Obstetrics & Gynecology
DX: Z01.812 Encounter for preprocedural laboratory examination (principal); Z20.822 Contact with and (suspected) exposure to COVID-19
CPT/HCPCS: 87635

== ENCOUNTER 2021-09-10 08:03 | Day surgery (SDC) | payer OTHER, MEDICAID, SELFPAY ==
[2021-01-07 17:16] VITALS: BMI 29.2
--- NOTE | 2021-09-10 | PATH_ITS ---
[facility] Accession Number: [id number] . 01 Material submitted: . fallopian tube - BILATERAL FALLOPIAN TUBES . 01 Diagnosis: Fallopian Tubes, Bilateral Salpingectomy: Two fimbriated fallopian tubes without significant pathologic abnormality. MRV 09/14/2021 1654 Local . 01 Electronically signed: . Graciela Graves MD, Pathologist NPI- [id number] . 01 Gross description: . Received in formalin, labeled with the patient's name and designated bilateral fallopian tubes, are three undesignated fallopian tube segments, two of which are fimbriated. The first segment is 6.0 cm long by 0.6 cm in diameter with a montoya-purple outer surface and attached open fimbriae. The second segment is disrupted, 3.0 cm long by 0.7 cm in diameter with a purple-montoya, focally clamped outer surface and attached open fimbriae. The third segment is non-fimbriated, 3.5 cm long by 0.4 cm in diameter, with a purple-montoya, unremarkable cut surface. No additional lesions are identified. Superintendent sections are submitted as follows: A1: Superintendent first fallopian tube with entire bisected fimbriae. A2: Superintendent second segment with entire bisected fimbriae and help desk representative non-fimbriated segment (inked blue). (RONNY:[id number]) /R 09/11/20212046 Local . 01 Pathologist provided ICD-10: Z30.2 . 01 CPT . 479779, 505677 Specimen Comment: A courtesy copy of this report has been sent to [phone] Performed at: 01 [facility] [address] [place] [address] Suite [facility], [place], [place] [id number] MD Jayro Naranjo MD Phone: [phone]
[2021-09-10 08:41] VITALS: BP 103/71; PULSE 74; RESP 16; TEMP 36.3; O2SAT 98
--- NOTE | 2021-09-10 09:15 | PM.PREOP ---
Pre-operative Note COVID-19 COVID-19 status: Negative Result date/Date tested (Pos, Neg/Pending): 09/09/21 Criteria for continued procedure: Non-surgical alternatives not available or appropriate per current SOC Interval Note History & Physical reviewed/Exam performed by Physician: Yes Changes to H&P: No
--- NOTE | 2021-09-10 09:55 | SUR.OPER ---
Lithotomy on padded OR bed, head on pillow, arms secured on padded arm boards at <90 degrees abduction. Legs secured in padded yellow fins stirrups.
[2021-09-10] MEDS: CEFAZOLIN 2 GM/20 ML SYRINGE IV (10:03)
[2021-09-10] MEDS: LACTATED RINGERS 1,000 ML 42 ML IV (10:05)
[2021-09-10] MEDS: BUPIVACAINE 0.5% W/ EPI (PF) 30 ML VIAL INJ (10:05)
[2021-09-10 10:28] VITALS: BP 117/80; PULSE 100; RESP 16; TEMP 36.2; O2SAT 98
--- NOTE | 2021-09-10 10:31 | P.OP_ITS ---
Operative Date/Time/Diagnoses Date of procedure: 09/10/21 Time of procedure: 09:45 Pre-op diagnosis: Request for sterilization Post-op diagnosis: same Procedure & Clinicians Procedure: Procedures Operation Date: 09/10/21 09:15 Actual Procedure Side Surgeon p Laparoscopic Salpingectomy Bilateral Dax Valderrama MD Indications: Alicia is a 36 yo s/p 7 weeks ago admitted for elective sterilization at her request by laparoscopic bilateral salpingectomy. Patient preoperatively has been counseled on several occasions that this is a permanent and irreversible procedure her which will result in her being unable to bear children without the benefit of assisted reproductive technology. With full knowledge and understanding of the above we are proceeding with laparoscopic bilateral salpingectomy at this time. Surgeon: Dax Valderrama Anesthesia Type: General Operative Notes Findings: Normal pelvis and abdominal cavity to laparoscopic inspection. Closure Type: primary Specimen(s): left tube and right tube Estimated blood loss (mL): 5 Blood products transfused: none Procedure in detail: With the patient under satisfactory general LMA in the modified dorsal lithotomy position, the perineum, vagina, and abdomen were prepped and draped for laparoscopic bilateral salpingectomy. A pre-surgical safety time-out was then taken in accordance with [facility] OR protocols. The umbilicus was infiltrated with 0.5% Marcaine with epinephrine and a 5 mm vertical incision was made in the lower portion of the umbilicus. A Veress needle was used to insufflate the abdomen with carbon dioxide and once appropriately insufflated, a 5 mm laparoscopic trocar and sleeve were placed through the umbilical incision. Proper placement of the sleeve was confirmed with the laparoscoped and a 2nd and 3rd 5 mm laparoscopic trocar and sleeve were introduced in the right and left mid quadrants using a similar technique. Using a 3 puncture technique the pelvis and abdomen were visualized with the findings as noted previously. The distal right fallopian tube was grasped and elevated so as to be able to use the power seal bipolar device to coagulate and divide the fimbrial very cuff from the ovary, the mesosalpinx across to the cornua and the cornual portion of the fallopian tube was coagulated and divided as well. The specimen was removed through 1 of the 5 mm ports. Attention was then turned to the left side with the distal tube elevated, the fimbria varicose coagulated and divided with the power seal and that dissection carried across the mesosalpinx to the cornua as it had been on the right. The excised fallopian tube was removed from the abdominal cavity through 1 of the 5 mm ports. The pelvis was carefully inspected and there was no areas of bleeding or other abnormality seen. That point the pneumoperitoneum was vented, the laparoscopic sleeves removed, and the skin incisions closed with 4-0 Monocryl using inverted interrupted stitches. Skin glue was applied followed by appropriate dressings, the patient was awakened, and then transferred to the PACU for a period of observation and recovery having tolerated the procedure well. Complications: none Post-operative Condition: stable Disposition: PACU Plan for aftercare: Routine postop care with postop follow-up scheduled for 2 weeks following surgery.
[2021-09-10 10:38] VITALS: BP 117/85; PULSE 90; RESP 16; O2SAT 100
[2021-09-10] MEDS: OXYCODONE/ACETAMINOPHEN 5/325 TABLET 1 TAB PO (10:44)
[2021-09-10 10:48] VITALS: BP 113/81; PULSE 84; RESP 16; O2SAT 98
[2021-09-10 10:59] VITALS: BP 110/70; PULSE 88; RESP 16; TEMP 36.2; O2SAT 98
== END 2021-09-10 11:18 | disposition home or self-care (01) ==
PROVIDERS: Family Provider Specialist; Referring Provider Obstetrics & Gynecology; Visit Provider Obstetrics & Gynecology
PROC: 0UT74ZZ Resection of Bilateral Fallopian Tubes, Percutaneous Endoscopic Approach (ICD-10-PCS; CPT 58661; principal; 2021-09-10 09:15)
DX: Z30.2 Encounter for sterilization (principal)
CPT/HCPCS: 58661; 81025; J0330; J0461; J0690; J1100; J2405; J2704; J3010

== ENCOUNTER 2021-12-04 12:32 | Emergency (ER) | payer OTHER, MEDICAID, SELFPAY ==
[2021-01-07 17:16] VITALS: BMI 29.2
[2021-12-04 12:38] VITALS: BP 129/77; PULSE 75; RESP 14; TEMP 36.4; O2SAT 99; BMI 27.4
--- NOTE | 2021-12-04 12:40 | ED_ITS ---
HPI - Chest Pain General Chief Complaint: Chest Pain Stated Complaint: Low BP/ChestPain/Numbness in Lt Arm and Hand/Nause Time Seen by Provider: 12/04/21 12:39 Source: patient Mode of arrival: Ambulatory Limitations: no limitations History of Present Illness HPI narrative: This is a 36-year-old female with history of preeclampsia and persistent hypertension . Patient delivered in July, she is been on nifedipine 30 mg extended release since then she was instructed to weaned down to every other day but states she has not really been able to without her pressure increasing. Last night she took her nifedipine she is had pressures in the 80s today. No syncope or lightheadedness, she had an episode of chest pain which she describes as epigastric for a couple minutes at 11:15 a.m. that radiated to her left shoulder and made her left arm feel sore, she states she also had some tingling in her left arm. She is had some nausea but no vomiting. No shortness of breath. She denies any diarrhea, constipation or urinary symptoms. Patient denies any any dysuria, urgency or frequency. No vaginal bleeding. She has not started menses. She is , she is taking a supplement called liquid goal. She had a tubal ligation in August, cholecystectomy remotely. No tobacco, alcohol or illicit. 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 Patient is back at work. She is following with Dr. Valderrama and saw him at her follow-up appointment in August. Related Data Previous Rx's Medication Instructions Recorded tramadol 50 mg tablet 100 mg PO Q6H PRN Pain, Moderate 07/06/21 (4-6) #30 tabs nifedipine 30 mg tablet,extended 30 mg PO DAILY #30 tabs 08/11/21 release Double electric breast pump #1 ea 08/26/21 Allergies Allergy/AdvReac Type Severity Reaction Status Date / Time eggplant Allergy Severe THROAT Verified 12/04/21 12:43 SWELLING, HIVES hydrocodone [From Vicodin] Allergy Intermediate Hives Verified 12/04/21 12:43 tetanus and diphtheria Allergy Intermediate Difficulty Verified 12/04/21 12:43 toxoids Breathing codeine AdvReac Intermediate Nausea Verified 12/04/21 12:43 Review of Systems Review of Systems ROS Unobtainable: All systems reviewed & are unremarkable except as noted in HPI and below Patient History Medical History Abnormal ultrasound of abdomen (~01/2020) Acne (~1996) Acute cholecystitis without calculus (~01/2020) Depression (~2010) Dietary counseling and surveillance Ectopic (~04/15/20) Hearing loss (~2017) Hemorrhoid (~2014) History of female sterilization History of UTI (~2014) Hyperemesis gravidarum (~05/2010) Low back pain (~06/2019) Migraines (~2014) MRSA (methicillin resistant Staphylococcus aureus) (~2014) Painful menstrual periods depression associated with second Recurrent urinary tract infection (10/19/15) Rib pain on left side (~06/2019) Right flank pain (~2014) Sepsis (~01/2020) Spasm of left piriformis muscle (~06/2019) Vaginal yeast infection (~2010) Surgical History Anesthesia H/O colonoscopy (~2008) H/O dilation and curettage History of esophagogastroduodenoscopy (EGD) (~2008) Status post laparoscopic cholecystectomy (~01/09/20) Family History Mother Brain tumor (benign) Father Depression Grandmother Lung cancer metastatic to brain Myocardial infarction Hypothyroid H/O thyroidectomy Hypertension Diabetes mellitus Cancer History of heart disease Mental health problem Grandfather Alzheimer disease COPD (chronic obstructive pulmonary disease) H/O bilateral hip replacements Mental health problem Stroke Grandmother Diverticulitis Grandfather Myocardial infarction Smoker History of heart disease Social History marital status: unmarried,living together number of children: 6 household members: significant other and children lives independently: Yes caregiver/support person: No housing: other (Double-wide trailer.) pets and animals: Yes (1 cat, dog, bird, rabbit, snake: aware of cat precautions. 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 ) current occupational exposures/hazards: Yes (Home septic leak into well water; was given boil notice/now chlorine.) heather/yarsanism: Non-tenriism special heather needs: No seatbelt use: always do you feel safe at home: Yes Smoking Status: Never smoker second hand exposure: No alcohol intake: former substance use type: does not use during the past year weight has: remained stable well-balanced diet: rarely or never (Hyperemesis, also diet restrictions due to gallbladder removal. Would like referral to nutionist.) daily servings fruits/ve-1 caffeine: No Type(s) of exercise: walking and normal ROM and activity ([id number] steps/day normally.) frequency: does not exercise (x2 weeks, on the couch, feeling poorly. ) Smoking Status: Never smoker alcohol intake frequency: holidays/special occasions only Substance Use Type: does not use Exam Narrative Exam Narrative: GENERAL: Alert and oriented x three, female in mild distress. HEENT: Head normocephalic, atraumatic, EOMI, pupils reactive, face symmetric, moist mucous membranes NECK: Supple, full range of motion CARDIOVASCULAR: Regular rate and rhythm without murmurs, rubs or gallops. No JVD. No swelling bilateral lower extremities. RESPIRATORY: Breath sounds equal bilaterally, no wheezes rales or rhonchi. ABDOMEN: Soft, nontender. Normoactive bowel sounds all 4 quadrants. No guarding or rebound, rigidity, no mass : No CVA tenderness EXTREMITIES: Normal range of motion, no clubbing or edema. Neurovascularly intact NEUROLOGICAL: Cranial nerves II through XII grossly intact. Moving all ext remities SKIN: Warm, dry, no petechiae, no rashes or lesions. Initial Vital Signs Initial Vital Signs: Vital Signs Temperature 97.5 F L 12/04/21 12:38 Pulse Rate 75 12/04/21 12:38 Respiratory Rate 14 12/04/21 12:38 Blood Pressure 129/77 12/04/21 12:38 Pulse Oximetry 99 12/04/21 12:38 Oxygen Delivery Method 12/04/21 12:38 Course Orders Ordered: Discontinued Medications Sodium Chloride (Normal Saline 0.9%) 1,000 mls @ 1,000 mls/hr IV BOLUS ONE Stop: 12/04/21 14:32 Last Infusion: 12/04/21 14:57 Dose: 1,000 mls/hr Documented By: Admin: 12/04/21 13:39 Dose: 1,000 mls/hr Documented By: CARTER Vital Signs Vital signs: Vital Signs - 8 hr 12/04/21 12:38 12/04/21 15:34 Temperature 97.5 F L Pulse Rate 75 58 L Respiratory Rate 14 Blood Pressure 129/77 116/79 Pulse Oximetry 99 100 Oxygen Delivery Method Room Air Room Air MDM - Chest Pain Lab Data Result diagrams: 12/04/21 12:45 12/04/21 12:45 Labs: Lab Results 12/04/21 12/04/21 12/04/21 Range/Units 12:45 12:45 12:45 WBC 5.0 (4.5-11.0) X10^3/uL RBC 4.40 (4.0-5.2) X10^6/uL Hgb 13.5 (12.0-16.0) g/dL Hct 39.7 (36-46) % MCV 90.3 (80-100) fL MCH 30.7 (26-34) PG MCHC 34.0 (30-36) % RDW 13.4 (11.6-14.8) % Plt Count 287 (150-400) X10^3/uL Neut % (Auto) 62.2 (50-75) % Lymph % (Auto) 23.8 L (25-40) % Bonner % (Auto) 10.5 (3-14) % Eos % (Auto) 2.9 (2-4) % Baso % (Auto) 0.6 (0-2) % Neut # (Auto) 3100 (8460-2567) /uL Lymph # (Auto) 1200 (9872-7606) /uL Bonner # (Auto) 500 (0-900) /uL Eos # (Auto) 100 (0-450) /uL Baso # (Auto) 0 (0-100) /uL D-Dimer 329 (<500) ng/ml Sodium 139 (137-145) mmol/L Potassium 3.9 (3.4-5.1) mmol/L Chloride 111 H (98-107) mmol/L Carbon Dioxide 22 (22-32) mmol/L BUN 15 (7-17) mg/dL Creatinine 0.59 (0.52-1.04) mg/dL Estimated GFR > 60 (>60) mL/min BUN/Creatinine Ratio 25.4 H (6-22) Glucose 94 (70-100) mg/dL Calcium 8.9 (8.4-10.2) mg/dL Magnesium 1.8 (1.6-2.3) mg/dL Total Bilirubin 0.8 (0.2-1.3) mg/dL AST 87 H (14-36) IU/L ALT 117 H (<35) IU/L Alkaline Phosphatase 123 (38-126) U/L Total Creatine Kinase 30 (30-135) U/L CK-MB (CK-2) TNP CK-MB (CK-2) Rel Index TNP Troponin I < 0.012 (0.01-0.034) ng/mL Total Protein 7.4 (6.3-8.2) g/dL Albumin 4.3 (3.5-5.0) g/dL Globulin 3.1 (1.7-4.1) g/dL Albumin/Globulin Ratio 1.4 (1.0-2.8) Lipase 89 (23-300) U/L 12/04/21 Range/Units 14:45 WBC (4.5-11.0) X10^3/uL RBC (4.0-5.2) X10^6/uL Hgb (12.0-16.0) g/dL Hct (36-46) % MCV (80-100) fL MCH (26-34) PG MCHC (30-36) % RDW (11.6-14.8) % Plt Count (150-400) X10^3/uL Neut % (Auto) (50-75) % Lymph % (Auto) (25-40) % Bonner % (Auto) (3-14) % Eos % (Auto) (2-4) % Baso % (Auto) (0-2) % Neut # (Auto) (8563-8660) /uL Lymph # (Auto) (4593-8539) /uL Bonner # (Auto) (0-900) /uL Eos # (Auto) (0-450) /uL Baso # (Auto) (0-100) /uL D-Dimer (<500) ng/ml Sodium (137-145) mmol/L Potassium (3.4-5.1) mmol/L Chloride (98-107) mmol/L Carbon Dioxide (22-32) mmol/L BUN (7-17) mg/dL Creatinine (0.52-1.04) mg/dL Estimated GFR (>60) mL/min BUN/Creatinine Ratio (6-22) Glucose (70-100) mg/dL Calcium (8.4-10.2) mg/dL Magnesium (1.6-2.3) mg/dL Total Bilirubin (0.2-1.3) mg/dL AST (14-36) IU/L ALT (<35) IU/L Alkaline Phosphatase (38-126) U/L Total Creatine Kinase (30-135) U/L CK-MB (CK-2) CK-MB (CK-2) Rel Index Troponin I < 0.012 (0.01-0.034) ng/mL Total Protein (6.3-8.2) g/dL Albumin (3.5-5.0) g/dL Globulin (1.7-4.1) g/dL Albumin/Globulin Ratio (1.0-2.8) Lipase (23-300) U/L Point of Care Testing Test Results Negative Urine Dip Bedside Urine Glucose Negative Bedside Urine Bilirubin - Negative Bedside Urine Ketone - Negative Urine Specific [place] 1.0 Bedside Urine Occult Blood - Negative Bedside Urine pH 6 Bedside Urine Protein - Negative Bedside Urine Urobilinogen +/- 1mg Bedside Urine Nitrite - Negative Bedside Urine Leukocytes - Negative Esterase Imaging Data Chest x-ray: Radiologist's Impression: Alicia Tobin??36??F??1985 ? Allergy/Adv: eggplant, hydrocodone, tetanus and diphtheria toxoids, codeine (More??) Close Chest X-Ray (Signed) Beth Tyson - 12/04/21 DI Result 11/02/21 Ultrasound (Signed) Alcon Ruiz - 07/09/21 Telemetry Strips 07/07/21 Abdomen Ultrasound (Signed) Marlen Montero - 07/05/[address] (Signed) Kathy Estevez - 07/05/21 Telemetry Strips 07/04/21 Telemetry Strips 07/04/21 Ultrasound (Signed) Rickey Villavicencio - 05/19/21 Ultrasound (Signed) Thom Spencer - 01/17/21 Ultrasound (Signed) Tyrone Verduzco - 01/08/21 Pelvis Ultrasound (Signed) Shawn Moss - 04/15/20 Vascular Ultrasound (Signed) PowellJayro payne - 01/11/20 Abdomen Ultrasound (Signed) David Rossi - 01/08/20 Chest CTA (Signed) Kathy Estevez - 01/08/20 Chest X-Ray (Signed) Rickey Villavicencio - 01/06/20 Renal Ultrasound (Signed) Cullen,Sandip - 01/05/[address] (Signed) Vidal Mccall - 01/05/20 Abdomen/Pelvis CT (Signed) Vidal Mccall - 01/05/20 DI Result CC 05/19/19 Ultrasound (Signed) Cullen,Sandip - 03/07/19 Launch?[address] [address] XRay Report Signed Patient: Alciia Tobin MR#: [id number] : 1985 Acct:[id number] Age/Sex: 36 / F Date of Service: 12/04/21 Loc: ED Accession Number: [id number] ?? Procedure: XR chest 1V Ordering Provider: Natalia Morales D.O. PROCEDURE:? XR CHEST 1V ? INDICATIONS:? chest pain ? TECHNIQUE:? One view of the chest was acquired.? ? COMPARISON:[facility], , XR CHEST 1V, 01/06/2020, 16:13. ? FINDINGS:? ? Surgical changes and devices:? None.? ? Lungs and pleura:? Lungs are clear.? No pleural effusions or pneumothorax.? ? Mediastinum:? Mediastinal contours appear normal.? Heart size is normal.? ? Bones and chest wall:? No suspicious bony lesions.? Overlying soft tissues appear unremarkable.? ? IMPRESSION:? No acute pulmonary process. ? ? Dictated by: Beth Tyson M.D. on 12/04/2021 at 13:00 ? ? Approved by: Beth Tyson M.D. on 12/04/2021 at 13:00?? ECG Data Attestation: I personally reviewed and interpreted this ECG as follows: Interpretation: Sinus rhythm rate of 68 NE 146 QRS 86 and QTC of 418. No ST elevation depression noted. No S1 Q 3 T3. Patient has prior from 07/07/2021 which appears similar. EKG 2. Shows sinus bradycardia rate of 50 NE 128 QRS 82 and QTC 397. No acute ST changes appreciated. MDM Narrative Medical decision making narrative: This is a 36-year-old female who is several months with delivery in July who had preeclampsia required oral antihypertensives. Patient has continued to take her nifedipine daily. She was recommended to wean off at her visit in August, she is been continuing at nightly but is trying to wean down to every other day. She had low blood pressures today. She had an episode of chest pain this morning that lasted for a few minutes that was substernal and radiated to her left upper extremity she does not have other risk factors she did not have hypertension prior to her . Discussed with patient at this time her lab work including D-dimer is reassuring, no acute EKG changes, chest x-ray shows no major change. The blood pressure she describes when off her nifedipine are in the 130-140 range and we discussed she is far enough out that I would continue to wean and if they need they can always start her on a new medication and a lower dose if necessary and that she should follow-up with OBGYN for further guidance. Discharge Plan Departure Patient Disposition: Home Clinical Impression: Atypical chest pain Activity Restrictions/Additional Instructions: Follow-up with your distance learning coordinator provider. I would recommend continuing to try to wean your nifedipine by taking a dose every other day. Continue to monitor your blood pressure at home. Please return for lightheadedness or passing out, new or worsening chest pain, shortness of breath, persistent vomiting, new swelling of extremities or other new or concerning symptoms. Prescriptions: No Action nifedipine 30 mg tablet extended release 30 mg PO DAILY Qty: 30 3RF (DME) Double electric breast pump See Rx Instructions .Route .MEDSUPPLY Qty: 1 0RF Rx Instructions: Use electric breast pump and supplies as directed for 99 months. Delivered 07/11/21 tramadol 50 mg Tablet 100 mg PO Q6H PRN (Reason: Pain, Moderate (4-6)) Qty: 30 0RF Referrals: Miscellaneous,DoctorMD [Primary Care Provider] - Stand Alone Forms: Work Release Note Visit Report Forms: Patient Portal/API
--- NOTE | 2021-12-04 12:42 | DI.RAD.S_ITS ---
PROCEDURE: XR CHEST 1V INDICATIONS: chest pain TECHNIQUE: One view of the chest was acquired. COMPARISON: [facility], CR, XR CHEST 1V, 01/06/2020, 16:13. FINDINGS: Surgical changes and devices: None. Lungs and pleura: Lungs are clear. No pleural effusions or pneumothorax. Mediastinum: Mediastinal contours appear normal. Heart size is normal. Bones and chest wall: No suspicious bony lesions. Overlying soft tissues appear unremarkable. IMPRESSION: No acute pulmonary process. Dictated by: Beth Tyson M.D. on 12/04/2021 at 13:00 Approved by: Beth Tyson M.D. on 12/04/2021 at 13:00
[2021-12-04 12:54] LABS: Add Manual Diff / Slide Review NO; Basophils Absolute Auto 0 /uL (0-100); Basophils Percent Auto 0.6 % (0-2); Eosinophils Absolute Auto 100 /uL (0-450); Eosinophils Percent Auto 2.9 % (2-4); Hematocrit 39.7 % (36-46); Hemoglobin 13.5 g/dL (12.0-16.0); Lymphocytes Absolute Auto 1200 /uL (1100-4500); Lymphocytes Percent Auto 23.8 % (25-40); Mean Corpuscular Hemoglobin 30.7 PG (26-34); Mean Corpuscular Volume 90.3 fL (80-100); Monocytes Absolute Auto 500 /uL (0-900); Monocytes Percent Auto 10.5 % (3-14); Neutrophils Absolute Auto 3100 /uL (1500-7000); Neutrophils Percent Auto 62.2 % (50-75); Platelet Count 287 X10^3/uL (150-400); Red Cell Distribution Width 13.4 % (11.6-14.8)
[2021-12-04 13:05] LABS: Alanine Aminotransferase 117 IU/L (<35); Albumin 4.3 g/dL (3.5-5.0); Albumin Globulin Ratio 1.4 (1.0-2.8); Alkaline Phosphatase 123 U/L (38-126); Aspartate Aminotransferase 87 IU/L (14-36); BUN Creatinine Ratio 25.4 (6-22); Bilirubin Total 0.8 mg/dL (0.2-1.3); Blood Urea Nitrogen 15 mg/dL (7-17); Calcium 8.9 mg/dL (8.4-10.2); Carbon Dioxide 22 mmol/L (22-32); Chloride 111 mmol/L (98-107); Creatine Kinase 30 U/L (30-135); Estimated Glomerular Filt Rate > 60 mL/min (>60); Globulin 3.1 g/dL (1.7-4.1); Glucose 94 mg/dL (70-100); HEMOLYSIS < 15 (0-50); Lipase 89 U/L (23-300); Magnesium 1.8 mg/dL (1.6-2.3); Potassium 3.9 mmol/L (3.4-5.1); Sodium 139 mmol/L (137-145); Total Protein 7.4 g/dL (6.3-8.2)
[2021-12-04 13:16] LABS: Troponin I < 0.012 ng/mL (0.01-0.034)
[2021-12-04 13:31] LABS: D Dimer 329 ng/ml (<500)
[2021-12-04] MEDS: SODIUM CHLORIDE 0.9% 1,000 ML 1000 ML IV (13:39)
[2021-12-04 15:18] LABS: Troponin I < 0.012 ng/mL (0.01-0.034)
[2021-12-04 15:34] VITALS: BP 116/79; PULSE 58; O2SAT 100
== END 2021-12-04 15:35 | disposition home or self-care (01) ==
PROVIDERS: Emergency Provider Emergency Medicine; Family Provider Specialist
DX: R07.89 Other chest pain (principal); I95.9 Hypotension, unspecified
CPT/HCPCS: 36415; 71045; 80053; 81003; 81025; 82550; 83690; 83735; 84484; 85025; 85379; 93005; 96360; 99284

== ENCOUNTER → 2022-04-21 16:49 | Outpatient (CLI) | payer OTHER, MEDICAID, SELFPAY ==
[2021-01-07 17:16] VITALS: BMI 29.2
== END ==
PROVIDERS: Family Provider Specialist; Visit Provider Physician Assistant Medical
DX: J02.9 Acute pharyngitis, unspecified (principal)
CPT/HCPCS: 87070; 87880